=== PATIENT | male | born 1950 | race Caucasian/White ===

== ENCOUNTER → 2016-11-25 | Outpatient (CLI) | payer OTHER ==
[~2016-11-25] MED LIST: AMIO200T4 PO; AMLO-110 PO; ANSHCCR PR; APIX1TAB3 PO; BENZ1CAP90 PO; CLC100 PO; CRD200 PO; DABI150C PO; FEXO1TAB49 PO; IRBE-39 PO; METO25TA3 PO; MONT1TAB3 PO; NSP/500 PO; PRD75 PO; PRLSR20 PO; SPIR25TA PO; TRAM-10 PO; ULT50X PO; UMEC1INH INH; VNTHFA/IN INH
== END | disposition home or self-care (01) ==
LOC: C.LAB1850 10:06
PROVIDERS: ATTEND Family Medicine
DX: R91.8 Other nonspecific abnormal finding of lung field (principal)

== ENCOUNTER → 2016-11-26 | Outpatient (CLI) | payer OTHER | END | disposition home or self-care (01) | LOC: C.LAB 11:46 | PROVIDERS: ATTEND Surgery | DX: C34.90 Malignant neoplasm of unspecified part of unspecified bronchus or lung (principal) ==

== ENCOUNTER → 2016-12-08 | Outpatient (CLI) | payer OTHER ==
--- NOTE | 2016-12-08 12:09 | DIAGNOSTIC IMAGING REPORT ---
PET/CT SKULL-THIGH CLINICAL HISTORY: LUNG MASS COMPARISON STUDY: Outside CT scan dated 11/19/2016 FINDINGS: The patient was injected with 13.6 mCi of F 18 labeled FDG. Within the neck, there is mild asymmetric increased activity within the oropharynx at the base the tongue on the right. This has an SUV maximum 6.0. There is minimal associated soft tissue asymmetry. Direct visualization is recommended in follow-up. Within the chest, there is a left upper lobe pulmonary mass measuring 41 mm in long axis. This is FDG avid with SUV maximum of 9.5. This lesion should be presumed neoplastic unless proven otherwise. There is an FDG avid AP mediastinal lymph node abutting the anterior aspect of the descending thoracic aorta just distal to the arch. This measures 28 mm. This has an SUV maximum of 8.3. There is also an FDG avid AP window lymph node measuring 15 mm. This has an SUV maximum of 5.5. There are FDG avid right axillary lymph nodes measuring up to 11 mm in diameter. These have an SUV maximum of 4.9. Within the abdomen, there are no FDG avid hepatic masses. There are no FDG avid adrenal masses. There is physiologic urinary tract and bowel activity. There are no FDG avid skeletal lesions. IMPRESSION: 1. FDG avid left upper lobe pulmonary mass measuring 41 mm in diameter. This should be presumed neoplastic unless proven otherwise 2. FDG avid mediastinal adenopathy, suspicious for neoplasm 3. FDG avid right axillary lymph nodes 4. Asymmetric FDG activity within the oropharynx at the base the tongue on the right. Direct visualization is recommended in follow-up. Electronically signed by: Juan Arango M.D. 12/08/2016 12:07 PM Dictated Date/Time: 12/08/2016 11:56 AM
== END | disposition home or self-care (01) ==
LOC: C.PET 09:43
PROVIDERS: ATTEND Internal Medicine Pulmonary Disease
DX: R91.1 Solitary pulmonary nodule (principal)

== ENCOUNTER 2016-12-17 10:31 | Inpatient (IN) | payer OTHER ==
[2016-12-08 14:55] VITALS: BMI 31.0
[~2016-12-17] VITALS: Ht 182.9 cm; Wt 104.5 kg
[2016-12-17] VITALS (10 sets, daily range): BP systolic 111–147; BP diastolic 67–96; PULSE 52–88; TEMP 36.5; O2SAT 92–98; Ht 182.9 cm; Wt 104.5 kg
[~2016-12-17 10:31] MED LIST changes: -AMIO200T4 PO; -ANSHCCR PR; -APIX1TAB3 PO; -CLC100 PO; -CRD200 PO; +LACTATED RINGER'S 1000ML 1,000 ML IV SCH; -PRD75 PO; -TRAM-10 PO; -ULT50X PO; -VNTHFA/IN INH
[2016-12-17] MEDS ORDERED: MIDAZOLAM HCL 1 MG/ML 2ML VIAL ONE ×2 (10:49→14:36)
[2016-12-17] MEDS ORDERED: FENTANYL CITRATE INJ 50 MCG/1 ML 2 ML VIAL ONE (10:49)
--- NOTE | 2016-12-17 11:28 | Discharge Instructions ---
Discharge Instructions Visit Reason for Visit: Left Lung Mass Discharge Discharge Diagnosis / Problem: Left Lung Mass Discharge Goals Goal(s): Learn about illness Activity Recommendations Activity Limitations: resume your previous activity (in 24 hours) Anesthesia . Post Anesthesia Instructions: If you have had General Anesthesia or IV Sedation: * Do not drive today. * Resume driving when surgeon permits. * Do not make important decisions or sign legal documents today. * Call surgeon for: 1. Temperature elevations greater than 101 degrees F. 2. Uncontrollable pain. 3. Excessive bleeding. 4. Persistent nausea and vomiting. 5. Medication intolerance (nausea, vomiting or rash). * For nausea and vomiting use only clear liquids such as: tea, soda, bouillon until nausea subsides, then gradually increase diet as tolerated. * If you have any concerns or questions, call your surgeon's office. If physician is unavailable and it is an emergency, call 911 or go to the nearest emergency room. . Instructions / Follow-Up Instructions / Follow-Up 1. You may cough up some blood. Call physician if excessive amount noted. 2. keep your scheduled appointment with Dr. Ayala on December 27 @ 11:45. Diet Recommendations Recommended Home Diet: resume previous diet Pending Studies Studies pending at discharge: no Medical Emergencies . Who to Call and When: Medical Emergencies: If at any time you feel your situation is an emergency, please call 911 immediately. . Non-Emergent Contact . . "Provider Documentation" section prepared by Jesus Mcgill.
--- NOTE | 2016-12-17 11:53 | History & Physical Bridge Note ---
H&P Re-Evaluation Bridge Note: I have examined the patient, reviewed the History & Physical and in the interval since the performance of the History & Physical I have noted the following changes of clinical significance: No changes noted
[2016-12-17] MEDS ORDERED: DEXAMETHASONE SOD INJ 4 MG/ML VIAL ONE (12:36)
[2016-12-17] MEDS ORDERED: LIDOCAINE HCL 2% 2 ML VIAL (20MG/ML) ONE (12:36)
[2016-12-17] MEDS ORDERED: ONDANSETRON INJ 2 MG/ML 2 ML VIAL ONE (12:36)
[2016-12-17] MEDS ORDERED: PROPOFOL IV EMULSION 10 MG/ML 20 ML VIAL IV ONE (12:36)
[2016-12-17] MEDS ORDERED: GLYCOPYRROLATE INJ 0.2 MG/ML VIAL ONE (13:05)
[2016-12-17] MEDS ORDERED: LARYING-O-JET KIT (LTA) EXT ONE ×2 (13:06)
--- NOTE | 2016-12-17 13:59 | DIAGNOSTIC IMAGING REPORT ---
INTRAPROCEDURAL CHEST FILM [FLUOROSCOPIC SPOT IMAGE) CLINICAL HISTORY: Navigational Bronch w/biopsies COMPARISON STUDY: Outside chest x-ray 11/10/2016 FINDINGS: 228 seconds of fluoroscopic time was utilized. A single intraprocedural fluoroscopic spot images provided for interpretation. This demonstrates a bronchoscopic catheter projected over the left apex. IMPRESSION: Intraoperative fluoroscopic spot image of the chest obtained during navigational bronchoscopy Electronically signed by: Juan Arango M.D. 12/17/2016 1:57 PM Dictated Date/Time: 12/17/2016 1:56 PM
[2016-12-17] MEDS ORDERED: PROMETHAZINE HCL INJ 12.5 MG in SODIUM CHLORIDE 0.9% 50ML 50 ML IV PRN (14:00)
[2016-12-17] MEDS ORDERED: ONDANSETRON INJ 2 MG/ML 2 ML VIAL IV PRN ×2 (14:00→14:45)
[2016-12-17] MEDS ORDERED: EpHEDrine SULFATE INJ 50 MG/ML AMP IV PRN (14:00)
[2016-12-17] MEDS ORDERED: LABETALOL HCL IV 5 MG/ML 20ML IV PRN (14:00)
[2016-12-17] MEDS ORDERED: ALBUTEROL 0.083% NEBU SOLN 3 ML VIAL INH PRN (14:00)
[2016-12-17] MEDS ORDERED: ATROPINE SULFATE 0.1 MG/ML 5ML SYR IV PRN (14:00)
[2016-12-17] MEDS ORDERED: NURSING VERBAL MED ORDER ONE ×2 (14:20→14:35)
[2016-12-17] MEDS ORDERED: MoRPHine SULFATE 10 MG/ML CARP/VIAL ONE (14:20)
--- NOTE | 2016-12-17 14:25 | DIAGNOSTIC IMAGING REPORT ---
CHEST ONE VIEW PORTABLE HISTORY: s/p EBUS [place] Bronch COMPARISON: Chest 12/17/2016. FINDINGS: Large left pneumothorax with a maximal basilar pleural gap of 4.4 cm. Hazy appearance to the left lung is likely due to atelectasis. The heart is normal in size. There is question of mild right mediastinal shift. The right lung is clear. Left chest wall and neck base subcutaneous emphysema. IMPRESSION: A large left pneumothorax with questionable mild right mediastinal shift. Therefore, this raises the possibility of a tension pneumothorax. Electronically signed by: Zack Hernandez M.D. 12/17/2016 5:20 PM Dictated Date/Time: 12/17/2016 2:22 PM
[2016-12-17] MEDS ORDERED: D5W AND 1/2NSS 1,000 ML IV SCH (14:36)
[2016-12-17] MEDS ORDERED: MoRPHine SULFATE 2 MG/ML CARP IV PRN (14:45)
[2016-12-17] MEDS ORDERED: HYDROmorphone INJ 1 MG/ML SYR ONE (14:47)
--- NOTE | 2016-12-17 14:55 | DIAGNOSTIC IMAGING REPORT ---
SINGLE VIEW CHEST CLINICAL HISTORY: Chest tube placement. Pneumothorax. FINDINGS: An AP, portable, upright chest radiograph is compared to study performed earlier the same day 12/17/2016. Correlation with PET/CT dated 12/08/2016. The examination is degraded by portable technique, apical lordotic positioning, and patient rotation. The heart is enlarged and there is atherosclerotic calcification of the thoracic aorta. The pulmonary vascular structures noncongested. A chest tube has been placed. The tip terminates at the left apex. The left-sided pneumothorax has decreased in size. Only trace residual pneumothorax is seen at the left apex. Emphysema and chronic interstitial thickening is observed. Left apical density likely corresponds to the mass lesion seen on 12/08/2016. There is no large pleural effusion. The right lung is grossly clear. The skeletal structures are osteopenic. The bony thorax is grossly intact. Subcutaneous emphysema is present along the left chest wall. IMPRESSION: 1. A left-sided chest tube has been placed. There is only trace residual left apical pneumothorax. 2. Cardiomegaly and emphysema. 3. Left apical density likely corresponds to the patient's known left apical mass. Electronically signed by: Armando Soto M.D. 12/17/2016 2:54 PM Dictated Date/Time: 12/17/2016 2:51 PM
[2016-12-17] MEDS ORDERED: HYDROmorphone INJ 2 MG/ML SYR/VIAL IV PRN (15:00)
--- NOTE | 2016-12-17 15:08 | Anesthesiology Progress Note ---
Anesthesia Post Op Note Date & Time Dec 17, 2016 at 15:08 Vital Signs Pain Intensity: 4 Vital Signs Past 12 Hours Date Time Temp Pulse Resp B/P Pulse Ox O2 Delivery O2 Flow Rate FiO2 12/17/16 14:51 70 16 12/17/16 14:51 71 16 94 12/17/16 14:49 141/93 12/17/16 14:48 141/93 12/17/16 14:46 73 18 12/17/16 14:46 72 18 96 12/17/16 14:43 127/93 12/17/16 14:41 73 17 12/17/16 14:41 74 17 98 12/17/16 14:38 152/96 12/17/16 14:36 72 17 144/119 94 12/17/16 14:36 72 17 12/17/16 14:31 79 23 85 12/17/16 14:31 77 23 12/17/16 14:28 145/108 12/17/16 14:26 79 17 85 12/17/16 14:26 74 17 12/17/16 14:23 147/104 12/17/16 14:21 80 22 88 12/17/16 14:21 80 22 12/17/16 14:18 136/90 12/17/16 14:16 75 22 12/17/16 14:16 77 22 90 12/17/16 14:13 115/95 12/17/16 14:11 75 16 90 12/17/16 14:11 71 16 12/17/16 14:08 116/82 12/17/16 14:06 73 17 91 12/17/16 14:06 66 17 12/17/16 14:03 125/91 12/17/16 14:01 69 12/17/16 14:01 69 91 12/17/16 13:58 124/82 12/17/16 13:56 74 19 12/17/16 13:56 74 19 116/87 92 12/17/16 13:53 85/73 12/17/16 13:51 36.3 77 16 104/85 98 Mask 10 12/17/16 13:51 84 21 12/17/16 13:51 84 21 96 12/17/16 11:02 36.5 57 16 137/96 98 Room Air Notes Mental Status: alert / awake / arousable, participated in evaluation Pt Amnestic to Procedure: Yes Nausea / Vomiting: adequately controlled Pain: adequately controlled Airway Patency, RR, SpO2: stable & adequate BP & HR: stable & adequate Hydration State: stable & adequate Anesthetic Complications: no major complications apparent
[2016-12-17] MEDS: KETOROLAC TROMETHAMINE 15 MG/ML VIAL IV. SCH (18:00)
[2016-12-17] MEDS: ACETAMINOPHEN IV 1,000 MG in EMPTY BAG 0 ML IV SCH ×2 (18:24→23:58)
[2016-12-17] MEDS: METOCLOPRAMIDE HCL INJ 5 MG/ML 2 ML VIAL IV. SCH ×2 (18:26→23:58)
[2016-12-17] MEDS: MoRPHine SULFATE 2 MG/ML CARP IV PRN ×2 (19:07→20:42)
[2016-12-17] MEDS: CLINDAMYCIN IV 900 MG in DEXTROSE 5% ADD-VANTAGE 100ML 100 ML IV SCH (19:07)
[2016-12-17] MEDS: DOCUSATE SODIUM 100 MG CAP PO SCH (20:42)
[2016-12-17] MEDS ORDERED: NIASPAN 500 MG TABCR PO SCH (21:00)
[2016-12-17] MEDS ORDERED: METOPROLOL SUCC 50MG EXT REL TAB PO SCH (21:00)
[2016-12-17] MEDS ORDERED: MONTELUKAST SOD 10 MG TAB PO SCH (21:00)
[2016-12-17] MEDS: OXYCODONE/ACETAMINOPHEN 5-325 TAB PO PRN (23:58)
--- NOTE | 2016-12-18 01:58 | OPERATIVE REPORT ---
DATE OF OPERATION: 12/17/2016 PROCEDURE: Insertion of left 24-[place] thoracostomy tube. SURGEON: Dr. Thorne. Field Assembly Supervisor: NICOLE Mcclain. ANESTHESIA: Local. SPECIFICS OF PROCEDURE: The patient underwent an Electromagnetic navigational bronchoscopy with forceps, needle and brushings of a left upper lobe apical mass. We had no bleeding and had no other problem throughout the case, however, a post-procedure chest x-ray showed about at least a 50% pneumothorax and he started to getting some respiratory distress. After discussing thoroughly with the patient's and the patient, appropriate consent was obtained. The patient was given 2 mg of morphine and then I prepped his left anterior chest. At about the sixth interspace, I opened a small incision about 10-15 mm and using a long needle I anesthetized the deeper tissues over the overlying rib and then put the needle and once the needle got in, I got air back. I inserted a soft J-tip guidewire and then removed the needle. A dilator was slid over this and then removed. A 24-[place] chest tube was then slid over the guidewire with an enter obturator which was removed with the guidewire after I inserted this to the apex. It was sutured in place with a heavy silk suture. Small to moderate air leak, but no pneumothorax after the procedure. He tolerated it well. There was no bleeding. I attest to the content of the Intraoperative Record and any orders documented therein. Any exceptio ns are noted below.
[2016-12-18] MEDS: KETOROLAC TROMETHAMINE 15 MG/ML VIAL IV. SCH ×2 (02:00→10:00)
--- NOTE | 2016-12-18 02:17 | OPERATIVE REPORT ---
DATE OF OPERATION: 12/17/2016 PREOPERATIVE DIAGNOSIS: Hypermetabolic left upper lobe mass with mediastinal adenopathy. 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 PROCEDURE: 1. Endobronchial ultrasound with biopsy. 2. Navigational bronchoscopy with biopsies. SURGEON: Dr. Thorne. COMPOSITION SIDING WORKER: Ottoniel Dent, respiratory therapy. ANESTHESIA: General anesthesia with endotracheal intubation. INDICATION FOR PROCEDURE AND FINDINGS: Yoel Martinez is a very nice 66-year-old male who was found to have a left upper lobe mass and was referred for an evaluation. I was concerned about his mediastinal adenopathy, especially in the aortopulmonary window. I ordered a PET scan and set him up for an endobronchial ultrasound and a navigational bronchoscopy so we would make a tissue diagnosis. His mass was not in an area that was good for percutaneous biopsy given its proximity to the subclavian vessels. On 12/17/2016, the patient underwent an uncomplicated endobronchial ultrasound. I could not get to his aortopulmonary window node which was markedly hypermetabolic on the PET scan; however, a level 7 node did have metastatic disease. It was difficult to say what cell type, and given the fact that this was fairly advanced disease, I thought that tissue biopsy with more tissue was important. I discussed this with Dr. Wes Zamudio. The navigational bronchoscopy went well. I felt like I was in it using the radial ultrasound probe and the computer guide; however, while there were some suspicious cells, we did not get a confirmatory diagnosis. He tolerated it well; however, he was seen to have a pneumothorax postoperatively and I did insert a chest tube in the PACU. PROCEDURE IN DETAIL: The patient brought to the operating room and laid in supine position. General anesthesia induced and endotracheal intubation was performed. After appropriate antibiotics and timeout had been called, endobronchial ultrasound probe was placed through the endotracheal tube. Going down, I thoroughly evaluated both the right and left side. There were no endobronchial lesions noted and there was very little in the way of any sputum. He also had very small lymph nodes. I really did not visualize the aortopulmonary window node well, which does not surprise me, it is really not amenable to endobronchial ultrasound. However, he still had some small nodes in the level 7 area. I did biopsy several different lymph node stations but was surprised when Dr. Wes Zamudio called the room and stated that the level 7 nodes had metastatic carcinoma. Unfortunately, it was a small node, he really was unable to make a diagnosis. After discussion, I felt that since his mass in the left upper lobe was rather large, that we would do an electromagnetic navigational bronchoscopy to get more cells for molecular analysis and other studies. The bronchoscopes were switched out and a fiberoptic bronchoscope was placed. We really had no bleeding from the endobronchial ultrasound puncture sites. I then went down into the left upper lobe bronchus, and using the navigational guide after I had registered the airways, I advanced up into the left upper lobe. It was not too hard to identify this mass and I got right out to it and I actually approached it from 2 different areas and did brushings which were suspicious on the rapid onsite evaluation. I also performed several needle biopsies from two directions as well as forceps biopsies with touch preps on both sides, I did do bronchial washings from this area using the navigational probe sheath. Really had no bleeding from any of this. The patient looked good and was extubated in the room. He was transported to the postanesthesia care unit. Unfortunately, his x-ray showed he has fairly sizable pneumothorax and he was getting to some respiratory distress, so I inserted a 24-[place] chest tube to his apex and this improved. I dictated that separately. I attest to the content of the Intraoperative Record and any orders documented therein. Any exceptions are noted below. ROSCOE
[2016-12-18] MEDS: CLINDAMYCIN IV 900 MG in DEXTROSE 5% ADD-VANTAGE 100ML 100 ML IV SCH (02:25)
[2016-12-18 03:45] VITALS: BP 131/79; PULSE 52; TEMP 36.5; O2SAT 90
[2016-12-18] MEDS: MoRPHine SULFATE 2 MG/ML CARP IV PRN (03:48)
[2016-12-18 05:59] LABS: INR 1.1 (0.9-1.1); PROTHROMBIN TIME (PATIENT) 11.9 SECONDS (9.0-12.0)
[2016-12-18] MEDS: OXYCODONE/ACETAMINOPHEN 5-325 TAB PO PRN (07:06)
--- NOTE | 2016-12-18 07:23 | DIAGNOSTIC IMAGING REPORT ---
CHEST ONE VIEW PORTABLE CLINICAL HISTORY: pneumothorax dyspnea COMPARISON STUDY: 12/17/2016 FINDINGS: Left-sided chest tube unchanged in position. Improved aeration left hemithorax. No significant residual pneumothorax. Improved subcutaneous emphysematous change. IMPRESSION: Improved exam. No significant residual pneumothorax. Electronically signed by: Benji Ramirez M.D. 12/18/2016 7:22 AM Dictated Date/Time: 12/18/2016 7:21 AM
[2016-12-18] MEDS: ACETAMINOPHEN IV 1,000 MG in EMPTY BAG 0 ML IV SCH (07:25)
[2016-12-18] MEDS: METOCLOPRAMIDE HCL INJ 5 MG/ML 2 ML VIAL IV. SCH (07:27)
[2016-12-18] MEDS: DOCUSATE SODIUM 100 MG CAP PO SCH (07:28)
[2016-12-18 07:31] VITALS: BP 168/88; PULSE 77; TEMP 36.8; O2SAT 91
[2016-12-18 07:45] VITALS: O2SAT 91
[2016-12-18] MEDS ORDERED: FEXOFENADINE HCL 180 MG TAB PO SCH (09:00)
[2016-12-18] MEDS ORDERED: METOPROLOL SUCC 25MG EXT REL TAB PO SCH (09:00)
[2016-12-18] MEDS ORDERED: ENOXAPARIN 40 MG/0.4 ML SYR SQ SCH ×2 (09:00)
[2016-12-18] MEDS ORDERED: DABIGATRAN ELEXILATE 75 MG CAP PO SCH (09:00)
[2016-12-18] MEDS ORDERED: AMLODIPINE BESYLATE 5 MG TAB PO SCH (09:00)
--- NOTE | 2016-12-18 10:00 | DIAGNOSTIC IMAGING REPORT ---
CHEST ONE VIEW PORTABLE CLINICAL HISTORY: chest tube removal dyspnea COMPARISON STUDY: 12/18/2016 17 a.m. FINDINGS: Interval removal left-sided chest tube. Very small left apical pneumothorax. Pleural separation of 5 mm. Right lung is considered clear. IMPRESSION: Interval removal left chest tube. Minimal residual left apical pneumothorax. Electronically signed by: Benji Ramirez M.D. 12/18/2016 9:58 AM Dictated Date/Time: 12/18/2016 9:57 AM
[2016-12-18] MEDS ORDERED: ULT50X PO (10:12)
[2016-12-18 10:27] VITALS: BP 168/88; PULSE 77; TEMP 36.8; O2SAT 91
--- NOTE | 2016-12-18 11:51 | DISCHARGE SUMMARY ---
DISCHARGE DIAGNOSES: 1. Iatrogenic left pneumothorax following navigational bronchoscopy. 2. Probable metastatic nonsmall cell lung carcinoma. HOSPITAL COURSE: Yoel Martinez is a 66-year-old male who came in with left upper lobe mass with mediastinal adenopathy, particularly in the aortopulmonary window area. I am concerned he may well have metastatic disease. A PET scan was performed after my office evaluation and he had a hypermetabolic area in his pharynx; however, he underwent an endoscopy which showed no evidence of metastatic disease. In addition, he has hypermetabolic nodes which are very small in the right axilla. The AP window node was very large. We did not have a tissue diagnosis. My suspicion for a nonsmall cell lung carcinoma is very high. On 12/17/2016, patient underwent an endobronchial ultrasound and there were suspicious cells in the level 7 area. We will have to wait for the cell block. In addition, I did a navigational bronchoscopy as we really need tissue. I performed multiple biopsies and there are suspicious cells. After the surgery, he was noted to have a large pneumothorax. He was having some respiratory difficulty, so I placed a 24-Hebrew chest tube in the PACU. Pneumothorax resolved. The following morning on 12/18/2016, he no longer had an air leak. I removed the chest tube. His post chest tube removal chest x-ray showed no evident pneumothorax. He actually looked very good. His incision was clean. I gave him discharge instructions for wound care and to remove the dressing in 3 days and shower. I will see him back in the office this week and we will go over the final pathology results. I did give him some tramadol for pain. He looked quite good the morning of discharge.
[2017-02-15] MEDS ORDERED: AMIO200T4 PO (12:04)
[2017-02-15] MEDS ORDERED: VNTHFA/IN INH (12:04)
[2017-02-15] MEDS ORDERED: APIX1TAB3 PO (12:04)
[2017-03-11] MEDS ORDERED: ANSHCCR PR (11:46)
[2017-03-11] MEDS ORDERED: APIX1TAB3 PO (11:46)
== END 2016-12-18 12:00 | disposition home or self-care (01) | DRG 167 ==
LOC: ENRESERVTM → ENRESERVDT → C.ACU 10:31 → C.MSN 10:45
PROVIDERS: ADMIT Surgery; ATTEND Surgery
PROC: 0BB88ZX Excision of Left Upper Lobe Bronchus, Via Natural or Artificial Opening Endoscopic, Diagnostic (ICD-10-PCS; principal; 2016-12-17 11:45)
PROC: 0WHB3YZ Insertion of Other Device into Left Pleural Cavity, Percutaneous Approach (ICD-10-PCS; principal; 2016-12-17 11:45)
PROC: 07B74ZX Excision of Thorax Lymphatic, Percutaneous Endoscopic Approach, Diagnostic (ICD-10-PCS; principal; 2016-12-17 11:45)
DX: C34.12 Malignant neoplasm of upper lobe, left bronchus or lung (principal); J95.811 Postprocedural pneumothorax; C77.1 Secondary and unspecified malignant neoplasm of intrathoracic lymph nodes; I10 Essential (primary) hypertension; J44.9 Chronic obstructive pulmonary disease, unspecified; K21.9 Gastro-esophageal reflux disease without esophagitis; F52.8 Other sexual dysfunction not due to a substance or known physiological condition; E78.00 Pure hypercholesterolemia, unspecified; I48.0 Paroxysmal atrial fibrillation; Z79.82 Long term (current) use of aspirin; Z87.891 Personal history of nicotine dependence

== ENCOUNTER → 2016-12-24 | Outpatient (CLI) | payer OTHER ==
[~2016-12-24] MED LIST changes: +AMIO200T4 PO; +ANSHCCR PR; +APIX1TAB3 PO; +CLC100 PO; +CRD200 PO; -LACTATED RINGER'S 1000ML 1,000 ML IV SCH; +PRD75 PO; +TRAM-10 PO; +ULT50X PO; +VNTHFA/IN INH
--- NOTE | 2016-12-24 10:28 | DIAGNOSTIC IMAGING REPORT ---
TWO VIEW CHEST CLINICAL HISTORY: Pulmonary mass. Pneumothorax. FINDINGS: PA and lateral chest radiographs are compared to study dated 12/18/16 and correlated with chest CT dated 12/19/16. The PA view is degraded by apical lordotic positioning. The heart is mildly enlarged. The pulmonary vasculature is noncongested. Advanced emphysema and chronic interstitial thickening are similar to previous. Left apical density is again seen and likely corresponds to patient's known left apical pulmonary lesion. Pleural fluid is present the left lung base. No airspace consolidation is seen typical for pneumonia. No pneumothorax is identified. The skeletal structures are osteopenic. The bony thorax appears intact. Minimal residual subcutaneous emphysema is noted in the left lower neck. IMPRESSION: 1. No definite residual pneumothorax is seen. 2. Cardiomegaly, advanced emphysema, and a left apical pulmonary lesion are unchanged from previous. 3. There is pleural fluid at the left lung base. Electronically signed by: Armando Soto M.D. 12/24/2016 10:27 AM Dictated Date/Time: 12/24/2016 10:23 AM
== END | disposition home or self-care (01) ==
LOC: C.RAD1850 10:10
PROVIDERS: ATTEND Surgery
DX: R91.1 Solitary pulmonary nodule (principal); R91.8 Other nonspecific abnormal finding of lung field

== ENCOUNTER → 2017-02-22 | Outpatient (CLI) | payer OTHER ==
[~2017-02-22] MED LIST changes: -DABI150C PO; -METO25TA3 PO; -ULT50X PO
[2017-02-22 18:48] LABS: ALKALINE PHOSPHATASE 71 U/L (45-117); ALT/SGPT 27 U/L (12-78); AST/SGOT 20 U/L (15-37)
== END | disposition home or self-care (01) ==
LOC: C.LABMFLN 11:57
PROVIDERS: ATTEND Internal Medicine
DX: I48.0 Paroxysmal atrial fibrillation (principal); Z51.81 Encounter for therapeutic drug level monitoring; Z79.899 Other long term (current) drug therapy

== ENCOUNTER 2017-02-23 05:12 | Day surgery (SDC) | payer OTHER ==
[2017-02-15 12:05] VITALS: BMI 31.0
[~2017-02-23] VITALS: Ht 182.9 cm; Wt 104.5 kg
[~2017-02-23 05:12] MED LIST changes: -ANSHCCR PR; -CLC100 PO; -CRD200 PO; -PRD75 PO; -TRAM-10 PO
[2017-02-23 05:43] VITALS: BP 149/97; PULSE 63; TEMP 36.4; O2SAT 97; Ht 182.9 cm; Wt 104.5 kg
[2017-02-23] MEDS ORDERED: SODIUM CHLORIDE 0.9% 500ML 500 ML IV ONE (06:00)
[2017-02-23] MEDS ORDERED: LACTATED RINGER'S 1000ML 1,000 ML IV SCH (06:00)
[2017-02-23] MEDS ORDERED: PROPOFOL IV EMULSION 10 MG/ML 20 ML VIAL IV ONE (07:01)
[2017-02-23] MEDS ORDERED: LIDOCAINE HCL 2% 2 ML VIAL (20MG/ML) ONE (07:01)
[2017-02-23] MEDS ORDERED: FENTANYL CITRATE INJ 50 MCG/1 ML 2 ML VIAL ONE (07:02)
[2017-02-23] MEDS ORDERED: MIDAZOLAM HCL 1 MG/ML 2ML VIAL ONE (07:02)
--- NOTE | 2017-02-23 07:11 | Endo History and Physical ---
History & Physical Date of Service: Feb 23, 2017. Chief Complaint: Enlarged AP window Lymph Node Referring Physician: History of Present Illness 66 yo with a hypermetabolic left upper lobe lung mass as well as mediastinal lymph node in the 4L position, presenting for evaluation of possible endoscopic ultrasound biopsy of the lymph node for diagnosis. Patient recently dx with afib and recent pulmonary infection. Past Surgical History Hx Cardiac Surgery: Yes (cardiac ablation) Hx Abdominal Surgery: Yes (gallbladder) Hx Post-Op Nausea and Vomiting: No Hx Cancer Surgery: No Hx Thoracic Surgery: No Hx Orthopedic: Yes (repair of torn cartilage in right knee) Hx Urinary Tract Surgery: No Social History Smoking Status: Former Smoker Hx Substance Use: No Hx Alcohol Use: No Allergies Coded Allergies: No Known Allergies (Unverified , 02/23/17) Current Medications Reported Home Medications Medications Dose Route/Sig Max Daily Dose Days Date Category Cordarone (Amiodarone Hcl) 200 Mg Tab 200 Mg PO QAM 02/15/17 Reported Eliquis (Apixaban) 5 Mg Tab 5 Mg PO BID 02/15/17 Reported Ventolin Hfa (Albuterol) 200 Puffs/89056 Mcg Aers 2-4 Puffs INH Q6H PRN 02/15/17 Reported Singulair (Montelukast Sodium) 10 Mg Tab 10 Mg PO HS 12/08/16 Reported Muna Allergy (Fexofenadine Hcl) 180 Mg Tab 1 Tab PO QAM 12/08/16 Reported Niaspan Ext Rel (Niacin) 500 Mg Tabcr 500 Mg PO HS 12/08/16 Reported Norvasc (Amlodipine Besylate) 5 Mg Tab 5 Mg PO QAM 12/08/16 Reported Avapro (Irbesartan) 300 Mg Tab 1 Tab PO QAM 12/08/16 Reported Aldactone (Spironolactone) 25 Mg Tab 25 Mg PO QAM 12/08/16 Reported Prilosec (Omeprazole) 20 Mg Capcr 20 Mg PO QAM 12/08/16 Reported Incruse Ellipta (Umeclidinium [place]) 62.5 Mcg/Inh Inh 1 Puff INH QAM 12/08/16 Reported Tessalon Perles (Benzonatate) 200 Mg Cap 200 Mg PO TID PRN 12/08/16 Reported Vital Signs Weight (Kilograms): 104.55 Height (Feet): 6 Height (Inches): 0 Physical Exam General Appearance: WD/WN Respiratory/Chest: Respiratory effort: no dyspnea Auscultation: breath sounds normal, CTA except as noted Cardiovascular: Apical Impulse: not displaced Heart Auscultation: RRR, normal S1, normal S2 Abdomen: Bowel Sounds: normal Inspection & Palpation: soft, non-distended Assessment and Plan Plan on proceeding with EUS for evaluation of possible FNA -may not be amendable based upon vasculature, but will proceed for evaluation
--- NOTE | 2017-02-23 07:11 | Endo History and Physical ---
History & Physical Date of Service: Feb 23, 2017. Chief Complaint: Referring Physician: History of Present Illness 66 yo with a hypermetabolic left upper lobe lung mass as well as mediastinal lymph node in the 4L position, presenting for evaluation of possible endoscopic ultrasound biopsy of the lymph node for diagnosis. Patient recently dx with afib and recent pulmonary infection. Past Surgical History Hx Cardiac Surgery: Yes (cardiac ablation) Hx Abdominal Surgery: Yes (gallbladder) Hx Post-Op Nausea and Vomiting: No Hx Cancer Surgery: No Hx Thoracic Surgery: No Hx Orthopedic: Yes (repair of torn cartilage in right knee) Hx Urinary Tract Surgery: No Social History Smoking Status: Former Smoker Hx Substance Use: No Hx Alcohol Use: No Allergies Coded Allergies: No Known Allergies (Unverified , 02/23/17) Current Medications Reported Home Medications Medications Dose Route/Sig Max Daily Dose Days Date Category Cordarone (Amiodarone Hcl) 200 Mg Tab 200 Mg PO QAM 02/15/17 Reported Eliquis (Apixaban) 5 Mg Tab 5 Mg PO BID 02/15/17 Reported Ventolin Hfa (Albuterol) 200 Puffs/33926 Mcg Aers 2-4 Puffs INH Q6H PRN 02/15/17 Reported Singulair (Montelukast Sodium) 10 Mg Tab 10 Mg PO HS 12/08/16 Reported Muna Allergy (Fexofenadine Hcl) 180 Mg Tab 1 Tab PO QAM 12/08/16 Reported Niaspan Ext Rel (Niacin) 500 Mg Tabcr 500 Mg PO HS 12/08/16 Reported Norvasc (Amlodipine Besylate) 5 Mg Tab 5 Mg PO QAM 12/08/16 Reported Avapro (Irbesartan) 300 Mg Tab 1 Tab PO QAM 12/08/16 Reported Aldactone (Spironolactone) 25 Mg Tab 25 Mg PO QAM 12/08/16 Reported Prilosec (Omeprazole) 20 Mg Capcr 20 Mg PO QAM 12/08/16 Reported Incruse Ellipta (Umeclidinium [place]) 62.5 Mcg/Inh Inh 1 Puff INH QAM 12/08/16 Reported Tessalon Perles (Benzonatate) 200 Mg Cap 200 Mg PO TID PRN 12/08/16 Reported Vital Signs Weight (Kilograms): 104.55 Height (Feet): 6 Height (Inches): 0 Date Time Temp Pulse Resp B/P Pulse Ox O2 Delivery O2 Flow Rate FiO2 02/23/17 05:43 36.4 63 22 149/97 97 Room Air Physical Exam Respiratory/Chest: Respiratory effort: no dyspnea Auscultation: breath sounds normal, CTA except as noted
[2017-02-23] MEDS ORDERED: DEXAMETHASONE SOD INJ 4 MG/ML VIAL ONE (07:55)
[2017-02-23] MEDS ORDERED: ONDANSETRON INJ 2 MG/ML 2 ML VIAL ONE (07:55)
[2017-02-23] MEDS ORDERED: EpHEDrine SULFATE 50MG/5ML SYR ONE (07:55)
--- NOTE | 2017-02-23 08:32 | Discharge Instructions ---
Endoscopy Patient Instructions Date / Procedure(s) Performed Feb 23, 2017. Allergy Information Coded Allergies: No Known Allergies (Unverified , 02/23/17) Discharge Date / Findings Feb 23, 2017. Enlarged lymph node that was aspirated Medication Instructions Restart Stopped Medication(s): Please restart your eloquis tomorrow Provider Instructions Activity Restrictions - No exercising or heavy lifting for 24 hours. - Do not drink alcohol the day of the procedure. - Do not drive a car or operate machinery until the day after the procedure. - Do not make any important decisions or sign important papers in 24 hours after the procedure. Following Day: - Return to full activity which may include returning to work/school. Diet Start your diet with liquids and light foods (jello, soup, juice, toast). Then eat your usual diet if not nauseated. Treatment For Common After Affects For mild abdominal pain, bloating, or excessive gas: - Rest - Eat lightly - Lie on right side Follow-Up Information Follow-up with as scheduled Anesthesia Information What You Should Know You have had a procedure that required some medicine to reduce anxiety and discomfort. This treatment is called moderate sedation. After receiving the treatment, you may be sleepy, but you will be able to breathe on your own. The effects of the treatment may last for several hours. Follow these instructions along with Activity/Diet recommendations noted above: * Do NOT do anything where dizziness or clumsiness would be dangerous. * Rest quietly at home today, then you can be up and about tomorrow. * Have a responsible person stay with you the rest of today. * You may have had an I.V. today. If so, you may take the dressing off later today. Recommendations Call your doctor if: * Trouble breathing * Continuous vomiting for more than 24 hours * Temperature above 101 degrees * Severe abdominal pain or bloating * Pain not relieved by pain medicine ordered * There is increased drainage or redness from any incision * A large amount of rectal bleeding greater than 2-3 tablespoons. (If you had a polyp/s removed or have hemorrhoids, a small amount of blood - from the rectum is to be expected.) * You have any unanswered questions or concerns. IN THE EVENT OF A SERIOUS EMERGENCY, GO TO THE NEAREST EMERGENCY ROOM Your discharge instructions were prepared by provider Donovan Zepeda. Patient Instructions Signature Page Yoel Martinez Patient (or Guardian) Signature/Date: I have read and understand the instructions given to me by my caregivers. Caregiver/RN/Doctor Signature/Date: The above-named patient and/or guardian has received patient instructions on this date. + Original Patient Signature Page (only) stays with chart. Please make copy for patient.
--- NOTE | 2017-02-23 08:40 | GI REPORT ---
Procedure Date: 02/23/2017 7:29 AM Procedure: Upper EUS Indications: Adenopathy seen on chest CT, Abnormal chest CT with hypermetabolic left upper lung mass Medicines: General Anesthesia Complications: No immediate complications. Estimated blood loss: None. Estimated Blood Loss: Estimated blood loss: none. Procedure: Pre-Anesthesia Assessment: - Pre-Anesthesia Assessment: - Prior to the procedure, a History and Physical was performed, and patient medications, allergies and sensitivities were reviewed. The patient's tolerance of previous anesthesia was reviewed. Please see [facility] for complete details. - The risks and benefits of the procedure and the sedation options and risks were discussed with the patient. All questions were answered and informed consent was obtained. - Patient identification and proposed procedure were verified prior to the procedure by the physician and the nurse. The procedure was verified in the pre-procedure area in the procedure room. After obtaining informed consent, the endoscope was passed carefully and meticuously under direct vision and only advanced when the lumen was clearly identified, C02 insuflation was utilized throughout the entirity of the procedure. Throughout the procedure, the patient's blood pressure, pulse, and oxygen saturations were monitored continuously. After obtaining informed consent, the endoscope was passed under direct vision. Throughout the procedure, the patient's blood pressure, pulse, and oxygen saturations were monitored continuously. The Endosonoscope was introduced through the mouth, and advanced to the second part of duodenum. The upper EUS was accomplished without difficulty. The patient tolerated the procedure well. Findings: Endosonographic Finding : One malignant-appearing lymph node was visualized in the aortopulmonary region (level 5). It measured 8 mm by 6 mm in maximal cross-sectional diameter. The node was round, hypoechoic and had well defined margins. Fine needle aspiration for cytology was performed. Color Doppler imaging was utilized prior to needle puncture to confirm a lack of significant vascular structures within the needle path. Five passes were made with the 22 gauge needle using a transesophageal approach. A stylet was used. A buffing wheel former automatic was present and performed a preliminary cytologic examination. The cellularity of the specimen was adequate. Final cytology results are pending. There was no sign of significant endosonographic abnormality in the left lobe of the liver. There was no sign of significant endosonographic abnormality in the entire examined left adrenal gland. There was no sign of significant endosonographic abnormality in the entire examined left adrenal gland. Impression: - One malignant-appearing lymph node was visualized in the aortopulmonary region (level 5). Fine needle aspiration performed. - There was no evidence of significant pathology in the left lobe of the liver. - Endosonographic images of the left adrenal gland were unremarkable. - Endosonographic images of the left adrenal gland were unremarkable. Recommendation: - Discharge patient to home (with escort). - Await cytology results. - Restart blood thinner tomorrow Donovan Zepeda MD 02/23/2017 8:39:27 AM This report has been signed electronically. Note Initiated On: 02/23/2017 7:29 AM I attest to the content of the Intraoperative Record and orders documented therein, exceptions below
--- NOTE | 2017-02-23 08:55 | Anesthesiology Progress Note ---
Anesthesia Post Op Note Date & Time Feb 23, 2017 at 08:54 Vital Signs Pain Intensity: 0 Vital Signs Past 12 Hours Date Time Temp Pulse Resp B/P Pulse Ox O2 Delivery O2 Flow Rate FiO2 02/23/17 08:45 57 14 135/90 100 Nasal Cannula 3 02/23/17 08:35 58 16 133/82 100 Mask 10 02/23/17 08:28 36.1 62 16 135/86 100 Mask 10 02/23/17 05:43 36.4 63 22 149/97 97 Room Air Notes Mental Status: alert / awake / arousable, participated in evaluation Pt Amnestic to Procedure: Yes Nausea / Vomiting: adequately controlled Pain: adequately controlled Airway Patency, RR, SpO2: stable & adequate BP & HR: stable & adequate Hydration State: stable & adequate Anesthetic Complications: no major complications apparent
[2017-02-23] MEDS ORDERED: EpHEDrine SULFATE INJ 50 MG/ML AMP IV PRN (09:00)
[2017-02-23] MEDS ORDERED: ATROPINE SULFATE 0.1 MG/ML 5ML SYR IV PRN (09:00)
[2017-02-23 09:10] VITALS: BP 131/87; PULSE 65; TEMP 36.5; O2SAT 93
[2017-02-23 09:40] VITALS: BP 149/95; PULSE 60; TEMP 36.5; O2SAT 98
[2017-02-23 10:10] VITALS: BP 152/96; PULSE 83; TEMP 36.4; O2SAT 97
[2017-02-23] MEDS ORDERED: SUCCINYLCHOLINE CHLORIDE 20 MG/ML 10 ML VIAL IV ONE (10:14)
[2017-02-23] MEDS ORDERED: ROCURONIUM BROMIDE 10 MG/ML 5 ML VIAL ONE (10:14)
[2017-03-11] MEDS ORDERED: ANSHCCR PR (11:46)
[2017-03-11] MEDS ORDERED: APIX1TAB3 PO (11:46)
== END 2017-02-23 10:20 | disposition home or self-care (01) ==
LOC: C.ACU 05:12
PROVIDERS: ATTEND Internal Medicine
DX: R59.1 Generalized enlarged lymph nodes (principal); Z79.899 Other long term (current) drug therapy; Z87.891 Personal history of nicotine dependence

== ENCOUNTER 2017-03-17 06:24 | Inpatient (IN) | payer OTHER ==
[2017-03-11 11:46] VITALS: BMI 31.0
--- NOTE | 2017-03-11 12:31 | PAT Medication Instructions ---
Service Date Mar 11, 2017. Current Home Medication List Albuterol Hfa (Ventolin Hfa), 2-4 PUFFS INH Q6H PRN for SOB/Wheezing Amiodarone Hcl (Cordarone), 200 MG PO QAM Amlodipine (Norvasc), 5 MG PO QAM Apixaban (Eliquis), 5 MG PO BID Benzonatate (Tessalon Perles), 200 MG PO TID PRN for Cough Fexofenadine Hcl (Muna Allergy), 1 TAB PO QAM Hydrocortisone (Proctosol Hc), 1 APPLN [place] BID PRN for PRN Irbesartan (Avapro), 1 TAB PO QAM Montelukast Sodium (Singulair), 10 MG PO HS Niacin (Niaspan Ext Rel), 500 MG PO HS Omeprazole (Prilosec), 20 MG PO QAM Spironolactone (Aldactone), 25 MG PO QAM Umeclidinium Edwards (Incruse Ellipta), 1 PUFF INH QAM Medication Instructions For Your Scheduled Surgery - Hold the following medications 5 days prior to surgery per surgeon and prescribing physician's instructions: Apixaban (Eliquis), 5 MG PO BID - Hold the following medications 24 hours prior to surgery: Niacin (Niaspan Ext Rel), 500 MG PO HS - Hold the following medications the morning of surgery: Benzonatate (Tessalon Perles), 200 MG PO TID PRN for Cough Fexofenadine Hcl (Muna Allergy), 1 TAB PO QAM Irbesartan (Avapro), 1 TAB PO QAM Spironolactone (Aldactone), 25 MG PO QAM - Take the following medications the morning of surgery with a sip of water OTHERWISE NOTHING TO EAT OR DRINK AFTER MIDNIGHT: Albuterol Hfa (Ventolin Hfa), 2-4 PUFFS INH Q6H PRN for SOB/Wheezing (use if needed; BRING TO HOSPITAL) Amiodarone Hcl (Cordarone), 200 MG PO QAM Amlodipine (Norvasc), 5 MG PO QAM Omeprazole (Prilosec), 20 MG PO QAM Umeclidinium Edwards (Incruse Ellipta), 1 PUFF INH QAM - Take the following medications as scheduled the night before surgery: Albuterol Hfa (Ventolin Hfa), 2-4 PUFFS INH Q6H PRN for SOB/Wheezing Benzonatate (Tessalon Perles), 200 MG PO TID PRN for Cough (as needed) Hydrocortisone (Proctosol Hc), 1 APPLN [place] BID PRN (as needed) Montelukast Sodium (Singulair), 10 MG PO HS If you have any questions please call us at [phone] or [phone] or [phone]
[2017-03-11 13:15] LABS: BASO % 0.3 %; BASO ABS # 0.02 K/uL (0-0.2); COMPLETE YES; EOS % 3.2 %; IG% 0.3 %; LYMPH % 25.3 %; LYMPH ABS # 1.96 K/uL (1.2-3.4); MEAN CELL VOLUME 87.2 fL (80-100); MEAN CORPUSCULAR HEMOGLOBIN 30.6 pg (25-34); MEAN CORPUSCULAR HGB CONC 35.1 g/dl (32-36); MEAN PLATELET VOLUME 9.1 fL (7.4-10.4); MONO % 14.7 %; NEUT % 56.2 %; PLATELET COUNT 308 K/uL (130-400); RED BLOOD COUNT 5.16 M/uL (4.7-6.1); WHITE BLOOD COUNT 7.74 K/uL (4.8-10.8)
[2017-03-11 13:36] LABS: CALCIUM 9.5 mg/dl (8.5-10.1)
[2017-03-11 13:49] LABS: BUN/CREATININE RATIO 11.8 (10-20); CREATININE 0.99 mg/dl (0.60-1.40); POTASSIUM 4.3 mmol/L (3.5-5.1)
[2017-03-17] VITALS (18 sets, daily range): BP systolic 97–154; BP diastolic 62–107; PULSE 57–89; TEMP 36.4–36.7; O2SAT 92–98; Ht 182.9 cm; Wt 107.3 kg
[~2017-03-17] VITALS: Ht 182.9 cm; Wt 107.3 kg
[~2017-03-17 06:24] MED LIST changes: +ANSHCCR PR; +LACTATED RINGER'S 1000ML 1,000 ML IV SCH
[2017-03-17] MEDS ORDERED: FENTANYL CITRATE INJ 50 MCG/1 ML 2 ML VIAL ONE ×2 (07:45→10:34)
[2017-03-17] MEDS ORDERED: ROCURONIUM BROMIDE 10 MG/ML 5 ML VIAL ONE ×3 (07:45→11:36)
[2017-03-17] MEDS ORDERED: PROPOFOL IV EMULSION 10 MG/ML 20 ML VIAL IV ONE (07:45)
[2017-03-17] MEDS ORDERED: MIDAZOLAM HCL 1 MG/ML 2ML VIAL ONE (07:45)
[2017-03-17] MEDS ORDERED: ONDANSETRON INJ 2 MG/ML 2 ML VIAL ONE ×2 (07:45→12:56)
[2017-03-17] MEDS ORDERED: LIDOCAINE HCL 2% 2 ML VIAL (20MG/ML) ONE (07:45)
[2017-03-17] MEDS ORDERED: SODIUM CHLORIDE 0.9% PF 50 ML VIAL ONE (08:06)
[2017-03-17] MEDS ORDERED: BUPIVACAINE LIPOSOME 1/3% 266 MG/20 ML VIAL INFIL ONE (08:06)
[2017-03-17] MEDS ORDERED: CEFAZOLIN SOD 1 GM VIAL ONE ×3 (08:40→12:45)
[2017-03-17] MEDS ORDERED: FENTANYL CITRATE INJ 50 MCG/1 ML 2 ML VIAL IV PRN (09:00)
[2017-03-17] MEDS ORDERED: EpHEDrine SULFATE INJ 50 MG/ML AMP IV PRN (09:00)
[2017-03-17] MEDS ORDERED: PROMETHAZINE HCL INJ 6.25 MG in SODIUM CHLORIDE 0.9% 50ML 50 ML IV PRN (09:00)
[2017-03-17] MEDS ORDERED: ONDANSETRON INJ 2 MG/ML 2 ML VIAL IV PRN ×2 (09:00→13:15)
[2017-03-17] MEDS ORDERED: HYDROmorphone INJ 1 MG/ML SYR IV PRN (09:00)
[2017-03-17] MEDS ORDERED: ATROPINE SULFATE 0.1 MG/ML 5ML SYR IV PRN (09:00)
[2017-03-17] MEDS ORDERED: DEXAMETHASONE SOD INJ 4 MG/ML VIAL ONE (09:26)
[2017-03-17] MEDS ORDERED: NEOSTIGMINE METHYLSULFATE 5 MG/5 ML SYR ONE (09:26)
[2017-03-17] MEDS ORDERED: GLYCOPYRROLATE INJ 0.2 MG/ML VIAL ONE (09:26)
[2017-03-17] MEDS ORDERED: EpHEDrine SULFATE 50MG/5ML SYR ONE (09:26)
[2017-03-17] MEDS ORDERED: PHENYLEPHRINE 100MCG/ML 5ML SYR ONE (09:26)
[2017-03-17] MEDS ORDERED: PHENYLEPHRINE HCL INJ 10 MG/ML VIAL ONE (11:36)
[2017-03-17] MEDS ORDERED: EpHEDrine SULFATE INJ 50 MG/ML AMP ONE (11:36)
[2017-03-17] MEDS ORDERED: AMIODARONE IV BOLUS / DRIP IV STA (13:09)
[2017-03-17] MEDS ORDERED: ALBUTEROL HFA 8 GM INHALER INH PRN (13:15)
[2017-03-17] MEDS ORDERED: MoRPHine SULFATE 2 MG/ML CARP IV PRN (13:15)
[2017-03-17] MEDS: AMIODARONE / D5W 200 ML IV SCH (13:40)
--- NOTE | 2017-03-17 13:54 | DIAGNOSTIC IMAGING REPORT ---
SINGLE VIEW CHEST CLINICAL HISTORY: Status post left lobe resection. FINDINGS: An AP, portable, upright chest radiograph is compared to study dictated 12/24/16. Correlation is made with PET/CT dated 12/08/2016. The examination is degraded by portable technique, apical lordotic positioning, and patient rotation. The heart is enlarged and there is atherosclerotic calcification of the thoracic aorta. The pulmonary vascular structures noncongested. A chest tube has been placed. The tip terminates at the left apex. No pneumothorax is clearly identified. Emphysema and chronic interstitial thickening is observed. Volume loss in the left lung is likely related to left upper lobe resection. There is no large pleural effusion. The right lung is grossly clear noting dependent atelectasis. The skeletal structures are osteopenic. The bony thorax is grossly intact. IMPRESSION: 1. There are postoperative changes from left-sided pulmonary resection. 2. A left-sided chest tube has been placed. No pneumothorax is identified. 3. Cardiomegaly and emphysema. 4. The right lung appears clear. Electronically signed by: Armando Soto M.D. 03/17/2017 1:52 PM Dictated Date/Time: 03/17/2017 1:50 PM
--- NOTE | 2017-03-17 13:57 | Anesthesiology Progress Note ---
Anesthesia Post Op Note Date & Time March 17, 2017 at 13:55 Vital Signs Pain Intensity: 0 Vital Signs Past 12 Hours Date Time Temp Pulse Resp B/P Pulse Ox O2 Delivery O2 Flow Rate FiO2 03/17/17 13:21 36.0 87 16 129/85 98 Mask 10 03/17/17 06:47 36.4 57 18 154/107 98 Room Air Notes Mental Status: alert / awake / arousable, participated in evaluation Pt Amnestic to Procedure: Yes Nausea / Vomiting: adequately controlled Pain: adequately controlled Airway Patency, RR, SpO2: stable & adequate BP & HR: stable & adequate Hydration State: stable & adequate Anesthetic Complications: no major complications apparent Dr Thorne has requested amiodarone drip for prevention of post op AFib and overnight observation in the ICU. I feel that this level of observation is very reasonable given this patient's comorbidities. I have given a report to the sap portal developer.
[2017-03-17] MEDS: D5W AND 1/2NSS 1,000 ML IV SCH (15:40)
--- NOTE | 2017-03-17 16:17 | OPERATIVE REPORT ---
DATE OF OPERATION: 03/17/2017 PREOPERATIVE DIAGNOSIS: Hypermetabolic mass, left upper lobe. 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 PROCEDURES: 1. Thoracoscopic left upper lobe wedge resection. 2. Thoracoscopic left upper lobectomy. 3. Mediastinal lymph node dissection. SURGEON: Dr. Thorne. CERTIFIED INCOME TAX PREPARER: Jesus Mcgill PA-C. ANESTHESIA: General anesthesia endotracheal intubation. INDICATION FOR PROCEDURE AND FINDINGS: Mr. Martinez is a 66-year-old male I have actually known for about 3 months. I saw him and I was very concerned about the findings on his CT when the PET lit up some mediastinal lymph nodes as well as right axillary node. I presented him at the cancer conference and I sent him to radiology where they could biopsy his right axillary nodes under ultrasound guidance, however the nodes were felt to be too small. He came back to me and I did endobronchial ultrasound with biopsy navigational bronchoscopy and did not get a diagnosis. Level 5 lymph node was positive for carcinoma, but I could not get it with endobronchial ultrasound. I sent him to Donovan Zepeda from gastroenterology who performed an endoscopic ultrasound and likewise he could not access this node. We discussed this in detail and I stated that one option would be a mediastinotomy or left thoracoscopy with a wedge resection. He elected to go with a wedge resection. On 03/17/2017 the patient was brought to the operating room and underwent uncomplicated thoracoscopic wedge resection of left upper lobe mass. It turned out this is an adenocarcinoma. He had a large level 5, small level 6, and a large level 10 lymph nodes. Level 11 and 12 lymph nodes were not impressive. I performed a straightforward thoracoscopic left upper lobectomy and biopsied several lymph node stations. It should be noted that the I did not see any lymph nodes in the 8 or 9 area even after taking down the inferior pulmonary ligament. The patient tolerated it well and had a small air leak and essentially no blood loss. He was extubated and transferred back to the PACU in stable condition. PROCEDURE: The patient was brought to the operating room and laid in supine. General anesthesia was induced and endotracheal intubation was performed. The patient was turned in right lateral decubitus position. Left chest was prepped and draped in usual sterile fashion. I ended up making 4 separate thoracoscopy incisions. I made 1 anterior, 1 posterior as well as 1 in the mid axillary line about the fourth interspace. My initial incision was a bit too far medial even though I was able to get the scope in I went ahead and made another small incision for another port site more medial. This was about the seventh interspace. We had good visualization. I started off with a small Veress needle and then insufflated CO2. I then placed a 5 mm port with a 5 mm scope. I was able to see that there were some adhesions, but we had good isolation. The upper left upper lobe and left lower lobe collapsed nicely. A 10 mm incisions were made at the seventh interspace at about anteriorly. The initial incision was made 1 interspace below the tip of the scapula a little bit medially. About the fourth interspace I made an incision and inserted 10 mm ports. We were then able to take down these adhesions with the Harmonic scalpel without difficulty. I then was able to wedge this mass out. I then spent a great deal of time dissecting out level 5, level 6, level 10 lymph nodes. When the mass came back as showing adenocarcinoma we had a decision to make. As we had already performed a thoracoscopy I felt that proceeding with lobectomy was the best option. I also contemplated just stopping and saying he had IIIA disease however he was tolerating 1 lung ventilation fine and I felt that he would tolerate this well. It is also important to note there was not a consensus in the literature about whether to proceed with definitive chemotherapy and radiation or close and treat with chemotherapy and radiation and then restaged him to see if he is a candidate, or simply proceed with lobectomy. We elected to proceed. While waiting for the frozen section, I completed the posterior fissure as well as the anterior fissure and came upon the vessel and then in the pulmonary artery and in the fissure; however, there were marked adhesions from the lymph nodes. There was a large level 5 node as well as level 10 node. I dissected these out in their entirety as well as level 6 node. I identified the phrenic nerve as well as the recurrent laryngeal and care was taken to avoid injury to them. I did much of this with a cautery and also with the Harmonic scalpel. I dissected out the superior aspect and followed the pulmonary artery down into the fissure. Then starting medially I dissected out the artery until I identify the proximal aspect of several branches. Frozen section came back as adenocarcinoma. We elected to proceed. On the lingular branch was divided with an Endo-LIZET stapler as were 3 other arteries including the apical anterior branch. I then divided the vein with an Endo-LIZET stapler and left us with just the bronchus which I divided without difficulty with an Endo-LIZET stapler. It turned out, there was 1 more artery and I divided it with an Endo-LIZET stapler and then handed the specimen off the field. It should be noted that a generous wedge resection with Endo-LIZET staplers when I first went into the chest and took the adhesions down with the Harmonic scalpel. This mass was handed off in an Endobag. When frozen section came back as adenocarcinoma we then proceeded with the resection. The lung was out, we assess for leak and the bronchus looked quite good. I then dissected out level 10, 11 and 12. I looked for 8 and 9, but they really were not there even after I took down the inferior pulmonary ligament. I did not dissect out the level 7. We biopsied this multiple times with EBUS preoperatively. I then filled the chest with saline and there was one area that was leaking when we reinflated the lung and I put a large clip over this medially. There were some small areas of leaking; however, when placed back on the ventilator we did not see much in the way of a leak. 266 mg of Exparel was mixed with 60 mL total of saline and injected from the 2nd to the 11th rib for intercostal block intrathoracically. A 24-Austrian chest tube was then directed towards the apex when the frozen section and the margin came back negative. This chest tube was held in place with heavy silk suture. The muscle layers and the other 3 ports were closed with 0 Polysorb and 0 Vicryl in a running continuous fashion. He tolerated it very well. I attest to the content of the Intraoperative Record and any orders documented therein. Any exceptio ns are noted below.
[2017-03-17] MEDS: KETOROLAC TROMETHAMINE 15 MG/ML VIAL IV. SCH ×2 (16:55→23:55)
[2017-03-17] MEDS ORDERED: POLYETHYLENE (MIRALAX) 17 GM PACK PO PRN (17:15)
--- NOTE | 2017-03-17 18:04 | CRITICAL CARE CONSULTATION ---
DATE OF CONSULTATION: 03/17/2017 CHIEF COMPLAINT: Left upper lobe mass. HISTORY OF PRESENT ILLNESS: The patient is a 66-year-old gentleman with a history of COPD and atrial fibrillation, status post ablation in 2008. Last fall, he developed a cough and was treated with several courses of antibiotics and steroids; however, the cough continued. A left upper lobe mass may have been identified on chest x-ray and eventually in November of this year, he underwent a PET scan, which revealed FDG avid left upper lobe pulmonary mass, measuring 41 mm as well as mediastinal adenopathy suspicious for neoplasm. There was uptake in the right axillary lymph nodes as well. He was sent to the radiology with an attempt at fine-needle aspirate of the axillary nodes; however, they were deemed too small to biopsy. Dr. Thorne did an endobronchial ultrasound with biopsy and navigational bronchoscopy, but was unable to make a diagnosis. The patient underwent endoscopic ultrasound to try to biopsy a level 5 lymph node, but it was not accessible by that means. He underwent a thoracoscopic left upper lobe wedge resection, left upper lobectomy and mediastinal lymph node dissection today. There were no reported intraoperative complications. He was intubated with a MAC 4 blade and had 1.5 liters of IV fluid, estimated blood loss 75 mL and urine output 900 mL. He was brought to the intensive care unit from the PACU extubated. He has no specific complaints other than some "tightness" in his left axilla and he denies chest pain. He denies shortness of breath, but he is hoarse. He also feels like he has something in his throat to cough up, but is having difficulty doing that. The patient does have a history of atrial fibrillation, status post ablation in 2008. In December of this year, he was placed on amiodarone, which he continues to take. He was also placed on Pradaxa; however, he changed to Eliquis approximately 3 weeks ago after he was given some samples of the medication. He has a 1 week's worth of Eliquis left and a full prescription of Pradaxa at home. He was brought to the intensive care unit due to concerns that he might go into atrial fibrillation and was placed on an amiodarone infusion without a bolus postoperatively. PAST MEDICAL HISTORY: Atrial fibrillation as described above, hypertension, chronic obstructive pulmonary disease, hyperlipidemia, lumbar radiculopathy, and ascending aortic aneurysm 4.0 cm, aortic root 4.5 cm, and abdominal aortic aneurysm 3.1 cm in maximal diameter in January of 2016. Echocardiogram in January of 2016 shows preserved ejection fraction and mildly thickened left ventricle, mild mitral regurgitation and mild tricuspid regurgitation. No pulmonary hypertension. PAST SURGICAL HISTORY: Status post dental extractions, cholecystectomy, tonsillectomy, and knee surgery. ALLERGIES: No known drug allergies. OUTPATIENT MEDICATIONS: Albuterol 2-4 puffs q. 6 hours p.r.n. wheezing, amiodarone 200 mg daily, amlodipine 5 mg daily, Eliquis 5 mg b.i.d., Tessalon Perles 200 mg t.i.d. p.r.n. cough, Muna 180 mg daily, Proctosol-HC 1 application per rectum b.i.d. p.r.n., Avapro 300 mg daily, Singulair 10 mg at bedtime, niacin 500 mg at bedtime, omeprazole 20 mg daily, spironolactone 25 mg daily, and Incruse Ellipta 1 puff every morning. SOCIAL HISTORY: He has a [id number] history of tobacco use and quit in 2008. He does not drink any alcohol. He is retired and worked in [email or web address]. He is and has 1 child. FAMILY HISTORY: Significant for brother with seizures and meningioma, another brother with colon cancer, a sister with breast cancer and a mother with "throat cancer" requiring what sounds like a laryngectomy. REVIEW OF SYSTEMS: He denies headache or visual changes. He notes postoperative hoarseness. He denies sore throat, difficulty swallowing, or shortness of breath. Cough is nonproductive. No hemoptysis. No chest pain. No nausea, vomiting, abdominal pain, diarrhea, fevers, chills, lower extremity swelling, bleeding, or melena. He occasionally gets low back pain. Additional review of systems is negative or noncontributory in a 12-point system. PHYSICAL EXAMINATION: GENERAL: This is a very nice overweight patient, lying in bed in no distress. VITAL SIGNS: Temperature 36.6, heart rate 89, respiratory rate 16, blood pressure 122/78, and oxygen saturation 97% on 4 liters nasal cannula. HEENT: Pupils are equally round and reactive to light. There is no scleral icterus. The oral mucosa is slightly dry. Tongue is slightly dry. NECK: No adenopathy and no bruits. LUNGS: With some rhonchi over the left side. Right has decreased breath sounds in the bases. No wheezes. CHEST: Symmetric expansion. There is an anterolateral chest tube protruding from the left chest, draining a small amount of serosanguineous fluid. No air leak. ABDOMEN: Obese, soft, nondistended, and nontender. Active bowel sounds. EXTREMITIES: Warm. No edema. NEUROLOGIC: Exam is grossly normal. LABORATORY DATA: White blood cell count 7.74, hemoglobin 15.8, hematocrit 45, and platelets 308. Sodium 140, potassium 4.3, chloride 105, CO2 of 28, BUN 12, creatinine 0.99, blood sugar 66, and calcium 9.5. Postop chest x-ray shows no pneumothorax, cardiomegaly and emphysema. Postop changes on the left side and clear right side. Preoperative EKG was reviewed. IMPRESSION: 1. Left upper lobe mass, preliminarily showing adenocarcinoma per op notes final pathology pending. Status post thorascopic left upper lobe wedge resection and left upper lobectomy along with mediastinal lymph node dissection, doing well. 2. History of atrial fibrillation status post ablation in 2008, on amiodarone for the past several months and now on an amiodarone infusion. Presently in normal sinus rhythm. 3. Postoperative hoarseness, which may be secondary vocal cord irritation from the endotracheal tube verses recurrent laryngeal nerve injury. 4. History of chronic obstructive pulmonary disease. 5. History of hypertension. 6. History of ascending aortic aneurysm and abdominal aortic aneurysm. 7. History of tobacco use. PLAN: NEUROLOGIC: He is receiving scheduled acetaminophen and Toradol along with p.r.n. morphine for analgesia. His pain seems well controlled presently. PULMONARY: Continue albuterol q. 6 hours p.r.n. wheezing. Encourage incentive spirometry. Follow up chest x-ray tomorrow morning. Continue Singulair. CARDIOVASCULAR: Continue amiodarone infusion as well as oral amiodarone. Should he go into atrial fibrillation, I suggest an amiodarone bolus and then the use of beta blockers. He has been on beta blockers in the past. RENAL: No acute active issues. He is on IV fluids. GASTROINTESTINAL: Advance diet. He has requested MiraLax rather than Colace and I will order that for him. He is also on Reglan postoperatively. He is on Protonix daily. HEMATOLOGY: Resume anticoagulation when okay with surgery service. I suggest putting him back on Pradaxa as he only has a week of Eliquis left and his insurance does not cover Eliquis. SCDs for DVT prophylaxis. INFECTIOUS DISEASE: He is receiving perioperative cefazolin. MISCELLANEOUS: For now, follow and observe the hoarseness. If it does not improve, then consider ENT evaluation in the future. Thank you for asking me to see this nice gentleman. Please call me with any questions or concerns. ROSCOE
[2017-03-17] MEDS: ACETAMINOPHEN IV 1,000 MG in EMPTY BAG 0 ML IV SCH (19:56)
[2017-03-17] MEDS: DOCUSATE SODIUM 100 MG CAP PO SCH (21:00)
[2017-03-17] MEDS: MONTELUKAST SOD 10 MG TAB PO SCH (21:29)
[2017-03-17] MEDS: METOCLOPRAMIDE HCL INJ 5 MG/ML 2 ML VIAL IV. SCH (21:29)
[2017-03-18] VITALS (11 sets, daily range): BP systolic 82–139; BP diastolic 61–129; PULSE 53–74; TEMP 36.4–37.5; O2SAT 91–97
[2017-03-18] MEDS: AMIODARONE / D5W 200 ML IV SCH (00:13)
[2017-03-18] MEDS: D5W AND 1/2NSS 1,000 ML IV SCH (01:59)
[2017-03-18] MEDS: CEFAZOLIN IV 2,000 MG in DEXTROSE 5% 50ML 50 ML IV SCH ×2 (02:00→10:29)
[2017-03-18] MEDS ORDERED: CEFAZOLIN IV 2,000 MG in DEXTROSE 5% 50ML 100 ML IV SCH (02:00)
[2017-03-18] MEDS: ACETAMINOPHEN IV 1,000 MG in EMPTY BAG 0 ML IV SCH (03:58)
[2017-03-18] MEDS: METOCLOPRAMIDE HCL INJ 5 MG/ML 2 ML VIAL IV. SCH ×2 (05:55→14:20)
[2017-03-18 06:03] LABS: BASO % 0.1 %; BASO ABS # 0.01 K/uL (0-0.2); COMPLETE YES; HEMATOCRIT 40.2 % (42-52); IG% 0.2 %; LYMPH % 6.7 %; MEAN CELL VOLUME 87.4 fL (80-100); MEAN CORPUSCULAR HEMOGLOBIN 29.6 pg (25-34); MEAN CORPUSCULAR HGB CONC 33.8 g/dl (32-36); MONO % 14.6 %; NEUT % 78.4 %; PLATELET COUNT 240 K/uL (130-400); WHITE BLOOD COUNT 13.34 K/uL (4.8-10.8)
[2017-03-18 06:37] LABS: BUN/CREATININE RATIO 13.9 (10-20); CALCIUM 8.4 mg/dl (8.5-10.1); MAGNESIUM 2.1 mg/dl (1.8-2.4); POTASSIUM 4.1 mmol/L (3.5-5.1)
[2017-03-18] MEDS: KETOROLAC TROMETHAMINE 15 MG/ML VIAL IV. SCH ×2 (07:48→17:00)
[2017-03-18] MEDS: PANTOprazole SOD 40 MG TAB PO SCH (07:48)
[2017-03-18] MEDS: AMLODIPINE BESYLATE 5 MG TAB PO SCH (07:49)
[2017-03-18] MEDS: FEXOFENADINE HCL 180 MG TAB PO SCH (07:49)
[2017-03-18] MEDS: IRBESARTAN 150 MG TAB PO SCH (07:50)
--- NOTE | 2017-03-18 07:57 | DIAGNOSTIC IMAGING REPORT ---
CHEST ONE VIEW PORTABLE CLINICAL HISTORY: Status post left upper lobectomy. COMPARISON STUDY: Chest radiograph March 17, 2017. FINDINGS: A left apical chest tube remains in place. No pneumothorax is identified. There is a trace left pleural effusion. Mild cardiomegaly is noted. There is no evidence of pulmonary edema. IMPRESSION: Left chest tube in place. No pneumothorax. Trace left pleural effusion. Electronically signed by: Javi Patrick M.D. 03/18/2017 7:56 AM Dictated Date/Time: 03/18/2017 7:54 AM
--- NOTE | 2017-03-18 08:52 | Anesthesiology Progress Note ---
Anesthesia Post Op Note Date & Time March 18, 2017 at 08:52 Vital Signs Vital Signs Past 12 Hours Date Time Temp Pulse Resp B/P Pulse Ox O2 Delivery O2 Flow Rate FiO2 03/18/17 06:00 53 11 94/77 95 110/70 03/18/17 04:00 36.4 58 16 133/129 94 Nasal Cannula 2.0 123/74 03/18/17 04:00 97 Nasal Cannula 2.0 03/18/17 02:00 56 16 82/61 96 Nasal Cannula 4.0 124/76 03/18/17 00:00 36.7 56 16 98/76 96 Nasal Cannula 4.0 109/69 03/17/17 23:59 96 Nasal Cannula 4.0 03/17/17 22:00 60 18 109/75 94 124/64 03/17/17 21:00 65 12 114/84 97 Notes Mental Status: alert / awake / arousable, participated in evaluation Pt Amnestic to Procedure: Yes Nausea / Vomiting: adequately controlled Pain: adequately controlled Airway Patency, RR, SpO2: stable & adequate BP & HR: stable & adequate Hydration State: stable & adequate Anesthetic Complications: no major complications apparent
[2017-03-18] MEDS ORDERED: AMIODARONE 200 MG TAB PO SCH (09:00)
[2017-03-18] MEDS: DOCUSATE SODIUM 100 MG CAP PO SCH ×2 (09:00→21:00)
[2017-03-18] MEDS: POLYETHYLENE (MIRALAX) 17 GM PACK PO SCH (10:27)
[2017-03-18] MEDS: ACETAMINOPHEN 325 MG TAB PO SCH ×3 (10:29→18:00)
--- NOTE | 2017-03-18 10:30 | SURGERY PROGRESS NOTE ---
DATE: 03/18/2017 HISTORY OF PRESENT ILLNESS: Mr. Martinez was seen today 1 day status post thorascopic left upper lobectomy and mediastinal lymph node dissection. He is sitting up. He has just finished breakfast. He is quite hoarse. He also had some trouble swallowing solid food. He is on room air with excellent vital signs. PHYSICAL EXAMINATION: On exam, his lungs are clear. He is in a sinus rhythm. We had him on an amiodarone drip. He has no air leak in his chest tube with minimal drainage. His sequential compression devices are in place. The patient is neurologically intact except for his hoarseness. IMAGING DATA: Chest x-ray shows full expansion of his lung with no infiltrates, no pneumothorax, and no effusion. Chest tube shows no evidence of air leak and minimal drainage. LABORATORY DATA: His labs all looked quite good. The white count is 13,340 and I am sure this is margination. His hemoglobin is 13.6. His glucoses were elevated at 143, but he did get steroids in the operating room. ASSESSMENT AND PLAN: 1. Postoperative day #1 status post thoracoscopic left upper lobectomy for an adenocarcinoma of the lung with mediastinal lymph node dissection. 2. Hoarseness. The very large level 5 lymph node in the AP window was adherent to the vagus nerve and the recurrent laryngeal and the nerve appeared to be intact; however, he may well have a left vocal cord paralysis. My feeling is that this will probably be short lived; however, he seems to be tolerating it well except for his hoarseness. He is swallowing adequately and has no cough. We are going to transfer him to telemetry and stop the amiodarone drip. If things look good, I may remove his chest tube and let him go home tomorrow. ROSCOE
[2017-03-18] MEDS: OXYCODONE HCL IR 5 MG TAB (IMMEDIATE RELEASE) PO PRN ×2 (14:20→20:55)
[2017-03-18] MEDS: MONTELUKAST SOD 10 MG TAB PO SCH (21:11)
[2017-03-18] MEDS: DABIGATRAN ELEXILATE 75 MG CAP PO SCH (21:13)
[2017-03-19] VITALS (7 sets, daily range): BP systolic 114–140; BP diastolic 76–86; PULSE 64–77; TEMP 36.9–37.5; O2SAT 91–94
[2017-03-19] MEDS: KETOROLAC TROMETHAMINE 15 MG/ML VIAL IV. SCH ×2 (00:29→09:15)
[2017-03-19] MEDS: ACETAMINOPHEN 325 MG TAB PO SCH ×4 (00:30→18:26)
[2017-03-19] MEDS: POLYETHYLENE (MIRALAX) 17 GM PACK PO SCH (06:35)
--- NOTE | 2017-03-19 07:15 | DIAGNOSTIC IMAGING REPORT ---
CHEST ONE VIEW PORTABLE CLINICAL HISTORY: CROW mass COMPARISON STUDY: 03/18/2017 FINDINGS: Left-sided chest tube is unchanged in position. Very small left apical pneumothorax with a maximum pleural separation of 3 mm. Right lung is considered clear. IMPRESSION: Left-sided chest tube unchanged in position. Small left apical pneumothorax with a maximum pleural separation of 3 mm. Electronically signed by: Benji Ramirez M.D. 03/19/2017 7:14 AM Dictated Date/Time: 03/19/2017 7:12 AM
[2017-03-19] MEDS: DOCUSATE SODIUM 100 MG CAP PO SCH ×2 (07:53→20:53)
[2017-03-19] MEDS: DABIGATRAN ELEXILATE 75 MG CAP PO SCH (07:53)
[2017-03-19] MEDS ORDERED: NURSING VERBAL MED ORDER ONE ×2 (08:30→17:15)
[2017-03-19] MEDS ORDERED: AMIODARONE / D5W 100 ML IV SCH (08:45)
[2017-03-19] MEDS ORDERED: AMIODARONE / D5W 200 ML IV SCH ×2 (09:00→15:00)
[2017-03-19] MEDS: PANTOprazole SOD 40 MG TAB PO SCH (09:11)
[2017-03-19] MEDS: SPIRONOLACTONE 25 MG TAB PO SCH (09:11)
[2017-03-19] MEDS: FEXOFENADINE HCL 180 MG TAB PO SCH (09:11)
[2017-03-19] MEDS: AMLODIPINE BESYLATE 5 MG TAB PO SCH (09:11)
[2017-03-19] MEDS: IRBESARTAN 150 MG TAB PO SCH (09:11)
--- NOTE | 2017-03-19 12:12 | SURGERY PROGRESS NOTE ---
DATE: 03/19/2017 DATE: 03/19/2017. Mr. Martinez was seen today on 03/19/2017, 48 hours after a thoracoscopic left upper lobectomy for nonsmall cell lung carcinoma. The patient has a history of atrial fibrillation and is on amiodarone p.o. when he came in. I watched him in the unit overnight on amiodarone drip then moved him to telemetry yesterday. Unfortunately, went to rapid atrial fibrillation today, although converted with a bolus of amiodarone. Otherwise, he looks good. He drained a bit much and I started back his Pradaxa yesterday. I am going to hold his Pradaxa today because he is back in a sinus rhythm and I want to remove his chest tube tomorrow. He drained about 150 mL but it is bloody. I am going to hold that and pull his chest tube out tomorrow. I am going to have [facility] evaluate this patient.
[2017-03-19] MEDS ORDERED: AMIODARONE 200 MG TAB PO ONE (13:30)
--- NOTE | 2017-03-19 14:14 | CARDIOLOGY CONSULTATION ---
DATE OF CONSULTATION: 03/19/2017 DATE OF CONSULTATION: 03/19/2017. REFERRING PHYSICIAN: Dr. Thorne. REASON FOR CONSULTATION: Paroxysmal atrial fibrillation. HISTORY OF PRESENT ILLNESS: Mr. Martinez is a 66-year-old gentleman who was electively admitted on 03/17/2017 for left-sided lung lobectomy and mediastinal lymph node dissection. This was performed due to adenocarcinoma of the left upper lobe. Surgery was uncomplicated and a chest tube was placed. The patient was observed in the ICU postoperatively. Episodes of paroxysmal atrial fibrillation were reported. He was treated with intravenous amiodarone and subsequently transferred to the progressive care unit. Earlier this morning, the patient developed a recurrent episode of paroxysmal atrial fibrillation with rapid ventricular response. He was bolused with IV amiodarone and is currently on an intravenous amiodarone infusion. The patient's symptoms of palpitations and rapid heartbeats reported during atrial fibrillation. No chest pain, lightheadedness, dizziness, syncope or near syncope. He is currently in sinus rhythm and feeling well. Notes some soreness near his chest tube insertion site. Offers no other complaints at this time. REVIEW OF SYSTEMS: The pertinent positive noted above, a comprehensive 10-system review is otherwise negative. PAST MEDICAL HISTORY: 1. Paroxysmal atrial fibrillation status post PVI ablation at [facility] 2008. Pradaxa restarted September 2016 with recurrent atrial fibrillation noted December 2016 and prescribed amiodarone. 2. A 3.1 cm abdominal aortic aneurysm. 3. Mild ascending aortic root aneurysm 4.0 and 4.5 cm respectively. 4. Hypertension. 5. Chronic sinusitis. 6. Chronic hoarseness. 7. Cholecystitis. 8. Dyslipidemia. 9. Tobacco use disorder. PAST SURGICAL HISTORY: 1. PVI ablation in 2008. 2. Coronary angiography. 3. Colonoscopy. 4. Tonsillectomy. 5. Cholecystectomy. 6. Knee surgery. FAMILY HISTORY: Brother of an enlarged heart and blood clot at age 54. SOCIAL HISTORY: Former tobacco abuse, [id number] history, quit in 2008. LABORATORY DATA: White blood cell count 13.34, hemoglobin is 13.6, platelet count 240. Sodium 138, potassium 4.1, chloride is 105, CO2 is 28, BUN is 14, creatinine is 1.00. Magnesium is 2.1. PHYSICAL EXAMINATION: VITAL SIGNS: Temperature is 37 degrees centigrade, pulse 76 beats per minute and regular, respiratory rate is 18 breaths per minute, blood pressure 114/76. SAO2 is 94% on room air. GENERAL: NAD, awake, alert and oriented x3. HEAD, EYES, EARS, NOSE, AND THROAT: Mucous membranes moist. No scleral icterus. Conjunctivae pink. NECK: Supple without JVD or HJR. No carotid bruit. HEART: Regular with normal S1 and S2. No murmur, rub, or gallop. LUNGS: Clear with diminished breath sounds in the left upper lung field. No rhonchi or wheeze. ABDOMEN: Soft, nontender. No rebound or guarding. EXTREMITIES: Warm and dry without clubbing, cyanosis, or edema. NEUROLOGIC EXAMINATION: Demonstrates no focal deficit. FINAL IMPRESSION: 1. Paroxysmal atrial fibrillation with rapid ventricular response secondary to recent left upper lobectomy. 2. Postoperative day 1 status post thorascopic left upper lobectomy for adenocarcinoma and mediastinal lymph node dissection. 3. Hypertension -- controlled. 4. Chronic hoarseness. 5. Proximal ascending aortic and aortic root aneurysm. PLAN AND RECOMMENDATIONS: I will restart oral amiodarone 200 mg twice daily (increased dose) in addition to intravenous amiodarone at this time. If he has no recurrent in atrial fibrillation throughout the afternoon I will likely discontinue his IV amiodarone infusion. Pradaxa will remain on hold with plans for chest tube removal in the a.m. Recommend oral anticoagulation be restarted when bleeding risk is acceptable per the surgical team. Other cardiovascular medications including amlodipine and Avapro will be continued as previously ordered. I will continue to follow during hospitalization. Thank you for allowing me to take part in the care of your patient. ROSCOE
[2017-03-19] MEDS: BISACODYL 10 MG SUPP PR PRN (17:33)
[2017-03-19] MEDS: MONTELUKAST SOD 10 MG TAB PO SCH (20:53)
[2017-03-19] MEDS: AMIODARONE 200 MG TAB PO SCH (20:53)
[2017-03-19] MEDS: OXYCODONE HCL IR 5 MG TAB (IMMEDIATE RELEASE) PO PRN (20:59)
[2017-03-20] MEDS: ACETAMINOPHEN 325 MG TAB PO SCH ×4 (00:12→18:00)
[2017-03-20] MEDS: OXYCODONE HCL IR 5 MG TAB (IMMEDIATE RELEASE) PO PRN ×4 (03:09→22:22)
[2017-03-20 03:24] VITALS: BP 129/83; PULSE 62; TEMP 37; O2SAT 94
[2017-03-20 07:25] VITALS: BP 136/86; PULSE 69; TEMP 36.5; O2SAT 90
--- NOTE | 2017-03-20 07:53 | SURGERY PROGRESS NOTE ---
DATE: 03/20/2017 Mr. Martinez was seen today. Dr. Giron's evaluation and recommendations are greatly appreciated. Increasing the p.o. amiodarone and stopping the drip, I think is appropriate and we will hopefully get him out of the hospital on this regimen without further outbursts of his paroxysmal afib. The patient is ambulating in the mar. He moved his bowels. His saturations are 94% on room air. Unfortunately, he drained a bit too much from his chest tube; it is 300 mL over the last 24 hours. We are going to hold off, until tomorrow; pulling this out. He has only put out 70 mL thus far, but he looks good. He has been in a nice, normal sinus rhythm. I am going to order a portable chest x-ray for the morning. If it looks good, we will pull his chest tube out. GURUD
[2017-03-20] MEDS: DOCUSATE SODIUM 100 MG CAP PO SCH ×2 (07:58→21:00)
[2017-03-20] MEDS: AMLODIPINE BESYLATE 5 MG TAB PO SCH (07:58)
[2017-03-20] MEDS: IRBESARTAN 150 MG TAB PO SCH (07:59)
[2017-03-20] MEDS: AMIODARONE 200 MG TAB PO SCH ×2 (07:59→21:00)
[2017-03-20] MEDS: FEXOFENADINE HCL 180 MG TAB PO SCH (07:59)
[2017-03-20] MEDS: POLYETHYLENE (MIRALAX) 17 GM PACK PO SCH (07:59)
[2017-03-20] MEDS: SPIRONOLACTONE 25 MG TAB PO SCH (07:59)
[2017-03-20] MEDS: PANTOprazole SOD 40 MG TAB PO SCH (07:59)
[2017-03-20] MEDS: BISACODYL 10 MG SUPP PR PRN (08:01)
[2017-03-20] MEDS ORDERED: COUGH DROP (SUGAR FREE) LOZ 24 LOZ/1 BOX ONE (08:09)
[2017-03-20] MEDS ORDERED: COUGH DROP (SUGAR FREE) LOZ 24 LOZ/1 BOX PO PRN (08:45)
[2017-03-20] MEDS ORDERED: NURSING VERBAL MED ORDER ONE (08:45)
--- NOTE | 2017-03-20 10:32 | Cardiology Follow-Up ---
Subjective General Date of Service: March 20, 2017. Pt evaluation today including: conversation w/ patient, physical exam, chart review, lab review, review of studies, review of inpatient medication list History of Present Illness The patient is a 66 year old male seen in follow up. Chest tube remains in place. Mild positional chest discomfort unchanged. No recurrent AF on telemetry. Allergies Coded Allergies: No Known Allergies (Unverified , 03/17/17) Social History Smoking Status: Former Smoker Hx Tobacco Use In Past Year?: No Hx Alcohol Use - Type And Amou: No Hx Substance Use - Type And Am: No Review of Systems Respiratory: + cough, + dyspnea on exertion, No dyspnea at rest, No hemoptysis , No shortness of breath, No sputum, No wheezing Cardiac: + chest pain, No PND, No edema, No orthopnea, No palpitations Physical Exam Vital Signs Last Vital Signs Documentation Date Time Temp Pulse Resp B/P Pulse Ox O2 Delivery O2 Flow Rate FiO2 03/20/17 08:05 Room Air 03/20/17 07:25 36.5 69 19 136/86 90 03/18/17 08:00 2.0 Physical Exam Constitutional: General Apperance: well-nourished Level of Distress: NAD Head: normocephalic ENMT: normal ENT inspection Neck: supple, trachea midline Lungs: Auscultation: no rales/crackles, no rhonchi, expiratory wheezing Cardiovascular: Heart Auscultation: RRR, normal S1, normal S2, no murmurs Peripheral Pulses: Bruits: none appreciated Radial Pulse: normal on the right Abdomen: Bowel Sounds: normal Inspection & Palpation: soft, non-distended, no tenderness, guarding & rebound Extremities: no cyanosis, no edema, no clubbing, no ulcers Neurologic: Gait & Station: pertinent finding (No focal deficit) Cranial Nerves: grossly intact Assessment and Plan Assessment and Plan FINAL IMPRESSION: 1. Paroxysmal atrial fibrillation with rapid ventricular response in setting of recent left upper lobectomy. - no recurrence overnight - IV amiodarone discontinued - Oral amiodarone titrated to 200mg BID 2. Postoperative day 2 status post thorascopic left upper lobectomy for adenocarcinoma and mediastinal lymph node dissection. 3. Hypertension -- controlled. 4. Chronic hoarseness. 5. Proximal ascending aortic and aortic root aneurysm. PLAN AND RECOMMENDATIONS: Continue oral amiodarone 200mg BID for one week then reduce dose to 200mg daily.I will restart oral amiodarone 200 mg twice daily Pradaxa will remain on hold in anticipation of chest tube removal in the a.m. Restart oral anticoagulation when bleeding risk is acceptable per the surgical team. Other cardiovascular medications including amlodipine and Avapro will be continued as previously ordered.
[2017-03-20 11:56] VITALS: BP 127/82; PULSE 59; TEMP 36.8; O2SAT 93
[2017-03-20 15:44] VITALS: BP 136/83; PULSE 66; TEMP 36.6; O2SAT 94
[2017-03-20 20:29] VITALS: BP 119/75; PULSE 58; TEMP 36.6; O2SAT 93
[2017-03-20] MEDS: MONTELUKAST SOD 10 MG TAB PO SCH (21:00)
[2017-03-20 23:12] VITALS: BP 129/88; PULSE 60; TEMP 36.9; O2SAT 91
[2017-03-21] VITALS (10 sets, daily range): BP systolic 114–144; BP diastolic 78–93; PULSE 53–88; TEMP 36.6–36.9; O2SAT 93–95
[2017-03-21] MEDS: ACETAMINOPHEN 325 MG TAB PO SCH ×5 (00:43→23:03)
[2017-03-21] MEDS: OXYCODONE HCL IR 5 MG TAB (IMMEDIATE RELEASE) PO PRN ×4 (04:46→23:03)
--- NOTE | 2017-03-21 08:01 | DIAGNOSTIC IMAGING REPORT ---
CHEST ONE VIEW PORTABLE CLINICAL HISTORY: Lobectomy. COMPARISON STUDY: Chest radiograph March 19, 2017. FINDINGS: A left chest tube remains in place. A small left pneumothorax is unchanged. Gas within the left chest wall has slightly increased. There is no right pneumothorax. Left hemithorax volume loss is noted. There is no evidence of pulmonary edema. IMPRESSION: 1. Left chest tube in place. No significant change in a small left pneumothorax. 2. Increase in left chest wall subcutaneous gas. Electronically signed by: Javi Patrick M.D. 03/21/2017 8:00 AM Dictated Date/Time: 03/21/2017 7:58 AM
[2017-03-21] MEDS ORDERED: NURSING VERBAL MED ORDER ONE (08:30)
[2017-03-21] MEDS ORDERED: AMIODARONE 360MG / 200ML D5W ONE (08:33)
[2017-03-21] MEDS ORDERED: AMIODARONE 150MG / 100ML D5W ONE (08:34)
[2017-03-21] MEDS ORDERED: AMIODARONE / D5W 100 ML IV STA (08:35)
[2017-03-21] MEDS ORDERED: AMIODARONE / D5W 200 ML IV SCH (08:45)
[2017-03-21] MEDS: SPIRONOLACTONE 25 MG TAB PO SCH (08:48)
[2017-03-21] MEDS: AMLODIPINE BESYLATE 5 MG TAB PO SCH (08:48)
[2017-03-21] MEDS: PANTOprazole SOD 40 MG TAB PO SCH (08:48)
[2017-03-21] MEDS: FEXOFENADINE HCL 180 MG TAB PO SCH (08:48)
[2017-03-21] MEDS: IRBESARTAN 150 MG TAB PO SCH (08:49)
[2017-03-21] MEDS: POLYETHYLENE (MIRALAX) 17 GM PACK PO SCH (08:53)
[2017-03-21] MEDS: AMIODARONE 200 MG TAB PO SCH ×3 (09:00→20:08)
[2017-03-21] MEDS: DOCUSATE SODIUM 100 MG CAP PO SCH ×2 (09:00→20:08)
--- NOTE | 2017-03-21 09:24 | DIAGNOSTIC IMAGING REPORT ---
CHEST ONE VIEW PORTABLE CLINICAL HISTORY: chest tube removal COMPARISON STUDY: 03/21/2017 FINDINGS: Postsurgical changes are present on the left. There is left-sided volume loss. The left-sided chest tube has been removed. There is mild left-sided subcutaneous emphysema. There is a trace left-sided pneumothorax. The right lung is clear. There is no failure.[ IMPRESSION: 1. Interval removal of the left-sided chest tube 2. Trace left pneumothorax, unchanged in size. Electronically signed by: Juan Arango M.D. 03/21/2017 9:22 AM Dictated Date/Time: 03/21/2017 9:21 AM
--- NOTE | 2017-03-21 11:45 | Cardiology Follow-Up ---
Subjective General Date of Service: March 21, 2017. Pt evaluation today including: conversation w/ patient, physical exam, chart review, lab review, review of studies, review of inpatient medication list History of Present Illness The patient is a 66 year old male seen in follow-up. Patient reverted to atrial fibrillation with rapid ventricular response this morning. Reports palpitations without chest pain, lightheadedness, or dizziness. IV amiodarone infusion was restarted. Chest tube removed this morning. Patient offers no other complaints at this time. Allergies Coded Allergies: No Known Allergies (Unverified , 03/17/17) Social History Smoking Status: Former Smoker Hx Tobacco Use In Past Year?: No Hx Alcohol Use - Type And Amou: No Hx Substance Use - Type And Am: No Review of Systems Respiratory: No cough, No dyspnea at rest, No hemoptysis, No shortness of breath, No sputum, No wheezing Cardiac: No PND, No chest pain, No edema, No orthopnea, No palpitations Physical Exam Vital Signs Last Vital Signs Documentation Date Time Temp Pulse Resp B/P Pulse Ox O2 Delivery O2 Flow Rate FiO2 03/21/17 11:38 36.6 88 19 114/80 93 Room Air 03/18/17 08:00 2.0 Physical Exam Constitutional: General Apperance: well-nourished Level of Distress: NAD Head: normocephalic ENMT: normal ENT inspection Neck: supple, trachea midline Lungs: Auscultation: no rales/crackles, no rhonchi, expiratory wheezing Cardiovascular: Heart Auscultation: normal S1, normal S2, no murmurs, tachycardia, irregular rate rhythm Peripheral Pulses: Bruits: none appreciated Radial Pulse: normal on the right Abdomen: Bowel Sounds: normal Inspection & Palpation: soft, non-distended, no tenderness, guarding & rebound Extremities: no cyanosis, no edema, no clubbing, no ulcers Neurologic: Gait & Station: pertinent finding (No focal deficit) Cranial Nerves: grossly intact Assessment and Plan Assessment and Plan FINAL IMPRESSION: 1. Paroxysmal atrial fibrillation with rapid ventricular response in setting of recent left upper lobectomy. - IV amiodarone restarted - Oral amiodarone titrated to 200mg BID 2. Postoperative day 3 status post thorascopic left upper lobectomy for adenocarcinoma and mediastinal lymph node dissection. - chest tube removed today 3. Hypertension -- controlled. 4. Chronic hoarseness. 5. Proximal ascending aortic and aortic root aneurysm. PLAN AND RECOMMENDATIONS: Continue oral amiodarone 200mg BID for one week then reduce dose to 200mg daily. Discontinue IV amiodarone when patient converts to sinus rhythm. Repeat BMP and magnesium level. Restart Pradaxa when bleeding risk is acceptable per the surgical team. Other cardiovascular medications including amlodipine and Avapro will be continued as previously ordered. Continue to monitor telemetry.
[2017-03-21 12:45] LABS: BUN/CREATININE RATIO 11.4 (10-20); CALCIUM 9.2 mg/dl (8.5-10.1); CREATININE 0.92 mg/dl (0.60-1.40); MAGNESIUM 2.4 mg/dl (1.8-2.4); POTASSIUM 3.8 mmol/L (3.5-5.1)
[2017-03-21] MEDS: BISACODYL 10 MG SUPP PR PRN (14:54)
--- NOTE | 2017-03-21 16:23 | SURGERY PROGRESS NOTE ---
DATE: 03/21/2017 Mr. Martinez had a very uneventful night until this morning when he developed paroxysmal atrial fibrillation. Heart rate was up to 150, but he really had no symptoms other than the fact he was aware of his palpitations. His chest tube was removed. His Pradaxa has been restarted. Dr. Giron has been kind enough to evaluate him again today. We are going to continue the higher her p.o. dose of the amiodarone and possibly discharge him in the next day or so. The pathology is not back yet. I am going to check labs on him for release also. He has been ambulating in the hallway. He has been moving his bowels. He looks quite good clinically. He is back in sinus rhythm this afternoon.
[2017-03-21] MEDS ORDERED: POTASSIUM CHLORIDE 20 MEQ TABCR PO ONE (16:45)
[2017-03-21] MEDS: DABIGATRAN ELEXILATE 75 MG CAP PO SCH (20:09)
[2017-03-21] MEDS: MONTELUKAST SOD 10 MG TAB PO SCH (20:09)
[2017-03-22] VITALS (7 sets, daily range): BP systolic 123–127; BP diastolic 73–84; PULSE 56–93; TEMP 36.6–36.9; O2SAT 93–95
[2017-03-22] MEDS: OXYCODONE HCL IR 5 MG TAB (IMMEDIATE RELEASE) PO PRN (05:38)
[2017-03-22] MEDS: ACETAMINOPHEN 325 MG TAB PO SCH ×2 (05:38→12:05)
[2017-03-22 07:05] LABS: BASO % 0.1 %; BASO ABS # 0.01 K/uL (0-0.2); COMPLETE YES; EOS % 4.4 %; IG% 0.4 %; LYMPH % 14.1 %; LYMPH ABS # 1.46 K/uL (1.2-3.4); MEAN CELL VOLUME 86.9 fL (80-100); MEAN CORPUSCULAR HGB CONC 33.3 g/dl (32-36); MONO % 17.5 %; NEUT % 63.5 %; PLATELET COUNT 316 K/uL (130-400); RED BLOOD COUNT 4.49 M/uL (4.7-6.1); WHITE BLOOD COUNT 10.33 K/uL (4.8-10.8)
[2017-03-22 07:26] LABS: POTASSIUM 3.6 mmol/L (3.5-5.1)
[2017-03-22] MEDS: POLYETHYLENE (MIRALAX) 17 GM PACK PO SCH (08:47)
[2017-03-22] MEDS: IRBESARTAN 150 MG TAB PO SCH (08:47)
[2017-03-22] MEDS: DABIGATRAN ELEXILATE 75 MG CAP PO SCH (08:47)
[2017-03-22] MEDS: DOCUSATE SODIUM 100 MG CAP PO SCH (08:47)
[2017-03-22] MEDS: AMIODARONE 200 MG TAB PO SCH (08:48)
[2017-03-22] MEDS: SPIRONOLACTONE 25 MG TAB PO SCH (08:48)
[2017-03-22] MEDS: FEXOFENADINE HCL 180 MG TAB PO SCH (08:48)
[2017-03-22] MEDS: AMLODIPINE BESYLATE 5 MG TAB PO SCH (08:48)
[2017-03-22] MEDS: PANTOprazole SOD 40 MG TAB PO SCH (09:00)
--- NOTE | 2017-03-22 10:22 | Cardiology Follow-Up ---
Subjective General Date of Service: March 22, 2017. Pt evaluation today including: conversation w/ patient, physical exam, chart review, lab review, review of studies, conversation w/ internal consultant, review of inpatient medication list History of Present Illness The patient is a 66 year old male seen in follow-up. Brief episode of paroxysmal atrial fibrillation with rapid ventricular response noted in the a.m. Mild palpitations reported. No chest discomfort or lightheadedness. Spontaneously converted to normal sinus rhythm. Offers no other complaints this time. Allergies Coded Allergies: No Known Allergies (Unverified , 03/17/17) Social History Smoking Status: Former Smoker Hx Tobacco Use In Past Year?: No Hx Alcohol Use - Type And Amou: No Hx Substance Use - Type And Am: No Review of Systems Respiratory: + cough, + sputum, No dyspnea at rest, No dyspnea on exertion, No hemoptysis, No shortness of breath, No wheezing Cardiac: No PND, No chest pain, No claudication, No edema, No orthopnea, No palpitations Physical Exam Vital Signs Last Vital Signs Documentation Date Time Temp Pulse Resp B/P Pulse Ox O2 Delivery O2 Flow Rate FiO2 03/22/17 08:00 Room Air 03/22/17 07:31 36.9 57 18 127/81 93 03/18/17 08:00 2.0 Physical Exam Constitutional: General Apperance: well-nourished Level of Distress: NAD Head: normocephalic ENMT: normal ENT inspection Neck: supple, trachea midline Lungs: Auscultation: no wheezing, no rales/crackles, no rhonchi Cardiovascular: Heart Auscultation: normal S1, normal S2, no murmurs, tachycardia, irregular rate rhythm Peripheral Pulses: Bruits: none appreciated Radial Pulse: normal on the right Abdomen: Bowel Sounds: normal Inspection & Palpation: soft, non-distended, no tenderness, guarding & rebound Extremities: no cyanosis, no edema, no clubbing, no ulcers Neurologic: Gait & Station: pertinent finding (No focal deficit) Cranial Nerves: grossly intact Assessment and Plan Assessment and Plan FINAL IMPRESSION: 1. Paroxysmal atrial fibrillation with rapid ventricular response in setting of recent left upper lobectomy. - Brief recurrent antwan this a.m. - Oral amiodarone titrated to 200mg BID 2. Postoperative day 3 status post thorascopic left upper lobectomy for adenocarcinoma and mediastinal lymph node dissection. - chest tube removed today 3. Hypertension -- controlled. 4. Chronic hoarseness. 5. Proximal ascending aortic and aortic root aneurysm. PLAN AND RECOMMENDATIONS: Continue oral amiodarone 200mg BID for one week post discharge then reduce dose to 200mg daily. I suspect patient will have recurrent episodes of paroxysmal atrial fibrillation in the near future as he recovers from his surgery. Instructed to avoid strenuous activity. Pradaxa restarted. Other cardiovascular medications including amlodipine and Avapro will be continued as previously ordered. I will arrange for outpatient cardiology follow-up in [place] in 1-2 weeks. Laboratory Results Last 24 Hours Test 03/21/17 11:15 03/22/17 06:45 Sodium Level 139 mmol/L 140 mmol/L Potassium Level 3.8 mmol/L 3.6 mmol/L Chloride Level 104 mmol/L 103 mmol/L Carbon Dioxide Level 29 mmol/L 30 mmol/L Anion Gap 6.0 mmol/L 7.0 mmol/L Blood Urea Nitrogen 10 mg/dl Creatinine 0.92 mg/dl Est Creatinine Clear Calc Drug Dose 100.0 ml/min Estimated GFR () 100.1 Estimated GFR (Non- 86.4 BUN/Creatinine Ratio 11.4 Random Glucose 117 mg/dl Calcium Level 9.2 mg/dl Magnesium Level 2.4 mg/dl White Blood Count 10.33 K/uL Red Blood Count 4.49 M/uL Hemoglobin 13.0 g/dL Hematocrit 39.0 % Mean Corpuscular Volume 86.9 fL Mean Corpuscular Hemoglobin 29.0 pg Mean Corpuscular Hemoglobin Concent 33.3 g/dl Platelet Count 316 K/uL Mean Platelet Volume 9.0 fL Neutrophils (%) (Auto) 63.5 % Lymphocytes (%) (Auto) 14.1 % Monocytes (%) (Auto) 17.5 % Eosinophils (%) (Auto) 4.4 % Basophils (%) (Auto) 0.1 % Neutrophils # (Auto) 6.56 K/uL Lymphocytes # (Auto) 1.46 K/uL Monocytes # (Auto) 1.81 K/uL Eosinophils # (Auto) 0.45 K/uL Basophils # (Auto) 0.01 K/uL RDW Standard Deviation 43.0 fL RDW Coefficient of Variation 13.5 % Immature Granulocyte % (Auto) 0.4 % Immature Granulocyte # (Auto) 0.04 K/uL
[2017-03-22] MEDS ORDERED: CRD200 PO (12:38)
[2017-03-22] MEDS ORDERED: TRAM-10 PO (12:38)
[2017-03-22] MEDS ORDERED: CLC100 PO (12:38)
[2017-03-22] MEDS ORDERED: PRD75 PO (12:38)
--- NOTE | 2017-03-22 12:40 | Discharge Instructions ---
Discharge Instructions Date of Service March 22, 2017. Admission Reason for Admission: Left Lung Mass Discharge Discharge Diagnosis / Problem: Left Lung Mass Discharge Goals Goal(s): Learn about illness Activity Recommendations Activity Limitations: as noted below Lifting Limitations: none 1. You may remove dressing in 3 days and then shower. No tub baths. 2. Do not fly or SCUBA dive until cleared to do so by Dr. Thorne. . Instructions / Follow-Up Instructions / Follow-Up 1. Appointment with Dr. Thorne in 1-2 weeks. Office will call you with date and time of appointment. You will need a chest x-ray prior to appointment. Current Hospital Diet Patient's current hospital diet: Regular Diet Discharge Diet Recommended Diet: Regular Diet Procedures Procedures Performed: Left Video Assisted Thoracoscopy with Left Upper Lobe Wedge Resection, Left Upper Lobectomy with Mediastinal Lymphadenectomy Pending Studies Studies pending at discharge: no Medical Emergencies . Who to Call and When: Medical Emergencies: If at any time you feel your situation is an emergency, please call 911 immediately. . Non-Emergent Contact Non-Emergency issues call your: Surgeon Call Non-Emergent contact if: you have a fever, your pain is not controlled, your pain is worsening, wound has increased drainage . "Provider Documentation" section prepared by Jesus Mcgill. . VTE Core Measure Inpt VTE Proph given/why not?: Other Anticoagulation
--- NOTE | 2017-03-23 06:24 | DISCHARGE SUMMARY ---
DISCHARGE DIAGNOSES: 1. Adenocarcinoma, left upper lobe (stage IIIA). 2. Paroxysmal atrial fibrillation, poorly controlled. HOSPITAL COURSE: Mr. Martinez is a 66-year-old male who had a mass in his left upper lobe we have been working up; however, he has had multiple issues including pneumonia, the of his brother, as well as the onset atrial fibrillation. He settled down with the use of p.o. amiodarone after he had been loaded and he had done well over the last several weeks. We performed multiple diagnostic procedures, but we were unable to get tissue diagnosis. He was taken to the operating room and on 03/17/2017, I performed a left thoracoscopy with wedge resection what turned out to be an adenocarcinoma. I then proceeded with a left upper lobectomy and did a mediastinal lymph node dissection including removing the level 5 and level 6 node. The patient did well with no air leak, although he drained some as we had placed him back on Pradaxa. I kept on an amiodarone drip in the unit overnight and then moved him up to the telemetry unit. He did well until the end of the second postop day when he went into atrial fibrillation, which responded to a bolus of amiodarone. I removed his chest tube on postop day #4. He improve pain bishop, his x-ray looked good, and he was ambulating in the hallway and moving his bowels. However, his atrial fibrillation continued to crop up. Dr. Giron saw him from [facility] and his amiodarone was doubled from 200 to 400 mg daily. He really tolerated the atrial fibrillation well. His Pradaxa was resumed. He was discharged on postop day #5. His incisions were clean. His lungs are clear. He was moving his bowels. I will see him back in the office in a week with an x-ray and to go over his pathology results. It is important to note that the patient was hoarse after surgery. The level 6 node was very large and in the area of his recurrent laryngeal nerve. His voice sounded stronger to me on the last 2 days prior to discharge and I believe this may improve with time. It did not appear that we cut this nerve. [employer]
== END 2017-03-22 17:06 | disposition home or self-care (01) | DRG 164 ==
LOC: ENRESERVTM → ENRESERVDT → C.ACU 06:24 → C.MSICU 13:16 → C.2T 03-18 09:23
PROVIDERS: ADMIT Surgery; ATTEND Surgery
PROC: 07B74ZX Excision of Thorax Lymphatic, Percutaneous Endoscopic Approach, Diagnostic (ICD-10-PCS; principal; 2017-03-17 08:15)
PROC: 0BTG4ZZ Resection of Left Upper Lung Lobe, Percutaneous Endoscopic Approach (ICD-10-PCS; principal; 2017-03-17 08:15)
PROC: 0BBG8ZX Excision of Left Upper Lung Lobe, Via Natural or Artificial Opening Endoscopic, Diagnostic (ICD-10-PCS; principal; 2017-03-17 08:15)
DX: C34.12 Malignant neoplasm of upper lobe, left bronchus or lung (principal); C77.1 Secondary and unspecified malignant neoplasm of intrathoracic lymph nodes; I71.2 Thoracic aortic aneurysm, without rupture; I48.0 Paroxysmal atrial fibrillation; J44.9 Chronic obstructive pulmonary disease, unspecified; K21.9 Gastro-esophageal reflux disease without esophagitis; Z87.891 Personal history of nicotine dependence; E78.5 Hyperlipidemia, unspecified; I10 Essential (primary) hypertension

== ENCOUNTER → 2017-03-29 | Outpatient (CLI) | payer OTHER ==
[~2017-03-29] MED LIST changes: -AMIO200T4 PO; -APIX1TAB3 PO; +CLC100 PO; +CRD200 PO; -LACTATED RINGER'S 1000ML 1,000 ML IV SCH; +PRD75 PO; +TRAM-10 PO
--- NOTE | 2017-03-29 10:26 | DIAGNOSTIC IMAGING REPORT ---
TWO VIEW CHEST CLINICAL HISTORY: Lung cancer. FINDINGS: PA and lateral chest radiographs are compared to study dated 03/21/2017 and correlated with chest CT dated 12/19/2016. The heart is top normal for projection. The mediastinal contour is within normal limits. Emphysema and chronic interstitial thickening are similar to previous. There are postoperative changes from left upper lobe resection. Pleural fluid is seen at the left lung base. There is no pneumothorax. The skeletal structures are osteopenic. The bony thorax appears intact. IMPRESSION: 1. Emphysema and postoperative change from left-sided pulmonary resection. 2. Pleural fluid is seen at the left lung base, likely on a postoperative basis. 3. The lungs are otherwise clear. Electronically signed by: Armando Soto M.D. 03/29/2017 10:25 AM Dictated Date/Time: 03/29/2017 10:23 AM
== END | disposition home or self-care (01) ==
LOC: C.RAD1850 10:04
PROVIDERS: ATTEND Surgery
DX: C34.92 Malignant neoplasm of unspecified part of left bronchus or lung (principal); J43.9 Emphysema, unspecified

== ENCOUNTER → 2017-05-04 | Outpatient (CLI) | payer OTHER ==
--- NOTE | 2017-05-04 12:49 | DIAGNOSTIC IMAGING REPORT ---
CHEST 2 VIEWS ROUTINE CLINICAL HISTORY: C34.92 Adenocarcinoma of left [id number] COMPARISON STUDY: 03/29/2017 FINDINGS: Chronic pleural reactive change left base. Chronic blunting left lateral calcific angle. Lungs otherwise appear clear. Mild post procedural elevation left hemidiaphragm again on a chronic basis. IMPRESSION: Chronic and postoperative change left base. No acute process. No change from the prior exam. Electronically signed by: Benji Ramirez M.D. 05/04/2017 12:48 PM Dictated Date/Time: 05/04/2017 12:47 PM
== END | disposition home or self-care (01) ==
LOC: C.RAD1850 12:33
PROVIDERS: ATTEND Surgery
DX: C34.92 Malignant neoplasm of unspecified part of left bronchus or lung (principal)

== ENCOUNTER → 2017-08-29 | Outpatient (CLI) | payer OTHER ==
[2017-08-29 18:37] LABS: BASO % 0.5 %; BASO ABS # 0.03 K/uL (0-0.2); COMPLETE YES; EOS % 2.9 %; IG% 0.2 %; LYMPH % 27.6 %; LYMPH ABS # 1.72 K/uL (1.2-3.4); MEAN CELL VOLUME 93.3 fL (80-100); MEAN CORPUSCULAR HEMOGLOBIN 32.4 pg (25-34); MEAN CORPUSCULAR HGB CONC 34.7 g/dl (32-36); MEAN PLATELET VOLUME 9.7 fL (7.4-10.4); MONO % 10.8 %; PLATELET COUNT 240 K/uL (130-400); RED BLOOD COUNT 3.86 M/uL (4.7-6.1); WHITE BLOOD COUNT 6.23 K/uL (4.8-10.8)
[2017-08-29 19:21] LABS: ALT/SGPT 22 U/L (12-78); AST/SGOT 16 U/L (15-37); BLOOD UREA NITROGEN 21 mg/dl (7-18); BUN/CREATININE RATIO 13.4 (10-20); CALCIUM 8.9 mg/dl (8.5-10.1); CARBON DIOXIDE 25 mmol/L (21-32); CHLORIDE 106 mmol/L (98-107); CREATININE 1.53 mg/dl (0.60-1.40); GLUCOSE 104 mg/dl (70-99); SODIUM 139 mmol/L (136-145)
[2017-08-29 19:23] LABS: ALB/GLOB RATIO 1.1 (0.9-2); ALKALINE PHOSPHATASE 68 U/L (45-117)
== END | disposition home or self-care (01) ==
LOC: C.LABMFLN 15:21
PROVIDERS: ATTEND Specialist
DX: J38.01 Paralysis of vocal cords and larynx, unilateral (principal)

== ENCOUNTER → 2018-03-09 | Outpatient (CLI) | payer OTHER ==
[~2018-03-09] MED LIST changes: +NIAC500T83 PO; -NSP/500 PO; -TRAM-10 PO
[2018-03-09 12:59] LABS: BASO % 0.5 %; BASO ABS # 0.03 K/uL (0-0.2); EOS % 4.2 %; EOS ABS # 0.27 K/uL (0-0.5); HEMATOCRIT 38.3 % (42-52); HEMOGLOBIN 13.6 g/dL (14.0-18.0); IG# 0.03 K/uL (0.00-0.02); LYMPH % 17.1 %; LYMPH ABS # 1.09 K/uL (1.2-3.4); MEAN CELL VOLUME 87.2 fL (80-100); MEAN CORPUSCULAR HGB CONC 35.5 g/dl (32-36); MEAN PLATELET VOLUME 9.1 fL (7.4-10.4); MONO % 10.2 %; MONO ABS # 0.65 K/uL (0.11-0.59); NEUT % 67.5 %; NEUT ABS # 4.31 K/uL (1.4-6.5); PLATELET COUNT 274 K/uL (130-400); RED CELL DISTRIBUTION WIDTH CV 13.5 % (11.5-14.5); RED CELL DISTRIBUTION WIDTH SD 43.4 fL (36.4-46.3); WHITE BLOOD COUNT 6.38 K/uL (4.8-10.8)
[2018-03-09 14:09] LABS: ALBUMIN 3.5 gm/dl (3.4-5.0); ALT/SGPT 21 U/L (12-78); AST/SGOT 18 U/L (15-37); BLOOD UREA NITROGEN 15 mg/dl (7-18); CALCIUM 8.7 mg/dl (8.5-10.1); CARBON DIOXIDE 25 mmol/L (21-32); CREATININE 1.32 mg/dl (0.60-1.40); GLUCOSE 81 mg/dl (70-99); POTASSIUM 3.8 mmol/L (3.5-5.1); SODIUM 136 mmol/L (136-145)
[2018-03-09 14:20] LABS: ALKALINE PHOSPHATASE 61 U/L (45-117); CHOLESTEROL 165 mg/dl (0-200); LDL CHOLESTEROL CALCULATED 102 mg/dl; TOTAL PROTEIN 7.5 gm/dl (6.4-8.2)
== END | disposition home or self-care (01) ==
LOC: C.LABMFLN 09:02
PROVIDERS: ATTEND Family Medicine
DX: I10 Essential (primary) hypertension (principal); E78.00 Pure hypercholesterolemia, unspecified; I48.0 Paroxysmal atrial fibrillation; C34.92 Malignant neoplasm of unspecified part of left bronchus or lung

== ENCOUNTER 2019-03-19 20:03 | Inpatient (IN) ==
[2019-03-19] MEDS ORDERED: ALBUT/IPRATROP 3MG/0.5MG NEB 3 ML VIAL NEB STA (21:39)
[2019-03-19 21:43] LABS: Basophils # (auto) 0.03 K/uL (0-0.2); Basophils % (auto) 0.3 %; Hematocrit (blood only) 44.3 % (42-52); Hemoglobin 15.9 g/dL (14.0-18.0); Immature Granulocytes # (auto) 0.09 K/uL (0.00-0.02); Lymphocytes # (auto) 0.86 K/uL (1.2-3.4); Lymphocytes % (auto) 9.8 %; Mean Corpuscular Hgb Conc 35.9 g/dL (32-36); Mean Platelet Volume 9.6 fL (7.4-10.4); Monocytes # (auto) 0.43 K/uL (0.11-0.59); Monocytes % (auto) 4.9 %; Neutrophils # (auto) 7.38 K/uL (1.4-6.5); Platelet Count 147 K/uL (130-400); RDW Coefficient of Variation 18.2 % (11.5-14.5); RDW Standard Deviation 55.8 fL (36.4-46.3); Red Blood Count 5.34 M/uL (4.7-6.1); White Blood Count 8.79 K/uL (4.8-10.8)
[2019-03-19] MEDS ORDERED: SODIUM CHLORIDE 0.9% 1000ML 1,000 ML IV SCH (21:45)
[2019-03-19 21:55] LABS: Alanine Aminotransferase 332 U/L (12-78); Albumin Globulin Ratio 0.9 (0.9-2); Albumin Level 3.1 gm/dl (3.4-5.0); Alkaline Phosphatase 663 U/L (45-117); Aspartate Aminotransferase 135 U/L (15-37); BUN Creatinine Ratio 21.8 (10-20); Bilirubin,Total 0.7 mg/dl (0.2-1); Blood Urea Nitrogen 30 mg/dl (7-18); Calcium 8.8 mg/dl (8.5-10.1); Carbon Dioxide 23 mmol/L (21-32); Chloride 102 mmol/L (98-107); Creatinine Clr Calc Pharmacy 56.2 ml/min; Est GFR (African American) 60.5; Est GFR (Non-African American) 52.2; Globulin 3.4 gm/dl (2.5-4.0); Glucose 111 mg/dl (70-99); Magnesium 2.2 mg/dl (1.8-2.4); Potassium 4.1 mmol/L (3.5-5.1); Sodium 134 mmol/L (136-145); Total Protein 6.5 gm/dl (6.4-8.2)
[2019-03-19 22:04] LABS: INR 1.2 (0.9-1.1); Partial Thromboplastin Ratio 2.1; Prothrombin Time 12.4 Seconds (9.0-12.0)
[2019-03-19 22:07] LABS: Troponin I < 0.015 ng/ml (0-0.045)
--- NOTE | 2019-03-19 22:12 | Emergency Department Note ---
Entered by Etelvina Christopher acting as a scribe for Armando Alvarado MD History of Present Illness General Chief complaint: Abnormal Labs/Diagnostic Testing Stated complaint: ABNORMAL LABS- KIDNEYS, THYROID Time Seen by Provider: 03/19/19 20:59 Source: patient Mode of arrival: ambulatory Limitations: no limitations History of Present Illness Onset (ago): week(s) 1 Radiation: non-radiation Pain Consistency: + constant Associated symptoms: + nausea/vomiting (+nausea, -vomiting) and + other (+diarrhea, +sore throat); no fever/chills and no shortness of breath The patient is a 68 year old male who presents to the ED with complaints of abnormal lab results. He states he has been sick for a week with nausea, dry heaving, sore throat, diarrhea and URI symptoms. He notes the diarrhea has been chronic since undergoing chemotherapy for metastatic lung adenocarcinoma in November 2018. He saw his PCP and was placed on a 5 day Z-Pack. He experienced no relief, so today he went back to his doctors office and had labs drawn which showed elevated LFTs and a Creatinine of 1.61. His doctor told him he would need further testing and to come to the ED. The patient reports he does feel dehydrated. He notes he experienced similar symptoms years ago and was found to have elevated liver enzymes from dehydration. He underwent a big workup for hepatitis at the time but states his testing came back negative. His last c hemotherapy was in November 2018. He has previously undergone a left sided lung resection and has a port in place. He denies any increased shortness of breath. He has been afebrile. Home Medications Home Medications Medication Instructions Recorded Confirmed Type albuterol sulfate [Ventolin HFA] 2 puff INHALATION QID PRN 08/08/18 03/19/19 History hydrocortisone [Proctosol HC] 1 applic AK BID PRN 08/08/18 03/19/19 History montelukast [Singulair] 10 mg PO PM 08/08/18 03/19/19 History cholestyramine (with sugar) 1 - 2 tbsp PO DAILY 03/19/19 03/19/19 History dronabinol 2.5 mg PO DAILY 03/19/19 03/19/19 History ipratropium bromide 2 spray INTRANASAL BID 03/19/19 03/19/19 History irbesartan [Avapro] 150 mg PO DAILY 03/19/19 03/19/19 History loratadine 10 mg PO DAILY PRN 03/19/19 03/19/19 History methimazole 15 mg PO QAM 03/19/19 03/19/19 History metoprolol succinate 100 mg PO DAILY 03/19/19 03/19/19 History mirtazapine 15 mg PO HS 03/19/19 03/19/19 History ondansetron HCl 8 mg PO Q6H PRN 03/19/19 03/19/19 History pantoprazole 40 mg PO DAILY 03/19/19 03/19/19 History zlumujfjq-RM-anrcocnx-guaifen 20 ml PO UD PRN 03/19/19 03/19/19 History [Mucinex Fast-Max Severe Cold] potassium chloride [Klor-Con M10] 20 meq PO AMPM 03/19/19 03/19/19 History prednisone 20 mg PO DAILY 03/19/19 03/19/19 History rivaroxaban [Xarelto] 20 mg PO DAILY 03/19/19 03/19/19 History Allergies Allergy/AdvReac Type Severity Reaction Status Date / Time No Known Allergies Allergy Unverified 03/19/19 23:25 Past Med/Surg History Medical History Abdominal aortic aneurysm (AAA) Obesity Thoracic aortic aneurysm Atrial fibrillation Cancer lung cancer (chemo and radiation) Chronic obstructive pulmonary disease GERD (gastroesophageal reflux disease) Hyperlipidemia Hypertension Increased intraocular pressure in past Surgical History History of bronchoscopy History of cardiac cath History of cardiac radiofrequency ablation 2008 History of cholecystectomy History of colonoscopy History of lobectomy of lung upper left History of tonsillectomy History of tooth extraction Family History Brother Family history of diabetes mellitus Family hx of colon cancer Social History Preferred Language: Uzbek Communication Ability: Effective Chief Minister Required: No Beliefs That Will Affect Care: None Current Living Situation: Spouse Other Information That Helps Us Care for You: No Feels Safe at Home: Yes Safety Concerns: Feels Safe At This Time Smoking Status: Former smoker Cigarettes Per Day: QUIT 10 YEARS AGO Do You Dip or Chew Tobacco: No Second Hand Exposure: No Tobacco Cessation Education Requested by Patient: No Hx Alcohol Use: No Hx Substance Use: Yes substance use type: marijuana Substance Use Type Other:: Prescribed for appetite Last Used Substance: Hours (ago) Review of Systems See HPI for pertinent positives & negatives. and A total of 10 systems reviewed and were otherwise negative Physical Exam Vital Signs Vital Signs - 24 hr 03/19/19 20:26 03/19/19 21:00 03/19/19 22:00 Temperature 36.5 C Temperature Source Oral Sepsis Recent Fever Within 48 Hours No Sepsis New/Unexplained Change in Mental Status No Sepsis Action Taken by Nursing No Action Required Pulse Rate 65 Pulse Rate [Apical] Pulse Rate [Finger] 55 L Pulse Rhythm Regular Pulse Rhythm [Apical] Pulse Strength Normal Pulse Strength [Apical] Respiratory Rate 19 22 Respiratory Effort / Characteristics Non-Labored Spontaneous Respiratory Depth Normal Respiratory Pattern Regular Blood Pressure 119/82 Blood Pressure [Right Arm] 128/90 Blood Pressure Mean 94 Blood Pressure Mean [Right Arm] 102 Blood Pressure Position Sitting Blood Pressure Position [Right Arm] Pulse Oximetry 94 92 93 Pulse Oximetry [Right Hand] Oxygen Delivery Method Room Air Room Air Room Air Oxygen Delivery Method [Right Hand] Oxygen Flow Rate Oxygen Flow Rate [Right Hand] Fraction of Inspired Oxygen SaO2/FiO2 Ratio 03/19/19 22:51 03/20/19 00:04 03/20/19 01:05 Temperature Temperature Source Sepsis Recent Fever Within 48 Hours Sepsis New/Unexplained Change in Mental Status Sepsis Action Taken by Nursing Pulse Rate Pulse Rate [Apical] Pulse Rate [Finger] 62 63 52 L Pulse Rhythm Pulse Rhythm [Apical] Pulse Strength Pulse Strength [Apical] Respiratory Rate 20 22 20 Respiratory Effort / Characteristics Non-Labored Respiratory Depth Normal Respiratory Pattern Blood Pressure Blood Pressure [Right Arm] 127/93 127/91 124/95 Blood Pressure Mean Blood Pressure Mean [Right Arm] 104 103 104 Blood Pressure Position Blood Pressure Position [Right Arm] Pulse Oximetry 98 99 100 Pulse Oximetry [Right Hand] Oxygen Delivery Method Non-rebreather Non-rebreather Non-rebreather Oxygen Delivery Method [Right Hand] Oxygen Flow Rate 15 Oxygen Flow Rate [Right Hand] Fraction of Inspired Oxygen SaO2/FiO2 Ratio 03/20/19 01:30 03/20/19 02:00 03/20/19 02:12 Temperature 36.6 C Temperature Source Oral Sepsis Recent Fever Within 48 Hours Sepsis New/Unexplained Change in Mental Status Sepsis Action Taken by Nursing Pulse Rate Pulse Rate [Apical] 52 L Pulse Rate [Finger] 62 Pulse Rhythm Pulse Rhythm [Apical] Regular Pulse Strength Pulse Strength [Apical] Normal Respiratory Rate 18 16 Respiratory Effort / Characteristics Non-Labored Spontaneous Non-Labored Spontaneous Respiratory Depth Normal Normal Respiratory Pattern Regular Regular Blood Pressure Blood Pressure [Right Arm] 140/96 117/91 Blood Pressure Mean Blood Pressure Mean [Right Arm] 110 99 Blood Pressure Position Blood Pressure Position [Right Arm] Lying Pulse Oximetry 98 100 Pulse Oximetry [Right Hand] 100 Oxygen Delivery Method Non-rebreather Non-rebreather Oxygen Delivery Method [Right Hand] Non-rebreather Oxygen Flow Rate 15 15 Oxygen Flow Rate [Right Hand] 15 Fraction of Inspired Oxygen 100 SaO2/FiO2 Ratio 100 03/20/19 03:00 03/20/19 04:00 03/20/19 06:00 Temperature 36.5 C Temperature Source Oral Sepsis Recent Fever Within 48 Hours Sepsis New/Unexplained Change in Mental Status Sepsis Action Taken by Nursing Pulse Rate Pulse Rate [Apical] 50 L 50 L 52 L Pulse Rate [Finger] Pulse Rhythm Pulse Rhythm [Apical] Regular Regular Regular Pulse Strength Pulse Strength [Apical] Normal Normal Normal Respiratory Rate 18 14 18 Respiratory Effort / Characteristics Non-Labored Spontaneous Non-Labored Spontaneous Non-Labored Spontaneous Respiratory Depth Normal Normal Normal Respiratory Pattern Regular Regular Regular Blood Pressure Blood Pressure [Right Arm] 139/94 147/97 H 128/95 Blood Pressure Mean Blood Pressure Mean [Right Arm] 109 113 106 Blood Pressure Position Blood Pressure Position [Right Arm] Lying Lying Lying Pulse Oximetry 98 100 94 Pulse Oximetry [Right Hand] Oxygen Delivery Method Non-rebreather Non-rebreather Room Air Oxygen Delivery Method [Right Hand] Oxygen Flow Rate 15 15 Oxygen Flow Rate [Right Hand] Fraction of Inspired Oxygen 100 100 SaO2/FiO2 Ratio 98 100 03/20/19 07:00 03/20/19 08:00 03/20/19 09:00 Temperature Temperature Source Sepsis Recent Fever Within 48 Hours Sepsis New/Unexplained Change in Mental Status Sepsis Action Taken by Nursing Pulse Rate 49 L 56 L 52 L Pulse Rate [Apical] Pulse Rate [Finger] Pulse Rhythm Pulse Rhythm [Apical] Pulse Strength Pulse Strength [Apical] Respiratory Rate 14 16 12 Respiratory Effort / Characteristics Non-Labored Spontaneous Respiratory Depth Normal Respiratory Pattern Regular Blood Pressure 128/95 122/89 117/88 Blood Pressure [Right Arm] Blood Pressure Mean 106 100 97 Blood Pressure Mean [Right Arm] Blood Pressure Position Blood Pressure Position [Right Arm] Pulse Oximetry 99 95 96 Pulse Oximetry [Right Hand] Oxygen Delivery Method Room Air Room Air Non-rebreather Nasal Cannula Oxygen Delivery Method [Right Hand] Oxygen Flow Rate 2 Oxygen Flow Rate [Right Hand] Fraction of Inspired Oxygen SaO2/FiO2 Ratio 03/20/19 10:00 03/20/19 11:00 Temperature Temperature Source Sepsis Recent Fever Within 48 Hours Sepsis New/Unexplained Change in Mental Status Sepsis Action Taken by Nursing Pulse Rate 81 80 Pulse Rate [Apical] Pulse Rate [Finger] Pulse Rhythm Pulse Rhythm [Apical] Pulse Strength Pulse Strength [Apical] Respiratory Rate 13 23 Respiratory Effort / Characteristics Respiratory Depth Respiratory Pattern Blood Pressure 135/101 H 117/94 Blood Pressure [Right Arm] Blood Pressure Mean 112 101 Blood Pressure Mean [Right Arm] Blood Pressure Position Blood Pressure Position [Right Arm] Pulse Oximetry 97 94 Pulse Oximetry [Right Hand] Oxygen Delivery Method Nasal Cannula Nasal Cannula Oxygen Delivery Method [Right Hand] Oxygen Flow Rate 2 2 Oxygen Flow Rate [Right Hand] Fraction of Inspired Oxygen SaO2/FiO2 Ratio GENERAL: Patient is in no acute distress. HEENT: No acute trauma, normocephalic atraumatic, no throat erythema, mucous membranes are somewhat dry, no nasal congestion, no scleral icterus. NECK: No stridor, no adenopathy, no meningismus, trachea is midline. LUNGS: No respiratory distress, wheezing with rhonchi bilaterally, breath sounds are fairly equal. HEART: Bradycardic, regular rhythm, no murmurs. ABDOMEN: Soft, nontender, bowel sounds positive, no hernias, no peritonitis. EXTREMITIES: No cyanosis or edema, full range of motion of all the joints without pain or difficulty, no signs for acute trauma. NEUROLOGIC: Oriented x 3, no acute motor or sensory deficits, no focal weakness. SKIN: No rash, no jaundice, no diaphoresis. Course 2134: The patient was evaluated in room C4 and a complete history and physical were performed. 2238: I discussed the patients case with Dr. Mohamud, [facility] Intensive Care. The patient will be further evaluated. 2244: I reevaluated the patient. He is resting comfortably. I discussed my recommendation he remain in the hospital for further evaluation and management and he verbalized complete understanding and agreement. 2249: I discussed the patients case with Dr. Cole, [facility] Hospitalist. The patient will be further evaluated. Consultations Consultation #1: I discussed the patients case with Dr. Mohamud, [facility] Intensive [facility]. The patient will be further evaluated. Time: 22:39 Consultation #2: I discussed the patients case with Dr. Cole, [facility] Hospitalist. The patient will be further evaluated. Time: 22:49 Administered Medications Cholestyramine Resin (Questran) 4 gm PO DAILY@1000 [facility] Stop: 04/19/19 09:59 Last Admin: 03/20/19 10:38 Dose: Not Given Documented by: [id number] Dronabinol (Marinol) 2.5 mg PO DAILY [facility] Stop: 04/19/19 08:59 Last Admin: 03/20/19 10:04 Dose: 2.5 mg Documented by: [id number] Ipratropium Check (Atrovent Nasal [place] 0.06%) 2 sprays JAY BID [facility] Stop: 04/19/19 08:59 Last Admin: 03/20/19 10:04 Dose: 2 sprays Documented by: [id number] Irbesartan (Avapro) 150 mg PO DAILY [facility] Stop: 04/19/19 08:59 Last Admin: 03/20/19 10:05 Dose: 150 mg Documented by: [id number] Methimazole (Tapazole) 15 mg PO QAM [facility] Stop: 04/19/19 08:59 Last Admin: 03/20/19 10:05 Dose: 15 mg Documented by: [id number] Metoprolol Succinate (Toprol Xl) 100 mg PO DAILY [facility] Stop: 04/19/19 08:59 Last Admin: 03/20/19 10:06 Dose: 100 mg Documented by: [id number] Ondansetron HCl (Zofran) 8 mg PO Q6H PRN PRN Reason: Nausea Stop: 04/19/19 02:11 Last Admin: 03/20/19 10:03 Dose: 8 mg Documented by: [id number] Pantoprazole Sodium (Protonix) 40 mg PO DAILY [facility] Stop: 04/19/19 08:59 Last Admin: 03/20/19 10:05 Dose: 40 mg Documented by: [id number] Prednisone (Prednisone) 20 mg PO DAILY [facility] Stop: 04/19/19 08:59 Last Admin: 03/20/19 10:05 Dose: 20 mg Documented by: [id number] Discontinued Medications Albuterol (Duoneb) 3 ml NEB NOW STA Stop: 03/19/19 21:40 Last Admin: 03/19/19 21:51 Dose: 3 ml Documented by: [id number] Sodium Chloride (Nss 1000ml) 1,000 mls @ 999 mls/hr IV .Q1H1M ALLY Stop: 03/19/19 22:45 Last Infusion: 03/19/19 23:07 Dose: 0 mls/hr Documented by: [id number] Admin: 03/19/19 21:54 Dose: 999 mls/hr Documented by: [id number] Medical Decision Making Differential Diagnosis The differential diagnoses considered include: bronchitis, pneumonia, electrolyte imbalance, renal or liver failure, dehydration, cardiac ischemia. Medical Records Attestation: I reviewed the patient's medical records. Home Medications Current Medication List: was personally reviewed by me Laboratory Data Attestation: I reviewed the patient's lab results. Result diagrams: 03/20/19 04:32 03/20/19 04:32 Lab Results 03/19/19 03/19/19 03/19/19 Range/Units 21:01 21:01 21:01 WBC 8.79 (4.8-10.8) K/uL RBC 5.34 (4.7-6.1) M/uL Hgb 15.9 (14.0-18.0) g/dL Hct 44.3 (42-52) % MCV 83.0 (80-100) fL MCH 29.8 (25-34) pg MCHC 35.9 (32-36) g/dL RDW Std Deviation 55.8 H (36.4-46.3) fL RDW Coeff of Adams 18.2 H (11.5-14.5) % Plt Count 147 (130-400) K/uL MPV 9.6 (7.4-10.4) fL Immature Gran % (Auto) 1.0 % Neut % (Auto) 84.0 % Lymph % (Auto) 9.8 % Mcpherson % (Auto) 4.9 % Eos % (Auto) 0.0 % Baso % (Auto) 0.3 % Immature Gran # (Auto) 0.09 H (0.00-0.02) K/uL Neut # (Auto) 7.38 H (1.4-6.5) K/uL Lymph # (Auto) 0.86 L (1.2-3.4) K/uL Mcpherson # (Auto) 0.43 (0.11-0.59) K/uL Eos # (Auto) 0.00 (0-0.5) K/uL Baso # (Auto) 0.03 (0-0.2) K/uL RBC Morphology PT 12.4 H (9.0-12.0) Seconds INR 1.2 H (0.9-1.1) APTT 56.9 H* (21.0-31.0) Seconds PTT Ratio 2.1 Sodium 134 L (136-145) mmol/L Potassium 4.1 (3.5-5.1) mmol/L Chloride 102 (98-107) mmol/L Carbon Dioxide 23 (21-32) mmol/L Anion Gap 9.0 (3-11) BUN 30 H (7-18) mg/dl Creatinine 1.38 (0.6-1.4) mg/dl Est Cr Clr Drug Dosing 56.2 ml/min Est GFR ( Amer) 60.5 Est GFR (Non-Af Amer) 52.2 BUN/Creatinine Ratio 21.8 H (10-20) Glucose 111 H (70-99) mg/dl POC Glucose (70-99) Calcium 8.8 (8.5-10.1) mg/dl Magnesium 2.2 (1.8-2.4) mg/dl Total Bilirubin 0.7 (0.2-1) mg/dl Direct Bilirubin (0-0.2) mg/dl AST 135 H (15-37) U/L ALT 332 H (12-78) U/L Alkaline Phosphatase 663 H (45-117) U/L Troponin I < 0.015 (0-0.045) ng/ml Total Protein 6.5 (6.4-8.2) gm/dl Albumin 3.1 L (3.4-5.0) gm/dl Globulin 3.4 (2.5-4.0) gm/dl Albumin/Globulin Ratio 0.9 (0.9-2) TSH 12.700 H (0.300-4.500) uIu/ml Free T4 (0.8-1.6) ng/dl Free T3 (2.3-4.2) pg/ml Urine Color Urine Appearance (Clear) Urine pH (4.5-7.5) Ur Specific [place] (1.000-1.030) Urine Protein (Negative) Urine Glucose (UA) (Negative) Urine Ketones (Negative) Urine Blood (Negative) Urine Nitrite (Negative) Urine Bilirubin (Negative) Urine Urobilinogen (Negative) Ur Leukocyte Esterase (Negative) Urine WBC (Auto) (0-5) /hpf Urine RBC (Auto) (0-4) /hpf U Hyaline Cast (Auto) (0-5) /lpf U Epithel Cells (Auto) (0-5) /lpf Urine Bacteria (Auto) (Negative) Nasal Screen MRSA (PCR) (Negative) Monoscreen (Negative) 03/19/19 03/20/19 03/20/19 Range/Units 21:01 04:32 04:32 WBC 8.24 (4.8-10.8) K/uL RBC 4.99 (4.7-6.1) M/uL Hgb 14.4 (14.0-18.0) g/dL Hct 41.9 L (42-52) % MCV 84.0 (80-100) fL MCH 28.9 (25-34) pg MCHC 34.4 (32-36) g/dL RDW Std Deviation 56.7 H (36.4-46.3) fL RDW Coeff of Adams 18.5 H (11.5-14.5) % Plt Count 127 L (130-400) K/uL MPV 9.5 (7.4-10.4) fL Immature Gran % (Auto) 1.0 % Neut % (Auto) 75.1 % Lymph % (Auto) 13.5 % Mcpherson % (Auto) 10.2 % Eos % (Auto) 0.2 % Baso % (Auto) 0.0 % Immature Gran # (Auto) 0.08 H (0.00-0.02) K/uL Neut # (Auto) 6.19 (1.4-6.5) K/uL Lymph # (Auto) 1.11 L (1.2-3.4) K/uL Mcpherson # (Auto) 0.84 H (0.11-0.59) K/uL Eos # (Auto) 0.02 (0-0.5) K/uL Baso # (Auto) 0.00 (0-0.2) K/uL RBC Morphology Unremarkable PT 11.6 (9.0-12.0) Seconds INR 1.1 (0.9-1.1) APTT (21.0-31.0) Seconds PTT Ratio Sodium (136-145) mmol/L Potassium (3.5-5.1) mmol/L Chloride (98-107) mmol/L Carbon Dioxide (21-32) mmol/L Anion Gap (3-11) BUN (7-18) mg/dl Creatinine (0.6-1.4) mg/dl Est Cr Clr Drug Dosing ml/min Est GFR ( Amer) Est GFR (Non-Af Amer) BUN/Creatinine Ratio (10-20) Glucose (70-99) mg/dl POC Glucose (70-99) Calcium (8.5-10.1) mg/dl Magnesium (1.8-2.4) mg/dl Total Bilirubin (0.2-1) mg/dl Direct Bilirubin (0-0.2) mg/dl AST (15-37) U/L ALT (12-78) U/L Alkaline Phosphatase (45-117) U/L Troponin I (0-0.045) ng/ml Total Protein (6.4-8.2) gm/dl Albumin (3.4-5.0) gm/dl Globulin (2.5-4.0) gm/dl Albumin/Globulin Ratio (0.9-2) TSH (0.300-4.500) uIu/ml Free T4 (0.8-1.6) ng/dl Free T3 (2.3-4.2) pg/ml Urine Color Urine Appearance (Clear) Urine pH (4.5-7.5) Ur Specific [place] (1.000-1.030) Urine Protein (Negative) Urine Glucose (UA) (Negative) Urine Ketones (Negative) Urine Blood (Negative) Urine Nitrite (Negative) Urine Bilirubin (Negative) Urine Urobilinogen (Negative) Ur Leukocyte Esterase (Negative) Urine WBC (Auto) (0-5) /hpf Urine RBC (Auto) (0-4) /hpf U Hyaline Cast (Auto) (0-5) /lpf U Epithel Cells (Auto) (0-5) /lpf Urine Bacteria (Auto) (Negative) Nasal Screen MRSA (PCR) (Negative) Monoscreen Negative (Negative) 03/20/19 03/20/19 03/20/19 Range/Units 04:32 04:32 04:36 WBC (4.8-10.8) K/uL RBC (4.7-6.1) M/uL Hgb (14.0-18.0) g/dL Hct (42-52) % MCV (80-100) fL MCH (25-34) pg MCHC (32-36) g/dL RDW Std Deviation (36.4-46.3) fL RDW Coeff of Adams (11.5-14.5) % Plt Count (130-400) K/uL MPV (7.4-10.4) fL Immature Gran % (Auto) % Neut % (Auto) % Lymph % (Auto) % Mcpherson % (Auto) % Eos % (Auto) % Baso % (Auto) % Immature Gran # (Auto) (0.00-0.02) K/uL Neut # (Auto) (1.4-6.5) K/uL Lymph # (Auto) (1.2-3.4) K/uL Mcpherson # (Auto) (0.11-0.59) K/uL Eos # (Auto) (0-0.5) K/uL Baso # (Auto) (0-0.2) K/uL RBC Morphology PT (9.0-12.0) Seconds INR (0.9-1.1) APTT (21.0-31.0) Seconds PTT Ratio Sodium 136 (136-145) mmol/L Potassium 4.0 (3.5-5.1) mmol/L Chloride 106 (98-107) mmol/L Carbon Dioxide 25 (21-32) mmol/L Anion Gap 5.0 (3-11) BUN 27 H (7-18) mg/dl Creatinine 1.17 (0.6-1.4) mg/dl Est Cr Clr Drug Dosing 64.6 ml/min Est GFR ( Amer) 73.8 Est GFR (Non-Af Amer) 63.7 BUN/Creatinine Ratio 23.3 H (10-20) Glucose 70 (70-99) mg/dl POC Glucose 69 L* (70-99) Calcium 8.2 L (8.5-10.1) mg/dl Magnesium (1.8-2.4) mg/dl Total Bilirubin 0.8 (0.2-1) mg/dl Direct Bilirubin 0.2 (0-0.2) mg/dl AST 98 H (15-37) U/L ALT 278 H (12-78) U/L Alkaline Phosphatase 564 H (45-117) U/L Troponin I (0-0.045) ng/ml Total Protein 5.8 L (6.4-8.2) gm/dl Albumin 2.8 L (3.4-5.0) gm/dl Globulin (2.5-4.0) gm/dl Albumin/Globulin Ratio (0.9-2) TSH (0.300-4.500) uIu/ml Free T4 0.60 L (0.8-1.6) ng/dl Free T3 1.16 L (2.3-4.2) pg/ml Urine Color Urine Appearance (Clear) Urine pH (4.5-7.5) Ur Specific [place] (1.000-1.030) Urine Protein (Negative) Urine Glucose (UA) (Negative) Urine Ketones (Negative) Urine Blood (Negative) Urine Nitrite (Negative) Urine Bilirubin (Negative) Urine Urobilinogen (Negative) Ur Leukocyte Esterase (Negative) Urine WBC (Auto) (0-5) /hpf Urine RBC (Auto) (0-4) /hpf U Hyaline Cast (Auto) (0-5) /lpf U Epithel Cells (Auto) (0-5) /lpf Urine Bacteria (Auto) (Negative) Nasal Screen MRSA (PCR) (Negative) Monoscreen (Negative) 03/20/19 03/20/19 03/20/19 Range/Units 04:37 08:30 11:40 WBC (4.8-10.8) K/uL RBC (4.7-6.1) M/uL Hgb (14.0-18.0) g/dL Hct (42-52) % MCV (80-100) fL MCH (25-34) pg MCHC (32-36) g/dL RDW Std Deviation (36.4-46.3) fL RDW Coeff of Adams (11.5-14.5) % Plt Count (130-400) K/uL MPV (7.4-10.4) fL Immature Gran % (Auto) % Neut % (Auto) % Lymph % (Auto) % Mcpherson % (Auto) % Eos % (Auto) % Baso % (Auto) % Immature Gran # (Auto) (0.00-0.02) K/uL Neut # (Auto) (1.4-6.5) K/uL Lymph # (Auto) (1.2-3.4) K/uL Mcpherson # (Auto) (0.11-0.59) K/uL Eos # (Auto) (0-0.5) K/uL Baso # (Auto) (0-0.2) K/uL RBC Morphology PT (9.0-12.0) Seconds INR (0.9-1.1) APTT (21.0-31.0) Seconds PTT Ratio Sodium (136-145) mmol/L Potassium (3.5-5.1) mmol/L Chloride (98-107) mmol/L Carbon Dioxide (21-32) mmol/L Anion Gap (3-11) BUN (7-18) mg/dl Creatinine (0.6-1.4) mg/dl Est Cr Clr Drug Dosing ml/min Est GFR ( Amer) Est GFR (Non-Af Amer) BUN/Creatinine Ratio (10-20) Glucose (70-99) mg/dl POC Glucose 72 96 (70-99) Calcium (8.5-10.1) mg/dl Magnesium (1.8-2.4) mg/dl Total Bilirubin (0.2-1) mg/dl Direct Bilirubin (0-0.2) mg/dl AST (15-37) U/L ALT (12-78) U/L Alkaline Phosphatase (45-117) U/L Troponin I (0-0.045) ng/ml Total Protein (6.4-8.2) gm/dl Albumin (3.4-5.0) gm/dl Globulin (2.5-4.0) gm/dl Albumin/Globulin Ratio (0.9-2) TSH (0.300-4.500) uIu/ml Free T4 (0.8-1.6) ng/dl Free T3 (2.3-4.2) pg/ml Urine Color Yellow Urine Appearance Clear (Clear) Urine pH 5.0 (4.5-7.5) Ur Specific [place] 1.025 (1.000-1.030) Urine Protein Trace H (Negative) Urine Glucose (UA) Negative (Negative) Urine Ketones Trace H (Negative) Urine Blood Negative (Negative) Urine Nitrite Negative (Negative) Urine Bilirubin Negative (Negative) Urine Urobilinogen Negative (Negative) Ur Leukocyte Esterase Negative (Negative) Urine WBC (Auto) 1-5 (0-5) /hpf Urine RBC (Auto) 0-4 (0-4) /hpf U Hyaline Cast (Auto) 1-5 (0-5) /lpf U Epithel Cells (Auto) 10-20 H (0-5) /lpf Urine Bacteria (Auto) Negative (Negative) Nasal Screen MRSA (PCR) (Negative) Monoscreen (Negative) 03/20/19 Range/Units Unknown WBC (4.8-10.8) K/uL RBC (4.7-6.1) M/uL Hgb (14.0-18.0) g/dL Hct (42-52) % MCV (80-100) fL MCH (25-34) pg MCHC (32-36) g/dL RDW Std Deviation (36.4-46.3) fL RDW Coeff of Adams (11.5-14.5) % Plt Count (130-400) K/uL MPV (7.4-10.4) fL Immature Gran % (Auto) % Neut % (Auto) % Lymph % (Auto) % Mcpherson % (Auto) % Eos % (Auto) % Baso % (Auto) % Immature Gran # (Auto) (0.00-0.02) K/uL Neut # (Auto) (1.4-6.5) K/uL Lymph # (Auto) (1.2-3.4) K/uL Mcpherson # (Auto) (0.11-0.59) K/uL Eos # (Auto) (0-0.5) K/uL Baso # (Auto) (0-0.2) K/uL RBC Morphology PT (9.0-12.0) Seconds INR (0.9-1.1) APTT (21.0-31.0) Seconds PTT Ratio Sodium (136-145) mmol/L Potassium (3.5-5.1) mmol/L Chloride (98-107) mmol/L Carbon Dioxide (21-32) mmol/L Anion Gap (3-11) BUN (7-18) mg/dl Creatinine (0.6-1.4) mg/dl Est Cr Clr Drug Dosing ml/min Est GFR ( Amer) Est GFR (Non-Af Amer) BUN/Creatinine Ratio (10-20) Glucose (70-99) mg/dl POC Glucose (70-99) Calcium (8.5-10.1) mg/dl Magnesium (1.8-2.4) mg/dl Total Bilirubin (0.2-1) mg/dl Direct Bilirubin (0-0.2) mg/dl AST (15-37) U/L ALT (12-78) U/L Alkaline Phosphatase (45-117) U/L Troponin I (0-0.045) ng/ml Total Protein (6.4-8.2) gm/dl Albumin (3.4-5.0) gm/dl Globulin (2.5-4.0) gm/dl Albumin/Globulin Ratio (0.9-2) TSH (0.300-4.500) uIu/ml Free T4 (0.8-1.6) ng/dl Free T3 (2.3-4.2) pg/ml Urine Color Urine Appearance (Clear) Urine pH (4.5-7.5) Ur Specific [place] (1.000-1.030) Urine Protein (Negative) Urine Glucose (UA) (Negative) Urine Ketones (Negative) Urine Blood (Negative) Urine Nitrite (Negative) Urine Bilirubin (Negative) Urine Urobilinogen (Negative) Ur Leukocyte Esterase (Negative) Urine WBC (Auto) (0-5) /hpf Urine RBC (Auto) (0-4) /hpf U Hyaline Cast (Auto) (0-5) /lpf U Epithel Cells (Auto) (0-5) /lpf Urine Bacteria (Auto) (Negative) Nasal Screen MRSA (PCR) Negative (Negative) Monoscreen (Negative) Imaging Data Radiologist's Impression: Radiology results as stated below per my review and the radiologist's interpretation: XR chest 1V portable HISTORY: 68 years-old Male weakness acute weakness COMPARISON: Chest radiograph 08/09/2018 TECHNIQUE: Portable AP view of the chest FINDINGS: There is a right subclavian Sqokyy-p-Mitk catheter noted, distal tip within the expected location of the inferior SVC. There is a large amount of subcutaneous emphysema about the superior left chest wall, and left supraclavicular distribution and to lesser extent about the base of the neck and right supra clavicular tissues. Postoperative changes of the left lung redemonstrated. Emphysema. Cardiomediastinal and hilar silhouettes are within normal limits. Moderate sized left pneumothorax, pleural separation laterally measuring up to 2.2 cm. Degenerative changes of the shoulders and spine. No acute displaced rib fracture identified. IMPRESSION: 1. Moderate left-sided pneumothorax. 2. Large amount of subcutaneous emphysema about the chest wall and supraclavicular distributions. The above report was generated using voice recognition software. It may contain grammatical, syntax or spelling errors. Electronically signed by: Efren Walker M.D. 03/19/2019 10:27 PM ECG Data Attestation: I personally reviewed and interpreted this ECG as follows: Indication: weakness Rate (beats per minute): 54 Rhythm: sinus bradycardia Findings: + other (Non-specific ST changes); no PVC and no ST elevation Blood Pressure Blood Pressure Findings: Normal blood pressure Blood Pressure Disposition: did not require urgent referral MDM Narrative There is no leukocytosis or concerning anemia. INR was 1.2. PTT was elevated. No significant electrolyte abnormality or kidney failure. LFTs were elevated with the alk phos as high as 663. The bilirubin was not elevated. TSH was elevated at 12.7. EKG showed a sinus rhythm, no acute ischemia. Cardiac enzyme testing x1 is not consistent with acute cardiac injury. Chest film shows what appears to be a loculated left pneumothorax with soft tissue air. This pneumothorax is a new finding compared to a film from just a few days ago. The patient received IV saline for hydration. He was given a DuoNeb. He was eventually placed on 100% facemask oxygen. I discussed the case with the manager trust on-call. Hospitalization here at [facility] was felt appropriate. The patient does not require any emergent cardiothoracic intervention. Despite the pneumothorax, he is quite stable. I spoke to the patient, I talked with case management. The on-call hospitalist was consulted. I do think the patient is somewhat dehydrated, this may explain the liver enzyme elevations. The pneumothorax is a new and somewhat unexpected finding. Patient feels improved since receiving his nebulizer treatment. Impression & Plan Pneumothorax, Dehydration, Elevated liver enzymes Discharge Plan Visit Data *Final* Discharge Date/Time: 03/20/19 01:23 Chief Complaint: Abnormal Labs/Diagnostic Testing Stated Complaint: ABNORMAL LABS- KIDNEYS, THYROID ED Provider: Armando Alvarado Discharge Problem: Pneumothorax, Dehydration, Elevated liver enzymes Patient Disposition: Admitted As Inpatient Discharge Instructions Interventions: ED Discharge Assessment Last Done: 03/20/19 01:23 The scribe's documentation has been prepared under my direction and personally reviewed by me in its entirety. I confirm that the note above accurately reflects all work, treatment, procedures, and medical decision making performed by me.
[2019-03-19 22:14] LABS: Partial Thromboplastin Time 56.9 Seconds (21.0-31.0)
--- NOTE | 2019-03-19 22:28 | XRay Report ---
XR chest 1V portable HISTORY: 68 years-old Male weakness acute weakness COMPARISON: Chest radiograph 08/09/2018 TECHNIQUE: Portable AP view of the chest FINDINGS: There is a right subclavian Wusxgj-i-Pivo catheter noted, distal tip within the expected location of the inferior SVC. There is a large amount of subcutaneous emphysema about the superior left chest wal l, and left supraclavicular distribution and to lesser extent about the base of the neck and right carrasco praclavicular tissues. Postoperative changes of the left lung redemonstrated. Emphysema. Cardiomedias tinal and hilar silhouettes are within normal limits. Moderate sized left pneumothorax, pleural separ ation laterally measuring up to 2.2 cm. Degenerative changes of the shoulders and spine. No acute dis placed rib fracture identified. IMPRESSION: 1. Moderate left-sided pneumothorax. 2. Large amount of subcutaneous emphysema about the chest wall and supraclavicular distributions. The above report was generated using voice recognition software. It may contain grammatical, syntax o r spelling errors. Electronically signed by: Efren Walker M.D. 03/19/2019 10:27 PM
--- NOTE | 2019-03-20 00:46 | History & Physical Report ---
Date of Service March 19, 2019 Assessment & Plan (1) Pneumothorax: Hemodynamically stable, minimal O2 requirement. No evidence of tension physiology at present. -Admit to MICU -Keep NPO -Hold Coumadin for now -Provide 100% supplemental O2 -CXR in AM to assess progress -CC consult - appreciate assistance -Nebs PRN (2) Elevated liver enzymes: -Check RUQUS -Repeat LFTs in AM (3) Hypertension: BP well controlled -Continue Metoprolol, Irbesartan -Continue to monitor (4) GERD (gastroesophageal reflux disease): Chronic -Continue Protonix (5) Hyperthyroidism: Complete TFT workup -Continue Methimazole -Continue Prednisone -Continue Toprol XL History of Present Illness Chief Complaint: Pneumothorax Primary Care Provider: Armando Espana MD 68yo male with multiple medical comorbidities to include AAA/TAA, COPD, HTN, HLP, GERD, AF, Hyperthyroid and Lung CA s/p lobectomy. Patient reports "feeling ill" all week to include nausea and dry heaving. He saw his PCP and had blood work drawn and was told that his renal function and liver were both worse than before. He was told to come to the ER for additional management. Hoarseness x 1 week Poor appetite, food tastes bad, poor PO intake Allergies Allergy/AdvReac Type Severity Reaction Status Date / Time No Known Allergies Allergy Unverified 03/19/19 23:25 Home Medications Home Medications Medication Instructions Recorded Confirmed Type albuterol sulfate [Ventolin HFA] 2 puff INHALATION QID PRN 08/08/18 03/19/19 History hydrocortisone [Proctosol HC] 1 applic MO BID PRN 08/08/18 03/19/19 History montelukast [Singulair] 10 mg PO PM 08/08/18 03/19/19 History cholestyramine (with sugar) 1 - 2 tbsp PO DAILY 03/19/19 03/19/19 History dronabinol 2.5 mg PO DAILY 03/19/19 03/19/19 History ipratropium bromide 2 spray INTRANASAL BID 03/19/19 03/19/19 History irbesartan [Avapro] 150 mg PO DAILY 03/19/19 03/19/19 History loratadine 10 mg PO DAILY PRN 03/19/19 03/19/19 History methimazole 15 mg PO QAM 03/19/19 03/19/19 History metoprolol succinate 100 mg PO DAILY 03/19/19 03/19/19 History mirtazapine 15 mg PO HS 03/19/19 03/19/19 History ondansetron HCl 8 mg PO Q6H PRN 03/19/19 03/19/19 History pantoprazole 40 mg PO DAILY 03/19/19 03/19/19 History fzaymihlv-TL-jvqzfbnn-guaifen 20 ml PO UD PRN 03/19/19 03/19/19 History [Mucinex Fast-Max Severe Cold] potassium chloride [Klor-Con M10] 20 meq PO AMPM 03/19/19 03/19/19 History prednisone 20 mg PO DAILY 03/19/19 03/19/19 History rivaroxaban [Xarelto] 20 mg PO DAILY 03/19/19 03/19/19 History Past Med/Surg History Medical History Abdominal aortic aneurysm (AAA) Obesity Thoracic aortic aneurysm Atrial fibrillation Cancer lung cancer (chemo and radiation) Chronic obstructive pulmonary disease GERD (gastroesophageal reflux disease) Hyperlipidemia Hypertension Increased intraocular pressure in past Surgical History History of bronchoscopy History of cardiac cath History of cardiac radiofrequency ablation 2008 History of cholecystectomy History of colonoscopy History of lobectomy of lung upper left History of tonsillectomy History of tooth extraction Family History Brother Family history of diabetes mellitus Family hx of colon cancer Social History Preferred Language: [place] Communication Ability: Effective Certified Pharmacist Assistant Required: No Beliefs That Will Affect Care: None Current Living Situation: Spouse Other Information That Helps Us Care for You: No Feels Safe at Home: Yes Safety Concerns: Feels Safe At This Time Smoking Status: Former smoker Cigarettes Per Day: QUIT 10 YEARS AGO Do You Dip or Chew Tobacco: No Second Hand Exposure: No Tobacco Cessation Education Requested by Patient: No Hx Alcohol Use: No Hx Substance Use: Yes substance use type: marijuana Substance Use Type Other:: Prescribed for appetite Last Used Substance: Hours (ago) Review of Systems Review of Systems: All systems reviewed & are unremarkable except as noted in HPI & below Physical Exam Physical Exam: General: patient resting comfortably, NAD, non-toxic in appearance, AA&O x 4, +Hoarse voice Skin: warm, dry, intact, no rashes or lesions HEENT: NC/AT, PERRL, EOMI, anicteric sclera, conjunctiva without injection, external ear normal to inspection and nontender, nares patent, moist mucus membranes, dentition intact, no oropharyngeal lesions, neck supple, trachea midline, no LAD, no thyromegaly, no JVD Heart: +S1/S2, regular, no m/r/g Lungs: equal air entry bilaterally, no rales/rhonchi, diffuse wheezing Abd: +BS, soft, NT/ND, no masses/organomegaly/ascites Ext: warm, 2+ pulses in UE/LE bilaterally, no clubbing/cyanosis or edema Neuro: nonfocal, patient AA&O x 4, speech intact, no facial droop, moving all extremities on command with equal strength 5/5 Results & Data Vital Signs (Past 12 Hours) Vital Signs Temp Pulse Pulse Resp BP BP Pulse Ox 03/20/19 00:04 63 22 127/91 99 03/19/19 22:51 62 20 127/93 98 03/19/19 22:00 93 03/19/19 21:00 55 L 22 128/90 92 03/19/19 20:26 36.5 C 65 19 119/82 94 Laboratory Results Lab Results 03/19/19 03/19/19 03/19/19 Range/Units 21:01 21:01 21:01 WBC 8.79 (4.8-10.8) K/uL RBC 5.34 (4.7-6.1) M/uL Hgb 15.9 (14.0-18.0) g/dL Hct 44.3 (42-52) % MCV 83.0 (80-100) fL MCH 29.8 (25-34) pg MCHC 35.9 (32-36) g/dL RDW Std Deviation 55.8 H (36.4-46.3) fL RDW Coeff of Adams 18.2 H (11.5-14.5) % Plt Count 147 (130-400) K/uL MPV 9.6 (7.4-10.4) fL Immature Gran % (Auto) 1.0 % Neut % (Auto) 84.0 % Lymph % (Auto) 9.8 % [place] % (Auto) 4.9 % Eos % (Auto) 0.0 % Baso % (Auto) 0.3 % Immature Gran # (Auto) 0.09 H (0.00-0.02) K/uL Neut # (Auto) 7.38 H (1.4-6.5) K/uL Lymph # (Auto) 0.86 L (1.2-3.4) K/uL [place] # (Auto) 0.43 (0.11-0.59) K/uL Eos # (Auto) 0.00 (0-0.5) K/uL Baso # (Auto) 0.03 (0-0.2) K/uL RBC Morphology PT 12.4 H (9.0-12.0) Seconds INR 1.2 H (0.9-1.1) APTT 56.9 H* (21.0-31.0) Seconds PTT Ratio 2.1 Sodium 134 L (136-145) mmol/L Potassium 4.1 (3.5-5.1) mmol/L Chloride 102 (98-107) mmol/L Carbon Dioxide 23 (21-32) mmol/L Anion Gap 9.0 (3-11) BUN 30 H (7-18) mg/dl Creatinine 1.38 (0.6-1.4) mg/dl Est Cr Clr Drug Dosing 56.2 ml/min Est GFR ( Amer) 60.5 Est GFR (Non-Af Amer) 52.2 BUN/Creatinine Ratio 21.8 H (10-20) Glucose 111 H (70-99) mg/dl POC Glucose (70-99) Calcium 8.8 (8.5-10.1) mg/dl Magnesium 2.2 (1.8-2.4) mg/dl Total Bilirubin 0.7 (0.2-1) mg/dl Direct Bilirubin (0-0.2) mg/dl AST 135 H (15-37) U/L ALT 332 H (12-78) U/L Alkaline Phosphatase 663 H (45-117) U/L Troponin I < 0.015 (0-0.045) ng/ml Total Protein 6.5 (6.4-8.2) gm/dl Albumin 3.1 L (3.4-5.0) gm/dl Globulin 3.4 (2.5-4.0) gm/dl Albumin/Globulin Ratio 0.9 (0.9-2) TSH 12.700 H (0.300-4.500) uIu/ml Free T4 (0.8-1.6) ng/dl Nasal Screen MRSA (PCR) (Negative) Monoscreen (Negative) 03/19/19 03/20/19 03/20/19 Range/Units 21:01 04:32 04:32 WBC 8.24 (4.8-10.8) K/uL RBC 4.99 (4.7-6.1) M/uL Hgb 14.4 (14.0-18.0) g/dL Hct 41.9 L (42-52) % MCV 84.0 (80-100) fL MCH 28.9 (25-34) pg MCHC 34.4 (32-36) g/dL RDW Std Deviation 56.7 H (36.4-46.3) fL RDW Coeff of Adams 18.5 H (11.5-14.5) % Plt Count 127 L (130-400) K/uL MPV 9.5 (7.4-10.4) fL Immature Gran % (Auto) 1.0 % Neut % (Auto) 75.1 % Lymph % (Auto) 13.5 % [place] % (Auto) 10.2 % Eos % (Auto) 0.2 % Baso % (Auto) 0.0 % Immature Gran # (Auto) 0.08 H (0.00-0.02) K/uL Neut # (Auto) 6.19 (1.4-6.5) K/uL Lymph # (Auto) 1.11 L (1.2-3.4) K/uL [place] # (Auto) 0.84 H (0.11-0.59) K/uL Eos # (Auto) 0.02 (0-0.5) K/uL Baso # (Auto) 0.00 (0-0.2) K/uL RBC Morphology Unremarkable PT 11.6 (9.0-12.0) Seconds INR 1.1 (0.9-1.1) APTT (21.0-31.0) Seconds PTT Ratio Sodium (136-145) mmol/L Potassium (3.5-5.1) mmol/L Chloride (98-107) mmol/L Carbon Dioxide (21-32) mmol/L Anion Gap (3-11) BUN (7-18) mg/dl Creatinine (0.6-1.4) mg/dl Est Cr Clr Drug Dosing ml/min Est GFR ( Amer) Est GFR (Non-Af Amer) BUN/Creatinine Ratio (10-20) Glucose (70-99) mg/dl POC Glucose (70-99) Calcium (8.5-10.1) mg/dl Magnesium (1.8-2.4) mg/dl Total Bilirubin (0.2-1) mg/dl Direct Bilirubin (0-0.2) mg/dl AST (15-37) U/L ALT (12-78) U/L Alkaline Phosphatase (45-117) U/L Troponin I (0-0.045) ng/ml Total Protein (6.4-8.2) gm/dl Albumin (3.4-5.0) gm/dl Globulin (2.5-4.0) gm/dl Albumin/Globulin Ratio (0.9-2) TSH (0.300-4.500) uIu/ml Free T4 (0.8-1.6) ng/dl Nasal Screen MRSA (PCR) (Negative) Monoscreen Negative (Negative) 03/20/19 03/20/19 03/20/19 Range/Units 04:32 04:36 04:37 WBC (4.8-10.8) K/uL RBC (4.7-6.1) M/uL Hgb (14.0-18.0) g/dL Hct (42-52) % MCV (80-100) fL MCH (25-34) pg MCHC (32-36) g/dL RDW Std Deviation (36.4-46.3) fL RDW Coeff of Adams (11.5-14.5) % Plt Count (130-400) K/uL MPV (7.4-10.4) fL Immature Gran % (Auto) % Neut % (Auto) % Lymph % (Auto) % [place] % (Auto) % Eos % (Auto) % Baso % (Auto) % Immature Gran # (Auto) (0.00-0.02) K/uL Neut # (Auto) (1.4-6.5) K/uL Lymph # (Auto) (1.2-3.4) K/uL [place] # (Auto) (0.11-0.59) K/uL Eos # (Auto) (0-0.5) K/uL Baso # (Auto) (0-0.2) K/uL RBC Morphology PT (9.0-12.0) Seconds INR (0.9-1.1) APTT (21.0-31.0) Seconds PTT Ratio Sodium 136 (136-145) mmol/L Potassium 4.0 (3.5-5.1) mmol/L Chloride 106 (98-107) mmol/L Carbon Dioxide 25 (21-32) mmol/L Anion Gap 5.0 (3-11) BUN 27 H (7-18) mg/dl Creatinine 1.17 (0.6-1.4) mg/dl Est Cr Clr Drug Dosing 64.6 ml/min Est GFR ( Amer) 73.8 Est GFR (Non-Af Amer) 63.7 BUN/Creatinine Ratio 23.3 H (10-20) Glucose 70 (70-99) mg/dl POC Glucose 69 L* 72 (70-99) Calcium 8.2 L (8.5-10.1) mg/dl Magnesium (1.8-2.4) mg/dl Total Bilirubin 0.8 (0.2-1) mg/dl Direct Bilirubin 0.2 (0-0.2) mg/dl AST 98 H (15-37) U/L ALT 278 H (12-78) U/L Alkaline Phosphatase 564 H (45-117) U/L Troponin I (0-0.045) ng/ml Total Protein 5.8 L (6.4-8.2) gm/dl Albumin 2.8 L (3.4-5.0) gm/dl Globulin (2.5-4.0) gm/dl Albumin/Globulin Ratio (0.9-2) TSH (0.300-4.500) uIu/ml Free T4 0.60 L (0.8-1.6) ng/dl Nasal Screen MRSA (PCR) (Negative) Monoscreen (Negative) 03/20/19 Range/Units Unknown WBC (4.8-10.8) K/uL RBC (4.7-6.1) M/uL Hgb (14.0-18.0) g/dL Hct (42-52) % MCV (80-100) fL MCH (25-34) pg MCHC (32-36) g/dL RDW Std Deviation (36.4-46.3) fL RDW Coeff of Adams (11.5-14.5) % Plt Count (130-400) K/uL MPV (7.4-10.4) fL Immature Gran % (Auto) % Neut % (Auto) % Lymph % (Auto) % [place] % (Auto) % Eos % (Auto) % Baso % (Auto) % Immature Gran # (Auto) (0.00-0.02) K/uL Neut # (Auto) (1.4-6.5) K/uL Lymph # (Auto) (1.2-3.4) K/uL [place] # (Auto) (0.11-0.59) K/uL Eos # (Auto) (0-0.5) K/uL Baso # (Auto) (0-0.2) K/uL RBC Morphology PT (9.0-12.0) Seconds INR (0.9-1.1) APTT (21.0-31.0) Seconds PTT Ratio Sodium (136-145) mmol/L Potassium (3.5-5.1) mmol/L Chloride (98-107) mmol/L Carbon Dioxide (21-32) mmol/L Anion Gap (3-11) BUN (7-18) mg/dl Creatinine (0.6-1.4) mg/dl Est Cr Clr Drug Dosing ml/min Est GFR ( Amer) Est GFR (Non-Af Amer) BUN/Creatinine Ratio (10-20) Glucose (70-99) mg/dl POC Glucose (70-99) Calcium (8.5-10.1) mg/dl Magnesium (1.8-2.4) mg/dl Total Bilirubin (0.2-1) mg/dl Direct Bilirubin (0-0.2) mg/dl AST (15-37) U/L ALT (12-78) U/L Alkaline Phosphatase (45-117) U/L Troponin I (0-0.045) ng/ml Total Protein (6.4-8.2) gm/dl Albumin (3.4-5.0) gm/dl Globulin (2.5-4.0) gm/dl Albumin/Globulin Ratio (0.9-2) TSH (0.300-4.500) uIu/ml Free T4 (0.8-1.6) ng/dl Nasal Screen MRSA (PCR) Negative (Negative) Monoscreen (Negative) Diagnostic Findings US liver CLINICAL HISTORY: abnormal LFTs pain COMPARISON STUDY: No previous studies for comparison. FINDINGS: Potential early hepatic cirrhosis. Normal caliber bile ducts. Prior cholecystectomy. Common bile duct 4.5 mm. Pancreas poorly seen Bowel content. Right kidney measures 9.3 cm no evidence for hydronephrosis IMPRESSION: 1. Early hepatic cirrhosis. 2. Prior cholecystectomy. 3. Normal bile ducts. The above report was generated using voice recognition software. It may contain grammatical, syntax or spelling errors. Electronically signed by: Benji Ramirez M.D. 03/20/2019 6:09 AM _ XR chest 1V portable HISTORY: 68 years-old Male weakness acute weakness COMPARISON: Chest radiograph 08/09/2018 TECHNIQUE: Portable AP view of the chest FINDINGS: There is a right subclavian Ojeeqn-b-Mcgr catheter noted, distal tip within the expected location of the inferior SVC. There is a large amount of subcutaneous emphysema about the superior left chest wall, and left supraclavicular distribution and to lesser extent about the base of the neck and right supraclavicular tissues. Postoperative changes of the left lung redemonstrated. Emphysema. Cardiomediastinal and hilar silhouettes are within normal limits. Moderate sized left pneumothorax, pleural separation laterally measuring up to 2.2 cm. Degenerative changes of the shoulders and spine. No acute displaced rib fracture identified. IMPRESSION: 1. Moderate left-sided pneumothorax. 2. Large amount of subcutaneous emphysema about the chest wall and supraclavicular distributions. The above report was generated using voice recognition software. It may contain grammatical, syntax or spelling errors. Electronically signed by: Efren Walker M.D. 03/19/2019 10:27 PM Dictated: 03/19/192223 Transcribed: 03/19/192223 ECG Additional Comments: SB at 54, no acute ischemic changes Code Status & VTE Plan Code Status FULL Critical Care Time Total Critical Care Time: 30
[2019-03-20] MEDS ORDERED: LORATADINE 10 MG TAB PO PRN (02:12)
[2019-03-20] MEDS ORDERED: ICU PROTOCOL FOR HYPERGLYCEMIA PRN (02:12)
[2019-03-20] MEDS ORDERED: ALBUTEROL 0.5% NEB SOLN 2.5 MG/0.5 ML VIAL NEB PRN (02:12)
[2019-03-20] MEDS ORDERED: ALBUT/IPRATROP 3MG/0.5MG NEB 3 ML VIAL INH PRN (02:12)
[2019-03-20 04:56] LABS: Hematocrit (blood only) 41.9 % (42-52); Hemoglobin 14.4 g/dL (14.0-18.0); Mean Corpuscular Hgb Conc 34.4 g/dL (32-36); Mean Platelet Volume 9.5 fL (7.4-10.4); Platelet Count 127 K/uL (130-400); RDW Coefficient of Variation 18.5 % (11.5-14.5); RDW Standard Deviation 56.7 fL (36.4-46.3); Red Blood Count 4.99 M/uL (4.7-6.1); White Blood Count 8.24 K/uL (4.8-10.8)
[2019-03-20 05:05] LABS: INR 1.1 (0.9-1.1); Prothrombin Time 11.6 Seconds (9.0-12.0)
[2019-03-20 05:14] LABS: Albumin Level 2.8 gm/dl (3.4-5.0); BUN Creatinine Ratio 23.3 (10-20); Bilirubin Direct 0.2 mg/dl (0-0.2); Calcium 8.2 mg/dl (8.5-10.1); Creatinine Clr Calc Pharmacy 64.6 ml/min; Est GFR (African American) 73.8; Est GFR (Non-African American) 63.7
[2019-03-20 05:17] LABS: Bilirubin,Total 0.8 mg/dl (0.2-1); T4 Free Thyroxine 0.6 ng/dl (0.8-1.6); Total Protein 5.8 gm/dl (6.4-8.2)
[2019-03-20 05:20] LABS: Eosinophils # (auto) 0.02 K/uL (0-0.5); Eosinophils % (auto) 0.2 %; Immature Granulocytes # (auto) 0.08 K/uL (0.00-0.02); Lymphocytes # (auto) 1.11 K/uL (1.2-3.4); Lymphocytes % (auto) 13.5 %; Monocytes # (auto) 0.84 K/uL (0.11-0.59); Monocytes % (auto) 10.2 %; Neutrophils # (auto) 6.19 K/uL (1.4-6.5); Neutrophils % (auto) 75.1 %; RBC Morphology Unremarkable
--- NOTE | 2019-03-20 06:10 | Ultrasound Report ---
US liver CLINICAL HISTORY: abnormal LFTs pain COMPARISON STUDY: No previous studies for comparison. FINDINGS: Potential early hepatic cirrhosis. Normal caliber bile ducts. Prior cholecystectomy. Common bile duct 4.5 mm. Pancreas poorly seen Bowel content. Right kidney measures 9.3 cm no evidence for hydronephrosis IMPRESSION: 1. Early hepatic cirrhosis. 2. Prior cholecystectomy. 3. Normal bile ducts. The above report was generated using voice recognition software. It may contain grammatical, syntax or spelling errors. Electronically signed by: Benji Ramirez M.D. 03/20/2019 6:09 AM
--- NOTE | 2019-03-20 07:33 | Critical Care Consultation ---
Date of Consultation March 20, 2019 Assessment & Plan (1) Admitted to intensive care unit: Reason Critically Ill: 68-year-old male with acute LEFT-sided pneumothorax. NEURO - CAM ICU: NEGATIVE Pain medications as needed. CARDIAC/VASCULAR - History of hypertension and thoracic aortic aneurysm. Monitor blood pressures closely. Monitor on telemetry. RESPIRATORY - Acute LEFT-sided pneumothorax. Per discussion with attending, will provide 100% oxygen through nonrebreather 4 hours on, 4 hours off throughout the night. Monitor closely for decompensation and need for decompression/chest tube placement. To be seen by cardiothoracic surgery in the morning. GI/NUTRITION - Elevated LFTs. Question significance at this point. RENAL/LYTES - No significant electrolyte derangements.: - No concerns at this time. ENDO - No past medical history of thyroid disease or diabetes. BSGs per unit protocol. ISS --> gtt per unit policy. HEME - Stable H&H. ID - No concerns for infectious contribution at this time. LINES/IV ACCESS - PIVs x2 DVT PROPHYLAXIS - We will hold pending evaluation by thoracic surgery with possible need for chest tube. SCDs I have personally spent 35 minutes of critical care time in the direct management of this patient. This is a life/limb threatening event. This includes time spent evaluating patient, direct bedside care, chart review, placing orders, interpretation of diagnostic studies, discussion with consultants, patient, and family members, as well as other required patient management activities. This time is exclusive of all separately billable procedures, and teaching time and separate from and in addition to any other critical care service time. Thank you for allowing us to participate in the care of this patient. Please refer to my attending physician's documentation for any further recommendations. (2) Pneumothorax: (3) Hyperthyroidism: (4) Elevated liver enzymes: (5) Dehydration: (6) Abdominal aortic aneurysm (AAA): (7) Lung cancer: Supervising Physician Co-Signing Physician Notes I have personally evaluated and examined this patient. I agree with assessment and plan of Marely Em PA-C. I discussed the case with Dr. Thorne. Jose for downgrade out of ICU. History of Present Illness Attending Physician: Elyssa Cole DO Patient is a 68-year-old male with a recent history of lung CA status post LEFT upper lobe lobectomy who was recently undergoing chemotherapy, however this was discontinued with multiple complications including issues with thyroid as well as persistent diarrhea. He reports that he has had a cough over the last few days and noticed when he coughed he was having increasing pain to the LEFT-sided chest and up into his neck. He was seen in the outpatient setting with concerns for LAKSHMI. On arrival in the emergency department, chest x-ray demonstrates new LEFT pneumothorax. On arrival in the ICU, the patient is awake, alert, and oriented. He reports some tightness in his chest and pleuritic pain, but otherwise reports feeling better with the oxygen in place. He denies any headaches, dizziness, lightheadedness, fevers, chills, nausea, vomiting, abdominal pain. Allergies Allergy/AdvReac Type Severity Reaction Status Date / Time No Known Allergies Allergy Unverified 03/19/19 23:25 Home Medications Home Medications Medication Instructions Recorded Confirmed Type albuterol sulfate [Ventolin HFA] 2 puff INHALATION QID PRN 08/08/18 03/19/19 History hydrocortisone [Proctosol HC] 1 applic [place] BID PRN 08/08/18 03/19/19 History montelukast [Singulair] 10 mg PO PM 08/08/18 03/19/19 History cholestyramine (with sugar) 1 - 2 tbsp PO DAILY 03/19/19 03/19/19 History dronabinol 2.5 mg PO DAILY 03/19/19 03/19/19 History ipratropium bromide 2 spray INTRANASAL BID 03/19/19 03/19/19 History irbesartan [Avapro] 150 mg PO DAILY 03/19/19 03/19/19 History loratadine 10 mg PO DAILY PRN 03/19/19 03/19/19 History methimazole 15 mg PO QAM 03/19/19 03/19/19 History metoprolol succinate 100 mg PO DAILY 03/19/19 03/19/19 History mirtazapine 15 mg PO HS 03/19/19 03/19/19 History ondansetron HCl 8 mg PO Q6H PRN 03/19/19 03/19/19 History pantoprazole 40 mg PO DAILY 03/19/19 03/19/19 History pvhvvyqkh-RH-crxjdjdd-guaifen 20 ml PO UD PRN 03/19/19 03/19/19 History [Mucinex Fast-Max Severe Cold] potassium chloride [Klor-Con M10] 20 meq PO AMPM 03/19/19 03/19/19 History prednisone 20 mg PO DAILY 03/19/19 03/19/19 History rivaroxaban [Xarelto] 20 mg PO DAILY 03/19/19 03/19/19 History Patient History Medical History Abdominal aortic aneurysm (AAA) Obesity Thoracic aortic aneurysm Atrial fibrillation Cancer lung cancer (chemo and radiation) Chronic obstructive pulmonary disease GERD (gastroesophageal reflux disease) Hyperlipidemia Hypertension Increased intraocular pressure in past Surgical History History of bronchoscopy History of cardiac cath History of cardiac radiofrequency ablation 2008 History of cholecystectomy History of colonoscopy History of lobectomy of lung upper left History of tonsillectomy History of tooth extraction Family History Brother Family history of diabetes mellitus Family hx of colon cancer Social History Preferred Language: Yakut Communication Ability: Effective Fuller Brush Man Required: No Beliefs That Will Affect Care: None Current Living Situation: Spouse Other Information That Helps Us Care for You: No Feels Safe at Home: Yes Safety Concerns: Feels Safe At This Time Smoking Status: Former smoker Cigarettes Per Day: QUIT 10 YEARS AGO Do You Dip or Chew Tobacco: No Second Hand Exposure: No Tobacco Cessation Education Requested by Patient: No Hx Alcohol Use: No Hx Substance Use: Yes substance use type: marijuana Substance Use Type Other:: Prescribed for appetite Last Used Substance: Hours (ago) Review of Systems Review of Systems: A complete 10 point review of systems was reviewed with the patient with pertinent positives and negatives as per history of present illness. All else were negative. Physical Exam Physical Exam: VITAL SIGNS - Vital signs and nursing notes were reviewed. GENERAL - 68-year-old male appearing his stated age who is in no acute distress. Communicates well with provider and answers questions appropriately. HEAD - NC/AT. EYES - PERRL with EOMI bilaterally. EARS - No deformities of external structures noted on gross examination bilaterally. NOSE - Midline and without cyanosis. MOUTH/OROPHARYNX - Without perioral cyanosis. NECK - Neck with FROM. Supple to palpation. LUNGS - Chest wall symmetric without accessory muscle use, intercostals retractions, or central cyanosis. Distant breath sounds LEFT versus right. No wheezes, rales, or rhonchi appreciated. CARDIAC - RRR with S1/S2. No murmur, rubs, or gallops appreciated. No reproducible tenderness to palpation appreciated over the anterior chest wall. ABDOMEN - Abdominal contour flat without pulsations or visible masses. BS normoactive all four quadrants. No tenderness, palpable masses, hepatosplenomegaly, or ascites noted. EXTREMITIES - No clubbing or peripheral cyanosis. No pretibial edema present. +3/5 radial and dorsalis pedis pulses palpated throughout. +5/5 strength noted in UE/LE bilaterally. NEUROLOGIC - Cranial nerves II through XII grossly intact. Sensory intact to light touch throughout. PSYCH - A&Ox3 and cooperates fully with examiner. Pt is very pleasant and interacts well with examiner. Results & Data Vital Signs (Past 12 Hours) Vital Signs Temp Pulse Pulse Pulse Resp BP BP 03/20/19 04:00 36.5 C 50 L 14 147/97 H 03/20/19 03:00 50 L 18 139/94 03/20/19 02:12 03/20/19 02:00 52 L 16 117/91 03/20/19 01:30 36.6 C 62 18 140/96 03/20/19 01:05 52 L 20 124/95 03/20/19 00:04 63 22 127/91 03/19/19 22:51 62 20 127/93 03/19/19 22:00 03/19/19 21:00 55 L 22 128/90 03/19/19 20:26 36.5 C 65 19 119/82 Pulse Ox Pulse Ox 03/20/19 04:00 100 03/20/19 03:00 98 03/20/19 02:12 100 03/20/19 02:00 100 03/20/19 01:30 98 03/20/19 01:05 100 03/20/19 00:04 99 03/19/19 22:51 98 03/19/19 22:00 93 03/19/19 21:00 92 03/19/19 20:26 94
--- NOTE | 2019-03-20 07:39 | XRay Report ---
SINGLE VIEW CHEST CLINICAL HISTORY: Pneumothorax. FINDINGS: An AP, portable, upright chest radiograph is compared to study dated 03/19/2019. Correlation is made with chest CT dated 07/31/2018. The examination is degraded by portable technique and apical l ordotic positioning. A right subclavian central venous infusion port is unchanged in position. The h eart is top normal for projection. Advanced emphysema and chronic interstitial thickening are similar to previous. The paravertebral nodule in the right upper lobe seen by CT is not visualized on x-ray. There is a large left pneumothorax with atelectasis of the left lung. This is unchanged to slightly increased in size from yesterday. The trachea is midline. No right sided pneumothorax is seen. The sk eletal structures are osteopenic. The bony thorax is grossly intact. Simultaneous emphysema is seen a long the left chest wall and in the lower neck. IMPRESSION: 1. A large left pneumothorax is unchanged to slightly increased in size from yesterday. 2. Advanced emphysema. 3. The right paravertebral nodule seen by CT is not apparent by x-ray. Electronically signed by: Armando Soto M.D. 03/20/2019 7:38 AM
--- NOTE | 2019-03-20 08:36 | Surgery Progress Note ---
Date of Service March 20, 2019 Assessment & Plan (1) Pneumothorax: Mr Juan is well known to me. He is currently very stable with a saturation of 92% on room air. I will insert a chest tube later today. He has a few issues with his Gi system, etc. I will speak to Dr Ortiz / Julito and insert a chest tube later today. May be moved to 3rd floor[address] DR Thorne Present on Admission?: Yes Results & Data Vital Signs (Past 12 Hours) Vital Signs Temp Pulse Pulse Resp BP Pulse Ox Pulse Ox 03/20/19 06:00 52 L 18 128/95 94 03/20/19 04:00 36.5 C 50 L 14 147/97 H 100 03/20/19 03:00 50 L 18 139/94 98 03/20/19 02:12 100 03/20/19 02:00 52 L 16 117/91 100 03/20/19 01:30 36.6 C 62 18 140/96 98 03/20/19 01:05 52 L 20 124/95 100 03/20/19 00:04 63 22 127/91 99 03/19/19 22:51 62 20 127/93 98 03/19/19 22:00 93 03/19/19 21:00 55 L 22 128/90 92
[2019-03-20 09:06] LABS: Appearance Urine Clear (Clear); Bacteria Urine Automated Negative (Negative); Bilirubin Urine Negative (Negative); Blood Urine Negative (Negative); Color Urine Yellow; Glucose Urine UA Negative (Negative); Ketones Urine Trace (Negative); Leukocyte Esterase Urine Negative (Negative); Nitrite Urine Negative (Negative); Protein Urine Trace (Negative); RBC Urine Automated 0-4 /hpf (0-4); Specific Gravity Urine 1.025 (1.000-1.030); Urobilinogen Urine Negative (Negative)
[2019-03-20] MEDS: ONDANSETRON 8 MG TABLET PO PRN ×2 (10:03→18:55)
[2019-03-20] MEDS: DRONABINOL 2.5 MG CAP PO SCH (10:04)
[2019-03-20] MEDS: IPRATROPIUM BROMIDE NASAL SPRAY 0.06% 15ML NAE SCH ×2 (10:04→21:57)
[2019-03-20] MEDS: PANTOprazole 40 MG TAB PO SCH (10:05)
[2019-03-20] MEDS: CHOLESTYRAMINE LIGHT 4 GM PKT PO SCH ×2 (10:05→10:38)
[2019-03-20] MEDS: methIMAzole 5 MG TABLET PO SCH (10:05)
[2019-03-20] MEDS: IRBESARTAN 150 MG TAB PO SCH (10:05)
[2019-03-20] MEDS: predniSONE 20 MG TAB PO SCH (10:05)
[2019-03-20] MEDS: METOPROLOL SUCC 50MG EXT REL TAB PO SCH (10:06)
[2019-03-20] MEDS ORDERED: LIDOCAINE HCL 1% 20 ML VIAL ONE (13:31)
--- NOTE | 2019-03-20 14:15 | XRay Report ---
XR chest 1V portable HISTORY: 68 years-old Male s/p chest tube status post placement of a left-sided chest tube COMPARISON: Chest radiograph 03/20/2019 TECHNIQUE: Portable AP view of the chest FINDINGS: Left-sided chest tube is noted with distal tip terminating adjacent to the left lung apex. Decreased size of the left pneumothorax with only a few millimeters of pleural separation noted at the level of the left lung base. Persistent subcutaneous emphysema about the left chest and left supraclavicular distribution. Cardiac mediastinal and hilar silhouettes are unchanged. Severe emphysema with chronic interstitial coarsening. Moderate left hemidiaphragmatic elevation has progressed from comparison. St able positioning of the right subclavian Yrgsbt-u-Xfwl catheter. Degenerative changes of the shoulder s and spine. IMPRESSION: 1. Left-sided chest tube distal tip terminates adjacent to the left lung apex. 2. Small left-sided pneumothorax has decreased in size from comparison. 3. Advanced emphysema. The above report was generated using voice recognition software. It may contain grammatical, syntax o r spelling errors. Electronically signed by: Efren Walker M.D. 03/20/2019 2:13 PM
--- NOTE | 2019-03-20 15:04 | Consultation Report ---
DATE OF CONSULTATION: 03/20/2019 REASON FOR CONSULTATION: Left pneumothorax. HISTORY OF PRESENT ILLNESS: This is a 68-year-old male who is well known to me. I met this patient more than 2 years ago where he was found to have mediastinal adenopathy and a left upper lobe mass. I finally took him to the operating room and performed a thoracoscopic left upper lobectomy with mediastinal lymphadenectomy and he had a level 5 (N2) node positive, is undergoing treatment by Dr. Huber Ortiz. He has actually done well from this and he has been on immune therapy; however, a few months ago, he started developing diarrhea and cough and has not done as well as had not been treated for a couple of months. The patient has not felt well with increasing diarrhea, went to see his primary care physician and was directed to the ER. An x-ray showed that he had a spontaneous left pneumothorax. He denied trauma. He had no instrumentation. He had been retching quite a bit. He is remarkably stable with this. I was asked to see him to evaluate this pneumothorax. PAST MEDICAL HISTORY: 1. Nonsmall cell lung carcinoma, left upper lobe. 2. Status post lobectomy. 3. Status post immunotherapy. 4. Hypertension. 5. Mild dilatation of his thoracic aorta. 6. Anxiety. 7. Hypothyroidism. 8. 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 9. Atrial fibrillation. PAST SURGICAL HISTORY: 1. Status post left upper lobectomy. 2. Mediastinoscopy. 3. Navigational bronchoscopy. 4. Left chest tube for iatrogenic pneumothorax. 5. Endobronchial ultrasound with biopsy. SOCIAL HISTORY: The patient lives with his at home. He is no longer working. He has a remote history of cigarette smoking. FAMILY MEDICAL HISTORY: History of colon cancer and diabetes. REVIEW OF SYSTEMS: Please see the history. MEDICATIONS: 1. Inhalers. 2. Proctosol. 3. Cholestyramine. 4. Avapro. 5. Loratadine. 6. Methimazole. 7. Metoprolol. 8. Mirtazapine. 9. Pantoprazole. 10. Prednisone. 11. Xarelto. 12. Potassium. ALLERGIES: No known drug allergies. REVIEW OF SYSTEMS: The patient states that he has had diarrhea on and off for a long period of time. He feels very "washed out" by this. He is also complaining of a cough in the past few days, but really it has been associated with some left-sided chest pain. He has had problems with his kidneys. He has had no wound breakdown. He denies any visual or auditory symptoms. He denies palpitations. He has had no neurologic symptoms. PHYSICAL EXAMINATION: GENERAL: This is a 6 feet, 167-pound male who is awake, alert and oriented. He is on room air with 94% saturations. HEENT: His extraocular movements are intact. Pupils are equal, round and reactive. Sclerae are anicteric. His oral mucosa is a bit dry, but he has no oral mucosal lesions. NECK: Supple. He has no neck vein distention, tracheal deviation or lymphadenopathy. LUNGS: He has decreased breath sounds on the left. He has no wheezing or rales. HEART: He has regular rate and rhythm of his heart. ABDOMEN: Obese, but soft, nontender and I do not detect hepatosplenomegaly or fluid. Upon evaluation of the lower extremities, he has had no peripheral edema. He has no joint effusion. He has palpable pedal pulses. NEUROLOGICAL: He is completely intact. ASSESSMENT AND PLAN: Iatrogenic spontaneous left pneumothorax in a patient with a history of left lung cancer with recurrence. We are going to insert a chest tube later today.
--- NOTE | 2019-03-20 15:50 | Operative Report ---
DATE OF OPERATION: 03/20/2019 PREOPERATIVE DIAGNOSIS: Spontaneous left pneumothorax. POSTOPERATIVE DIAGNOSIS: Spontaneous left pneumothorax. PROCEDURE: Insertion of 24-Tajik chest tube. SURGEON: Antonino Thorne MD. SKIP TENDER: None. ANESTHESIA: Local. SPECIFICS OF PROCEDURE: The patient in a supine position with his left arm raised above his head. His anterior lateral left chest about the fourth interspace was evaluated. He was prepped and draped in usual sterile fashion. A 25-gauge needle with 1% Xylocaine was used to anesthetize the skin and subcutaneous tissues, and a large bore needle was used to anesthetize the intercostal muscles and the pleura. We got air flowing back and I inserted a needle through the chest tube. I enlarged this insertion tract just big enough for the 24-Tajik chest tube. We dilated this up with a dilator and then removed it. I then slid a chest tube with an inner cannula in over the guidewire and then removed the inner cannula and inserted at about 20 cm. We did get an initial portillo of air; however, he does have a small persistent air leak. He tolerated this quite well. We essentially had no blood loss and it should be noted the patient did take his Xarelto yesterday. We attached this to water seal on the chest tube. He looks quite good. We will check a chest x-ray at this point. I attest to the content of the Intraoperative Record and any orders documented therein. Any exceptions are noted below. ROSCOE
--- NOTE | 2019-03-20 21:07 | Hospitalist Progress Note ---
Date of Service March 20, 2019 Assessment & Plan (1) Pneumothorax: Hemodynamically stable, minimal O2 requirement. No evidence of tension physiology at present. -Hold Coumadin for now -Provide 100% supplemental O2 Dr. Thorne placed CT on 03/20--pt feels improved Uncertain etiology (2) Elevated liver enzymes: RUQ noted for early cirrhosis ?? etiology Denies hx of current or past heavy alcohol use, states a glass of wine here and there Possibly related to chemo vs PHIPPS?? LFTs improved (3) Hypertension: BP well controlled -Continue Metoprolol, Irbesartan -Continue to monitor (4) GERD (gastroesophageal reflux disease): Chronic -Continue Protonix (5) Hyperthyroidism: Complete TFT workup -Continue Methimazole -Continue Prednisone -Continue Toprol XL Subjective Pt is feeling much improved s/p CT placement. No longer SOB. Some pain related to the CT site, but manageable. Has had ongoing work-up with PCP and OSH regarding elevated LFTs and cr. Uncertain etiology. Pt denies fever, abd pain, n/v/c/d, LE pain or swelling. Review of Systems Review of Systems: Pertinent positives and negatives reviewed in HPI--all others negative Physical Exam Constitutional: WD/WN, vitals as above Eyes: normal visual jefferson by confrontation and + anicteric sclerae Neck: normal visual inspection and trachea midline Respiratory: normal respiratory effort Decreased breath sounds-L sided, no wheezing, crackles noted Cardiovascular: Rate/Rhythm: regular rate and regular rhythm Gastrointestinal (Abdomen): Inspection/Auscultation: abdomen not distended Percussion/Palpation: abdomen soft; abdomen nontender Musculoskeletal: Head/Neck/Chest: normocephalic and head atraumatic negative for edema, peripheral pulses intact Skin: no rashes, warm and dry Neurologic: awake; not confused Speech / Cognition: normal speech Psychiatric: A+Ox3, euthymic affect Results & Data Vital Signs (Past 12 Hours) Vital Signs Temp Pulse Pulse Pulse Resp BP BP 03/20/19 20:09 36.6 C 51 L 18 120/86 03/20/19 15:59 36.5 C 49 L 18 119/80 03/20/19 14:15 36.7 C 55 L 16 126/87 03/20/19 14:10 60 16 124/79 03/20/19 14:00 56 L 16 107/77 03/20/19 12:00 36.7 C 62 16 112/81 03/20/19 11:00 80 23 117/94 03/20/19 10:00 81 13 135/101 H Pulse Ox Pulse Ox 03/20/19 20:09 98 03/20/19 15:59 98 03/20/19 14:15 96 96 03/20/19 14:10 96 03/20/19 14:00 96 03/20/19 12:00 95 03/20/19 11:00 94 03/20/19 10:00 97
[2019-03-20] MEDS: MIRTAZAPINE TAB 15 MG TAB PO SCH (21:56)
[2019-03-20] MEDS: MONTELUKAST SODIUM 10 MG TABLET PO SCH (21:57)
[2019-03-21] MEDS ORDERED: MoRPHine SULFATE 2 MG/ML CARP IV PRN (04:44)
[2019-03-21] MEDS: HEPARIN 100 UNIT/ML 5ML FLUSH FLUSH PRN (05:52)
[2019-03-21 06:16] LABS: Eosinophils # (auto) 0.04 K/uL (0-0.5); Eosinophils % (auto) 0.5 %; Hematocrit (blood only) 42.1 % (42-52); Hemoglobin 14.6 g/dL (14.0-18.0); Immature Granulocytes # (auto) 0.06 K/uL (0.00-0.02); Immature Granulocytes % (auto) 0.8 %; Lymphocytes # (auto) 0.97 K/uL (1.2-3.4); Lymphocytes % (auto) 13.1 %; Mean Corpuscular Hgb Conc 34.7 g/dL (32-36); Mean Corpuscular Volume 83.4 fL (80-100); Mean Platelet Volume 9.3 fL (7.4-10.4); Monocytes # (auto) 0.86 K/uL (0.11-0.59); Monocytes % (auto) 11.6 %; Neutrophils # (auto) 5.49 K/uL (1.4-6.5); Platelet Count 135 K/uL (130-400); RDW Coefficient of Variation 18.5 % (11.5-14.5); RDW Standard Deviation 56.1 fL (36.4-46.3); Red Blood Count 5.05 M/uL (4.7-6.1); White Blood Count 7.42 K/uL (4.8-10.8)
[2019-03-21 06:40] LABS: Prothrombin Time 10.6 Seconds (9.0-12.0)
[2019-03-21 07:02] LABS: Albumin Level 2.8 gm/dl (3.4-5.0); BUN Creatinine Ratio 21.3 (10-20); Bilirubin Direct 0.3 mg/dl (0-0.2); Calcium 8.4 mg/dl (8.5-10.1); Creatinine Clr Calc Pharmacy 66.3 ml/min; Est GFR (African American) 76.2; Est GFR (Non-African American) 65.7; Potassium 3.2 mmol/L (3.5-5.1); Total Protein 5.9 gm/dl (6.4-8.2)
--- NOTE | 2019-03-21 07:15 | XRay Report ---
XR chest 1V portable CLINICAL HISTORY: Pneumothorax tube position COMPARISON STUDY: 03/20/2019 FINDINGS: Unchanged position of the left-sided chest tube. Unchanged left hemithoracic subcutaneous e mphysema. Trace amount of lower cervical subcutaneous emphysema bilaterally. Minimal residual left ap ical pneumothorax with a maximum pleural separation of 3 mm. Central catheter remains in the superior vena cava. IMPRESSION: Minimal left apical pneumothorax with a maximum pleural separation at 3 mm. Study is oth erwise unchanged. The above report was generated using voice recognition software. It may contain grammatical, syntax or spelling errors. Electronically signed by: Benji Ramirez M.D. 03/21/2019 7:14 AM
[2019-03-21] MEDS: IRBESARTAN 150 MG TAB PO SCH (08:34)
[2019-03-21] MEDS: methIMAzole 5 MG TABLET PO SCH (08:34)
[2019-03-21] MEDS: predniSONE 20 MG TAB PO SCH (08:34)
[2019-03-21] MEDS: PANTOprazole 40 MG TAB PO SCH (08:34)
[2019-03-21] MEDS: METOPROLOL SUCC 50MG EXT REL TAB PO SCH (08:34)
[2019-03-21] MEDS: IPRATROPIUM BROMIDE NASAL SPRAY 0.06% 15ML NAE SCH ×2 (08:34→22:26)
[2019-03-21] MEDS: DRONABINOL 2.5 MG CAP PO SCH ×2 (08:36→08:51)
[2019-03-21] MEDS: ONDANSETRON 8 MG TABLET PO PRN ×2 (08:37→17:21)
[2019-03-21] MEDS: CHOLESTYRAMINE LIGHT 4 GM PKT PO SCH (08:37)
[2019-03-21] MEDS ORDERED: POTASSIUM CHLORIDE 10 MEQ TABCR PO STA (10:30)
--- NOTE | 2019-03-21 14:22 | XRay Report ---
XR abdomen min 2V CLINICAL HISTORY: abd distension, ileus? Pain COMPARISON STUDY: None: FINDINGS: Generalized moderate colonic distention. Possibly of a distal colonic obstruction possibly at the level of the distal descending colon is not excluded. Minimal nondistended reactive ileus. No secondary evidence for free air. No evidence for pneumatosis IMPRESSION: 1. General colonic distention. 2. Diagnostic considerations include a generalized colonic ileus versus potential obstructive change distal descending colon versus proximal sigmoid. The above report was generated using voice recognition software. It may contain grammatical, syntax or spelling errors. Electronically signed by: Benji Ramirez M.D. 03/21/2019 2:20 PM
--- NOTE | 2019-03-21 19:23 | Progress Note ---
DATE: 03/21/2019 Mr. Martinez was seen today on 03/21/2019. His was present. He does not appear to have an air leak today. He tolerated the chest tube quite nicely, but he has marked gaseous distention of his colon. I do not really see a pneumothorax. He does not have an air leak. More than likely we will get his chest tube out tomorrow. Interestingly enough he is eating well. I am watching him eat a house diet tonight and he has no difficulty with it. He does have some tympany in his abdomen, but has good bowel sounds. We will probably pull his chest tube out tomorrow.
--- NOTE | 2019-03-21 21:42 | Hospitalist Progress Note ---
Date of Service March 21, 2019 Assessment & Plan (1) Pneumothorax: spontaneous. s/p left sided chest tube placement by Dr. Thorne. defer management to him. (2) Colon distention: he apparently has had diarrhea since 11/2018 in the setting of chemotherapy for his cancer. he typically has 4+ liquid BMs/day. he reports abdominal bloating today and he is quite distended on exam. C diff noted to be negative just a few days ago. abd x-rays with colonic ileus but radiology cannot rule out obstructive process. doubt latter, but to be on safe side will obtain CT abd/pelvis tonight with IV/PO contrast. (3) Hyperthyroidism: Dx 01/2019. Placed on methimazole TID at that time. TSH normalized in February. Now TSH is high. Spoke with Dr. Garner - plan: * Check free T4 am * HOLD methimazole This may have been thyroiditis starting earlier this spring as his antimicrosomal ab was positive then. (4) Elevated liver enzymes: etiology uncertain. [facility] consult requested. HepA,B,C all negative. Not on statin. No tylenol or etoh usage. appears acute. repeat LFTs in am. consider checking EBV, CMV titers. RUQ u/s with possible early cirrhosis changes but even if cirrhosis is present doubt it is the cause of the acute liver injury panel. (5) Lung cancer: NSCLC - CROW - s/p lobectomy by Dr Thorne - 2016. Followed by Dr Huber Ortiz - [facility]. (6) Diarrhea: see discussion above in colon distension. c diff testing and stool cx recently negative. hold bile acid sequestrant in light of ileus. (7) Hypertension: continue home meds (8) PAF (paroxysmal atrial fibrillation): remains in NSR. xarelto on hold due to recent placement of chest tube, etc Subjective patient c/o persistent diarrhea starting sometime in November 2018. it was previously thought 2nd to prior chemotherapy for his cancer. he has taken cholestyramine powder and it does help. he feels bloated today. denies any use of tylenol or alcohol at home. denies RUQ pain. main complaint is that of left-sided chest tube pain. we also discussed his thyroid condition. dx w/ hyperthyroidism earlier this year. initially took methimazole 15mg TID. was backed down to qdaily dosing recently. prednisone is not for thyroid but for appetite stimulation - prescribed by his oncologist. Review of Systems Constitutional: no fever Respiratory: + cough and + dyspnea Cardiovascular: as per Subjective / HPI and + chest pain Gastrointestinal: + bloating and + diarrhea/loose stools; no blood in stools Physical Exam Constitutional: no acute distress and not ill appearing ENMT: external ear and nose normal, oropharynx normal Respiratory: Auscultation: + diminished lung sounds (left base) and + wheezes; no crackles and no rhonchi Cardiovascular: Rate/Rhythm: regular rate and regular rhythm Heart Sounds: normal S1 and normal S2; no murmur Vessels: posterior tibial pulses present and dorsalis pedis pulses present Gastrointestinal (Abdomen): Inspection/Auscultation: + abdomen distended; + abnormal bowel sounds (decreased ) Percussion/Palpation: abdomen nontender, no guarding and no hepatosplenomegaly Psychiatric: A+Ox3, euthymic affect Results & Data Vital Signs (Past 12 Hours) Vital Signs Temp Pulse Resp BP Pulse Ox 03/21/19 20:03 94 03/21/19 15:17 37.0 C 59 L 18 116/79 92 Laboratory Results Laboratory Results - last 24 hr 03/21/19 03/21/19 03/21/19 05:51 05:51 05:51 WBC 7.42 RBC 5.05 Hgb 14.6 Hct 42.1 MCV 83.4 MCH 28.9 MCHC 34.7 RDW Std Deviation 56.1 H RDW Coeff of Adams 18.5 H Plt Count 135 MPV 9.3 Immature Gran % (Auto) 0.8 Neut % (Auto) 74.0 Lymph % (Auto) 13.1 [place] % (Auto) 11.6 Eos % (Auto) 0.5 Baso % (Auto) 0.0 Immature Gran # (Auto) 0.06 H Neut # (Auto) 5.49 Lymph # (Auto) 0.97 L [place] # (Auto) 0.86 H Eos # (Auto) 0.04 Baso # (Auto) 0.00 PT 10.6 INR 1.0 Sodium 138 Potassium 3.2 L D Chloride 107 Carbon Dioxide 24 Anion Gap 7.0 BUN 24 H Creatinine 1.14 Est Cr Clr Drug Dosing 66.3 Est GFR ( Amer) 76.2 Est GFR (Non-Af Amer) 65.7 BUN/Creatinine Ratio 21.3 H Glucose 67 L POC Glucose Calcium 8.4 L Total Bilirubin 1.0 Direct Bilirubin 0.3 H AST 83 H ALT 258 H Alkaline Phosphatase 624 H Total Protein 5.9 L Albumin 2.8 L 03/21/19 03/21/19 03/21/19 08:04 08:28 12:21 WBC RBC Hgb Hct MCV MCH MCHC RDW Std Deviation RDW Coeff of [place] Plt Count MPV Immature Gran % (Auto) Neut % (Auto) Lymph % (Auto) [place] % (Auto) Eos % (Auto) Baso % (Auto) Immature Gran # (Auto) Neut # (Auto) Lymph # (Auto) [place] # (Auto) Eos # (Auto) Baso # (Auto) PT INR Sodium Potassium Chloride Carbon Dioxide Anion Gap BUN Creatinine Est Cr Clr Drug Dosing Est GFR ( Amer) Est GFR (Non-Af Amer) BUN/Creatinine Ratio Glucose POC Glucose 66 L* 89 93 Calcium Total Bilirubin Direct Bilirubin AST ALT Alkaline Phosphatase Total Protein Albumin (1) Pneumothorax Pneumothorax type: spontaneous, primary Qualified Code(s): J93.11 - Primary spontaneous pneumothorax (2) Lung cancer Laterality: left Lung location: upper lobe of lung Qualified Code(s): C34.12 - Malignant neoplasm of upper lobe, left bronchus or lung (3) Diarrhea Diarrhea type: unspecified type Qualified Code(s): R19.7 - Diarrhea, unspecified (4) Hypertension Hypertension type: essential hypertension Qualified Code(s): I10 - Essential (primary) hypertension
[2019-03-21] MEDS ORDERED: IOVERSOL 100ml IV PRN (22:08)
[2019-03-21] MEDS: MONTELUKAST SODIUM 10 MG TABLET PO SCH (22:25)
[2019-03-21] MEDS: MIRTAZAPINE TAB 15 MG TAB PO SCH (22:25)
--- NOTE | 2019-03-21 23:50 | CT Scan Report ---
CT SCAN OF THE ABDOMEN AND PELVIS WITH IV CONTRAST CLINICAL HISTORY: Generalized abdominal pain. Colonic distention. COMPARISON STUDY: PET/CT dated 12/08/2016. Abdominal radiographs dated 03/21/2019. TECHNIQUE: Following the IV administration of 95 cc of Optiray 320, CT scan of the abdomen and pelvi s is performed from the lung bases to the proximal femora. Images are reviewed in the axial, sagittal , and coronal planes. IV contrast was administered without complication. Oral contrast was utilized. A dose lowering technique was utilized adhering to the principles of ALARA. CT DOSE: 375.86 mGy.cm FINDINGS: Lung bases: The heart is normal in size and without pericardial effusion. There is a trace left pleur al effusion. Bibasilar consolidation is identified. A left-sided chest tube is partially imaged. Ther e is trace basilar pneumothorax. Liver: The contrast-enhanced liver is normal in size, contour, and attenuation. There is mild central intrahepatic biliary ductal dilatation. The hepatic veins and portal veins are patent. Scattered hep atic cysts measure up to 1.3 cm. Additional subcentimeter hepatic hypodensities also likely represent cysts but are too small for definitive characterization. Gallbladder: Surgically absent noting clips in the gallbladder fossa. Spleen: Normal in size and attenuation. Pancreas: Moderately atrophic and grossly unremarkable. Adrenal glands: Unremarkable. Kidneys: The contrast enhanced kidneys demonstrate cortical atrophy and are without hydronephrosis. T he kidneys enhance symmetrically. Abdominal vasculature: There is moderate atherosclerotic calcification and mild ectasia of the abdomi nal aorta. Bowel: The sigmoid colon is lungs and tortuous. There is apparent focal twisting of the sigmoid colon as seen on image #301. The upstream colon is markedly distended and filled with gas. The cecum measu res up to 11 cm. The appearance is concerning for sigmoid volvulus. The small bowel loops are normal in caliber. There is no pneumatosis intestinalis or portal venous gas. No focally thick walled bowel loops are identified. The appendix is well-visualized and normal. Peritoneum: Tiny foci of intraperitoneal free air are seen below the left hemidiaphragm. No abdominal ascites is identified. Lymphadenopathy: None. Pelvic viscera: The prostate gland is enlarged and heterogeneous, measuring 5.7 cm transverse diamete r. There is median lobe hypertrophy. The bladder and seminal vesicles are normal as visualized Skeletal structures: The skeletal structures are osteopenic. There is [id number] lumbosacral sp ondylosis. No lytic or blastic lesions are seen. IMPRESSION: 1. The colon is markedly distended and gas-filled, with the cecum measuring up to 11 cm. There is a f ocal transition point identified in the sigmoid region which appears to twist upon itself. The appear ance is concerning for obstruction at the level of the sigmoid colon, possibly representing sigmoid v olvulus. There is no evidence of mass lesion by CT. Surgical assessment is advised. 2. No focally thick walled bowel loops are identified. There is no pneumatosis intestinalis or portal venous gas. 3. Tiny foci of intraperitoneal free air are seen below the left hemidiaphragm. These are nonspecific and may be related to chest tube/pneumothorax. Clinical correlation will be required. 4. There is patchy airspace consolidation present at both lung bases and a trace left pleural effusio n. The appearance is typical for pneumonia/aspiration pneumonitis. 5. A chest tube is present on the left there is trace left basilar pneumothorax. 6. Additional findings as above. Findings were communicated to the patient's nurse Germaine Gavin on 03/21/2019 at 23:46. Electronically signed by: Armando Soto M.D. 03/21/2019 11:48 PM
--- NOTE | 2019-03-22 00:04 | Progress Note ---
Date of Service March 22, 2019 Received a page from the bedside nurse around 1145 this evening. She states that the patient underwent a CT scan of the abdomen and pelvis this evening and that the results just came back concerning for volvulus. She reports the patient had some current mild abdominal discomfort without other acute complaints. I spoke with Dr. Soto, radiologist, on the phone. He states there is an 11 cm colonic distention with a focal transition point in the sigmoid colon. No evidence of mass. Plan: - General surgery, Dr. Larsen, was acutely consulted. I spoke with him on the phone and he will go see the patient. Efren Grossman, PGY2 Overnight call Results & Data Vital Signs (Past 12 Hours) Vital Signs Temp Pulse Pulse Resp BP Pulse Ox 03/21/19 23:07 36.5 C 46 L 16 142/92 H 98 03/21/19 20:03 94 03/21/19 15:17 37.0 C 59 L 18 116/79 92
--- NOTE | 2019-03-22 00:52 | Surgery Consultation ---
Date of Consultation March 22, 2019 Assessment & Plan (1) Colon distention: pt is a 68 year-old male who has abdominal distend, but pt has no abdominal pain, no nausea, no vomiting, CT scan dx sigmoid volvulus, IMP: sigmoid volvulus Plan, recommend consult GI doctor for endoscopy to correct volvulus, I talked to Dr. Grossman about the recommendation. will F/U History of Present Illness Attending Physician: Woody Pascal I got a call for consult sigmoid volvulus. I saw pt at bedside and reviewed pt's H/P, labs and CT scan with pt, pt said he has chronic abdomen distend for last 2 months, pt had some nausea and vomiting 2 weeks ago, pt has no abdominal pain, no nausea, no vomiting for last 2 weeks, pt passed gas, some diarrhea, pt denies fever, no abdominal pain, pt had CT scan dx sigmoid colon volvulus, pt had chest tube insertion yesterday for Spontaneous left pneumothorax.pt denies chest pain, no SOB. Allergies Allergy/AdvReac Type Severity Reaction Status Date / Time No Known Allergies Allergy Unverified 03/19/19 23:25 Home Medications Home Medications Medication Instructions Recorded Confirmed Type albuterol sulfate [Ventolin HFA] 2 puff INHALATION QID PRN 08/08/18 03/19/19 History hydrocortisone [Proctosol HC] 1 applic SC BID PRN 08/08/18 03/19/19 History montelukast [Singulair] 10 mg PO PM 08/08/18 03/19/19 History cholestyramine (with sugar) 1 - 2 tbsp PO DAILY 03/19/19 03/19/19 History dronabinol 2.5 mg PO DAILY 03/19/19 03/19/19 History ipratropium bromide 2 spray INTRANASAL BID 03/19/19 03/19/19 History irbesartan [Avapro] 150 mg PO DAILY 03/19/19 03/19/19 History loratadine 10 mg PO DAILY PRN 03/19/19 03/19/19 History methimazole 15 mg PO QAM 03/19/19 03/19/19 History metoprolol succinate 100 mg PO DAILY 03/19/19 03/19/19 History mirtazapine 15 mg PO HS 03/19/19 03/19/19 History ondansetron HCl 8 mg PO Q6H PRN 03/19/19 03/19/19 History pantoprazole 40 mg PO DAILY 03/19/19 03/19/19 History caqocqzsh-CE-cgvfzkak-guaifen 20 ml PO UD PRN 03/19/19 03/19/19 History [Mucinex Fast-Max Severe Cold] potassium chloride [Klor-Con M10] 20 meq PO AMPM 03/19/19 03/19/19 History prednisone 20 mg PO DAILY 03/19/19 03/19/19 History rivaroxaban [Xarelto] 20 mg PO DAILY 03/19/19 03/19/19 History Patient History Medical History Abdominal aortic aneurysm (AAA) Obesity Thoracic aortic aneurysm Atrial fibrillation Cancer lung cancer (chemo and radiation) Chronic obstructive pulmonary disease GERD (gastroesophageal reflux disease) Hyperlipidemia Hypertension Increased intraocular pressure in past Surgical History History of bronchoscopy History of cardiac cath History of cardiac radiofrequency ablation 2008 History of cholecystectomy History of colonoscopy History of lobectomy of lung upper left History of tonsillectomy History of tooth extraction Family History Brother Family history of diabetes mellitus Family hx of colon cancer Social History Preferred Language: Croatian Communication Ability: Effective Mink Rancher Required: No Beliefs That Will Affect Care: None Current Living Situation: Spouse Other Information That Helps Us Care for You: No Feels Safe at Home: Yes Safety Concerns: Feels Safe At This Time Smoking Status: Former smoker Cigarettes Per Day: QUIT 10 YEARS AGO Do You Dip or Chew Tobacco: No Second Hand Exposure: No Tobacco Cessation Education Requested by Patient: No Hx Alcohol Use: No Hx Substance Use: Yes substance use type: marijuana Substance Use Type Other:: Prescribed for appetite Last Used Substance: Hours (ago) Review of Systems Review of Systems: All systems reviewed & are unremarkable except as noted in HPI & below Constitutional: as per Subjective / HPI Ear, Nose, Mouth, Throat: as per Subjective / HPI Respiratory: as per Subjective / HPI left lung cancer surgery, pneumothorax Cardiovascular: as per Subjective / HPI Additional Comments: thoracic aneurysm, AAA Gastrointestinal: as per Subjective / HPI, + nausea and + vomiting Musculoskeletal: as per Subjective / HPI Neurologic: as per Subjective / HPI Psychiatric: as per Subjective / HPI Endocrine: as per Subjective / HPI Hematologic / Lymphatic: as per Subjective / HPI Physical Exam Constitutional: WD/WN, vitals as above well developed and + cachectic Neck: trachea midline, no thyromegaly Respiratory: normal respiratory effort, lungs clear to auscultation normal respiratory effort chest tube at left chest , no airleak Cardiovascular: RRR, no murmur, no edema Rate/Rhythm: regular rate, regular rhythm and + bradycardic Heart Sounds: normal S1 and normal S2 Gastrointestinal (Abdomen): Percussion/Palpation: abdomen soft some distend, no tenderness, no rebound painBS + Neurologic: patellar DTR's 2+ bilat, sensation intact Psychiatric: Orientation: alert and oriented x 3 Lymphatic: no cervical or axillary lymphadenopathy Results & Data Vital Signs (Past 12 Hours) Vital Signs Temp Pulse Pulse Resp BP Pulse Ox 03/22/19 00:02 54 L 03/21/19 23:07 36.5 C 46 L 16 142/92 H 98 03/21/19 20:03 94 03/21/19 15:17 37.0 C 59 L 18 116/79 92 Laboratory Results Abnormal lab results 03/21/19 03/21/19 03/21/19 Range/Units 05:51 05:51 08:04 RDW Std Deviation 56.1 H (36.4-46.3) fL RDW Coeff of Adams 18.5 H (11.5-14.5) % Immature Gran # (Auto) 0.06 H (0.00-0.02) K/uL Lymph # (Auto) 0.97 L (1.2-3.4) K/uL [place] # (Auto) 0.86 H (0.11-0.59) K/uL Potassium 3.2 L D (3.5-5.1) mmol/L BUN 24 H (7-18) mg/dl BUN/Creatinine Ratio 21.3 H (10-20) Glucose 67 L (70-99) mg/dl POC Glucose 66 L* (70-99) Calcium 8.4 L (8.5-10.1) mg/dl Direct Bilirubin 0.3 H (0-0.2) mg/dl AST 83 H (15-37) U/L ALT 258 H (12-78) U/L Alkaline Phosphatase 624 H (45-117) U/L Total Protein 5.9 L (6.4-8.2) gm/dl Albumin 2.8 L (3.4-5.0) gm/dl Diagnostic Findings CT SCAN OF THE ABDOMEN AND PELVIS WITH IV CONTRAST CLINICAL HISTORY: Generalized abdominal pain. Colonic distention. COMPARISON STUDY: PET/CT dated 12/08/2016. Abdominal radiographs dated 03/21/2019. TECHNIQUE: Following the IV administration of 95 cc of Optiray 320, CT scan of the abdomen and pelvis is performed from the lung bases to the proximal femora. Images are reviewed in the axial, sagittal, and coronal planes. IV contrast was administered without complication. Oral contrast was utilized. A dose lowering technique was utilized adhering to the principles of ALARA. CT DOSE: 375.86 mGy.cm FINDINGS: Lung bases: The heart is normal in size and without pericardial effusion. There is a trace left pleural effusion. Bibasilar consolidation is identified. A left- sided chest tube is partially imaged. There is trace basilar pneumothorax. Liver: The contrast-enhanced liver is normal in size, contour, and attenuation. There is mild central intrahepatic biliary ductal dilatation. The hepatic veins and portal veins are patent. Scattered hepatic cysts measure up to 1.3 cm. Additional subcentimeter hepatic hypodensities also likely represent cysts but are too small for definitive characterization. Gallbladder: Surgically absent noting clips in the gallbladder fossa. Spleen: Normal in size and attenuation. Pancreas: Moderately atrophic and grossly unremarkable. Adrenal glands: Unremarkable. Kidneys: The contrast enhanced kidneys demonstrate cortical atrophy and are without hydronephrosis. The kidneys enhance symmetrically. Abdominal vasculature: There is moderate atherosclerotic calcification and mild ectasia of the abdominal aorta. Bowel: The sigmoid colon is lungs and tortuous. There is apparent focal twisting of the sigmoid colon as seen on image #301. The upstream colon is markedly distended and filled with gas. The cecum measures up to 11 cm. The appearance is concerning for sigmoid volvulus. The small bowel loops are normal in caliber. There is no pneumatosis intestinalis or portal venous gas. No focally thick walled bowel loops are identified. The appendix is well-visualized and normal. Peritoneum: Tiny foci of intraperitoneal free air are seen below the left hemidiaphragm. No abdominal ascites is identified. Lymphadenopathy: None. Pelvic viscera: The prostate gland is enlarged and heterogeneous, measuring 5.7 cm transverse diameter. There is median lobe hypertrophy. The bladder and seminal vesicles are normal as visualized Skeletal structures: The skeletal structures are osteopenic. There is [id number] lumbosacral spondylosis. No lytic or blastic lesions are seen. IMPRESSION: 1. The colon is markedly distended and gas-filled, with the cecum measuring up to 11 cm. There is a focal transition point identified in the sigmoid region which appears to twist upon itself. The appearance is concerning for obstruction at the level of the sigmoid colon, possibly representing sigmoid volvulus. There is no evidence of mass lesion by CT. Surgical assessment is advised. 2. No focally thick walled bowel loops are identified. There is no pneumatosis intestinalis or portal venous gas. 3. Tiny foci of intraperitoneal free air are seen below the left hemidiaphragm. These are nonspecific and may be related to chest tube/pneumothorax. Clinical correlation will be required. 4. There is patchy airspace consolidation present at both lung bases and a trace left pleural effusion. The appearance is typical for pneumonia/aspiration pneumonitis. 5. A chest tube is present on the left there is trace left basilar pneumothorax. 6. Additional findings as above. XR abdomen min 2V CLINICAL HISTORY: abd distension, ileus? Pain COMPARISON STUDY: None: FINDINGS: Generalized moderate colonic distention. Possibly of a distal colonic obstruction possibly at the level of the distal descending colon is not excluded. Minimal nondistended reactive ileus. No secondary evidence for free air. No evidence for pneumatosis IMPRESSION: 1. General colonic distention. 2. Diagnostic considerations include a generalized colonic ileus versus potential obstructive change distal descending colon versus proximal sigmoid.
[2019-03-22 01:26] LABS: Eosinophils # (auto) 0.01 K/uL (0-0.5); Eosinophils % (auto) 0.1 %; Hematocrit (blood only) 42.2 % (42-52); Hemoglobin 14.8 g/dL (14.0-18.0); Immature Granulocytes # (auto) 0.09 K/uL (0.00-0.02); Immature Granulocytes % (auto) 0.9 %; Lymphocytes # (auto) 1.36 K/uL (1.2-3.4); Lymphocytes % (auto) 13.7 %; Mean Corpuscular Volume 82.7 fL (80-100); Mean Platelet Volume 9.2 fL (7.4-10.4); Monocytes # (auto) 0.83 K/uL (0.11-0.59); Monocytes % (auto) 8.4 %; Neutrophils # (auto) 7.65 K/uL (1.4-6.5); Neutrophils % (auto) 76.9 %; Platelet Count 144 K/uL (130-400); RDW Coefficient of Variation 18.4 % (11.5-14.5); RDW Standard Deviation 55.5 fL (36.4-46.3); White Blood Count 9.94 K/uL (4.8-10.8)
[2019-03-22 01:44] LABS: Albumin Level 2.9 gm/dl (3.4-5.0); BUN Creatinine Ratio 16.3 (10-20); Calcium 8.8 mg/dl (8.5-10.1); Creatinine Clr Calc Pharmacy 63.5 ml/min; Est GFR (African American) 72.3; Est GFR (Non-African American) 62.4; Potassium 3.4 mmol/L (3.5-5.1)
[2019-03-22 01:46] LABS: Albumin Globulin Ratio 0.9 (0.9-2); Bilirubin,Total 1.1 mg/dl (0.2-1); Globulin 3.4 gm/dl (2.5-4.0); Total Protein 6.3 gm/dl (6.4-8.2)
[2019-03-22 01:52] LABS: Mean Corpuscular Hgb Conc 35.1 g/dL (32-36)
--- NOTE | 2019-03-22 05:27 | Gastrointestinal Consultation ---
Date of Consultation March 22, 2019 Assessment & Plan (1) Colon distention: Patient with colonic distension and cecum is [address] scan, ? Sigmoid volvulus, clinically he is moving bowel with diarrhea, no abdominal pain or signs of toxicity. This seems to be Pseudo colonic obstruction related to his current illness and hypokalemia. He may have an element of sigmoid volvulus related to redundent sigmoid. He refused urgent colonic decompression despite I spent long time explaining risk, benefit and alternatives and risk of perforation and ischemia if not done on time. Other DDx is paraneoplastic syndrome related colonic dysmotility. Please recall GI if patient agrees for decompression, meanwhile please monitor closely. (2) Diarrhea: Multifactorial, can be related to chemotherapy and prior hyperthyroidism state, current meds including Methimazole and Prednisone, at risk of colitis and CMV colitis, or can be overflow from colonic dysmotility. Also can be due to paraneoplastic syndrome. His C.diff is negative. Last colonoscopy was normal in 2012. This needs further work up by colonoscopy and Bx and adjustment of his meds. (3) Elevated liver enzymes: Last normal LFTs in 01/2019. He has mixed hepatocellular and cholestatic pattern, he is s/p cholecystectomy in the past. Current CT scan showed mild intrahepatic biliary dilation. Likely multifactorial and related to Chemotherapy and Methimazole, Thyroid function related, need to evaluate other viral infections due to chronic steroids use, r/o autoimmune and metabolic related to Paraneoplastic syndrome. Obtain labs for abn LFTs and MRCP. (4) Sigmoid volvulus: History of Present Illness Reason for Consultation: Sigmoid volvulus Attending Physician: Woody Pascal 68 male patient with stage 4 Lung cancer, s/p lobectomy and chemotherapy, admitted with pneumothorax s/p chest tube placement. He was noted to have abdominal distention yesterday and KUB showed colonic distention hence a CT scan was obtained and showed markedly distended colon with gas, cecum measuring up to 11 cm. There is a focal transition point identified in the sigmoid region which appears to twist upon itself. The appearance is concerning for obstruction at the level of the sigmoid colon, possibly representing sigmoid volvulus. Surgery consulted and recommended GI evaluation for decompression. Patient denies any abdominal pain, nausea or vomiting, moving bowel with diarrhea for the last 3 months. Last bowel movement was few hrs ago. No rectal bleeding or fever. His abdomen is not changed to him and thinks it's not as distended. He refused to come down for colonic decompression at this time. He was started on repeat chemotherapy regimen in 11/2018 including Avastin and Atezolizumab. Also noted with hyperthyroidism afterwards causing AFIB hence was started on Prednisone, Methimazole and Amiodarone with Xarelto. Later Amiodarone was held in 01/2019. His diarrhea started around that time and he seems to have persistent hypokalemia. Allergies Allergy/AdvReac Type Severity Reaction Status Date / Time No Known Allergies Allergy Unverified 03/19/19 23:25 Home Medications Home Medications Medication Instructions Recorded Confirmed Type albuterol sulfate [Ventolin HFA] 2 puff INHALATION QID PRN 08/08/18 03/19/19 History hydrocortisone [Proctosol HC] 1 applic KS BID PRN 08/08/18 03/19/19 History montelukast [Singulair] 10 mg PO PM 08/08/18 03/19/19 History cholestyramine (with sugar) 1 - 2 tbsp PO DAILY 03/19/19 03/19/19 History dronabinol 2.5 mg PO DAILY 03/19/19 03/19/19 History ipratropium bromide 2 spray INTRANASAL BID 03/19/19 03/19/19 History irbesartan [Avapro] 150 mg PO DAILY 03/19/19 03/19/19 History loratadine 10 mg PO DAILY PRN 03/19/19 03/19/19 History methimazole 15 mg PO QAM 03/19/19 03/19/19 History metoprolol succinate 100 mg PO DAILY 03/19/19 03/19/19 History mirtazapine 15 mg PO HS 03/19/19 03/19/19 History ondansetron HCl 8 mg PO Q6H PRN 03/19/19 03/19/19 History pantoprazole 40 mg PO DAILY 03/19/19 03/19/19 History mbficudxb-KL-vmohbhrq-guaifen 20 ml PO UD PRN 03/19/19 03/19/19 History [Mucinex Fast-Max Severe Cold] potassium chloride [Klor-Con M10] 20 meq PO AMPM 03/19/19 03/19/19 History prednisone 20 mg PO DAILY 03/19/19 03/19/19 History rivaroxaban [Xarelto] 20 mg PO DAILY 03/19/19 03/19/19 History Patient History Medical History Abdominal aortic aneurysm (AAA) Obesity Thoracic aortic aneurysm Atrial fibrillation Cancer lung cancer (chemo and radiation) Chronic obstructive pulmonary disease GERD (gastroesophageal reflux disease) Hyperlipidemia Hypertension Increased intraocular pressure in past Surgical History History of bronchoscopy History of cardiac cath History of cardiac radiofrequency ablation 2009 History of cholecystectomy History of colonoscopy History of lobectomy of lung upper left History of tonsillectomy History of tooth extraction Family History Brother Family history of diabetes mellitus Family hx of colon cancer Social History Preferred Language: Polish Communication Ability: Effective Orthopedic Nurse Practitioner Required: No Beliefs That Will Affect Care: None Current Living Situation: Spouse Other Information That Helps Us Care for You: No Feels Safe at Home: Yes Safety Concerns: Feels Safe At This Time Smoking Status: Former smoker Cigarettes Per Day: QUIT 10 YEARS AGO Do You Dip or Chew Tobacco: No Second Hand Exposure: No Tobacco Cessation Education Requested by Patient: No Hx Alcohol Use: No Hx Substance Use: Yes substance use type: marijuana Substance Use Type Other:: Prescribed for appetite Last Used Substance: Hours (ago) Review of Systems Constitutional: no fever, no chills, no fatigue and no weight loss Eyes: no eye pain and no worsening vision Ear, Nose, Mouth, Throat: no tinnitus, no dizziness, no nasal discharge and no epistaxis Respiratory: no cough, no dyspnea, no dyspnea on exertion and no wheezing Cardiovascular: no chest pain, no orthopnea, no palpitations and no edema Gastrointestinal: as per Subjective / HPI Musculoskeletal: no stiffness and no myalgia Neurologic: no localized weakness, no paralysis, no tremor(s) and no headache(s) Endocrine: no polydipsia and no polyuria Hematologic / Lymphatic: no easy bleeding and no night sweats Physical Exam Constitutional: + well hydrated, cooperative and comfortable Eyes: PERRL, conjunctivae normal, anicteric sclerae ENMT: external ear and nose normal, oropharynx normal Neck: normal visual inspection and trachea midline Respiratory: normal respiratory effort, lungs clear to auscultation Auscultation: no wheezes Cardiovascular: RRR, no murmur, no edema Gastrointestinal (Abdomen): normal bowel sounds, soft, nontender, no hepatosplenomegaly slightly distended Musculoskeletal: no cyanosis or clubbing, extremities motor strength 5/5 Skin: no rashes, warm and dry Neurologic: awake; no focal motor deficits Motor/Sensory: no tremor Results & Data Vital Signs (Past 12 Hours) Vital Signs Temp Pulse Pulse Resp BP Pulse Ox 03/22/19 00:02 54 L 03/21/19 23:07 36.5 C 46 L 16 142/92 H 98 03/21/19 20:03 94 Laboratory Results Laboratory Results - last 24 hr 03/21/19 03/21/19 03/21/19 05:51 05:51 05:51 WBC 7.42 RBC 5.05 Hgb 14.6 Hct 42.1 MCV 83.4 MCH 28.9 MCHC 34.7 RDW Std Deviation 56.1 H RDW Coeff of Adams 18.5 H Plt Count 135 MPV 9.3 Immature Gran % (Auto) 0.8 Neut % (Auto) 74.0 Lymph % (Auto) 13.1 [place] % (Auto) 11.6 Eos % (Auto) 0.5 Baso % (Auto) 0.0 Immature Gran # (Auto) 0.06 H Neut # (Auto) 5.49 Lymph # (Auto) 0.97 L [place] # (Auto) 0.86 H Eos # (Auto) 0.04 Baso # (Auto) 0.00 PT 10.6 INR 1.0 Sodium 138 Potassium 3.2 L D Chloride 107 Carbon Dioxide 24 Anion Gap 7.0 BUN 24 H Creatinine 1.14 Est Cr Clr Drug Dosing 66.3 Est GFR ( Amer) 76.2 Est GFR (Non-Af Amer) 65.7 BUN/Creatinine Ratio 21.3 H Glucose 67 L POC Glucose Lactate Calcium 8.4 L Total Bilirubin 1.0 Direct Bilirubin 0.3 H AST 83 H ALT 258 H Alkaline Phosphatase 624 H Total Protein 5.9 L Albumin 2.8 L Globulin Albumin/Globulin Ratio Free T4 03/21/19 03/21/19 03/21/19 08:04 08:28 12:21 WBC RBC Hgb Hct MCV MCH MCHC RDW Std Deviation RDW Coeff of [place] Plt Count MPV Immature Gran % (Auto) Neut % (Auto) Lymph % (Auto) [place] % (Auto) Eos % (Auto) Baso % (Auto) Immature Gran # (Auto) Neut # (Auto) Lymph # (Auto) [place] # (Auto) Eos # (Auto) Baso # (Auto) PT INR Sodium Potassium Chloride Carbon Dioxide Anion Gap BUN Creatinine Est Cr Clr Drug Dosing Est GFR ( Amer) Est GFR (Non-Af Amer) BUN/Creatinine Ratio Glucose POC Glucose 66 L* 89 93 Lactate Calcium Total Bilirubin Direct Bilirubin AST ALT Alkaline Phosphatase Total Protein Albumin Globulin Albumin/Globulin Ratio Free T4 03/22/19 03/22/19 03/22/19 01:18 01:18 01:18 WBC 9.94 RBC 5.10 Hgb 14.8 Hct 42.2 MCV 82.7 MCH 29.0 MCHC 35.1 RDW Std Deviation 55.5 H RDW Coeff of Adams 18.4 H Plt Count 144 MPV 9.2 Immature Gran % (Auto) 0.9 Neut % (Auto) 76.9 Lymph % (Auto) 13.7 [place] % (Auto) 8.4 Eos % (Auto) 0.1 Baso % (Auto) 0.0 Immature Gran # (Auto) 0.09 H Neut # (Auto) 7.65 H Lymph # (Auto) 1.36 [place] # (Auto) 0.83 H Eos # (Auto) 0.01 Baso # (Auto) 0.00 PT INR Sodium 135 L Potassium 3.4 L Chloride 104 Carbon Dioxide 24 Anion Gap 7.0 BUN 19 H Creatinine 1.19 Est Cr Clr Drug Dosing 63.5 Est GFR ( Amer) 72.3 Est GFR (Non-Af Amer) 62.4 BUN/Creatinine Ratio 16.3 Glucose 80 POC Glucose Lactate Calcium 8.8 Total Bilirubin 1.1 H Direct Bilirubin AST 89 H ALT 267 H Alkaline Phosphatase 659 H Total Protein 6.3 L Albumin 2.9 L Globulin 3.4 Albumin/Globulin Ratio 0.9 Free T4 0.66 L 03/22/19 01:18 WBC RBC Hgb Hct MCV MCH MCHC RDW Std Deviation RDW Coeff of [place] Plt Count MPV Immature Gran % (Auto) Neut % (Auto) Lymph % (Auto) [place] % (Auto) Eos % (Auto) Baso % (Auto) Immature Gran # (Auto) Neut # (Auto) Lymph # (Auto) [place] # (Auto) Eos # (Auto) Baso # (Auto) PT INR Sodium Potassium Chloride Carbon Dioxide Anion Gap BUN Creatinine Est Cr Clr Drug Dosing Est GFR ( Amer) Est GFR (Non-Af Amer) BUN/Creatinine Ratio Glucose POC Glucose Lactate 1.1 Calcium Total Bilirubin Direct Bilirubin AST ALT Alkaline Phosphatase Total Protein Albumin Globulin Albumin/Globulin Ratio Free T4 (1) Diarrhea Diarrhea type: unspecified type Qualified Code(s): R19.7 - Diarrhea, unspecified
--- NOTE | 2019-03-22 07:33 | XRay Report ---
XR chest 1V portable CLINICAL HISTORY: Pneumothorax. COMPARISON STUDY: Chest radiograph March 21, 2019. FINDINGS: Left lateral chest tube is in place. No left pneumothorax is identified. As before, there i s soft tissue gas within the left neck and chest wall. Marked gaseous distention of visualized portio ns of the colon is again noted. IMPRESSION: 1. Left chest tube in place. No left pneumothorax. 2. Redemonstration of marked gaseous distention of visualized portions of the colon. Electronically signed by: Javi Patrick M.D. 03/22/2019 7:32 AM
--- NOTE | 2019-03-22 08:04 | XRay Report ---
XR chest 1V portable CLINICAL HISTORY: tube removal COMPARISON STUDY: Chest radiograph March 22, 2019 at 7:12 AM. FINDINGS: A trace left pneumothorax is noted. Left chest tube has been removed. Subcutaneous gas with in left chest wall and neck is noted. Gaseous distention of visualized portions of the colon is again noted. IMPRESSION: Left chest tube removal. Trace left pneumothorax. Electronically signed by: Javi Patrick M.D. 03/22/2019 8:02 AM
[2019-03-22] MEDS: D5NSS + 20MEQ KCL 20 MEQ/1,000 ML BAG IV SCH ×2 (09:16→20:43)
[2019-03-22] MEDS: HYDROCORTISONE SOD 25 MG in SYRINGE 0 ML IV SCH ×2 (09:16→20:43)
[2019-03-22] MEDS: METOPROLOL SUCC 50MG EXT REL TAB PO SCH (09:23)
[2019-03-22] MEDS: IPRATROPIUM BROMIDE NASAL SPRAY 0.06% 15ML NAE SCH ×2 (09:23→20:22)
[2019-03-22] MEDS: predniSONE 20 MG TAB PO SCH (09:23)
[2019-03-22] MEDS: PANTOprazole 40 MG TAB PO SCH (09:23)
[2019-03-22] MEDS: DRONABINOL 2.5 MG CAP PO SCH (09:23)
[2019-03-22] MEDS: IRBESARTAN 150 MG TAB PO SCH (09:23)
--- NOTE | 2019-03-22 10:07 | Surgery Progress Note ---
Date of Service March 22, 2019 Assessment & Plan (1) Pneumothorax: -pt. is s/p chest tube insertion on 03/20/19 -no air leak noted on chest tube today and no pneumothorax noted on CXR today so will remove chest tube -post-pull CXR showed only a small residual pneumothorax -will follow with serial exams and CXR Subjective pt. notes his breathing is not labored. he notes only minor discomfort from chest tube. Physical Exam Constitutional: no acute distress Respiratory: only slight decrease of BS noted on left side Results & Data Vital Signs (Past 12 Hours) Vital Signs Temp Pulse Pulse Resp BP Pulse Ox 03/22/19 07:00 36.4 C L 65 18 129/95 93 03/22/19 00:02 54 L 03/21/19 23:07 36.5 C 46 L 16 142/92 H 98 (1) Pneumothorax Pneumothorax type: spontaneous, primary Qualified Code(s): J93.11 - Primary spontaneous pneumothorax
--- NOTE | 2019-03-22 12:17 | Gastroenterology Progress Note ---
Date of Service March 22, 2019 Assessment & Plan (1) Sigmoid volvulus: (2) Colon distention: (3) Diarrhea: Pt is a 68 y/o male w lung ca on s/p lobectomy, on chemo, currently having L pneumothorax s/p L chest tube removal this AM. He's seen for diarrhea symptoms. Last night abd imaging via CT scan concerning for colonic dilation w possible sigmoid volvulus. He's been having diarrhea and passing flatus w BMs. He noted abd distension and diarrhea symptoms havent' changed much since October. Stools studies negative for infections. 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 Not entirely sure if he truly has volvulus or not. Pt had declined colonic decompression yesterday via colonoscopy. Last colonoscopy was normal in 2012. - Keep NPO - If having n/v, place NGT for decompression - Pt passing stools and flatus, though abd distended no signs of pain, guarding and he felt distension had been same since October. Pt seen evaluated together with Dr. Benavidez. Recommend for narcotics & Remeron to be held, correct K to >4, increase pt's ambulation and repeat KUB tomorrow AM. If colonic distension increased or pt having n/v, abd pain, will re-eval for possible colonic decompression. (4) Elevated liver enzymes: CT abd/pelvis showed scattered hepatic cysts measuring up to 1.3cm. There is mild central intrahepatic biliary ductal dilatation. Pt is s/p cholecystectomy. The hepatic veins and portal veins are patent. Suspect LFT elevation likely related to meds (chemo, Methimazole) but will r/o biliary obstruction, autoimmune hepatitis, opportunistic viral infections. Acute hepatitis panel negative. - Trend LFTs - Obtain MRCP - Avoid hepatotoxic meds - Will check JUAN, AMA, ASMA, SPEP, Ceruloplasmin, alpha 1 antitrypsin, ferritin & transferrin sat, celiac panel, EBV, CMV, Parvo, HSV serologies. Supervising Physician Co-Signing Physician Notes I have personally seen and examined the patient with JAKE Garcia on 03/22/2019. Her note reflects my exam and findings. I agree with her impression and plan. Patient is passing stool and flatus without any abdominal pain. Follow clinically and note above recs. Gutierrez Benavidez M.D. Subjective Pt found to have sigmoid volvulus and colonic distension last night via CT. No pneumotosis intestinalis. He had refused colonic decompression last night. His L chest tube is removed today, f/u w trace L pneumothorax. He is having persistent abd distension and diarrhea since October. Denies abd pain. Nausea but no vomiting. He is passing flatus only when having BMs. Review of Systems Review of Systems: All systems reviewed & are unremarkable except as noted in HPI & below Physical Exam Constitutional: WD/WN, vitals as above well groomed, cooperative and comfortable Eyes: PERRL, conjunctivae normal, anicteric sclerae ENMT: external ear and nose normal, oropharynx normal Respiratory: no respiratory distress and does not use accessory muscles Auscultation: + diminished lung sounds Cardiovascular: RRR, no murmur, no edema Gastrointestinal (Abdomen): Inspection/Auscultation: + abdomen distended and + high-pitched sounds Percussion/Palpation: abdomen nontender and no guarding Skin: no rashes, warm and dry no jaundice Neurologic: Motor/Sensory: no asterixis Psychiatric: A+Ox3, euthymic affect Lymphatic: no lymphedema Results & Data Vital Signs (Past 12 Hours) Vital Signs Temp Pulse Resp BP Pulse Ox 03/22/19 07:00 36.4 C L 65 18 129/95 93 (1) Diarrhea Diarrhea type: unspecified type Qualified Code(s): R19.7 - Diarrhea, unspecified
[2019-03-22 13:30] LABS: Ferritin 792.1 ng/ml (8-388)
--- NOTE | 2019-03-22 13:52 | Surgery Progress Note ---
Date of Service March 22, 2019 Assessment & Plan (1) Colon distention: 68-year-old male with a history of lung cancer status post LEFT upper lobe lobectomy who was recently undergoing chemotherapy, however this was discontinued due to persistent diarrhea and thyroid issues. Presented to the e mergency department due to persistent cough with left sided chest pain. chest xray showed left pneumothorax. Chest tube was placed and now removed. On further evaluation, patient had a CT scan of abdomen and pelvis which showed colonic distention up to 11 cm in diameter and possible sigmoid volvulus. Patient refused colonoscopic decompression last night No leukocytosis, lactic acid 1.1, no abdominal pain. Chronic diarrhea for past few months and distention. ?? colonic pseudo-obstruction vs possible sigmoid volvulus. Plan: No acute surgical indication required at this time however discussed with patient that if he were to have a volvulus there is risk of ischemic colitis and perforation which would become surgical emergency. Patient understands this risk. GI planning to hold off on decompression today (per patient) and repeat xray tomorrow morning. If patient develops abdominal pain, increasing distention would highly recommend colonoscopic decompression. Recommend ambulation and oob to chair Continue current medical management follow labs Dr. Larsen has seen and examined patient, agrees with above. Subjective no abdominal pain still with abdominal bloating passed some gas and diarrhea States GI saw him and are holding off on colonoscopic decompression, want to repeat xray tomorrow morning. Physical Exam Constitutional: WD/WN, vitals as above no acute distress and not ill appearing Respiratory: normal respiratory effort; no respiratory distress and no labored breathing Gastrointestinal (Abdomen): Inspection/Auscultation: + abdomen distended Percussion/Palpation: abdomen soft; abdomen nontender, no guarding and abdomen not rigid Skin: no rashes, warm and dry Psychiatric: A+Ox3, euthymic affect Results & Data Vital Signs (Past 12 Hours) Vital Signs Temp Pulse Resp BP Pulse Ox 03/22/19 07:00 36.4 C L 65 18 129/95 93 Laboratory Results 03/22/19 03/22/19 03/22/19 Range/Units 12:53 12:53 01:18 WBC (4.8-10.8) K/uL RBC (4.7-6.1) M/uL Hgb (14.0-18.0) g/dL Hct (42-52) % MCV (80-100) fL MCH (25-34) pg MCHC (32-36) g/dL RDW Std Deviation (36.4-46.3) fL RDW Coeff of Adams (11.5-14.5) % Plt Count (130-400) K/uL MPV (7.4-10.4) fL Immature Gran % (Auto) % Neut % (Auto) % Lymph % (Auto) % [place] % (Auto) % Eos % (Auto) % Baso % (Auto) % Immature Gran # (Auto) (0.00-0.02) K/uL Neut # (Auto) (1.4-6.5) K/uL Lymph # (Auto) (1.2-3.4) K/uL [place] # (Auto) (0.11-0.59) K/uL Eos # (Auto) (0-0.5) K/uL Baso # (Auto) (0-0.2) K/uL Sodium (136-145) mmol/L Potassium (3.5-5.1) mmol/L Chloride (98-107) mmol/L Carbon Dioxide (21-32) mmol/L Anion Gap (3-11) BUN (7-18) mg/dl Creatinine (0.6-1.4) mg/dl Est Cr Clr Drug Dosing ml/min Est GFR ( Amer) Est GFR (Non-Af Amer) BUN/Creatinine Ratio (10-20) Glucose (70-99) mg/dl POC Glucose (70-99) Lactate 1.1 (0.4-2.0) mmol/L Calcium (8.5-10.1) mg/dl Iron 40 (35-175) mcg/dl Transferrin 159 L (200-360) mg/dl Transferrin % Sat 18 L (20-50) % Ferritin 792.1 H (8-388) ng/ml Total Bilirubin (0.2-1) mg/dl AST (15-37) U/L ALT (12-78) U/L Alkaline Phosphatase (45-117) U/L Total Protein (6.4-8.2) gm/dl Total Protein (PEP) Pending Albumin (3.4-5.0) gm/dl Albumin (PEP) Pending Globulin (2.5-4.0) gm/dl Albumin/Globulin Ratio (0.9-2) Wyspg-3-Jqrqjmifk Pending Ledhk-6-Vxqjqnbwj Pending Qprs-0-Wepowvzy Pending Klvz-0-Txbkwacj Pending Gamma Globulins Pending Monoclonal Peak 3 Pending Ser Monoclonl Protein Pending Ser Monoclonal Prot 2 Pending PEP Interpretation Pending Mdtwe-2-Gxhhqfzkeli Pending Ceruloplasmin Pending Free T4 (0.8-1.6) ng/dl IgA Pending JUAN Screen Pending Anti-Mitochondrial Ab Pending Anti-Smooth Muscle Ab Pending Tiss Transglutamin IgA Pending Celiac Disease Interp Pending 03/22/19 03/22/19 03/22/19 Range/Units 01:18 01:18 01:18 WBC 9.94 (4.8-10.8) K/uL RBC 5.10 (4.7-6.1) M/uL Hgb 14.8 (14.0-18.0) g/dL Hct 42.2 (42-52) % MCV 82.7 (80-100) fL MCH 29.0 (25-34) pg MCHC 35.1 (32-36) g/dL RDW Std Deviation 55.5 H (36.4-46.3) fL RDW Coeff of Adams 18.4 H (11.5-14.5) % Plt Count 144 (130-400) K/uL MPV 9.2 (7.4-10.4) fL Immature Gran % (Auto) 0.9 % Neut % (Auto) 76.9 % Lymph % (Auto) 13.7 % [place] % (Auto) 8.4 % Eos % (Auto) 0.1 % Baso % (Auto) 0.0 % Immature Gran # (Auto) 0.09 H (0.00-0.02) K/uL Neut # (Auto) 7.65 H (1.4-6.5) K/uL Lymph # (Auto) 1.36 (1.2-3.4) K/uL [place] # (Auto) 0.83 H (0.11-0.59) K/uL Eos # (Auto) 0.01 (0-0.5) K/uL Baso # (Auto) 0.00 (0-0.2) K/uL Sodium 135 L (136-145) mmol/L Potassium 3.4 L (3.5-5.1) mmol/L Chloride 104 (98-107) mmol/L Carbon Dioxide 24 (21-32) mmol/L Anion Gap 7.0 (3-11) BUN 19 H (7-18) mg/dl Creatinine 1.19 (0.6-1.4) mg/dl Est Cr Clr Drug Dosing 63.5 ml/min Est GFR ( Amer) 72.3 Est GFR (Non-Af Amer) 62.4 BUN/Creatinine Ratio 16.3 (10-20) Glucose 80 (70-99) mg/dl POC Glucose (70-99) Lactate (0.4-2.0) mmol/L Calcium 8.8 (8.5-10.1) mg/dl Iron (35-175) mcg/dl Transferrin (200-360) mg/dl Transferrin % Sat (20-50) % Ferritin (8-388) ng/ml Total Bilirubin 1.1 H (0.2-1) mg/dl AST 89 H (15-37) U/L ALT 267 H (12-78) U/L Alkaline Phosphatase 659 H (45-117) U/L Total Protein 6.3 L (6.4-8.2) gm/dl Total Protein (PEP) Albumin 2.9 L (3.4-5.0) gm/dl Albumin (PEP) Globulin 3.4 (2.5-4.0) gm/dl Albumin/Globulin Ratio 0.9 (0.9-2) Bazxm-4-Ugnopvbzk Wfzop-0-Epqfpbhug Qvog-4-Ezzygvcg Wneg-6-Ompgmcwc Gamma Globulins Monoclonal Peak 3 Ser Monoclonl Protein Ser Monoclonal Prot 2 PEP Interpretation Xmado-7-Yktcrauwqti Ceruloplasmin Free T4 0.66 L (0.8-1.6) ng/dl IgA JUAN Screen Anti-Mitochondrial Ab Anti-Smooth Muscle Ab Tiss Transglutamin IgA Celiac Disease Interp 03/21/19 Range/Units 12:21 WBC (4.8-10.8) K/uL RBC (4.7-6.1) M/uL Hgb (14.0-18.0) g/dL Hct (42-52) % MCV (80-100) fL MCH (25-34) pg MCHC (32-36) g/dL RDW Std Deviation (36.4-46.3) fL RDW Coeff of Adams (11.5-14.5) % Plt Count (130-400) K/uL MPV (7.4-10.4) fL Immature Gran % (Auto) % Neut % (Auto) % Lymph % (Auto) % [place] % (Auto) % Eos % (Auto) % Baso % (Auto) % Immature Gran # (Auto) (0.00-0.02) K/uL Neut # (Auto) (1.4-6.5) K/uL Lymph # (Auto) (1.2-3.4) K/uL [place] # (Auto) (0.11-0.59) K/uL Eos # (Auto) (0-0.5) K/uL Baso # (Auto) (0-0.2) K/uL Sodium (136-145) mmol/L Potassium (3.5-5.1) mmol/L Chloride (98-107) mmol/L Carbon Dioxide (21-32) mmol/L Anion Gap (3-11) BUN (7-18) mg/dl Creatinine (0.6-1.4) mg/dl Est Cr Clr Drug Dosing ml/min Est GFR ( Amer) Est GFR (Non-Af Amer) BUN/Creatinine Ratio (10-20) Glucose (70-99) mg/dl POC Glucose 93 (70-99) Lactate (0.4-2.0) mmol/L Calcium (8.5-10.1) mg/dl Iron (35-175) mcg/dl Transferrin (200-360) mg/dl Transferrin % Sat (20-50) % Ferritin (8-388) ng/ml Total Bilirubin (0.2-1) mg/dl AST (15-37) U/L ALT (12-78) U/L Alkaline Phosphatase (45-117) U/L Total Protein (6.4-8.2) gm/dl Total Protein (PEP) Albumin (3.4-5.0) gm/dl Albumin (PEP) Globulin (2.5-4.0) gm/dl Albumin/Globulin Ratio (0.9-2) Kcars-0-Ftwvhpbcx Dgxpu-4-Ephbcxhtu Neuw-4-Wqnbpnpg Duqx-9-Xflykcds Gamma Globulins Monoclonal Peak 3 Ser Monoclonl Protein Ser Monoclonal Prot 2 PEP Interpretation Pvkay-3-Fltlbjquvmf Ceruloplasmin Free T4 (0.8-1.6) ng/dl IgA JUAN Screen Anti-Mitochondrial Ab Anti-Smooth Muscle Ab Tiss Transglutamin IgA Celiac Disease Interp Diagnostic Findings XR chest 1V portable CLINICAL HISTORY: tube removal COMPARISON STUDY: Chest radiograph March 22, 2019 at 7:12 AM. FINDINGS: A trace left pneumothorax is noted. Left chest tube has been removed. Subcutaneous gas within left chest wall and neck is noted. Gaseous distention of visualized portions of the colon is again noted. IMPRESSION: Left chest tube removal. Trace left pneumothorax.
--- NOTE | 2019-03-22 14:56 | Magnetic Resonance Report ---
MR MRCP CLINICAL HISTORY: Elevated liver function tests. Biliary ductal dilatation. History of lung carcinoma . COMPARISON STUDY: CT scan dated 03/21/2019 FINDINGS: Breath-hold imaging was performed in the axial and coronal planes. MIP imaging was acquired There is pronounced colonic distention. The cecum measures 12 cm. There is mild left-sided perinephric fluid/edema. The common bile duct is of normal caliber measuring 5 mm. No ductal filling defects are visualized. The gallbladder surgically absent. There are several T2 bright hepatic lesions likely representing cysts. No pancreatic abnormalities are visualized. There is no pancreatic ductal dilatation. IMPRESSION: 1. Surgically absent gallbladder. 2. No evidence of biliary or pancreatic ductal dilatation. 3. No ductal filling defects to indicate calculi. 4. Colonic distention. The cecum measures 12 cm. Electronically signed by: Juan Arango M.D. 03/22/2019 2:54 PM
[2019-03-22] MEDS: MONTELUKAST SODIUM 10 MG TABLET PO SCH (20:44)
--- NOTE | 2019-03-22 22:11 | Hospitalist Progress Note ---
Date of Service March 22, 2019 Assessment & Plan (1) Pneumothorax: spontaneous. s/p left sided chest tube placement by Dr. Thorne earlier this stay. Pneumothorax improved; chest tube has been removed today. Appreciate Dr Thorne's assistance. (2) Sigmoid volvulus: CT of abd/pelvis last pm highly concerning for volvulus. He remains markedly distended on exam. He initially refused rectal tube decompression last evening. seen by gen surgery and GI today. plan - NPO IVF observation today repeat KUB in am if KUB is worse in am then GI to place rectal tube patient is aware of risk of watching a potential volvulus including the risk of developing ischemia Present on Admission?: No (3) Colon distention: see above in "sigmoid volvulus" (4) Hyperthyroidism: Dx 01/2019. Placed on methimazole TID at that time. TSH normalized in February. Now TSH is high. Spoke with Dr. Garner yesterday He feels that this may have been thyroiditis positive antimicrosomal ab c/w such free T4 quite low today STOP methimazole repeat TFTs 1-2 weeks if still hypothyroid then start synthroid (5) Elevated liver enzymes: etiology uncertain. [facility] Gi consult appreicated. HepA,B,C all negative. Not on statin. No tylenol or etoh usage. appears acute. repeat LFTs in am. work-up ordered by them including additional labs and MRCP. RUQ u/s with possible early cirrhosis changes but even if cirrhosis is present doubt it is the cause of the acute liver injury. (6) Lung cancer: NSCLC - CROW - s/p lobectomy by Dr Thorne - 2016. Followed by Dr Huber Ortiz - [facility]. Prednisone on hold - takes chronically for appetite. On IV hydrocortisone for stress dose purposes. (7) Diarrhea: c diff testing and stool cx recently negative. hold bile acid sequestrant in light of colonic issues. (8) Hypertension: continue home meds (9) PAF (paroxysmal atrial fibrillation): remains in NSR. xarelto on hold due to potential need for colonoscopy/rectal tube and other procedures. (10) Hypokalemia: replace, repeat level AM updated at bedside Subjective patient was reluctant to undergo rectal tube decompression overnight for the suspected sigmoid volvulus because he was overwhelmed. he stated he "felt blindsided" by the events of last evening - gen surg coming late, GI coming middle of night and requestint to place rectal tube, etc. he stated he "wanted to get his 's opinion" before doing anything. he did have abdominal pain last evening prior to the CAT scan. he remains bloated in the abdomen today. no stool no vomiting chest tube was removed by Dr Thorne he wants to keep watching his HR and thus he is on continuous pulse ox at his request Review of Systems Constitutional: no fever Respiratory: no dyspnea Cardiovascular: no chest pain Gastrointestinal: + bloating; no vomiting Physical Exam Constitutional: no acute distress and not ill appearing sitting in chair comfortably ENMT: external ear and nose normal, oropharynx normal Respiratory: Auscultation: + wheezes; no crackles (left base) and no rhonchi Cardiovascular: Rate/Rhythm: regular rate and regular rhythm Heart Sounds: normal S1 and normal S2; no murmur Vessels: posterior tibial pulses present and dorsalis pedis pulses present Gastrointestinal (Abdomen): Inspection/Auscultation: + abdomen distended (mod- severe -- no change from yesterday's exam) and normal bowel sounds (high pitched today) Percussion/Palpation: abdomen nontender, no guarding and no hepatosplenomegaly Psychiatric: A+Ox3, euthymic affect Results & Data Vital Signs (Past 12 Hours) Vital Signs Temp Pulse Resp BP Pulse Ox 03/22/19 15:09 36.9 C 104 H 20 110/81 97 Laboratory Results Laboratory Results - last 24 hr 03/22/19 03/22/19 03/22/19 01:18 01:18 01:18 WBC 9.94 RBC 5.10 Hgb 14.8 Hct 42.2 MCV 82.7 MCH 29.0 MCHC 35.1 RDW Std Deviation 55.5 H RDW Coeff of Adams 18.4 H Plt Count 144 MPV 9.2 Immature Gran % (Auto) 0.9 Neut % (Auto) 76.9 Lymph % (Auto) 13.7 Laporte % (Auto) 8.4 Eos % (Auto) 0.1 Baso % (Auto) 0.0 Immature Gran # (Auto) 0.09 H Neut # (Auto) 7.65 H Lymph # (Auto) 1.36 Laporte # (Auto) 0.83 H Eos # (Auto) 0.01 Baso # (Auto) 0.00 Sodium 135 L Potassium 3.4 L Chloride 104 Carbon Dioxide 24 Anion Gap 7.0 BUN 19 H Creatinine 1.19 Est Cr Clr Drug Dosing 63.5 Est GFR ( Amer) 72.3 Est GFR (Non-Af Amer) 62.4 BUN/Creatinine Ratio 16.3 Glucose 80 Lactate Calcium 8.8 Iron Transferrin Transferrin % Sat Ferritin Total Bilirubin 1.1 H AST 89 H ALT 267 H Alkaline Phosphatase 659 H Total Protein 6.3 L Albumin 2.9 L Globulin 3.4 Albumin/Globulin Ratio 0.9 Free T4 0.66 L 03/22/19 03/22/19 01:18 12:53 WBC RBC Hgb Hct MCV MCH MCHC RDW Std Deviation RDW Coeff of Adams Plt Count MPV Immature Gran % (Auto) Neut % (Auto) Lymph % (Auto) Laporte % (Auto) Eos % (Auto) Baso % (Auto) Immature Gran # (Auto) Neut # (Auto) Lymph # (Auto) Laporte # (Auto) Eos # (Auto) Baso # (Auto) Sodium Potassium Chloride Carbon Dioxide Anion Gap BUN Creatinine Est Cr Clr Drug Dosing Est GFR ( Amer) Est GFR (Non-Af Amer) BUN/Creatinine Ratio Glucose Lactate 1.1 Calcium Iron 40 Transferrin 159 L Transferrin % Sat 18 L Ferritin 792.1 H Total Bilirubin AST ALT Alkaline Phosphatase Total Protein Albumin Globulin Albumin/Globulin Ratio Free T4 (1) Pneumothorax Pneumothorax type: spontaneous, primary Qualified Code(s): J93.11 - Primary spontaneous pneumothorax (2) Diarrhea Diarrhea type: unspecified type Qualified Code(s): R19.7 - Diarrhea, unspecified (3) Lung cancer Laterality: left Lung location: upper lobe of lung Qualified Code(s): C34.12 - Malignant neoplasm of upper lobe, left bronchus or lung (4) Hypertension Hypertension type: essential hypertension Qualified Code(s): I10 - Essential (primary) hypertension
[2019-03-23] MEDS: D5NSS + 20MEQ KCL 20 MEQ/1,000 ML BAG IV SCH ×2 (06:31→15:12)
--- NOTE | 2019-03-23 06:44 | Surgery Progress Note ---
Date of Service DR. Larsen, pt is still pass gas some diarrhea, pt denies abdominal pain, no nausea, no vomiting, March 23, 2019 Assessment & Plan (1) Colon distention: 68-year-old male with a history of lung cancer status post LEFT upper lobe lobectomy who was recently undergoing chemotherapy, however this was discontinued due to persistent diarrhea and thyroid issues. Presented to the emergency department due to persistent cough with left sided chest pain. chest xray showed left pneumothorax. Chest tube was placed and now removed. On further evaluation, patient had a CT scan of abdomen and pelvis which showed colonic distention up to 11 cm in diameter and possible sigmoid volvulus. Patient refused colonoscopic decompression last night No leukocytosis, lactic acid 1.1, no abdominal pain. Chronic diarrhea for past few months and distention. ?? colonic pseudo-obstruction vs possible sigmoid volvulus. Plan: No acute surgical indication required at this time however discussed with patient that if he were to have a volvulus there is risk of ischemic colitis and perforation which would become surgical emergency. Patient understands this risk. GI planning to hold off on decompression today (per patient) and repeat xray tomorrow morning. If patient develops abdominal pain, increasing distention would highly recommend colonoscopic decompression. Recommend ambulation and oob to chair Continue current medical management follow labs Dr. Larsen has seen and examined patient, agrees with above. 03/23/2019 6:45am Dr. Larsen pt is stable, will repeat KUB today, GI will decide to do colonoscopy or not, manager web application surgeon will cover this weekend Subjective patient was reluctant to undergo rectal tube decompression overnight for the suspected sigmoid volvulus because he was overwhelmed. he stated he "felt blindsided" by the events of last evening - gen surg coming late, GI coming middle of night and requestint to place rectal tube, etc. he stated he "wanted to get his 's opinion" before doing anything. he did have abdominal pain last evening prior to the CAT scan. he remains bloated in the abdomen today. no stool no vomiting chest tube was removed by Dr Thorne he wants to keep watching his HR and thus he is on continuous pulse ox at his request Physical Exam Constitutional: WD/WN, vitals as above well developed and well nourished Neck: trachea midline, no thyromegaly Respiratory: normal respiratory effort, lungs clear to auscultation Cardiovascular: RRR, no murmur, no edema Gastrointestinal (Abdomen): normal bowel sounds, soft, nontender, no hepatosplenomegaly Percussion/Palpation: abdomen soft some distend, softer compare yesterday, BS + Neurologic: patellar DTR's 2+ bilat, sensation intact Psychiatric: Orientation: alert and oriented x 3 Results & Data Vital Signs (Past 12 Hours) Vital Signs Temp Pulse Resp BP Pulse Ox 03/22/19 22:57 36.5 C 71 18 121/84 97 Diagnostic Findings [place], [place] [phone] Magnetic Resonance Report Patient: IAN SMITH AAdmit Date: 03/20/19 MR#: [id number]: [address] Acct ID:[id number]: Date: 1950[place]: [id number] Age: 68Location: 3N Sex: M Room/Bed: [facility] Att Phy: Woody Pascal MDDiagnosis: PNEUMOTHORAX Jacqui Phy: Armando Espana MDService Date: 03/22/19 Fam Phy: Huber Ortiz MDInterpreting Phy: Juan Arango MD Admit Phy: Elyssa Cole, D.O. Ordering Phy: Manju Clark CRNP cc: ~ MR MRCP CLINICAL HISTORY: Elevated liver function tests. Biliary ductal dilatation. History of lung carcinoma. COMPARISON STUDY: CT scan dated 03/21/2019 FINDINGS: Breath-hold imaging was performed in the axial and coronal planes. MIP imaging was acquired There is pronounced colonic distention. The cecum measures 12 cm. There is mild left-sided perinephric fluid/edema. The common bile duct is of normal caliber measuring 5 mm. No ductal filling defects are visualized. The gallbladder surgically absent. There are several T2 bright hepatic lesions likely representing cysts. No pancreatic abnormalities are visualized. There is no pancreatic ductal dilatation. IMPRESSION: 1. Surgically absent gallbladder. 2. No evidence of biliary or pancreatic ductal dilatation. 3. No ductal filling defects to indicate calculi. 4. Colonic distention. The cecum measures 12 cm.
[2019-03-23 06:57] LABS: Albumin Level 2.2 gm/dl (3.4-5.0); BUN Creatinine Ratio 15.1 (10-20); Calcium 7.6 mg/dl (8.5-10.1); Creatinine Clr Calc Pharmacy 74.1 ml/min; Est GFR (African American) 87.1; Est GFR (Non-African American) 75.2; Magnesium 1.9 mg/dl (1.8-2.4); Potassium 3.3 mmol/L (3.5-5.1)
[2019-03-23 07:04] LABS: Albumin Globulin Ratio 0.8 (0.9-2); Bilirubin,Total 0.9 mg/dl (0.2-1); Globulin 2.9 gm/dl (2.5-4.0); Total Protein 5.1 gm/dl (6.4-8.2)
--- NOTE | 2019-03-23 07:25 | XRay Report ---
KUB HISTORY: Follow-up study in a patient with colonic distention re-eval colonic distension COMPARISON: MRCP 03/22/2019, KUB and CT studies 03/21/2019 FINDINGS: Persistent colonic distention, cecum measuring approximately 11 cm, unchanged. No pneumatos is or pneumoperitoneum identified. Cholecystectomy. No definite urolith. Degenerative changes of the spine, pelvis and hips. IMPRESSION: Unchanged appearance of colonic distention. No pneumatosis or pneumoperitoneum identified. Electronically signed by: Efren Walker M.D. 03/23/2019 7:24 AM
[2019-03-23] MEDS: IRBESARTAN 150 MG TAB PO SCH (07:38)
[2019-03-23] MEDS: METOPROLOL SUCC 50MG EXT REL TAB PO SCH (07:39)
[2019-03-23] MEDS: PANTOprazole 40 MG TAB PO SCH (07:39)
[2019-03-23] MEDS: IPRATROPIUM BROMIDE NASAL SPRAY 0.06% 15ML NAE SCH ×2 (07:40→20:26)
[2019-03-23] MEDS: DRONABINOL 2.5 MG CAP PO SCH (07:41)
[2019-03-23] MEDS: HYDROCORTISONE SOD 25 MG in SYRINGE 0 ML IV SCH ×2 (07:45→20:27)
--- NOTE | 2019-03-23 08:49 | Surgery Progress Note ---
Date of Service March 23, 2019 Assessment & Plan (1) Pneumothorax: -pt. is s/p chest tube insertion on 03/20/19 -chest tube removed on 03/22/19 with post-pull CXR showed only a small residual pneumothorax -GI to consider c-scope decompression as colon is noted to be distended on abdominal imaging today Subjective Pt. notes breathing feels better since chest tube removed. Physical Exam Respiratory: normal respiratory effort; no labored breathing Results & Data Vital Signs (Past 12 Hours) Vital Signs Temp Pulse Pulse Resp BP Pulse Ox 03/23/19 08:10 36.7 C 87 18 127/86 90 03/22/19 22:57 36.5 C 71 18 121/84 97 (1) Pneumothorax Pneumothorax type: spontaneous, primary Qualified Code(s): J93.11 - Primary spontaneous pneumothorax
[2019-03-23] MEDS: POTASSIUM CHLORIDE / WTR 10 MEQ/100 ML PLCT IV SCH ×2 (09:17→10:24)
--- NOTE | 2019-03-23 11:39 | Gastroenterology Progress Note ---
Date of Service March 23, 2019 Assessment & Plan (1) Sigmoid volvulus: (2) Colon distention: (3) Diarrhea: Pt is a 68 y/o male w lung ca on s/p lobectomy, on chemo, currently having L pneumothorax s/p L chest tube removal this AM. He's seen for diarrhea symptoms. Last night abd imaging via CT scan concerning for colonic dilation w possible sigmoid volvulus. He's been having diarrhea and passing flatus w BMs. He noted abd distension and diarrhea symptoms havent' changed much since Decembe r. Stools studies negative for infections. 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 Not entirely sure if he truly has volvulus or not. Pt had declined colonic decompression yesterday via colonoscopy. Last colonoscopy was normal in 2012. Abd much softer today w some bowel sounds. Non tender. Pt w/o n/v. He feels hungry. Passing stools and flatus. KUB showed persistent cecal distension 11cm. - Will start CL diet. If having n/v, abd pain will keep NPO again and eval for placement of NGT for decompression - Recommend correction of K >4 - Continue to hold Remeron, narcotics - Continue to defer colonoscopic decompression at this time - KUB again tomorrow AM - Encouraged ambulation. (4) Elevated liver enzymes: CT abd/pelvis showed scattered hepatic cysts measuring up to 1.3cm. There is mild central intrahepatic biliary ductal dilatation. Pt is s/p cholecystectomy. The hepatic veins and portal veins are patent. Suspect LFT elevation likely related to meds (chemo, Methimazole) but will r/o biliary obstruction, autoimmune hepatitis, opportunistic viral infections. Acute hepatitis panel negative. LFTs coming down. MRCP w/o signs of obstruction. - Avoid hepatotoxic meds - F/U JUAN, AMA, ASMA, SPEP, Ceruloplasmin, alpha 1 antitrypsin, ferritin & transferrin sat, celiac panel, EBV, CMV, Parvo, HSV serologies. Supervising Physician Co-Signing Physician Notes I have personally seen and examined the patient with JAKE Garcia. Her note reflects my exam and findings. I agree with her impression and plan. Patient is doing well. Tolerating PO with no abdominal pain and continuing to have regular BMs and passing flatus. Advance diet but keep on low residue. Gutierrez Benavidez M.D. Subjective MRCP done - noted no signs of pancreatic or biliary duct dilation, or biliary obstruction. LFTs trending down KUB this AM - persistent cecal dilation 11cm but no pneumatosis or pneumoperitoneum. He reports feeling hungry. No nausea/vomiting. Continues to pass stools and flatus. Having flatus now also at rest. He's trying to ambulate more. Denies abd pain. Review of Systems Review of Systems: All systems reviewed & are unremarkable except as noted in HPI & below Physical Exam Constitutional: WD/WN, vitals as above well groomed, cooperative and comfortable Eyes: PERRL, conjunctivae normal, anicteric sclerae ENMT: external ear and nose normal, oropharynx normal Respiratory: normal respiratory effort; no respiratory distress and does not use accessory muscles Auscultation: + rhonchi Cardiovascular: RRR, no murmur, no edema Gastrointestinal (Abdomen): Inspection/Auscultation: + high-pitched sounds (less high pitched sounds and having some bowel sounds compared to yesterday) Percussion/Palpation: abdomen soft (much reduced distension compared to yesterday. ); abdomen nontender Skin: no rashes, warm and dry no jaundice Neurologic: Motor/Sensory: no asterixis Psychiatric: A+Ox3, euthymic affect Lymphatic: no lymphedema Results & Data Vital Signs (Past 12 Hours) Vital Signs Temp Pulse Resp BP Pulse Ox 03/23/19 11:21 36.4 C L 60 18 138/88 97 03/23/19 08:10 36.7 C 87 18 127/86 90 (1) Diarrhea Diarrhea type: unspecified type Qualified Code(s): R19.7 - Diarrhea, unsp ecified
--- NOTE | 2019-03-23 19:06 | Hospitalist Progress Note ---
Date of Service March 23, 2019 Assessment & Plan (1) Pneumothorax: spontaneous. s/p left sided chest tube placement by Dr. Thorne earlier this stay with subsequent removal of tube following resolution of pneumothorax. Appreciate Dr Thorne's assistance. (2) Sigmoid volvulus: Despite x-ray showing ongoing colonic distension he is passing flatus and stool. Clear liquid diet resumed by gen surg/GI. Kenji's syndrome (pseudo-obstruction)? Passage of stool/gas makes sigmoid volvulus less likely. He states consistently he has had abd distension since November 2018?? Appreciate GI/gen surg assistance Keep K normal. IVF. Serial exams. (3) Colon distention: see above in "sigmoid volvulus" (4) Hyperthyroidism: Dx 01/2019. Placed on methimazole TID at that time. TSH normalized in February. Now TSH is high. Spoke with Dr. Garner 2 days ago. He feels that this may have been thyroiditis positive antimicrosomal ab c/w such free T4 quite low STOPPED methimazole repeat TFTs 1-2 weeks if still hypothyroid then start synthroid (5) Elevated liver enzymes: etiology uncertain. [facility] Gi consult appreicated. HepA,B,C all negative. Not on statin. No tylenol or etoh usage. appears acute. repeat LFTs improving. MRCP negative. additional labs pending. RUQ u/s with possible early cirrhosis changes but even if cirrhosis is present doubt it is the cause of the acute liver injury. (6) Lung cancer: NSCLC - CROW - s/p lobectomy by Dr Thorne - 2016. Followed by Dr Huber Ortiz - [facility]. Prednisone on hold - takes chronically for appetite. On IV hydrocortisone for stress dose purposes. (7) Diarrhea: c diff testing and stool cx recently negative. hold bile acid sequestrant in light of colonic issues. consider repeat c. diff testing. (8) Hypertension: continue home meds (9) PAF (paroxysmal atrial fibrillation): remains in NSR clinically. xarelto on hold due to potential need for colonoscopy/rectal tube and other p rocedures. if doing well tomorrow consider resuming (10) Hypokalemia: replace, repeat level AM (11) DVT prophylaxis: resume xarelto when able updated seems better today Subjective patient passing flatus and has had 3 stools -- all loose. abd distension is improved today. no nausea or emesis. started back on clears by surgery - tolerating this. no dyspnea or pleuritic pain. denies abdominal pain. Review of Systems Constitutional: no fever and no chills Respiratory: no cough and no dyspnea Cardiovascular: no chest pain, no orthopnea, no paroxysmal nocturnal dyspnea and no edema Gastrointestinal: + bloating and + diarrhea/loose stools; no abdominal pain and no blood in stools Physical Exam Constitutional: no acute distress and not ill appearing ENMT: external ear and nose normal, oropharynx normal Respiratory: Auscultation: no crackles, no rhonchi and no wheezes Cardiovascular: Rate/Rhythm: regular rate and regular rhythm Heart Sounds: normal S1 and normal S2; no murmur Vessels: posterior tibial pulses present and dorsalis pedis pulses present Gastrointestinal (Abdomen): Inspection/Auscultation: + abdomen distended (mildly improved today) and normal bowel sounds (not as high pitched today) Percussion/Palpation: abdomen nontender, no guarding and no hepatosplenomegaly Psychiatric: A+Ox3, euthymic affect Results & Data Vital Signs (Past 12 Hours) Vital Signs Temp Pulse Pulse Resp BP Pulse Ox 03/23/19 15:07 36.7 C 57 L 17 133/91 95 03/23/19 11:21 36.4 C L 60 18 138/88 97 03/23/19 08:10 36.7 C 87 18 127/86 90 Laboratory Results KUB x-ray still w/ significant colonic distension (1) Pneumothorax Pneumothorax type: spontaneous, primary Qualified Code(s): J93.11 - Primary spontaneous pneumothorax (2) Diarrhea Diarrhea type: unspecified type Qualified Code(s): R19.7 - Diarrhea, unspecified (3) Lung cancer Laterality: left Lung location: upper lobe of lung Qualified Code(s): C34.12 - Malignant neoplasm of upper lobe, left bronchus or lung (4) Hypertension Hypertension type: essential hypertension Qualified Code(s): I10 - Essential (primary) hypertension
[2019-03-23] MEDS: MONTELUKAST SODIUM 10 MG TABLET PO SCH (20:27)
[2019-03-24] MEDS: D5NSS + 20MEQ KCL 20 MEQ/1,000 ML BAG IV SCH ×3 (00:21→20:01)
--- NOTE | 2019-03-24 06:48 | Progress Note ---
Date of Service March 24, 2019 Assessment & Plan (1) Colon distention: resolving ileus suspected- ? pseudoobstruction check cdiff, does not require acute surgical intervention- cannot go home yet encouraged walking Subjective having loose bm and flatus vitals stable, min to no pain on clears Physical Exam Physical Exam: distended but much less per pt, not firm some bowel sounds- no tenderness Results & Data Vital Signs (Past 12 Hours) Vital Signs Temp Pulse Resp BP Pulse Ox 03/23/19 23:36 36.7 C 57 L 16 127/77 95
[2019-03-24] MEDS: IPRATROPIUM BROMIDE NASAL SPRAY 0.06% 15ML NAE SCH ×2 (08:32→20:15)
[2019-03-24] MEDS: IRBESARTAN 150 MG TAB PO SCH (08:33)
[2019-03-24] MEDS: HYDROCORTISONE SOD 25 MG in SYRINGE 0 ML IV SCH ×2 (08:33→20:20)
[2019-03-24] MEDS: PANTOprazole 40 MG TAB PO SCH (08:33)
[2019-03-24] MEDS: METOPROLOL SUCC 50MG EXT REL TAB PO SCH (08:33)
[2019-03-24] MEDS: DRONABINOL 2.5 MG CAP PO SCH (09:05)
[2019-03-24 11:10] LABS: Hematocrit (blood only) 36.4 % (42-52); Hemoglobin 12.4 g/dL (14.0-18.0); Mean Corpuscular Hgb Conc 34.1 g/dL (32-36); Mean Corpuscular Volume 83.7 fL (80-100); Mean Platelet Volume 9.5 fL (7.4-10.4); Platelet Count 154 K/uL (130-400); RDW Coefficient of Variation 18.5 % (11.5-14.5); RDW Standard Deviation 57.1 fL (36.4-46.3); Red Blood Count 4.35 M/uL (4.7-6.1); White Blood Count 8.24 K/uL (4.8-10.8)
[2019-03-24 11:43] LABS: Albumin Globulin Ratio 0.8 (0.9-2); Albumin Level 2.4 gm/dl (3.4-5.0); BUN Creatinine Ratio 7.5 (10-20); Bilirubin,Total 0.7 mg/dl (0.2-1); Calcium 8.1 mg/dl (8.5-10.1); Creatinine Clr Calc Pharmacy 71.3 ml/min; Est GFR (African American) 83.2; Est GFR (Non-African American) 71.8; Globulin 3.1 gm/dl (2.5-4.0); Potassium 2.5 mmol/L (3.5-5.1); Total Protein 5.5 gm/dl (6.4-8.2)
[2019-03-24] MEDS ORDERED: POTASSIUM CHLORIDE 10 MEQ TABCR PO ONE (12:15)
[2019-03-24] MEDS: POTASSIUM CHLORIDE / WTR 10 MEQ/100 ML PLCT IV SCH ×3 (12:38→23:27)
[2019-03-24] MEDS ORDERED: POTASSIUM CHLORIDE 10 MEQ TABCR PO STA (17:57)
[2019-03-24] MEDS: RIVAROXABAN 20 MG TAB PO SCH (20:12)
[2019-03-24] MEDS: MONTELUKAST SODIUM 10 MG TABLET PO SCH (20:13)
[2019-03-24] MEDS: MAGNESIUM SULFATE / D5W 1 GM/100 ML BAG IV SCH ×2 (20:19→21:44)
[2019-03-24] MEDS ORDERED: NURSING DECISION MEDICATION ONE (20:33)
[2019-03-24] MEDS ORDERED: COUGH DROP (SUGAR FREE) LOZ 24 LOZ/1 BOX BUCCAL PRN (20:46)
--- NOTE | 2019-03-24 21:43 | Hospitalist Progress Note ---
Date of Service March 24, 2019 Assessment & Plan (1) Pneumothorax: spontaneous. s/p left sided chest tube placement by Dr. Thorne earlier this stay with subsequent removal of tube following resolution of pneumothorax. Appreciate Dr Thorne's assistance. No issues since d/c of chest tube. (2) Sigmoid volvulus: Despite x-ray showing ongoing colonic distension he is passing copious flatus and stool. This argues against a sigmoid volvulus. Clear liquid diet resumed by gen surg/GI. Tolerating this. 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 Appreciate GI/gen surg assistance Keep K normal. IVF. Serial exams. Recheck c diff gene (3) Colon distention: see above in "sigmoid volvulus" (4) Hyperthyroidism: Dx 01/2019. Placed on methimazole TID at that time. TSH normalized in February. Now TSH is high. Spoke with Dr. Garner 2 days ago. He feels that this may have been thyroiditis positive antimicrosomal ab c/w such free T4 quite low STOPPED methimazole repeat TFTs 1-2 weeks if still hypothyroid then start synthroid (5) Elevated liver enzymes: etiology uncertain. [facility] consult appreicated. HepA,B,C all negative. Not on statin. No tylenol or etoh usage. appears acute. repeat LFTs again improved. MRCP negative. additional labs pending. RUQ u/s with possible early cirrhosis changes but even if cirrhosis is present doubt it is the cause of the acute liver injury. (6) Lung cancer: NSCLC - CROW - s/p lobectomy by Dr Thorne - 2016. Followed by Dr Huber Ortiz - [facility]. Prednisone on hold - takes chronically for appetite. On IV hydrocortisone for stress dose purposes. can likely wean this tomorrow (7) Diarrhea: c diff testing and stool cx recently negative. hold bile acid sequestrant in light of colonic issues. repeat c. diff today to be complete. (8) Hypertension: continue home meds (9) PAF (paroxysmal atrial fibrillation): remains in NSR clinically. resume xarelto today. (10) Hypokalemia: replace IV and PO repeat level tonight and in am (11) DVT prophylaxis: resume xarelto today updated Subjective having numerous loose stools much like he has had over the previous 3-4 months. no blood. abd distension modestly improved. tolerating clears. no pulmonary symptoms today. ambulating fine. Review of Systems Constitutional: no fever Respiratory: no cough and no dyspnea Cardiovascular: no chest pain Gastrointestinal: + bloating; no abdominal pain, no nausea and no vomiting Physical Exam Constitutional: no acute distress and not ill appearing ENMT: external ear and nose normal, oropharynx normal Respiratory: Auscultation: no crackles, no rhonchi and no wheezes Cardiovascular: Rate/Rhythm: regular rate and regular rhythm Heart Sounds: normal S1 and normal S2; no murmur Vessels: posterior tibial pulses present and dorsalis pedis pulses present Gastrointestinal (Abdomen): Inspection/Auscultation: + abdomen distended (improved once again today) and normal bowel sounds (not as high pitched today) Percussion/Palpation: abdomen nontender, no guarding and no hepatosplenomegaly Psychiatric: A+Ox3, euthymic affect Results & Data Vital Signs (Past 12 Hours) Vital Signs Temp Pulse Resp BP Pulse Ox 03/24/19 14:54 36.5 C 58 L 16 142/78 H 96 Laboratory Results Laboratory Results - last 24 hr 03/24/19 03/24/19 03/24/19 10:38 10:38 10:38 WBC 8.24 RBC 4.35 L Hgb 12.4 L Hct 36.4 L MCV 83.7 MCH 28.5 MCHC 34.1 RDW Std Deviation 57.1 H RDW Coeff of Adams 18.5 H Plt Count 154 MPV 9.5 Sodium 144 Potassium 2.5 L* D Chloride 114 H Carbon Dioxide 24 Anion Gap 6.0 BUN 8 D Creatinine 1.06 Est Cr Clr Drug Dosing 71.3 Est GFR ( Amer) 83.2 Est GFR (Non-Af Amer) 71.8 BUN/Creatinine Ratio 7.5 L Glucose 83 Calcium 8.1 L Magnesium 1.7 L Total Bilirubin 0.7 AST 34 ALT 128 H Alkaline Phosphatase 416 H Total Protein 5.5 L Albumin 2.4 L Globulin 3.1 Albumin/Globulin Ratio 0.8 L Stl C. diff Tox B Gene 03/24/19 03/24/19 20:00 20:26 WBC RBC Hgb Hct MCV MCH MCHC RDW Std Deviation RDW Coeff of Adams Plt Count MPV Sodium Potassium 2.7 L Chloride Carbon Dioxide Anion Gap BUN Creatinine Est Cr Clr Drug Dosing Est GFR ( Amer) Est GFR (Non-Af Amer) BUN/Creatinine Ratio Glucose Calcium Magnesium Total Bilirubin AST ALT Alkaline Phosphatase Total Protein Albumin Globulin Albumin/Globulin Ratio Stl C. diff Tox B Gene Negative Cdiff Gene (1) Pneumothorax Pneumothorax type: spontaneous, primary Qualified Code(s): J93.11 - Primary spontaneous pneumothorax (2) Diarrhea Diarrhea type: unspecified type Qualified Code(s): R19.7 - Diarrhea, unspecified (3) Lung cancer Laterality: left Lung location: upper lobe of lung Qualified Code(s): C34.12 - Malignant neoplasm of upper lobe, left bronchus or lung (4) Hypertension Hypertension type: essential hypertension Qualified Code(s): I10 - Essential (primary) hypertension
[2019-03-25] MEDS: POTASSIUM CHLORIDE / WTR 10 MEQ/100 ML PLCT IV SCH ×4 (00:29→11:43)
[2019-03-25] MEDS: ONDANSETRON 8 MG TABLET PO PRN (06:14)
--- NOTE | 2019-03-25 07:04 | Progress Note ---
Date of Service March 25, 2019 Assessment & Plan (1) Colon distention: does not require urgent surgical intervention- having loose stool and low potassium- will ask for GI to reevaluate- cont to follow- Dr Larsen back tomorrow Subjective loose bms and some flatus- diarrhea problem prior to adm low K= no pain or tenderness Physical Exam Physical Exam: awake , alert, abd distended- has bowel sounds nontender abd Results & Data Vital Signs (Past 12 Hours) Vital Signs Temp Pulse Resp BP Pulse Ox 03/24/19 22:46 36.9 C 88 16 158/88 H 96
[2019-03-25] MEDS: METOPROLOL SUCC 50MG EXT REL TAB PO SCH (08:42)
[2019-03-25] MEDS: DRONABINOL 2.5 MG CAP PO SCH (08:42)
[2019-03-25] MEDS: HYDROCORTISONE SOD 25 MG in SYRINGE 0 ML IV SCH (08:42)
[2019-03-25] MEDS: IRBESARTAN 150 MG TAB PO SCH (08:42)
[2019-03-25] MEDS: PANTOprazole 40 MG TAB PO SCH (08:42)
[2019-03-25] MEDS: IPRATROPIUM BROMIDE NASAL SPRAY 0.06% 15ML NAE SCH ×2 (08:43→20:50)
[2019-03-25 09:11] LABS: BUN Creatinine Ratio 4.7 (10-20); Calcium 8.5 mg/dl (8.5-10.1); Creatinine Clr Calc Pharmacy 78.8 ml/min; Est GFR (African American) 93.8; Est GFR (Non-African American) 80.9; Potassium 2.6 mmol/L (3.5-5.1)
[2019-03-25] MEDS: POTASSIUM CHLORIDE 20 MEQ TABCR PO SCH ×3 (11:43→20:50)
[2019-03-25] MEDS: D5NSS + 20MEQ KCL 20 MEQ/1,000 ML BAG IV SCH (14:18)
[2019-03-25] MEDS: RIVAROXABAN 20 MG TAB PO SCH (18:05)
--- NOTE | 2019-03-25 19:28 | Hospitalist Progress Note ---
Date of Service March 25, 2019 Assessment & Plan (1) Pneumothorax: POA. spontaneous. s/p left sided chest tube placement by Dr. Thorne earlier this stay with subsequent removal of tube following resolution of pneumothorax. Appreciate Dr Thorne's assistance. No issues since d/c of chest tube. Present on Admission?: Yes (2) Sigmoid volvulus: Appears ruled out. Despite x-ray showing ongoing colonic distension he is passing copious flatus and stool - in fact josé miguel diarrhea. This argues against a sigmoid volvulus. Clear liquid diet resumed and this has been tolerated. Advance to full liquids today and cut fluid rate to 50cc/hr. 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 He states consistently he has had abdominal distension and diarrhea since September or October 2018. Multiple c. diff tests and stool cultures have been negative. The patient had received several cycles of carboplatin, paclitaxel, avastin, and atezolizumab in 2018 for his lung ca. Pharmacy here states that 20% of people who take atezolizumab get colitis/diarrhea at an average time of 3.5 months following the first dose. Thus, it is possible his ongoing GI issues are due to such. Would need to d/w GI. (3) Colon distention: see above in "sigmoid volvulus" chronic, dating back 5-6 months (4) Hyperthyroidism: Dx 01/2019. Placed on methimazole TID at that time. TSH normalized in February. Now TSH is high (near 20). Spoke with Dr. Garner. He feels that this may have been thyroiditis. positive antimicrosomal ab is consistent with that diagnosis. free T4 quite low this admission. STOPPED methimazole. repeat TFTs 1-2 weeks if still hypothyroid then start synthroid will need endo f/u after discharge (5) Elevated liver enzymes: etiology uncertain. [facility] consult appreciated. HepA,B,C all negative. Not on statin. No tylenol or etoh usage. appears acute. MRCP negative. additional labs pending (EBV, etc). RUQ u/s with possible early cirrhosis changes but even if cirrhosis is present doubt it is the cause of the acute liver injury. serial LFTs continue to improve monitor (6) Lung cancer: NSCLC - CROW - s/p lobectomy by Dr Thorne - 2017. Followed by Dr Huber Ortiz - [facility]. s/p multiple cycles of carboplatin, paclitaxel, avastin, and atezolizumab in 2018. On chronic prednisone for appetite - was on 20mg/day pre-admission. Received IV steroids this admission for stress dose purposes. Stop IV hydrocortisone today. Resume prednisone 20mg/day starting tomorrow. (7) Diarrhea: c diff testing and stool cx's negative. 2nd to atezolizumab? see discussion above in "sigmoid volvulus". restart colestipol 1gm daily. (8) Hypertension: continue home meds (9) PAF (paroxysmal atrial fibrillation): remains in NSR clinically. xarelto for anticoagulation. (10) Hypokalemia: refractory s/p copious IV and PO replacement. 2nd to GI losses. repeat K tonight was 3.2. continue KCL in fluids. continue K-dur 40meq TID. BMP in am. mag noted to be normal today. (11) DVT prophylaxis: xarelto PT,OT progressing albeit slowly Subjective patient having liquid stools - multiple overnight, but improved today. bloating persists but no worse than previous. no nausea/emesis. asking for diet advancement. ambulating. Review of Systems Constitutional: no fever and no chills Respiratory: no dyspnea and no dyspnea on exertion Cardiovascular: no chest pain, no orthopnea and no paroxysmal nocturnal dyspne a Gastrointestinal: + bloating and + diarrhea/loose stools; no abdominal pain, no nausea, no vomiting and no blood in stools Physical Exam Constitutional: no acute distress and not ill appearing ENMT: external ear and nose normal, oropharynx normal Respiratory: Auscultation: + diminished lung sounds (left base) and + wheezes (occasional); no crackles and no rhonchi Cardiovascular: Rate/Rhythm: regular rate and regular rhythm Heart Sounds: normal S1 and normal S2; no murmur Vessels: posterior tibial pulses present and dorsalis pedis pulses present Gastrointestinal (Abdomen): Inspection/Auscultation: + abdomen distended (no change from prior exam); + abnormal bowel sounds (high pitched today) Percussion/Palpation: abdomen nontender, no guarding and no hepatosplenomegaly Skin: port- chest - clean; deeply tanned skin Psychiatric: A+Ox3, euthymic affect Results & Data Vital Signs (Past 12 Hours) Vital Signs Temp Pulse Resp BP Pulse Ox 03/25/19 15:47 36.7 C 65 18 155/94 H 96 Laboratory Results Laboratory Results - last 24 hr 03/25/19 03/25/19 07:57 15:29 Sodium 141 Potassium 2.6 L 3.2 L D Chloride 110 H Carbon Dioxide 24 Anion Gap 7.0 BUN 5 L Creatinine 0.96 Est Cr Clr Drug Dosing 78.8 Est GFR ( Amer) 93.8 Est GFR (Non-Af Amer) 80.9 BUN/Creatinine Ratio 4.7 L Glucose 81 Calcium 8.5 Magnesium 2.0 (1) Pneumothorax Pneumothorax type: spontaneous, primary Qualified Code(s): J93.11 - Primary spontaneous pneumothorax (2) Diarrhea Diarrhea type: unspecified type Qualified Code(s): R19.7 - Diarrhea, unspecified (3) Lung cancer Laterality: left Lung location: upper lobe of lung Qualified Code(s): C34.12 - Malignant neoplasm of upper lobe, left bronchus or lung (4) Hypertension Hypertension type: essential hypertension Qualified Code(s): I10 - Essential (primary) hypertension
[2019-03-25] MEDS: MONTELUKAST SODIUM 10 MG TABLET PO SCH (20:50)
[2019-03-25] MEDS: COLESTIPOL HCL 1 GM TAB PO SCH (22:02)
[2019-03-26] MEDS: D5NSS + 20MEQ KCL 20 MEQ/1,000 ML BAG IV SCH ×2 (05:51→23:40)
[2019-03-26 06:38] LABS: Hematocrit (blood only) 35.8 % (42-52); Hemoglobin 12.6 g/dL (14.0-18.0); Mean Corpuscular Hgb Conc 35.2 g/dL (32-36); Mean Corpuscular Volume 82.1 fL (80-100); Mean Platelet Volume 9.1 fL (7.4-10.4); Platelet Count 166 K/uL (130-400); RDW Coefficient of Variation 18.8 % (11.5-14.5); RDW Standard Deviation 56.4 fL (36.4-46.3); Red Blood Count 4.36 M/uL (4.7-6.1); White Blood Count 7.72 K/uL (4.8-10.8)
[2019-03-26 07:21] LABS: BUN Creatinine Ratio 3.6 (10-20); Calcium 8.4 mg/dl (8.5-10.1); Creatinine Clr Calc Pharmacy 77.1 ml/min; Est GFR (African American) 91.4; Est GFR (Non-African American) 78.9; Potassium 2.6 mmol/L (3.5-5.1)
[2019-03-26] MEDS: IPRATROPIUM BROMIDE NASAL SPRAY 0.06% 15ML NAE SCH ×2 (07:39→21:36)
[2019-03-26] MEDS: PANTOprazole 40 MG TAB PO SCH (07:40)
[2019-03-26] MEDS: POTASSIUM CHLORIDE 20 MEQ TABCR PO SCH ×3 (07:40→21:36)
[2019-03-26] MEDS: IRBESARTAN 150 MG TAB PO SCH (07:40)
[2019-03-26] MEDS: METOPROLOL SUCC 50MG EXT REL TAB PO SCH (07:41)
[2019-03-26] MEDS: predniSONE 20 MG TAB PO SCH (08:28)
[2019-03-26] MEDS: DRONABINOL 2.5 MG CAP PO SCH (08:28)
--- NOTE | 2019-03-26 08:36 | XRay Report ---
XR chest 1V portable CLINICAL HISTORY: left pneumothorax COMPARISON STUDY: 03/22/2019 FINDINGS: The bones soft tissues and hemidiaphragms are normal. The cardiomediastinal silhouette is n ormal. The lungs are clear. The pulmonary vasculature is normal. IMPRESSION: No evidence for pneumothorax. Lungs are considered clear. The above report was generated using voice recognition software. It may contain grammatical, syntax or spelling errors. Electronically signed by: Benji Ramirez M.D. 03/26/2019 8:35 AM
--- NOTE | 2019-03-26 08:52 | Progress Note ---
DATE: 03/26/2019 Mr. Martinez was seen today. His abdomen is still a bit distended, but he states he feels "pretty good." His chest tube site is clean, I removed the dressing. We are going to check an x-ray today. From our standpoint, however, he looks quite good. We will follow along periodically.
[2019-03-26] MEDS ORDERED: POTASSIUM CHLORIDE 10 MEQ / 100ML WTR IV STA (09:09)
[2019-03-26] MEDS ORDERED: MAGNESIUM SULFATE / D5W 1 GM/100 ML BAG IV ONE (09:09)
--- NOTE | 2019-03-26 09:09 | Hospitalist Progress Note ---
Date of Service March 26, 2019 Assessment & Plan (1) Pneumothorax: POA. spontaneous. s/p left sided chest tube placement by Dr. Thorne earlier this stay with subsequent removal of tube following resolution of pneumothorax. Appreciate Dr Thorne's assistance. No issues since d/c of chest tube. (2) Sigmoid volvulus: Appears ruled out. Despite x-ray showing ongoing colonic distension he is passing copious flatus and stool - in fact josé miguel diarrhea. This argues against a sigmoid volvulus. Surgery does not feel surgical intervention is required and GI is in watchful waiting mode. Clear liquid diet resumed and this has been tolerated advance to full liquids with tolerance will advance to low residual. Advance to full liquids today and cut fluid rate to 50cc/hr. 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 He states consistently he has had abdominal distension and diarrhea since September or October 2018. Multiple c. diff tests and stool cultures have been negative. The patient had received several cycles of carboplatin, paclitaxel, avastin, and atezolizumab in 2018 for his lung ca. Pharmacy here states that 20% of people who take atezolizumab get colitis/diarrhea at an average time of 3.5 months following the first dose. Patient is intolerant of a more robust diet perhaps colonoscopy may be warranted (3) Colon distention: see above in "sigmoid volvulus" chronic, dating back 5-6 months (4) Hyperthyroidism: Dx 01/2019. Placed on methimazole TID at that time. TSH normalized in February. Now TSH is high (near 20). Dr. Bundy spoke with Dr. Garner. He feels that this may have been thyroiditis. positive antimicrosomal ab is consistent with that diagnosis. free T4 quite low this admission. STOPPED methimazole. repeat TFTs 1-2 weeks if still hypothyroid then start synthroid will need endo f/u after discharge (5) Elevated liver enzymes: etiology uncertain. [facility] consult appreciated. HepA,B,C all negative. Not on statin. No tylenol or etoh usage. appears acute. MRCP negative. additional labs pending (EBV, etc). RUQ u/s with possible early cirrhosis changes but even if cirrhosis is present doubt it is the cause of the acute liver injury. serial LFTs continue to improve monitor (6) Lung cancer: NSCLC - CROW - s/p lobectomy by Dr Thorne - 2017. Followed by Dr Huber Ortiz - [facility]. s/p multiple cycles of carboplatin, paclitaxel, avastin, and atezolizumab in 2018. On chronic prednisone for appetite - was on 20mg/day pre-admission. Received IV steroids this admission for stress dose purposes. Stop IV hydrocortisone today. Resume prednisone 20mg/day starting tomorrow. (7) Diarrhea: c diff testing and stool cx's negative. 2nd to atezolizumab? see discussion above in "sigmoid volvulus". restart colestipol 1gm daily. (8) Hypertension: continue home meds (9) PAF (paroxysmal atrial fibrillation): remains in NSR clinically. xarelto for anticoagulation. (10) Hypokalemia: refractory s/p copious IV and PO replacement. 2nd to GI losses. continue KCL in fluids. continue K-dur 40meq TID. given additional Kcl and magnesium 03/26 (11) DVT prophylaxis: xarelto PT,OT progressing albeit slowly Subjective Patient feels somewhat improved today's continue with significant diarrhea his potassium is still very low. He is tolerating his liquid diet to attempting to improve to low residual diet. However if he is not successful he may still need to have reevaluation by gastroenterology and he does not feel his abdomen is more distended he has not been nauseous or vomiting Review of Systems Review of Systems: ROS: well nourished well developed. No double vision blurry vision No problems with speech or swallowing No palpitations, chest pain or pressure No Wheezing or breathing issues No abdominal pain nausea vomiting distended and with significant diarrhea No burning urine urine frequency or changes in color No focal joint pain or muscle pain No skin rashes or oral lesions No unusual bruising or bleeding No focused back pain or numbness or loss of strength No changes in memory or confusion Physical Exam Physical Exam: The patient appeared well nourished and normally developed. Vital signs as documented. Head exam is unremarkable. normocephalic, atraumatic Neck is without jugular venous distension, thyromegaly, or lymphademopathy Lungs are clear to auscultation and percussion. Decreased breath sounds at the bases Cardiac exam reveals Rhythm is regular. First and second heart sounds normal. Abdominal exam reveals hypoactive bowel sounds tympanitic distended guarding Extremities are nonedematous and both pedal pulses are present Neurologic exam is A&Ox3, no focal deficits, strength is equal bilateral Psychologically seems neither anxious or depressed Skin is warm Dry without bruises or lesions Results & Data Vital Signs (Past 12 Hours) Vital Signs Temp Pulse Resp BP Pulse Ox 03/25/19 22:44 36.5 C 51 L 16 133/86 96 (1) Pneumothorax Pneumothorax type: spontaneous, primary Qualified Code(s): J93.11 - Primary spontaneous pneumothorax (2) Diarrhea Diarrhea type: unspecified type Qualified Code(s): R19.7 - Diarrhea, unspecified (3) Lung cancer Laterality: left Lung location: upper lobe of lung Qualified Code(s): C34.12 - Malignant neoplasm of upper lobe, left bronchus or lung (4) Hypertension Hypertension type: essential hypertension Qualified Code(s): I10 - Essential (primary) hypertension
[2019-03-26] MEDS: COLESTIPOL HCL 1 GM TAB PO SCH ×3 (09:50→22:33)
[2019-03-26] MEDS: POTASSIUM CHLORIDE / WTR 10 MEQ/100 ML PLCT IV SCH ×6 (10:13→15:29)
[2019-03-26] MEDS: LOPERAMIDE HCL 2 MG CAP PO PRN ×2 (13:32→21:36)
[2019-03-26] MEDS: RIVAROXABAN 20 MG TAB PO SCH (18:00)
[2019-03-26] MEDS: MONTELUKAST SODIUM 10 MG TABLET PO SCH (21:36)
[2019-03-27] MEDS ORDERED: Nursing to Pharmacy Communication ONE (02:22)
[2019-03-27] MEDS: ONDANSETRON 8 MG TABLET PO PRN (06:16)
[2019-03-27] MEDS: LOPERAMIDE HCL 2 MG CAP PO PRN ×2 (09:27→20:50)
[2019-03-27] MEDS: DRONABINOL 2.5 MG CAP PO SCH (09:28)
[2019-03-27] MEDS: IRBESARTAN 150 MG TAB PO SCH (09:28)
[2019-03-27] MEDS: METOPROLOL SUCC 50MG EXT REL TAB PO SCH (09:28)
[2019-03-27] MEDS: predniSONE 20 MG TAB PO SCH (09:29)
[2019-03-27] MEDS: PANTOprazole 40 MG TAB PO SCH (09:29)
[2019-03-27] MEDS: IPRATROPIUM BROMIDE NASAL SPRAY 0.06% 15ML NAE SCH ×2 (09:30→20:43)
[2019-03-27] MEDS: POTASSIUM CHLORIDE 20 MEQ TABCR PO SCH ×3 (09:30→20:43)
[2019-03-27 10:09] LABS: BUN Creatinine Ratio 3.2 (10-20); Calcium 8.4 mg/dl (8.5-10.1); Creatinine Clr Calc Pharmacy 77.1 ml/min; Est GFR (African American) 91.4; Est GFR (Non-African American) 78.9; Magnesium 1.6 mg/dl (1.8-2.4); Potassium 2.8 mmol/L (3.5-5.1)
[2019-03-27] MEDS: COLESTIPOL HCL 1 GM TAB PO SCH (10:42)
[2019-03-27] MEDS ORDERED: POTASSIUM CHLORIDE 10 MEQ / 100ML WTR IV STA (14:48)
--- NOTE | 2019-03-27 15:38 | Gastroenterology Progress Note ---
Date of Service March 27, 2019 Assessment & Plan (1) Sigmoid volvulus: (2) Colon distention: (3) Diarrhea: Pt is a 68 y/o male w lung ca on s/p lobectomy, admitted for L pneumothorax (resolved), re evaluated for continued diarrhea, abd distension, hypokalemia. Recall pt seen last week for abdominal distension, diarrhea, imaging study concerning for sigmoid volvulus but pt had refused colonic decompression when offered. He was passing flatus, loose stools and tolerating food well w/o n/v, increased abd pain. He felt his abd distension hasn't changed since October. 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 He mentioned stools are forming up to pudding like today, BM only 3x today vs 7x yesterday. Continues to tolerate diet well, minimal abd pain and abd appears softer than last week though still having high pitched sounds. - Continue to replete K per primary team - Repeat KUB today - Consider repeating stool cx and Cdiff (2 negatives on Cdiff and stool cx each) - Discussed w pt and about possible flex sigmoidscopy tomorrow by Dr. Zepeda to r/o mass, microscopic colitis. Pt reluctant however agreeable to be made NPO after midnight and re-evalution tomorrow. Supervising Physician Co-Signing Physician Notes Attending attestation I have seen, examined this patient, and agree with the findings and above by our mid-level provider JAKE Noble. -Patient with a chronically distended colon even by x-ray from the [employer] system prior to admission approximately 2 weeks ago. Patient is asymptomatic right now without pain nausea vomiting and actually says that his distention is dramatically improved. He is having less diarrhea today and is without complaints. He is eating a regular diet. -Discussed with patient for decompression endoscopic evaluation at the minimum to eliminate or exclude possibility of endoscopic colitis and/or mechanical issue that is causing overflow diarrhea. Patient at this time as previously last week has refused endoscopic intervention at this time. He states that he will discuss that with me and readdress tomorrow morning. -We will asked to be made n.p.o. after midnight we will discuss flex sig release in the morning, which I think would add a lot of utility to his clinical picture. I am concerned that he could be intermittently volvulized causing overflow fortunately right now his lactates previously on upon admission were normal and he is very comfortable sitting in bed without complaint today right now. Subjective Recall pt seen last week for abdominal distension, diarrhea, imaging study concerning for sigmoid volvulus but pt had refused colonic decompression when offered. He was passing flatus, stools and tolerating food well w/o n/v, increased abd pain. He felt his abd distension hasn't changed since October. We're asked by primary team to re-eval pt as he's continued to have diarrhea and abdominal distension. Also he's been having w continued hypokalemia. Stool cx x2 negative. Cdiff negative x 2. Pt reports today 3BMs, stools pudding like, no rectal bleeding. Denies n/v, + mild abd discomfort that felt like "gas pocket" in LUQ area. Abd does get distended after eating but then softer after he passed flatus. Review of Systems Review of Systems: All systems reviewed & are unremarkable except as noted in HPI & below Physical Exam Constitutional: WD/WN, vitals as above well groomed, cooperative and comfortable Eyes: PERRL, conjunctivae normal, anicteric sclerae ENMT: external ear and nose normal, oropharynx normal Respiratory: normal respiratory effort; no respiratory distress and does not use accessory muscles Auscultation: + diminished lung sounds and + rhonchi Cardiovascular: RRR, no murmur, no edema Gastrointestinal (Abdomen): Inspection/Auscultation: + abdomen distended (noted less distended compared to last week ) and + high-pitched sounds (less high pitched sounds and having some bowel sounds compared to yesterday) Per cussion/Palpation: abdomen soft (much reduced distension compared to yesterday. ); abdomen nontender and no guarding Skin: no rashes, warm and dry no jaundice Neurologic: Motor/Sensory: no asterixis Psychiatric: A+Ox3, euthymic affect Lymphatic: no lymphedema Results & Data Vital Signs (Past 12 Hours) Vital Signs Temp Pulse Pulse Resp BP Pulse Ox 03/27/19 11:23 91 H 18 155/112 H 96 03/27/19 07:00 36.7 C 59 L 18 150/95 H 94 03/27/19 06:56 36.5 C 71 18 155/97 H 97 (1) Diarrhea Diarrhea type: unspecified type Qualified Code(s): R19.7 - Diarrhea, unspecified
--- NOTE | 2019-03-27 16:13 | XRay Report ---
XR abdomen min 2V CLINICAL HISTORY: 68 years-old Male presenting with eval colonic distension. TECHNIQUE: Single supine view of the abdomen was obtained. COMPARISON: 03/23/2019. FINDINGS: Cholecystectomy clips noted. Markedly distended colon as on prior exam. The sigmoid colon appears dil ated to the greatest degree with an apparent diameter of over 11 cm though this may be affected by ma gnification. No gross pneumoperitoneum. Allowing for bowel gas and stool, no calcifications to suggest nephrolithiasis. Degenerative changes of the spine. Lung bases clear. IMPRESSION: 1. Marked colonic distention to the level of the sigmoid colon. Persistent sigmoid volvulus would be the primary concern. Electronically signed by: Wes Tolbert M.D. 03/27/2019 4:12 PM
[2019-03-27] MEDS: POTASSIUM CHLORIDE / WTR 10 MEQ/100 ML PLCT IV SCH ×4 (16:38→19:38)
--- NOTE | 2019-03-27 18:31 | Hospitalist Progress Note ---
Date of Service March 27, 2019 Assessment & Plan (1) Pneumothorax: POA. spontaneous. Treated and resolved s/p left sided chest tube placement by Dr. Thorne earlier this stay with subsequent removal of tube following resolution of pneumothorax. Appreciate Dr Thorne's assistance. No issues since d/c of chest tube. (2) Sigmoid volvulus: Patient with persistent distention of his bowel gastroenterology is following considering flex sig Despite x-ray showing ongoing colonic distension he is passing copious flatus and stool - in fact josé miguel diarrhea. Surgery does not feel surgical intervention is required and GI is in watchful waiting mode. Patient has tolerated advance to low residual. 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 He states consistently he has had abdominal distension and diarrhea since Sep or October 2018. Multiple c. diff tests and stool cultures have been negative. The patient had received several cycles of carboplatin, paclitaxel, avastin, and atezolizumab in 2018 for his lung ca. Pharmacy here states that 20% of people who take atezolizumab get colitis/diarrhea at an average time of 3.5 months following the first dose. (3) Colon distention: see above in "sigmoid volvulus" Unclear exact etiology decompression may be warranted gastroenterology is following. (4) Hyperthyroidism: Dx 01/2019. Placed on methimazole TID at that time. TSH normalized in February. Now TSH is high (near 20). Dr. Bundy spoke with Dr. Garner. He feels that this may have been thyroiditis. positive antimicrosomal ab is consistent with that diagnosis. free T4 quite low this admission. STOPPED methimazole. repeat TFTs 1-2 weeks if still hypothyroid then start synthroid will need endo f/u after discharge (5) Elevated liver enzymes: etiology uncertain. HepA,B,C all negative. Not on statin. No tylenol or etoh usage. MRCP negative. additional labs pending (EBV, etc). RUQ u/s with possible early cirrhosis changes but even if cirrhosis is present doubt it is the cause of the acute liver injury. Labs are improving (6) Lung cancer: NSCLC - CROW - s/p lobectomy by Dr Thorne - 2016. Followed by Dr Huber Ortiz - [facility]. s/p multiple cycles of carboplatin, paclitaxel, avastin, and atezolizumab in 2018. On chronic prednisone for appetite - was on 20mg/day pre-admission. Received IV steroids this admission for stress dose purposes. prednisone 20mg/day with taper as able (7) Diarrhea: c diff testing and stool cx's negative. 2nd to atezolizumab? see discussion above in "sigmoid volvulus". restart colestipol 1gm daily. (8) Hypertension: continue home meds (9) PAF (paroxysmal atrial fibrillation): remains in NSR clinically. xarelto for anticoagulation. (10) Hypokalemia: refractory s/p copious IV and PO replacement. Place magnesium 03/27 2nd to GI losses. continue KCL in fluids. continue K-dur 40meq TID. given additional Kcl and magnesium 03/27 (11) DVT prophylaxis: xarelto PT,OT progressing albeit slowly Subjective pt is having less diarrhea still with increased bowel movements but overall less throughout the day. He still is abdominal distention without significant discomfort he has no focal discomfort for in his abdomen at all. He has had discussion with gastroenterology about a flex sig for decompression given the marked distention of his abdomen Review of Systems Review of Systems: ROS: well nourished well developed. No double vision blurry vision No problems with speech or swallowing No palpitations, chest pain or pressure No Wheezing or breathing issues No abdominal pain nausea vomiting distention and diarrhea No burning urine urine frequency or changes in color No focal joint pain or muscle pain No skin rashes or oral lesions No unusual bruising or bleeding No focused back pain or numbness or loss of strength No changes in memory or confusion Physical Exam Physical Exam: The patient appeared well nourished and normally developed. Vital signs as documented. Head exam is unremarkable. normocephalic, atraumatic Neck is without jugular venous distension, thyromegaly, or lymphademopathy Lungs are decreased at both bases no focal air loss Cardiac exam reveals Rhythm is regular. First and second heart sounds normal. Abdominal exam reveals hypoactive bowel sounds, distended but soft tympanitic Extremities are nonedematous and both pedal pulses are present Neurologic exam is A&Ox3, no focal deficits, strength is equal bilateral Psychologically seems neither anxious or depressed Skin is warm Dry without bruises or lesions Results & Data Vital Signs (Past 12 Hours) Vital Signs Temp Pulse Pulse Resp BP Pulse Ox 03/27/19 15:15 36.4 C L 69 16 168/103 H 98 03/27/19 11:23 91 H 18 155/112 H 96 03/27/19 07:00 36.7 C 59 L 18 150/95 H 94 03/27/19 06:56 36.5 C 71 18 155/97 H 97 (1) Pneumothorax Pneumothorax type: spontaneous, primary Qualified Code(s): J93.11 - Primary spontaneous pneumothorax (2) Diarrhea Diarrhea type: unspecified type Qualified Code(s): R19.7 - Diarrhea, unspecified (3) Lung cancer Laterality: left Lung location: upper lobe of lung Qualified Code(s): C34.12 - Malignant neoplasm of upper lobe, left bronchus or lung (4) Hypertension Hypertension type: essential hypertension Qualified Code(s): I10 - Essential (primary) hypertension
[2019-03-27] MEDS: D5NSS + 20MEQ KCL 20 MEQ/1,000 ML BAG IV SCH (18:45)
[2019-03-27] MEDS: MAGNESIUM SULFATE / D5W 1 GM/100 ML BAG IV SCH ×2 (19:37→20:41)
[2019-03-27] MEDS: MONTELUKAST SODIUM 10 MG TABLET PO SCH (20:43)
[2019-03-28 06:30] LABS: Calcium 8.5 mg/dl (8.5-10.1); Creatinine Clr Calc Pharmacy 81.3 ml/min; Est GFR (African American) 97.4; Est GFR (Non-African American) 84.1
[2019-03-28] MEDS ORDERED: cloNIDine HCl 0.1 MG TAB PO PRN (07:38)
[2019-03-28] MEDS ORDERED: LORazepam 0.25 MG/0.5 ML VIAL IV STA (08:07)
--- NOTE | 2019-03-28 08:35 | Gastroenterology Progress Note ---
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 K 4.0 today - He is agreeable to undergo colonoscopy w colonic decompression w rectal tube placement. Pls keep NPO. Continue to hold Xarelto - GI will give further recs after colonoscopy is completed. Supervising Physician Co-Signing Physician Notes Attending attestation I have seen, examined this patient, and agree with the findings and above by our mid-level provider JAKE Noble. -Patient with an unusual presentation of colonic distention with imaging that could suggest sigmoid volvulus, this is been chronic in nature for at least 1 week and possibly 2 weeks based upon an outside x-ray prior to presentation. Is having diarrhea his stool has formed up a little bit, has had more normalization of his potassium. I offered and encouraged decompression yesterday upon her first visit with me, however he refused, he actually looks a bit better today with more normal bowel sounds and less distention. We will pursue with flex sig/colonoscopy to ensure that there is no mucosal-based lesion potentially with placement of a decompression tube, patient is agreed. Further recommendations to follow. Subjective Pt reports lots of loose stools yesterday after Colestipol held. No n/v, some abd discomfort. KUB yesterday reviewed - persistent colonic distension at level of sigmoid colon, concerning for volvulus He is currently NPO Review of Systems Review of Systems: All systems reviewed & are unremarkable except as noted in HPI & below Physical Exam Constitutional: WD/WN, vitals as above well groomed, cooperative and comfortable Eyes: PERRL, conjunctivae normal, anicteric sclerae ENMT: external ear and nose normal, oropharynx normal Respiratory: no respiratory distress and does not use accessory muscles Gastrointestinal (Abdomen): Inspection/Auscultation: + high-pitched sounds Percussion/Palpation: abdomen soft; abdomen nontender Skin: no rashes, warm and dry no jaundice Neurologic: Motor/Sensory: no asterixis Psychiatric: A+Ox3, euthymic affect Lymphatic: no lymphedema Results & Data Vital Signs (Past 12 Hours) Vital Signs Temp Pulse Pulse Pulse Resp BP Pulse Ox 03/28/19 08:19 36.9 C 62 18 166/110 H 96 03/28/19 07:02 36.5 C 62 20 166/101 H 94 03/27/19 23:34 36.4 C L 57 L 16 142/93 H 96 03/27/19 22:10 69 166/99 H (1) Diarrhea Diarrhea type: unspecified type Qualified Code(s): R19.7 - Diarrhea, unspecified
[2019-03-28] MEDS: IPRATROPIUM BROMIDE NASAL SPRAY 0.06% 15ML NAE SCH ×2 (08:45→21:42)
[2019-03-28] MEDS: IRBESARTAN 150 MG TAB PO SCH (08:46)
[2019-03-28] MEDS: predniSONE 10 MG TABLET PO SCH (08:46)
[2019-03-28] MEDS: METOPROLOL SUCC 50MG EXT REL TAB PO SCH (08:47)
[2019-03-28] MEDS: PANTOprazole 40 MG TAB PO SCH (08:47)
[2019-03-28] MEDS: DRONABINOL 2.5 MG CAP PO SCH (08:51)
[2019-03-28] MEDS ORDERED: METOPROLOL SUCC 50MG EXT REL TAB PO SCH (09:00)
--- NOTE | 2019-03-28 11:31 | Anesthesiology Consultation ---
Date of Service March 28, 2019 Assessment & Plan (1) Encounter for pre-operative examination: Chart Review Chart Review: Acceptable Risk for Surgery and Patient NOT seen in Pre Admission Testing Consults Requested none ASA ASA4 Proposed Anesthesia Anesthesia Type: MAC Risk / Benefits Reviewed With: PT / POA / Parent / Guardian, Accepts Plan and Informed Consent Obtained History Surgery Operation Date: 03/28/19 08:30 Proposed Procedures p Colonoscopy with Decompression Dr Duane Zepeda Height/Weight Height: 6 ft Weight: 75.6 kg Allergies Allergy/AdvReac Type Severity Reaction Status Date / Time No Known Allergies Allergy Unverified 03/19/19 23:25 Medications Home Medications Medication Instructions Recorded Confirmed Last Taken albuterol sulfate [Ventolin HFA] 2 puff INHALATION QID PRN 08/08/18 03/19/19 Unknown hydrocortisone [Proctosol HC] 1 applic DE BID PRN 08/08/18 03/19/19 Unknown montelukast [Singulair] 10 mg PO PM 08/08/18 03/19/19 08/08/18 20:00 cholestyramine (with sugar) 1 - 2 tbsp PO DAILY 03/19/19 03/19/19 Unknown dronabinol 2.5 mg PO DAILY 03/19/19 03/19/19 Unknown ipratropium bromide 2 spray INTRANASAL BID 03/19/19 03/19/19 Unknown irbesartan [Avapro] 150 mg PO DAILY 03/19/19 03/19/19 Unknown loratadine 10 mg PO DAILY PRN 03/19/19 03/19/19 Unknown methimazole 15 mg PO QAM 03/19/19 03/19/19 Unknown metoprolol succinate 100 mg PO DAILY 03/19/19 03/19/19 Unknown mirtazapine 15 mg PO HS 03/19/19 03/19/19 Unknown ondansetron HCl 8 mg PO Q6H PRN 03/19/19 03/19/19 Unknown pantoprazole 40 mg PO DAILY 03/19/19 03/19/19 Unknown ajrvenuvq-WC-usdjhrik-guaifen 20 ml PO UD PRN 03/19/19 03/19/19 Unknown [Mucinex Fast-Max Severe Cold] potassium chloride [Klor-Con M10] 20 meq PO AMPM 03/19/19 03/19/19 Unknown prednisone 20 mg PO DAILY 03/19/19 03/19/19 Unknown rivaroxaban [Xarelto] 20 mg PO DAILY 03/19/19 03/19/19 Unknown Active Medications Generic Name Dose Route Start Last Admin Trade Name Freq PRN Reason Stop Dose Admin Dronabinol 2.5 mg 03/20/19 09:00 03/28/19 08:51 Marinol PO 04/19/19 08:59 2.5 mg DAILY ALLY Administration Heparin Sodium (Porcine) 5 ml 03/20/19 06:53 03/21/19 05:52 Heparin Sod 100 Unit/Ml Flush FLUSH 04/19/19 06:59 5 ml PRN PRN Administration Flush Potassium Chloride/Dextrose/Sod Cl 20 meq in 1,000 mls @ 50 mls/hr 03/22/19 08:30 03/27/19 18:45 D5nss + 20meq Kcl IV 04/21/19 08:29 50 mls/hr .Q20H ALLY Administration Ipratropium [place] 2 sprays 03/20/19 09:00 03/28/19 08:45 Atrovent Nasal [place] 0.06% JAY 04/19/19 08:59 Not Given BID ALLY Irbesartan 150 mg 03/20/19 09:00 03/28/19 08:46 Avapro PO 04/19/19 08:59 150 mg DAILY ALLY Administration Loperamide HCl 2 mg 03/26/19 09:10 03/27/19 20:50 Imodium PO 04/25/19 09:09 2 mg Q8 PRN Administration Diarrhea Menthol 1 silverio 03/24/19 20:46 03/24/19 21:01 Nice BUCCAL 04/23/19 20:45 1 silverio Q1H PRN Administration Cough Metoprolol Succinate 100 mg 03/28/19 09:00 03/28/19 08:47 Toprol Xl PO 04/27/19 08:59 100 mg DAILY ALLY Administration Mirtazapine 15 mg 03/20/19 21:00 03/21/19 22:25 Remeron PO 04/19/19 20:59 15 mg HS ALLY Administration Montelukast Sodium 10 mg 03/20/19 21:00 03/27/19 20:43 Singulair PO 04/19/19 20:59 10 mg PM ALLY Administration Morphine Sulfate 2 mg 03/21/19 04:44 03/21/19 06:43 Morphine Sulfate IV 04/04/19 04:43 2 mg Q2H PRN Administration Pain Ondansetron HCl 8 mg 03/20/19 02:12 03/27/19 06:16 Zofran PO 04/19/19 02:11 8 mg Q6H PRN Administration Nausea Pantoprazole Sodium 40 mg 03/20/19 09:00 03/28/19 08:47 Protonix PO 04/19/19 08:59 40 mg DAILY ALLY Administration Potassium Chloride 40 meq 03/25/19 10:00 03/27/19 20:43 Klor-Con M20 PO 04/24/19 09:59 40 meq TID ALLY Administration Prednisone 10 mg 03/28/19 09:00 03/28/19 08:46 Prednisone PO 04/27/19 08:59 10 mg DAILY ALLY Administration Rivaroxaban 20 mg 03/24/19 19:15 03/26/19 18:00 Xarelto PO 04/23/19 19:14 20 mg QDD ALLY Administration NPO Date Last Intake of Fluids: 03/28/19 Time Last Intake of Fluids: 09:00 Date Last Intake of Solids: 03/27/19 Time Last Intake of Solids: 22:30 Past Medical History Medical History Colon distention Abdominal aortic aneurysm (AAA) Obesity Thoracic aortic aneurysm Atrial fibrillation Cancer lung cancer (chemo and radiation) Chronic obstructive pulmonary disease GERD (gastroesophageal reflux disease) Hyperlipidemia Hypertension Increased intraocular pressure in past Exercise / Class Metabolic Activity II 4-5 Yardwork/Stairs/Walk up hill Past Family History Family History Brother Family history of diabetes mellitus Family hx of colon cancer Past Surgical History Surgical History History of bronchoscopy History of cardiac cath History of cardiac radiofrequency ablation 2008 History of cholecystectomy History of colonoscopy History of lobectomy of lung upper left History of tonsillectomy History of tooth extraction Past Anesthesia History No Hx of Anesthesia Complications and No Family Hx of Anesthesia Complications History of PONV No Hx of PONV and No Hx of Motion Sickness Social History Smoking Status: Former smoker Smoking cigarettes per day: QUIT 10 YEARS AGO Do You Dip or Chew Tobacco: No Hx Alcohol Use: No Hx Substance Use: Yes substance use type: marijuana Substance Use Type Other:: Prescribed for appetite Last Used Substance: Hours (ago) Physical Exam Vital Signs Last Vital Signs Temp 36.6 C 03/28/19 11:10 Pulse 63 03/28/19 11:10 Resp 22 03/28/19 11:10 BP 123/89 03/28/19 11:10 Pulse Ox 96 03/28/19 11:10 ENMT Mouth: no dentition abnormality Thyromental Distance: > or= 3.5 Finger Breadths Mallampati Class: II Neck normal visual inspection Respiratory normal respiratory effort and + cough Auscultation: + lungs not clear to auscultation (coarse breath sounds bilaterally) Cardiovascular Rate/Rhythm: regular rate and regular rhythm Psychiatric Orientation: alert Testing Laboratory Results 03/26/19 06:11 03/28/19 05:28 PT 10.6 Seconds (9.0-12.0) 03/21/19 05:51 INR 1.0 (0.9-1.1) 03/21/19 05:51 APTT 56.9 Seconds (21.0-31.0) H* 03/19/19 21:01 Yellow 03/20/19 08:30 Clear (Clear) 03/20/19 08:30 5.0 (4.5-7.5) 03/20/19 08:30 Ur Specific [place] 1.025 (1.000-1.030) 03/20/19 08:30 Trace (Negative) H 03/20/19 08:30 Negative (Negative) 03/20/19 08:30 Trace (Negative) H 03/20/19 08:30 Negative (Negative) 03/20/19 08:30 Ur Leukocyte Esterase Negative (Negative) 03/20/19 08:30 1-5 /hpf (0-5) 03/20/19 08:30 0-4 /hpf (0-4) 03/20/19 08:30 U Hyaline Cast (Auto) 1-5 /lpf (0-5) 03/20/19 08:30 U Epithel Cells (Auto) 10-20 /lpf (0-5) H 03/20/19 08:30 Negative (Negative) 03/20/19 08:30 03/19/19 22:15 Blood Culture - Final Blood No growth 03/19/19 21:01 Blood Culture - Final Blood No growth
[2019-03-28] MEDS ORDERED: MINERAL OIL 30 ML UDC ONE (11:41)
[2019-03-28 12:07] LABS: Albumin 3.1 G/DL (3.8-4.8); Alpha 1 Antitrypsin 174 MG/DL (83-199); Alpha 1 Globulin 0.3 G/DL (0.2-0.3); Alpha 2 Globulin 0.8 G/DL (0.5-0.9); Anti Nuclear Antibody Screen NEGATIVE (NEGATIVE); Beta-1-Globulin 0.3 G/DL (0.4-0.6); Beta-2-Globulin 0.3 G/DL (0.2-0.5); Ceruloplasmin 33 MG/DL (18-36); Gamma Globulin 0.8 G/DL (0.8-1.7); IgA Serum 172 mg/dL (81-463); Monoclonal Protein Band 1 DNR G/DL (NOT DETECTED); Monoclonal Protein Band 2 DNR G/DL (NOT DETECTED); Monoclonal Protein Band 3 DNR G/DL (NOT DETECTED); Tis Trans IgA 1 U/mL (<4); Total Protein 5.7 G/DL (6.2-8.3)
[2019-03-28] MEDS ORDERED: PROPOFOL IV EMULSION 10 MG/ML 20 ML VIAL IV ONE (12:14)
[2019-03-28] MEDS ORDERED: ePHEDrine sulfate 50 MG/ML SYR ONE (12:15)
--- NOTE | 2019-03-28 12:19 | GI REPORT ---
Patient Name: Yoel Martinez Procedure Date: 03/28/2019 11:40 AM Date of : 1950 Admit Type: Inpatient Age: 68 Gender: Male Attending MD: Donovan Zepeda MD Procedure: Colonoscopy Providers: Donovan Zepeda MD Referring MD: Huber Rush Indications: Suspected volvulus, Exclusion of volvulus Medicines: Monitored Anesthesia Care Complications: No immediate complications. Estimated blood loss: None. Estimated Blood Loss: Estimated blood loss: none. Procedure: Pre-Anesthesia Assessment: - Pre-Anesthesia Assessment: - Prior to the procedure, a History and Physical was performed, and patient medications, allergies and sensitivities were reviewed. The patient's tolerance of previous anesthesia was reviewed. Please see [employer] for complete details. - The risks and benefits of the procedure and the sedation options and risks were discussed with the patient. All questions were answered and informed consent was obtained. - Patient identification and proposed procedure were verified prior to the procedure by the physician and the nurse. The procedure was verified in the pre-procedure area in the procedure room. After obtaining informed consent, the endoscope was passed carefully and meticuously under direct vision and only advanced when the lumen was clearly identified, C02 insuflation was utilized throughout the entirity of the procedure. Throughout the procedure, the patient's blood pressure, pulse, and oxygen saturations were monitored continuously. After I obtained informed consent, the scope was passed under direct vision. Throughout the procedure, the patient's blood pressure, pulse, and oxygen saturations were monitored continuously.The colonoscopy was performed without difficulty. The patient tolerated the procedure well. The quality of the bowel preparation was poor. The scope was introduced through the anus and advanced to the transverse colon. Findings: A probable volvulus with viable appearing mucosa was found in the sigmoid colon. Decompression of the volvulus was attempted and was successful, with complete decompression achieved. Following the maneuver, a tube was placed to maintain the decompression. Biopsies for histology were taken with a cold forceps from the left colon for evaluation of microscopic colitis. Impression: - Preparation of the colon was poor. - Probable volvulus. Successful complete decompression achieved. - Biopsies were taken with a cold forceps from the left colon for evaluation of microscopic colitis. Recommendation: - Return patient to hospital [facility] for ongoing care. - Recall Surgery for discussion of partial colectomy. - Continue to hold blood thinners while discussing treatment options - KUB today and daily - Liquid diet today and advance as tolerated and per Surgery Donovan Zepeda MD 03/28/2019 12:19:09 PM This report has been signed electronically. Note Initiated On: 03/28/2019 11:40 AM Number of Addenda: 0 I attest to the content of the Intraoperative Record and orders documented therein, exceptions below {[id number]}
[2019-03-28] MEDS: POTASSIUM CHLORIDE 20 MEQ TABCR PO SCH ×3 (13:07→21:43)
[2019-03-28] MEDS: HEPARIN 100 UNIT/ML 5ML FLUSH FLUSH PRN (13:12)
[2019-03-28 13:19] LABS: CMV IgM Antibody <30.00 Au/mL; EBV Nuclear Ag Antibody >600.00 U/ML; Herpes Simplex Ab IgG-2 < 0.90 INDEX (< 0.90)
--- NOTE | 2019-03-28 13:21 | Anesthesiology Progress Note ---
Date of Service March 28, 2019 Anesthesia Post Procedure Vital Signs Vital Signs: Temp Pulse Pulse Pulse Resp BP BP 03/28/19 13:00 52 L 20 130/84 03/28/19 12:35 61 20 123/80 03/28/19 12:20 36.6 C 66 20 122/73 03/28/19 11:10 36.6 C 63 22 123/89 03/28/19 08:00 36.9 C 62 18 166/110 H 03/28/19 07:02 36.5 C 62 20 166/101 H 03/27/19 23:34 36.4 C L 57 L 16 142/93 H 03/27/19 22:10 69 166/99 H 03/27/19 15:15 36.4 C L 69 16 168/103 H Pulse Ox 03/28/19 13:00 96 03/28/19 12:35 100 03/28/19 12:20 97 03/28/19 11:10 96 03/28/19 08:00 96 03/28/19 07:02 94 03/27/19 23:34 96 03/27/19 22:10 03/27/19 15:15 98 Pain Intensity Chest: Pain Intensity: 0 Transfer of Care Handoff Completed per policy Notes Mental Status: alert / awake / arousable Patient Amnestic to Procedure: Yes Nausea / Vomiting: adequately controlled Pain: adequately controlled Airway Patency, RR, SpO2: stable & adequate BP & HR: stable & adequate Hydration State: stable & adequate Anesthetic Complications: no major complications apparent
--- NOTE | 2019-03-28 13:52 | XRay Report ---
XR KUB/Abdomen 1 view CLINICAL HISTORY: s/p decompressive colonoscopy placement of tube COMPARISON STUDY: 03/27/2019 FINDINGS: Interval placement of a decompression rectal tube. Tube extends to the splenic flexure. Col on has been decompressed. Mild reactive small bowel ileus. IMPRESSION: Good tube position with interval decompression of the colonic distention. The above report was generated using voice recognition software. It may contain grammatical, syntax or spelling errors. Electronically signed by: Benji Ramirez M.D. 03/28/2019 1:51 PM
[2019-03-28] MEDS: LAVAGE SOLUTION 4000ML PR SCH ×3 (14:23→21:44)
[2019-03-28] MEDS: D5NSS + 20MEQ KCL 20 MEQ/1,000 ML BAG IV SCH (14:40)
--- NOTE | 2019-03-28 16:16 | Surgery Progress Note ---
Date of Service pt had colonoscopy decompress sigmoid colon, left rectal tube in, pt feels better, less abdominal distend, pt denies abdominal pain, no nausea, no vomiting, March 28, 2019 Assessment & Plan (1) Colon distention: 68-year-old male with a history of lung cancer status post LEFT upper lobe lobectomy who was recently undergoing chemotherapy, however this was discontinued due to persistent diarrhea and thyroid issues. Presented to the emergency department due to persistent cough with left sided chest pain. chest xray showed left pneumothorax. Chest tube was placed and now removed. On further evaluation, patient had a CT scan of abdomen and pelvis which showed colonic distention up to 11 cm in diameter and possible sigmoid volvulus. Patient refused colonoscopic decompression last night No leukocytosis, lactic acid 1.1, no abdominal pain. Chronic diarrhea for past few months and distention. ?? colonic pseudo-obstruction vs possible sigmoid volvulus. Plan: No acute surgical indication required at this time however discussed with patient that if he were to have a volvulus there is risk of ischemic colitis and perforation which would become surgical emergency. Patient understands this risk. GI planning to hold off on decompression today (per patient) and repeat xray tomorrow morning. If patient develops abdominal pain, increasing distention would highly recommend colonoscopic decompression. Recommend ambulation and oob to chair Continue current medical management follow labs Dr. Larsen has seen and examined patient, agrees with above. 03/23/2019 6:45am Dr. Larsen pt is stable, will repeat KUB today, GI will decide to do colonoscopy or not, customer resolution specialist surgeon will cover this weekend 03/28/2019 4:10pm Dr. Larsen, S/P colonoscopy decompress sigmoid colon, pt is doing better, I recommend to do sigmoid colon resection, but pt wants colorectal surgeon to do his surgery, pt wants to transfer to higher level care for colorectal surgeon, [facility] or [facility], D/W benefits, risks and alternatives of transfer, pt understood, I called Dr. Dillard ( hospitalist) will contact those 2 hospitals, Subjective Pt reports lots of loose stools yesterday after Colestipol held. No n/v, some abd discomfort. KUB yesterday reviewed - persistent colonic distension at level of sigmoid colon, concerning for volvulus He is currently NPO Physical Exam Constitutional: WD/WN, vitals as above well developed and well nourished Neck: trachea midline, no thyromegaly Respiratory: normal respiratory effort, lungs clear to auscultation normal respiratory effort Cardiovascular: RRR, no murmur, no edema Rate/Rhythm: regular rate and regular rhythm Gastrointestinal (Abdomen): Percussion/Palpation: abdomen soft no distend, BS + Neurologic: patellar DTR's 2+ bilat, sensation intact Psychiatric: Orientation: alert and oriented x 3 Results & Data Vital Signs (Past 12 Hours) Vital Signs Temp Pulse Pulse Pulse Resp BP BP 03/28/19 15:08 36.5 C 51 L 17 148/92 H 03/28/19 13:20 36.2 C L 52 L 16 157/90 H 03/28/19 13:00 52 L 20 130/84 03/28/19 12:35 61 20 123/80 03/28/19 12:20 36.6 C 66 20 122/73 03/28/19 11:10 36.6 C 63 22 123/89 03/28/19 08:00 36.9 C 62 18 166/110 H 03/28/19 07:02 36.5 C 62 20 166/101 H Pulse Ox 03/28/19 15:08 96 03/28/19 13:20 96 03/28/19 13:00 96 03/28/19 12:35 100 03/28/19 12:20 97 03/28/19 11:10 96 03/28/19 08:00 96 03/28/19 07:02 94 Laboratory Results Abnormal lab results 03/22/19 03/22/19 03/28/19 Range/Units 12:53 15:03 05:28 Chloride 112 H (98-107) mmol/L BUN/Creatinine Ratio 7.0 L (10-20) Total Protein (PEP) 5.7 L (6.2-8.3) G/DL Albumin (PEP) 3.1 L (3.8-4.8) G/DL [id number] 0.3 L (0.4-0.6) G/DL EBV Capsid Ag IgG Ab 292.00 H U/ML EBV Capsid Ag IgM Ab 80.50 H U/ML EBV Nuclear Antigen Ab >600.00 H U/ML HSV I IgG Ab 40.80 H (< 0.90) INDEX Parvovirus IgG Ab Index 2.9 H (<0.9)
--- NOTE | 2019-03-28 17:15 | Hospitalist Progress Note ---
Date of Service March 28, 2019 Assessment & Plan (1) Pneumothorax: POA. spontaneous. Treated and resolved s/p left sided chest tube placement by Dr. Thorne earlier this stay with subsequent removal of tube following resolution of pneumothorax. Appreciate Dr Thorne's assistance. No issues since d/c of chest tube. (2) Sigmoid volvulus: Patient with persistent distention of his bowel gastroenterology has scoped and placed decompression tube, discussions for colonic resection Patient has tolerated advance to low residual. this maybe intermittent relapsing remitting volvulus Multiple c. diff tests and stool cultures have been negative. The patient had received several cycles of carboplatin, paclitaxel, avastin, and atezolizumab in 2018 for his lung ca. Pharmacy here states that 20% of people who take atezolizumab get colitis/diarrhea at an average time of 3.5 months following the first dose. (3) Colon distention: see above in "sigmoid volvulus" decompression and rectal tube in place (4) Hyperthyroidism: Dx 01/2019. Placed on methimazole TID at that time. TSH normalized in February. Now TSH is high (near 20). Dr. Bundy spoke with Dr. Garner. He feels that this may have been thyroiditis. positive antimicrosomal ab is consistent with that diagnosis. free T4 quite low this admission. STOPPED methimazole. repeat TFTs 1-2 weeks if still hypothyroid then start synthroid will need endo f/u after discharge (5) Elevated liver enzymes: etiology uncertain. maybe chemical hepatitis also from chemo HepA,B,C all negative. Not on statin. No tylenol or etoh usage. MRCP negative. additional labs pending (EBV, etc). RUQ u/s with possible early cirrhosis changes but even if cirrhosis is present doubt it is the cause of the acute liver injury. Labs are improving (6) Lung cancer: NSCLC - CROW - s/p lobectomy by Dr Thorne - 2016. Followed by Dr Huber Ortiz - [facility]. s/p multiple cycles of carboplatin, paclitaxel, avastin, and atezolizumab in 2018. On chronic prednisone for appetite - was on 20mg/day pre-admission. Received IV steroids this admission for stress dose purposes. prednisone taper to 10 (7) Diarrhea: c diff testing and stool cx's negative. 2nd to atezolizumab? see discussion above in "sigmoid volvulus". restart colestipol 1gm daily. (8) Hypertension: continue home meds (9) PAF (paroxysmal atrial fibrillation): remains in NSR clinically. xarelto for anticoagulation. (10) Hypokalemia: refractory s/p copious IV and PO replacement. Place magnesium 03/27 to GI losses. continue KCL in fluids. continue K-dur 40meq TID. given additional Kcl and magnesium 03/27 (11) DVT prophylaxis: xarelto PT,OT progressing albeit slowly Review of Systems Review of Systems: ROS: well nourished well developed. No double vision blurry vision No problems with speech or swallowing No palpitations, chest pain or pressure No Wheezing or breathing issues minor pain and distension, no nausea vomiting diarrhea changes in appetite or weight No burning urine urine frequency or changes in color No focal joint pain or muscle pain No skin rashes or oral lesions No unusual bruising or bleeding No focused back pain or numbness or loss of strength No changes in memory or confusion Physical Exam Physical Exam: The patient appeared well nourished and normally developed. Vital signs as documented. Head exam is unremarkable. normocephalic, atraumatic Neck is without jugular venous distension, thyromegaly, or lymphademopathy Lungs are clear to auscultation but decreased breath sounds on the right Cardiac exam reveals Rhythm is regular. First and second heart sounds normal. Abdominal exam hypoactive may be few tinkling bowel sounds, tympanitic and distended no masses, no organomegaly Extremities are nonedematous and both pedal pulses are present Neurologic exam is A&Ox3, no focal deficits, strength is equal bilateral Psychologically seems neither anxious or depressed Skin is warm Dry without bruises or lesions Results & Data Vital Signs (Past 12 Hours) Vital Signs Temp Pulse Pulse Pulse Resp BP BP 03/28/19 15:08 36.5 C 51 L 17 148/92 H 03/28/19 13:20 36.2 C L 52 L 16 157/90 H 03/28/19 13:00 52 L 20 130/84 03/28/19 12:35 61 20 123/80 03/28/19 12:20 36.6 C 66 20 122/73 03/28/19 11:10 36.6 C 63 22 123/89 03/28/19 08:00 36.9 C 62 18 166/110 H 03/28/19 07:02 36.5 C 62 20 166/101 H Pulse Ox 03/28/19 15:08 96 03/28/19 13:20 96 03/28/19 13:00 96 03/28/19 12:35 100 03/28/19 12:20 97 03/28/19 11:10 96 03/28/19 08:00 96 03/28/19 07:02 94 (1) Pneumothorax Pneumothorax type: spontaneous, primary Qualified Code(s): J93.11 - Primary spontaneous pneumothorax (2) Diarrhea Diarrhea type: unspecified type Qualified Code(s): R19.7 - Diarrhea, unspecified (3) Lung cancer Laterality: left Lung location: upper lobe of lung Qualified Code(s): C34.12 - Malignant neoplasm of upper lobe, left bronchus or lung (4) Hypertension Hypertension type: essential hypertension Qualified Code(s): I10 - Essential (primary) hypertension
[2019-03-28] MEDS: MONTELUKAST SODIUM 10 MG TABLET PO SCH (21:41)
[2019-03-29] MEDS: LAVAGE SOLUTION 4000ML PR SCH ×6 (03:17→21:47)
[2019-03-29 06:20] LABS: BUN Creatinine Ratio 7.9 (10-20); Calcium 8.4 mg/dl (8.5-10.1); Creatinine Clr Calc Pharmacy 91.1 ml/min; Est GFR (African American) 104.8; Est GFR (Non-African American) 90.4; Magnesium 1.7 mg/dl (1.8-2.4); Potassium 3.6 mmol/L (3.5-5.1)
[2019-03-29] MEDS ORDERED: MAGNESIUM SULFATE / D5W 1 GM/100 ML BAG IV ONE (08:30)
[2019-03-29] MEDS: predniSONE 10 MG TABLET PO SCH (08:55)
[2019-03-29] MEDS: IRBESARTAN 150 MG TAB PO SCH (08:55)
[2019-03-29] MEDS: METOPROLOL SUCC 50MG EXT REL TAB PO SCH (08:55)
[2019-03-29] MEDS: IPRATROPIUM BROMIDE NASAL SPRAY 0.06% 15ML NAE SCH ×2 (08:56→20:11)
[2019-03-29] MEDS: PANTOprazole 40 MG TAB PO SCH (08:56)
--- NOTE | 2019-03-29 09:36 | XRay Report ---
XR KUB/Abdomen 1 view CLINICAL HISTORY: 68 years-old Male presenting with re-eval colonic distension. TECHNIQUE: Single supine view of the abdomen was obtained. COMPARISON: 03/28/2019. FINDINGS: A rectal tube remains in place terminating in the mid transverse colon, which represents a slightly m ore proximal position than on prior exam. The colon remains decompressed from the level of the transv erse colon through the rectum. Decreased gaseous distention of small bowel. The right colon remains m ildly distended measuring 8.7 cm and apparent diameter. Cholecystectomy clips noted. No gross pneumoperitoneum. No pneumatosis. Allowing for bowel gas and stool, no calcifications to suggest nephrolithiasis. Degenerative changes of the spine. Lung bases clear. IMPRESSION: 1. Stable decompression of transverse colon through the rectum. Mild gaseous distention of the right colon unchanged. Electronically signed by: Wes Tolbert M.D. 03/29/2019 9:35 AM
[2019-03-29] MEDS: POTASSIUM CHLORIDE 20 MEQ TABCR PO SCH ×3 (09:53→20:10)
[2019-03-29] MEDS: DRONABINOL 2.5 MG CAP PO SCH (09:53)
[2019-03-29] MEDS: D5NSS + 20MEQ KCL 20 MEQ/1,000 ML BAG IV SCH (10:23)
--- NOTE | 2019-03-29 11:37 | Gastroenterology Progress Note ---
Date of Service March 29, 2019 Assessment & Plan (1) Diarrhea: (2) Colon distention: (3) Sigmoid volvulus: Pt is a 68 y/o male w lung ca on s/p lobectomy, admitted for L pneumothorax (resolved), followed for persistent colonic distension, diarrhea, concerning for chronic pseudoobstruction vs intermittent sigmoid volvulus. He underwent colonic decompression w rectal tube placement on 03/28/19. Did well overnight, abd soft, non tender, BS present on exam today. Rectal tube still in place and draining appropriately. Dr. Larsen (Surgery) re-evaluated pt yesterday, recommended sigmoid resection, pt would like discussion w a Colorectal Surgeon. - KUB today - Will discuss w Dr. Zepeda on when can DC rectal tube - May advance to low fiber/residue diet as tolerated - Advised pt to consider sigmoid resection as he's at risk for volvulus recurrence and the colonic decompression was a temporary fix. He prefers to f/u w Surgery in outpt setting to rediscuss his options. Supervising Physician Co-Signing Physician Notes Attending attestation I have seen, examined this patient, and agree with the findings and above by our mid-level provider JAKE Noble. - Doing great since decompression, less to little diarrhea. K is improved. - Would leave tube in place until surgery decision has been made. - Also, given tremendous improvement, it appears more clear that he has had volvulus as culprit and would not be in support of d/c and following up as outpatient. Subjective Pt s/p colonic decompression w rectal tube placement on 03/28. Feels well, on a cute issues overnight. Rectal tube draining liquid brown stools. He denies any fever, chills, CP, SOB, abd pain, n/v. Tolerating diet well. Review of Systems Gastrointestinal: as per Subjective / HPI Physical Exam Constitutional: WD/WN, vitals as above well groomed, cooperative and comfortable Eyes: PERRL, conjunctivae normal, anicteric sclerae ENMT: external ear and nose normal, oropharynx normal Respiratory: normal respiratory effort, lungs clear to auscultation Cardiovascular: RRR, no murmur, no edema Gastrointestinal (Abdomen): Inspection/Auscultation: normal bowel sounds Percussion/Palpation: abdomen soft; abdomen nontender Rectal tube draining liquid brown stools Skin: no rashes, warm and dry no jaundice Neurologic: Motor/Sensory: no asterixis Psychiatric: A+Ox3, euthymic affect Lymphatic: no lymphedema Results & Data Vital Signs (Past 12 Hours) Vital Signs Temp Pulse Pulse Resp BP Pulse Ox 03/29/19 08:58 75 144/93 H 03/29/19 06:56 36.9 C 53 L 18 144/90 H 93 03/29/19 03:17 36.8 C 48 L 16 143/87 H 96 (1) Diarrhea Diarrhea type: unspecified type Qualified Code(s): R19.7 - Diarrhea, unspecified
--- NOTE | 2019-03-29 11:50 | Surgery Progress Note ---
Date of Service pt is doing better, no abdominal pain, no nausea, no vomiting, rectal tube output 450ml. March 29, 2019 Assessment & Plan (1) Colon distention: 68-year-old male with a history of lung cancer status post LEFT upper lobe lobectomy who was recently undergoing chemotherapy, however this was discontinued due to persistent diarrhea and thyroid issues. Presented to the emergency department due to persistent cough with left sided chest pain. chest xray showed left pneumothorax. Chest tube was placed and now removed. On further evaluation, patient had a CT scan of abdomen and pelvis which showed colonic distention up to 11 cm in diameter and possible sigmoid volvulus. Patient refused colonoscopic decompression last night No leukocytosis, lactic acid 1.1, no abdominal pain. Chronic diarrhea for past few months and distention. ?? colonic pseudo-obstruction vs possible sigmoid volvulus. Plan: No acute surgical indication required at this time however discussed with patient that if he were to have a volvulus there is risk of ischemic colitis and perforation which would become surgical emergency. Patient understands this risk. GI planning to hold off on decompression today (per patient) and repeat xray tomorrow morning. If patient develops abdominal pain, increasing distention would highly recommend colonoscopic decompression. Recommend ambulation and oob to chair Continue current medical management follow labs Dr. Larsen has seen and examined patient, agrees with above. 03/23/2019 6:45am Dr. Larsen pt is stable, will repeat KUB today, GI will decide to do colonoscopy or not, electronic news gathering camera person surgeon will cover this weekend 03/28/2019 4:10pm Dr. Larsen, S/P colonoscopy decompress sigmoid colon, pt is doing better, I recommend to do sigmoid colon resection, but pt wants colorectal surgeon to do his surgery, pt wants to transfer to higher level care for colorectal surgeon, [facility] or [facility], D/W benefits, risks and alternatives of transfer, pt understood, I called Dr. Dillard ( hospitalist) will contact those 2 hospitals, 03/29/2018 11: 53AM, DR. Larsen, pt is still wants colorectal surgeon to do his surgery, D/W Dr. Dillard. sign off today, please call with any questions, both pt and Dr. Dillard agree with me to sign off. Subjective Pt s/p colonic decompression w rectal tube placement on 03/28. Feels well, on acute issues overnight. Rectal tube draining liquid brown stools. He denies any fever, chills, CP, SOB, abd pain, n/v. Tolerating diet well. Physical Exam Constitutional: WD/WN, vitals as above Neck: trachea midline, no thyromegaly Respiratory: normal respiratory effort, lungs clear to auscultation Cardiovascular: RRR, no murmur, no edema Rate/Rhythm: regular rate and regular rhythm Gastrointestinal (Abdomen): Percussion/Palpation: abdomen soft no distend, no tenderness, BS + Neurologic: patellar DTR's 2+ bilat, sensation intact Psychiatric: A+Ox3, euthymic affect Orientation: alert and oriented x 3 Results & Data Vital Signs (Past 12 Hours) Vital Signs Temp Pulse Pulse Resp BP Pulse Ox 03/29/19 08:58 75 144/93 H 03/29/19 06:56 36.9 C 53 L 18 144/90 H 93 03/29/19 03:17 36.8 C 48 L 16 143/87 H 96 Diagnostic Findings [facility] [place] [phone] XRay Report Patient: IAN SMITH AAdmit Date: 03/20/19 MR#: [id number]: [address] Acct ID:[id number]: Date: 1950City Zip: [place] [address] Age: 68Location: 3N Sex: M Room/Bed: [facility] Att Phy: Dennis Dillard, MDDiagnosis: PNEUMOTHORAX Jacqui Phy: Armando Espana MDService Date: 03/29/19 Fam Phy: Huber Ortiz MDInterpreting Phy: Wes Tolbert MD Admit Phy: Elyssa Cole, D.O. Ordering Phy: Manju Clark CRNP cc: ~ XR KUB/Abdomen 1 view CLINICAL HISTORY: 68 years-old Male presenting with re-eval colonic distension. TECHNIQUE: Single supine view of the abdomen was obtained. COMPARISON: 03/28/2019. FINDINGS: A rectal tube remains in place terminating in the mid transverse colon, which represents a slightly more proximal position than on prior exam. The colon remains decompressed from the level of the transverse colon through the rectum. Decreased gaseous distention of small bowel. The right colon remains mildly distended measuring 8.7 cm and apparent diameter. Cholecystectomy clips noted. No gross pneumoperitoneum. No pneumatosis. Allowing for bowel gas and stool, no calcifications to suggest nephrolithiasis. Degenerative changes of the spine. Lung bases clear. IMPRESSION: 1. Stable decompression of transverse colon through the rectum. Mild gaseous distention of the right colon unchanged.
--- NOTE | 2019-03-29 15:17 | Surgery Consultation ---
Date of Consultation March 29, 2019 Assessment & Plan (1) Sigmoid volvulus: clinically doing well now. many comorbidities. on xarelto for afib. copd. lung ca etc... likelyhood of recurrence of volvulous very high but no emergent need for surgery now. pt prefers to stay here if possible for surgery rec waiting a couple weeks before ventilation s/p recent pneumothorax. will d/w Dr. Thorne will also need bowel prep rec advancing diet. keep rectal tube one more day. if does well would remove tube and see how he does can follow up with me in the office. can arrange elective lap/possible open sigmoid colectomy in a couple of weeks after lung healed. pt agreeable with plan. will follow along. History of Present Illness Attending Physician: Dennis Dillard MD History of Present Illness pt with history of lung cancer/resection. presented from PCP with cough and abnormal labs. diagnosed with a pneumothorax requiring a chest tube which has now been removed. pt was also having abdominal distension and diarrhea. imaging revealed sigmoid distension/likely volvulous. GI was able to decompress and place a rectal tube. feeling well now. no pain/no distension. imaging much improved. jared diet today Allergies Allergy/AdvReac Type Severity Reaction Status Date / Time No Known Allergies Allergy Unverified 03/19/19 23:25 Home Medications Home Medications Medication Instructions Recorded Confirmed Type albuterol sulfate [Ventolin HFA] 2 puff INHALATION QID PRN 08/08/18 03/19/19 History hydrocortisone [Proctosol HC] 1 applic MI BID PRN 08/08/18 03/19/19 History montelukast [Singulair] 10 mg PO PM 08/08/18 03/19/19 History cholestyramine (with sugar) 1 - 2 tbsp PO DAILY 03/19/19 03/19/19 History dronabinol 2.5 mg PO DAILY 03/19/19 03/19/19 History ipratropium bromide 2 spray INTRANASAL BID 03/19/19 03/19/19 History irbesartan [Avapro] 150 mg PO DAILY 03/19/19 03/19/19 History loratadine 10 mg PO DAILY PRN 03/19/19 03/19/19 History methimazole 15 mg PO QAM 03/19/19 03/19/19 History metoprolol succinate 100 mg PO DAILY 03/19/19 03/19/19 History mirtazapine 15 mg PO HS 03/19/19 03/19/19 History ondansetron HCl 8 mg PO Q6H PRN 03/19/19 03/19/19 History pantoprazole 40 mg PO DAILY 03/19/19 03/19/19 History jmlrbubif-GQ-bjuedsfy-guaifen 20 ml PO UD PRN 03/19/19 03/19/19 History [Mucinex Fast-Max Severe Cold] potassium chloride [Klor-Con M10] 20 meq PO AMPM 03/19/19 03/19/19 History prednisone 20 mg PO DAILY 03/19/19 03/19/19 History rivaroxaban [Xarelto] 20 mg PO DAILY 03/19/19 03/19/19 History Patient History Medical History Colon distention Abdominal aortic aneurysm (AAA) Obesity Thoracic aortic aneurysm Atrial fibrillation Cancer lung cancer (chemo and radiation) Chronic obstructive pulmonary disease GERD (gastroesophageal reflux disease) Hyperlipidemia Hypertension Increased intraocular pressure in past Surgical History History of bronchoscopy History of cardiac cath History of cardiac radiofrequency ablation 2008 History of cholecystectomy History of colonoscopy History of lobectomy of lung upper left History of tonsillectomy History of tooth extraction Family History Brother Family history of diabetes mellitus Family hx of colon cancer Social History Preferred Language: Syriac Communication Ability: Effective 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 Required: No Beliefs That Will Affect Care: None Current Living Situation: Spouse Other Information That Helps Us Care for You: No Feels Safe at Home: Yes Safety Concerns: Feels Safe At This Time Smoking Status: Former smoker Cigarettes Per Day: QUIT 10 YEARS AGO Do You Dip or Chew Tobacco: No Second Hand Exposure: No Tobacco Cessation Education Requested by Patient: No Hx Alcohol Use: No Hx Substance Use: Yes substance use type: marijuana Substance Use Type Other:: Prescribed for appetite Last Used Substance: Hours (ago) Review of Systems Review of Systems: All systems reviewed & are unremarkable except as noted in HPI & below Physical Exam Physical Exam: alert/oriented. nad Heent: PEARLA. EOMI. Heart: Irreg/Irreg Lungs: decrease bs's in bases. abd: soft. nt/nd. no palpable abnormalities ext: no c/c/e Results & Data Vital Signs (Past 12 Hours) Vital Signs Temp Pulse Pulse Resp BP Pulse Ox 03/29/19 08:58 75 144/93 H 03/29/19 06:56 36.9 C 53 L 18 144/90 H 93 03/29/19 03:17 36.8 C 48 L 16 143/87 H 96
--- NOTE | 2019-03-29 17:15 | Hospitalist Progress Note ---
Date of Service March 29, 2019 Assessment & Plan (1) Pneumothorax: POA. spontaneous. Treated and resolved s/p left sided chest tube placement by Dr. Thorne earlier this stay with subsequent removal of tube following resolution of pneumothorax. Appreciate Dr Thorne's assistance. No issues since d/c of chest tube. (2) Sigmoid volvulus: Patient with persistent distention of his bowel, gastroenterology has scoped and placed decompression tube, discussions for colonic resection for intermittent volvulus once again we will escalate diet Multiple c. diff tests and stool cultures have been negative. The patient had received several cycles of carboplatin, paclitaxel, avastin, and atezolizumab in 2018 for his lung ca. Pharmacy here states that 20% of people who take atezolizumab get colitis/diarrhea at an average time of 3.5 months following the first dose. (3) Colon distention: see above in "sigmoid volvulus" decompression and rectal tube remains in place (4) Hyperthyroidism: Dx 01/2019. Placed on methimazole TID at that time. TSH normalized in February. Now TSH is high (near 20). Dr. Bundy spoke with Dr. Garner. He feels that this may have been thyroiditis. positive antimicrosomal ab is consistent with that diagnosis. free T4 quite low this admission. STOPPED methimazole. repeat TFTs 1-2 weeks if still hypothyroid then start synthroid will need endo f/u after discharge (5) Elevated liver enzymes: etiology uncertain. maybe chemical hepatitis also from chemo this has improved HepA,B,C all negative. Not on statin. No tylenol or etoh usage. MRCP negative. additional labs pending (EBV, etc). RUQ u/s with possible early cirrhosis changes but even if cirrhosis is present doubt it is the cause of the acute liver injury. Labs are improving (6) Lung cancer: NSCLC - CROW - s/p lobectomy by Dr Thorne - 2016. Followed by Dr Huber Ortiz - [facility]. s/p multiple cycles of carboplatin, paclitaxel, avastin, and atezolizumab in 2018. On chronic prednisone for appetite - was on 20mg/day pre-admission. Received IV steroids this admission for stress dose purposes. prednisone taper to 10 milligrams daily (7) Diarrhea: c diff testing and stool cx's negative. 2nd to atezolizumab? see discussion above in "sigmoid volvulus". This may have been overflow diarrhea and since the 5 visits resolved her diarrhea has lessened dramatically (8) Hypertension: continue home meds (9) PAF (paroxysmal atrial fibrillation): remains in NSR clinically. xarelto for anticoagulation. Resume with surgery time and is determined (10) Hypokalemia: refractory s/p copious IV and PO replacement. Place magnesium 03/27 to GI losses. continue KCL in fluids. continue K-dur 40meq TID. given additional Kcl and magnesium 03/27, 03/28, on 03/29 potassium is normalized magnesium is replete (11) DVT prophylaxis: xarelto will be restarted when appropriate PT,OT Subjective Patient feels much improved after colonic decompression of his intermittent volvulus. He did have a consultation with general surgery and is unsure whether he wishes to move forward with this. This would be for a surgical correction of his volvulus. Patient does request a second opinion I personally spoke to at [facility] who will evaluate the patient and determine whether it is appropriate to proceed with colonic resection for permanent remedy of his volvulus Review of Systems Review of Systems: ROS: well nourished well developed. No double vision blurry vision No problems with speech or swallowing No palpitations, chest pain or pressure No Wheezing or breathing issues No abdominal pain is much less. He has no nausea vomiting has lessened diarrhea rectal tube remains in place No burning urine urine frequency or changes in color No focal joint pain or muscle pain No skin rashes or oral lesions No unusual bruising or bleeding No focused back pain or numbness or loss of strength No changes in memory or confusion Physical Exam Physical Exam: The patient appeared well nourished and normally developed. Vital signs as documented. Head exam is unremarkable. normocephalic, atraumatic Neck is without jugular venous distension, thyromegaly, or lymphademopathy Lungs are clear to auscultation and percussion. He has decreased breath sounds in the right base Cardiac exam reveals Rhythm is regular. First and second heart sounds normal. Abdominal exam reveals normal bowel sounds, much less distended more soft Extremities are nonedematous and both pedal pulses are present Neurologic exam is A&Ox3, no focal deficits, strength is equal bilateral Psychologically seems somewhat anxious regarding the potential procedure Skin is warm Dry without bruises or lesions Results & Data Vital Signs (Past 12 Hours) Vital Signs Temp Pulse Pulse Resp BP Pulse Ox 03/29/19 15:13 36.9 C 61 16 123/78 96 03/29/19 08:58 75 144/93 H 03/29/19 06:56 36.9 C 53 L 18 144/90 H 93 (1) Pneumothorax Pneumothorax type: spontaneous, primary Qualified Code(s): J93.11 - Primary spontaneous pneumothorax (2) Lung cancer Laterality: left Lung location: upper lobe of lung Qualified Code(s): C34.12 - Malignant neoplasm of upper lobe, left bronchus or lung (3) Diarrhea Diarrhea type: unspecified type Qualified Code(s): R19.7 - Diarrhea, unspecified (4) Hypertension Hypertension type: essential hypertension Qualified Code(s): I10 - Essential (primary) hypertension
[2019-03-29] MEDS: MONTELUKAST SODIUM 10 MG TABLET PO SCH (20:10)
[2019-03-30] MEDS: LAVAGE SOLUTION 4000ML PR SCH ×3 (02:15→09:00)
[2019-03-30] MEDS: D5NSS + 20MEQ KCL 20 MEQ/1,000 ML BAG IV SCH (05:30)
[2019-03-30 06:20] LABS: BUN Creatinine Ratio 7.2 (10-20); Calcium 8.4 mg/dl (8.5-10.1); Creatinine Clr Calc Pharmacy 76.4 ml/min; Est GFR (African American) 90.3; Est GFR (Non-African American) 77.9; Magnesium 1.6 mg/dl (1.8-2.4); Potassium 3.8 mmol/L (3.5-5.1)
[2019-03-30] MEDS: IRBESARTAN 150 MG TAB PO SCH (08:58)
[2019-03-30] MEDS: METOPROLOL SUCC 50MG EXT REL TAB PO SCH (08:58)
[2019-03-30] MEDS: predniSONE 10 MG TABLET PO SCH (08:58)
[2019-03-30] MEDS: PANTOprazole 40 MG TAB PO SCH (08:59)
[2019-03-30] MEDS: IPRATROPIUM BROMIDE NASAL SPRAY 0.06% 15ML NAE SCH ×2 (08:59→20:45)
[2019-03-30] MEDS: POTASSIUM CHLORIDE 20 MEQ TABCR PO SCH ×3 (08:59→20:43)
[2019-03-30] MEDS: DRONABINOL 2.5 MG CAP PO SCH (09:26)
--- NOTE | 2019-03-30 09:49 | Surgery Progress Note ---
Date of Service March 30, 2019 Assessment & Plan (1) Sigmoid volvulus: Resolved volvulous will removed rectal tube. keep on regular diet. if no issues overnight could discharge home from my standpoint we discussed options going forward. he will f/u with me in the next week or two and will likely schedule elective colectomy. no special diet at d/c other than increase water ( no need for low residue) would not take immodium at home but would continue questran. Subjective pt seen. feeling well. no pain. jared diet. abdominal distenstion resolved. Physical Exam Physical Exam: alert. nad abd: soft. non-distended. non-tender. Results & Data Vital Signs (Past 12 Hours) Vital Signs Temp Pulse Pulse Resp BP Pulse Ox 03/30/19 08:05 36.8 C 67 12 159/103 H 97 03/29/19 23:59 36.5 C 50 L 16 141/90 H 97
[2019-03-30 10:05] LABS: Albumin Level 2.5 gm/dl (3.4-5.0); Bilirubin Direct 0.1 mg/dl (0-0.2); Bilirubin,Total 0.5 mg/dl (0.2-1); Total Protein 5.7 gm/dl (6.4-8.2)
--- NOTE | 2019-03-30 10:22 | Gastroenterology Progress Note ---
Date of Service March 30, 2019 Assessment & Plan (1) Sigmoid volvulus: Pt is a 68 y/o male w lung ca on s/p lobectomy, admitted for L pneumothorax (resolved), followed for persistent colonic distension, diarrhea, concerning for chronic pseudoobstruction vs intermittent sigmoid volvulus. He underwent colonic decompression w rectal tube placement on 03/28/19 and has been clinically doing well. There is ongoing discussion w/ general surgery regarding a surgical plan moving forward. - Low fiber diet as tolerated - Will discuss rectal tube w/ attending - Definitive management per general surgery GI will sign off. Thank you for allowing us to participate in the care of this patient. Please call with any acute changes, questions or concerns. Please see addendum below with additional recommendation from my supervising physician. Supervising Physician Co-Signing Physician Notes Attending attestation I have seen, examined this patient, and agree with the findings and above by our mid-level provider JAKE Fierro. -doing great -Following up with General Surgery Subjective Late entry. Pt was seen and evaluated at 0800, chart reviewed. Feeling well. Tolerating diet. No nausea, vomiting. Rectal tube in place. No abd pain. Passing stool/gas. He notes a surgical plan is in discussion. Review of Systems Constitutional: no fever, no chills, no anorexia and no weight loss Respiratory: no cough, no dyspnea, no snoring and no wheezing Cardiovascular: no chest pain, no radiating jaw, neck or arm pain and no dyspnea on exertion Gastrointestinal: no abdominal pain, no early satiety, no nausea and no vomiting Physical Exam Constitutional: WD/WN, vitals as above Neck: normal visual inspection and trachea midline Respiratory: normal respiratory effort, lungs clear to auscultation Cardiovascular: RRR, no murmur, no edema Gastrointestinal (Abdomen): Inspection/Auscultation: normal bowel sounds Percussion/Palpation: abdomen soft; abdomen nontender, no guarding and abdomen not rigid Skin: no rashes, warm and dry Results & Data Vital Signs (Past 12 Hours) Vital Signs Temp Pulse Pulse Resp BP Pulse Ox 03/30/19 08:05 36.8 C 67 12 159/103 H 97 03/29/19 23:59 36.5 C 50 L 16 141/90 H 97
[2019-03-30] MEDS: RIVAROXABAN 20 MG TAB PO SCH (17:53)
--- NOTE | 2019-03-30 18:14 | Hospitalist Progress Note ---
Date of Service March 30, 2019 Assessment & Plan (1) Pneumothorax: POA. spontaneous. Treated and resolved s/p left sided chest tube placement by Dr. Thorne earlier this stay with subsequent removal of tube following resolution of pneumothorax. Appreciate Dr Thorne's assistance. No issues since d/c of chest tube. (2) Sigmoid volvulus: Patient presented with persistent distention of his bowel, gastroenterology has scoped and decompression discussions for colonic resection for intermittent volvulus will be done as an outpt with Dr Hughes tolerated advanced diet, may be on questran at home Multiple c. diff tests and stool cultures have been negative. The patient had received several cycles of carboplatin, paclitaxel, avastin, and atezolizumab in 2018 for his lung ca. Pharmacy here states that 20% of people who take atezolizumab get colitis/diarrhea at an average time of 3.5 months following the first dose. (3) Colon distention: see above in "sigmoid volvulus" decompression and rectal tube remains in place (4) Hyperthyroidism: Dx 01/2019. Placed on methimazole TID at that time. TSH normalized in February. Now TSH is high (near 20). Dr. Bundy spoke with Dr. Garner. He feels that this may have been thyroiditis. positive antimicrosomal ab is consistent with that diagnosis. free T4 quite low this admission. STOPPED methimazole. repeat TFTs 1-2 weeks if still hypothyroid then start synthroid will need endo f/u after discharge (5) Elevated liver enzymes: etiology uncertain. maybe chemical hepatitis also from chemo this has improved, bili was not elevated HepA,B,C all negative. Not on statin. No tylenol or etoh usage. MRCP negative. additional labs pending (EBV, etc). RUQ u/s with possible early cirrhosis changes but even if cirrhosis is present doubt it is the cause of the acute liver injury. Labs all improving (6) Lung cancer: NSCLC - CROW - s/p lobectomy by Dr Thorne - 2016. Followed by Dr Huber Ortiz - [facility]. s/p multiple cycles of carboplatin, paclitaxel, avastin, and atezolizumab in 2018. On chronic prednisone for appetite - was on 20mg/day pre-admission. Received IV steroids this admission for stress dose purposes. prednisone taper to 10 milligrams daily (7) Diarrhea: c diff testing and stool cx's negative. 2nd to atezolizumab? see discussion above in "sigmoid volvulus". This may have been overflow diarrhea and since the 5 visits resolved her diarrhea has lessened dramatically (8) Hypertension: continue home meds (9) PAF (paroxysmal atrial fibrillation): remains in NSR clinically. xarelto for anticoagulation. Resume with surgery time and is determined (10) Hypokalemia: refractory s/p copious IV and PO replacement. Place magnesium 03/27 to GI losses. continue KCL in fluids. continue K-dur 40meq TID. given additional Kcl and magnesium 03/27, 03/28, on 03/29 potassium is normalized magnesium is replete (11) DVT prophylaxis: xarelto will be restarted when appropriate Subjective Patient is much improved he is able to walk around the hallways his rectal tube is been removed he still having some looser bowel movements but much less frequent his abdominal distention is less and He is not having any shortness of breath Review of Systems Review of Systems: ROS: well nourished well developed. No double vision blurry vision No problems with speech or swallowing No palpitations, chest pain or pressure No Wheezing or breathing issues No abdominal pain nausea vomiting still some loose bowel movements No burning urine urine frequency or changes in color No focal joint pain or muscle pain No skin rashes or oral lesions No unusual bruising or bleeding No focused back pain or numbness or loss of strength No changes in memory or confusion Physical Exam Physical Exam: The patient appeared well nourished and normally developed. Vital signs as documented. Head exam is unremarkable. normocephalic, atraumatic Neck is without jugular venous distension, thyromegaly, or lymphademopathy Lungs are clear to auscultation and percussion. Still degrees at the right base Cardiac exam reveals Rhythm is regular. First and second heart sounds normal. Abdominal exam reveals less distention still mildly tympanitic more soft, normal bowel sounds, no masses, no organomegaly Extremities are nonedematous and both pedal pulses are present Neurologic exam is A&Ox3, no focal deficits, strength is equal bilateral Psychologically seems neither anxious or depressed Skin is warm Dry without bruises or lesions Results & Data Vital Signs (Past 12 Hours) Vital Signs Temp Pulse Pulse Resp BP Pulse Ox 03/30/19 16:26 36.8 C 51 L 17 144/90 H 97 03/30/19 08:05 36.8 C 67 12 159/103 H 97 (1) Pneumothorax Pneumothorax type: spontaneous, primary Qualified Code(s): J93.11 - Primary spontaneous pneumothorax (2) Lung cancer Laterality: left Lung location: upper lobe of lung Qualified Code(s): C34.12 - Malignant neoplasm of upper lobe, left bronchus or lung (3) Diarrhea Diarrhea type: unspecified type Qualified Code(s): R19.7 - Diarrhea, unspecified (4) Hypertension Hypertension type: essential hypertension Qualified Code(s): I10 - Essential (primary) hypertension
[2019-03-30] MEDS: MAGNESIUM SULFATE / D5W 1 GM/100 ML BAG IV SCH ×2 (18:41→19:46)
[2019-03-30] MEDS: MONTELUKAST SODIUM 10 MG TABLET PO SCH (20:43)
[2019-03-30] MEDS: HEPARIN 100 UNIT/ML 5ML FLUSH FLUSH PRN (20:45)
[2019-03-31] MEDS: HEPARIN 100 UNIT/ML 5ML FLUSH FLUSH PRN ×2 (05:53→13:41)
[2019-03-31 07:26] LABS: BUN Creatinine Ratio 9.9 (10-20); Calcium 8.6 mg/dl (8.5-10.1); Creatinine Clr Calc Pharmacy 78.8 ml/min; Est GFR (African American) 93.8; Est GFR (Non-African American) 80.9; Potassium 3.9 mmol/L (3.5-5.1)
[2019-03-31] MEDS: POTASSIUM CHLORIDE 20 MEQ TABCR PO SCH (08:06)
[2019-03-31] MEDS: predniSONE 10 MG TABLET PO SCH (08:06)
[2019-03-31] MEDS: IRBESARTAN 150 MG TAB PO SCH (08:07)
[2019-03-31] MEDS: METOPROLOL SUCC 50MG EXT REL TAB PO SCH (08:07)
[2019-03-31] MEDS: PANTOprazole 40 MG TAB PO SCH (08:07)
[2019-03-31] MEDS: IPRATROPIUM BROMIDE NASAL SPRAY 0.06% 15ML NAE SCH (08:11)
[2019-03-31] MEDS: DRONABINOL 2.5 MG CAP PO SCH (08:14)
--- NOTE | 2019-03-31 15:13 | Discharge Summary ---
Date of Service March 31, 2019 Admission HPI Per Admitting Provider 68yo male with multiple medical comorbidities to include AAA/TAA, COPD, HTN, HLP, GERD, AF, Hyperthyroid and Lung CA s/p lobectomy. Patient reports "feeling ill" all week to include nausea and dry heaving. He saw his PCP and had blood work drawn and was told that his renal function and liver were both worse than before. He was told to come to the ER for additional management. Hoarseness x 1 week Poor appetite, food tastes bad, poor PO intake Principal Diagnosis pneumothorax, spontaneous, treated intermittent volvulus, s/p colonoscopic decompression profound hypokalemia and hypomagnesemia Discharge Exam Constitutional well developed and average body habitus Eyes no conjunctival abnormality and no scleral abnormality Neck normal visual inspection and trachea midline Respiratory normal respiratory effort; no respiratory distress Auscultation: lungs clear to auscultation bilaterally Cardiovascular RRR, no murmur, no edema Gastrointestinal (Abdomen) normal bowel sounds, soft, nontender, no hepatosplenomegaly Discharge Data Allergies Allergy/AdvReac Type Severity Reaction Status Date / Time No Known Allergies Allergy Unverified 03/19/19 23:25 Consultations 03/19/19 22:48 ED Decision to Admit Stat 03/20/19 02:12 Consult Case Management - Discharge Planning Routine Consult Pain Management Physician Routine 03/20/19 07:27 Consult Thoracic Surgery Routine 03/21/19 13:31 Consult Gastroenterology Routine 03/21/19 23:55 Consult General Surgery Stat 03/22/19 00:51 Consult Gastroenterology Stat 03/29/19 13:12 Consult General Surgery Routine Procedures Performed Operation Date: 03/28/19 08:30 Actual Procedures p Colonoscopy with Decompression Tube Patria - Donovan Zepeda Ordered Studies 03/20/19 02:12 US liver Routine 03/21/19 18:34 CT abd pelvis oral and IV con Routine 03/22/19 11:45 MR MRCP Routine Hospital Course (1) Pneumothorax: POA. spontaneous. Treated and resolved s/p left sided chest tube placement by Dr. Thorne earlier this stay with subsequent removal of tube following resolution of pneumothorax. Appreciate Dr Thorne's assistance. No issues since d/c of chest tube. (2) Sigmoid volvulus: Patient presented with persistent distention of his bowel, gastroenterology has scoped and decompression discussions for colonic resection for intermittent volvulus will be done as an outpt with Dr Hughes tolerated advanced diet, may be on questran at home Multiple c. diff tests and stool cultures have been negative. The patient had received several cycles of carboplatin, paclitaxel, avastin, and atezolizumab in 2018 for his lung ca. Pharmacy here states that 20% of people who take atezolizumab get colitis/diarrhea at an average time of 3.5 months following the first dose. (3) Colon distention: see above in "sigmoid volvulus" decompression and rectal tube removed without immediate recurrence, pt educated by myself on what to look for and what to do if recurrs (4) Hyperthyroidism: Dx 01/2019. Placed on methimazole TID at that time. TSH normalized in February. Now TSH is high (near 20). Dr. Bundy spoke with Dr. Garner. He feels that this may have been thyroiditis. positive antimicrosomal ab is consistent with that diagnosis. free T4 quite low this admission. STOPPED methimazole. repeat TFTs 1-2 weeks with pcp will need f/u after discharge (5) Elevated liver enzymes: etiology uncertain. maybe chemical hepatitis also from chemo this has improved, bili was not elevated HepA,B,C all negative. Not on statin. No tylenol or etoh usage. MRCP negative. additional labs pending (EBV, etc). RUQ u/s with possible early cirrhosis changes but even if cirrhosis is present doubt it is the cause of the acute liver injury. Labs all improving (6) Lung cancer: NSCLC - CROW - s/p lobectomy by Dr Thorne - 2016. Followed by Dr Huber Ortiz - [facility]. s/p multiple cycles of carboplatin, paclitaxel, avastin, and atezolizumab in 2018. On chronic prednisone for appetite - was on 20mg/day pre-admission. Received IV steroids this admission for stress dose purposes. prednisone taper to 10 milligrams daily (7) Diarrhea: c diff testing and stool cx's negative. 2nd to atezolizumab? see discussion above in "sigmoid volvulus". This may have been overflow diarrhea and since the 5 visits resolved her diarrhea has lessened dramatically (8) Hypertension: continue home meds (9) PAF (paroxysmal atrial fibrillation): remains in NSR clinically. xarelto for anticoagulation. Resume with surgery time and is determined (10) Hypokalemia: refractory s/p copious IV and PO replacement. Place magnesium 03/27 2nd to GI losses. continue KCL in fluids. continue K-dur 40meq TID. given additional Kcl and magnesium 03/27, 03/28, on 03/29 potassium is normalized magnesium is replete (11) DVT prophylaxis: xarelto will be restarted Total Time Total Time Spent Total Time Spent (In Minutes): greater than 30 minutes were required to prepare discharge Discharge Plan Discharge Items Patient Disposition: Home - Self-Care Reason For Visit: PNEUMOTHORAX Discharge Diagnosis: pneumothorax( air leak from lung) sigmoid volvululs( twisting of bowel with partial obstruction) Discharge Goals: Decrease discomfort and Diagnostic testing Activity: Resume your previous activity Non-emergency contact: Primary Care Provider and Surgeon Call non-emergency contact if: you have any medication questions Follow-up/Referrals: Armando Espana MD [Primary Care Provider] - Mateo Hughes DO [Surgeon] - Diet: Regular Addtl Provider Instructions: Please contact health care provider or ER if you have increased abdominal distension and/or pain Please follow up with Dr Hughes Prescriptions: Continued ondansetron HCl 8 mg tablet 8 mg PO Q6H PRN (Reason: Nausea) RF: 0 mirtazapine 15 mg tablet 15 mg PO HS RF: 0 pantoprazole 40 mg tablet,delayed release (DR/EC) 40 mg PO DAILY RF: 0 Xarelto 20 mg tablet 20 mg PO DAILY RF: 0 cholestyramine (with sugar) 4 gram powder 1 - 2 tbsp PO DAILY RF: 0 dronabinol 2.5 mg capsule 2.5 mg PO DAILY RF: 0 metoprolol succinate 50 mg tablet extended release 24 hr 100 mg PO DAILY RF: 0 ipratropium bromide 42 mcg (0.06 %) spray,non-aerosol 2 spray intranasal BID RF: 0 irbesartan [Avapro] 150 mg Tablet 150 mg PO DAILY RF: 0 loratadine 10 mg Tablet 10 mg PO DAILY PRN (Reason: Congestion) RF: 0 hydrocortisone [Proctosol HC] 2.5 % Cream With Perineal Applicator 1 applic [place] BID PRN (Reason: irritation) RF: 0 montelukast [Singulair] 10 mg Tablet 10 mg PO PM RF: 0 albuterol sulfate [Ventolin HFA] 90 mcg/actuation Hfa Aerosol Inhaler 2 puff INHALATION QID PRN (Reason: Shortness Of Breath) RF: 0 Changed prednisone 20 mg tablet 10 mg PO DAILY Qty: 0 RF: 0 potassium chloride [Klor-Con M10] 10 mEq tablet,ER particles/crystals 20 meq PO TID Qty: 90 RF: 6 Discontinued methimazole 10 mg tablet 15 mg PO QAM RF: 0 Mucinex Fast-Max Severe Cold 10-20-650 mg/20 mL Liquid 20 ml PO UD PRN (Reason: Congestion) RF: 0 Stand-Alone Forms: [facility] Discharge Orders: Discharge Order (Routine); Ordered 03/31/19 Ordered By: Dennis Dillard Admission Data Admit Date/Time: 03/20/19 00:46 Attending Provider: Dennis Dillard Admit Provider: Elyssa Cole Primary Care Provider: Armando Espana Other Providers: Elyssa Cole ; Gabo Mohamud ; Antonino Thorne ; Manju Clark ; Raudel Larsen ; Sheri Nobles ; Woody Pascal ; Mateo Hughes Service: Medical Other Interventions: Discharge Summary Assessment (RN) Last Done: 03/31/19 12:03 DC Date/Time DO NOT enter until pt leaves facility: 03/31/19 13:50
== END 2019-03-31 13:50 | disposition home or self-care (01) | DRG 981 ==
LOC: ED 20:03 → 1E 03-20 00:46 → SUATTDRO 03-20 00:46 → 1E 03-20 01:23 → 3N 03-20 14:22

== ENCOUNTER 2019-05-03 07:18 | Inpatient (IN) ==
--- NOTE | 2019-04-25 11:28 | Anesthesiology Consultation ---
Date of Service April 25, 2019 Assessment & Plan (1) Encounter for pre-operative examination: Chart Review Chart Review: Patient NOT seen in Pre Admission Testing Additional Notes Per Dr. Hughes's note, the patient is scheduled for lap elective sigmoid colectomy, but he is high risk for requiring conversion to an open repair. Per cardiology note from Arcenio Gerardo PA-C at [facility], "patient has a history of paroxysmal AF s/p ablation 2008. Recurrent PAF several years ago on amiodarone, but stopped this several months ago because of hyperthyroidism. Known mild enlargement of ascending aorta (aortic root 3.2 per echo 10/2018), HTN and Non-small cell lung CA. Mr. Martinez is cleared for his upcoming surgery on 05/03/2019. He is stable and doing well from a cardiac perspective. He was hospitalized in 10/2018 for PAF with RVR. Echo then showed mildly depressed EF of 48% presumably from AF with RVR. Will order repeat echo to be done soon before surgery to re-evaluate EF. Clinically he has no CHF symptoms. No prior hx of obstructive CAD. No change in medications today. He can hold Xarelto as directed by surgery service." Chart currently awaiting echo results. In addition, need followup report from PCP to ensure TFTs have normalized. History Surgery Operation Date: 05/03/19 07:00 Proposed Procedures p Laparoscopic Sigmoidectomy, Possible Open - Mateo Hughes, DO Height/Weight Height: 6 ft Weight: 77.111 kg Allergies Allergy/AdvReac Type Severity Reaction Status Date / Time No Known Allergies Allergy Unverified 04/16/19 13:47 Medications Home Medications Medication Instructions Recorded Confirmed Last Taken albuterol sulfate [Ventolin HFA] 2 puff INHALATION QID PRN 08/08/18 04/16/19 Unknown hydrocortisone [Proctosol HC] 1 applic [place] BID PRN 08/08/18 04/16/19 Unknown montelukast [Singulair] 10 mg PO PM 08/08/18 04/16/19 04/15/19 Xarelto 20 mg PO QDD 03/19/19 04/16/19 04/15/19 cholestyramine (with sugar) 1 - 2 tbsp PO DAILY 03/19/19 04/16/19 04/15/19 dronabinol 2.5 mg PO QAM 03/19/19 04/16/19 04/16/19 ipratropium bromide 2 spray INTRANASAL UD PRN 03/19/19 04/16/19 Unknown loratadine 10 mg PO DAILY PRN 03/19/19 04/16/19 Unknown mirtazapine 15 mg PO HS 03/19/19 04/16/19 Unknown ondansetron HCl 8 mg PO Q6H PRN 03/19/19 04/16/19 Unknown pantoprazole 40 mg PO QAM 03/19/19 04/16/19 04/16/19 dicyclomine 20 mg PO UD PRN 04/16/19 04/16/19 Unknown prednisone 10 mg PO QAM 04/16/19 04/16/19 04/16/19 irbesartan 150 mg tablet 150 mg PO QAM #90 tab 04/23/19 Unknown metoprolol succinate ER 100 mg 100 mg PO DAILY #90 ea 04/23/19 Unknown capsule sprinkle, ext. release 24 hr potassium chloride ER 20 mEq 20 meq PO TID #270 tab 04/23/19 Unknown tablet,extended release(part/cryst) Past Medical History Medical History Abdominal aortic aneurysm (AAA) LAST CHECK 1 YR AGO, MONITORS YEARLY Atrial fibrillation DX 2007 / NO CARDIOVERSION Cancer current lung cancer, hx chemo and radiation -tx stopped at present time Chronic obstructive pulmonary disease Colon distention Elevated LFTs GERD (gastroesophageal reflux disease) History of dehydration 2 WEEKS AGO IN PT FOR ([facility]) History of pneumothorax Hyperlipidemia Hypertension Increased intraocular pressure in past/R EYE (no current problem with) Thoracic aortic aneurysm Thyroiditis Dx with hyperthyroidism 01/2019 and palced on methimazole. TSH normal in February. TSH was high in March. Methimazole was stopped. Exercise / Class Metabolic Activity II 4-5 Yardwork/Stairs/Walk up hill Past Family History Family History Brother Family history of diabetes mellitus Family hx of colon cancer Past Surgical History Surgical History History of bronchoscopy History of cardiac cath for ablation History of cardiac radiofrequency ablation 2008 History of cholecystectomy History of colonoscopy History of colonoscopy "PARTIAL" History of lobectomy of lung upper left 2017 History of tonsillectomy History of tooth extraction Past Anesthesia History No Hx of Anesthesia Complications and No Family Hx of Anesthesia Complications History of PONV No Hx of PONV and No Hx of Motion Sickness Social History Smoking Status: Former smoker tobacco type: cigarettes Smoking cigarettes per day: QUIT 10 YEARS AGO Do You Dip or Chew Tobacco: No Smoking End Date: quit 10 yrs ago Hx Alcohol Use: No Hx Substance Use: No substance use type: does not use Substance Use Type Other:: Prescribed for appetite Testing Laboratory Results 03/26/19 WBC: 7.72 H/H: 12.6/35.8 PLATELETS: 166 SODIUM: 138 POTASSIUM: 3.9 CHLORIDE: 106 CO2: 28 BUN: 9 CREATININE: 0.96 GLUCOSE: 69 PT: 10.6 PTT: 56.9 INR: 1 TSH: 12.7 Free T4: 0.66 Electrocardiogram Date: 04/11/19 Findings: + NSR @ (60) Nonspecific ST and T wave abnormalities, when compared with EKG 01/15/19, ventricular rate has decreased by 45 bpm and T wav amplitude has decreased in lateral leads. Chest X-Ray Date: 03/26/19 IMPRESSION: No evidence for pneumothorax. Lungs are considered clear.
[~2019-05-03 07:18] MED LIST changes: +ACETAMINOPHEN 1000 MG/100 ML IV IV ONE; -AMLO-110 PO; -ANSHCCR PR; -BENZ1CAP90 PO; +CEFAZOLIN 2000MG 2,000 MG/15 ML SYR IV SCH; -CLC100 PO; -CRD200 PO; -FEXO1TAB49 PO; -IRBE-39 PO; +LR 15ML/HR IV SCH; -MONT1TAB3 PO; -NIAC500T83 PO; -PRD75 PO; -PRLSR20 PO; -SPIR25TA PO; -UMEC1INH INH; -VNTHFA/IN INH
[2019-05-03] MEDS ORDERED: fentaNYL citrate 100 MCG/2 ML VIAL ONE ×2 (08:14→10:55)
[2019-05-03] MEDS ORDERED: DEXAMETHASONE SOD INJ 4 MG/ML VIAL ONE (08:14)
[2019-05-03] MEDS ORDERED: PROPOFOL IV EMULSION 10 MG/ML 20 ML VIAL IV ONE (08:14)
[2019-05-03] MEDS ORDERED: LIDOCAINE HCL 2% 2 ML VIAL/AMP(20MG/ML) INFIL ONE (08:14)
[2019-05-03] MEDS ORDERED: ONDANSETRON INJ 2 MG/ML 2 ML VIAL ONE (08:14)
[2019-05-03] MEDS ORDERED: MIDAZOLAM HCL 1 MG/ML 2ML VIAL ONE (08:14)
--- NOTE | 2019-05-03 08:46 | History & Physical Report ---
Date of Service May 03, 2019 Assessment & Plan (1) Sigmoid volvulus: His history this is obviously a very complex case and we have had many conversations we discussed more conservative treatment versus elective sigmoid colectomy. We discussed that we could attempt this laparoscopically but would have a high risk of needing to convert to an open procedure the visualization is suboptimal. We discussed the risks which would include bleeding, infection, DVT, PE, GA, CVA, anastomotic leak, anastomotic stricture, injury to another organ such as bowel bladder etc., respiratory failure etc. Following our discussions I answered all their questions. They would like to proceed with a sigmoid colectomy to prevent recurrence of his volvulus. History of Present Illness Primary Care Provider: Armando Espana MD 69-year-old gentleman who was recently hospitalized for acute sigmoid volvulus. GI was able to decompress the volvulus via colonoscope and place a rectal tube. Clinically he improved and we were able to give him a diet and discharge him. He also had a pneumothorax after coughing with a history of left-sided pneumonectomy. He has been having GI issues with abdominal bloating and diarrhea ever since November of this year. The pneumothorax is now resolved and we are here for elective sigmoid colectomy for recurrent volvulus. Allergies Allergy/AdvReac Type Severity Reaction Status Date / Time No Known Allergies Allergy Unverified 05/03/19 07:48 Home Medications Home Medications Medication Instructions Recorded Confirmed Type albuterol sulfate [Ventolin HFA] 2 puff INHALATION QID PRN 08/08/18 05/03/19 History hydrocortisone [Proctosol HC] 1 applic AR BID PRN 08/08/18 05/03/19 History montelukast [Singulair] 10 mg PO PM 08/08/18 04/16/19 History Xarelto 20 mg PO QDD 03/19/19 04/16/19 History cholestyramine (with sugar) 1 - 2 tbsp PO DAILY 03/19/19 05/03/19 History dronabinol 2.5 mg PO QAM 03/19/19 05/03/19 History ipratropium bromide 2 spray INTRANASAL UD PRN 03/19/19 04/16/19 History loratadine 10 mg PO DAILY PRN 03/19/19 04/16/19 History mirtazapine 15 mg PO HS 03/19/19 05/03/19 History ondansetron HCl 8 mg PO Q6H PRN 03/19/19 05/03/19 History pantoprazole 40 mg PO QAM 03/19/19 04/16/19 History dicyclomine 20 mg PO UD PRN 04/16/19 05/03/19 History prednisone 10 mg PO QAM 04/16/19 04/16/19 History irbesartan 150 mg tablet 150 mg PO QAM #90 tab 04/23/19 Rx potassium chloride ER 20 mEq 20 meq PO TID #270 tab 04/23/19 Rx tablet,extended release(part/cryst) metoprolol succinate ER 100 mg 100 mg PO DAILY #90 tab 04/26/19 Rx tablet,extended release 24 hr Past Med/Surg History Family History Brother Family history of diabetes mellitus Family hx of colon cancer Social History Preferred Language: [place] Citizen Communication Ability: Effective Assigner Required: No Beliefs That Will Affect Care: None Current Living Situation: Spouse Other Information That Helps Us Care for You: No Feels Safe at Home: Yes Smoking Status: Former smoker Tobacco Type: cigarettes Cigarettes Per Day: QUIT 10 YEARS AGO Do You Dip or Chew Tobacco: No Smoking End Date: quit 10 yrs ago Second Hand Exposure: No Hx Alcohol Use: No Hx Substance Use: No Physical Exam Physical Exam: alert/oriented. nad Heent: Pearla. eomi Heart: irreg irreg Lungs: minimal bs on left. normal bs on right abd: soft. mild distension. nt. ext: no c/c/e Results & Data Vital Signs (Past 12 Hours) Vital Signs Temp Pulse Resp BP Pulse Ox 05/03/19 07:55 36.6 C 51 L 16 133/90 99
[2019-05-03] MEDS ORDERED: BUPIVACAINE/EPINEPHRINE 0.5% MPF 1:200,000 30 ML VIAL ONE (08:51)
[2019-05-03] MEDS ORDERED: KETAMINE HCL INJ 50 MG/ML 10 ML VIAL ONE (09:49)
[2019-05-03] MEDS ORDERED: NEOSTIGMINE METHYLSULFATE 5 MG/5 ML SYR ONE (11:30)
[2019-05-03] MEDS ORDERED: GLYCOPYRROLATE 0.2 MG/ML VIAL ONE (11:30)
--- NOTE | 2019-05-03 11:47 | Operative Report ---
Post Operative Report Pre & Post Diagnosis Operation Date: 05/03/19 09:35 Pre-Op Diagnosis: Sigmoid Volvulus Post-Op Diagnosis: Sigmoid Volvulus;adhesions Procedure Operation Date: 05/03/19 09:35 Actual Procedures p Laparoscopic Sigmoidcolectomy, Enterolysis - Mateo Hughes DO Surgeon Mateo Hughes DO Change Advisor arnaldo Turner Estimated Blood Loss 15 Findings Consistent with Post-Op Diagnosis Specimens sigmoid colon Description of Procedure After informed consent was obtained the patient was taken to the operating room and placed in a supine position. After successful intubation a Cortez catheter was placed and the patient was placed in the low lithotomy position. The abdomen was shaved and sterilely prepped and draped in usual fashion. I began with a supraumbilical incision with a 11 blade scalpel and carried this down through the soft tissue using cautery. The anterior rectus fascia was opened using electrocautery and two #0 Vicryl stay sutures were placed. Peritoneum was entered using blunt finger penetration and a finger sweep was performed to take down any underlying adhesions. A 12 mm Curiel trocar was placed and the abdomen was insufflated to 20 mmHg. Laparoscope was inserted and the abdomen was examined in 360 degrees. I placed a right lower quadrant 12 mm trocar and a right mid abdominal 5 mm trocar and eventually a left lower quadrant 5 mm trocar. There was a very redundant floppy sigmoid colon although it was not massively dilated. There was dilation of the proximal transverse and right colon. I actually scrubbed out of the case and discussed the CT scan with radiology once again. They did in fact confirm that it was a sigmoid volvulus previously with a transition point in the mid sigmoid colon likely causing intermittent colonic obstruction and proximal dilation. Once we confirmed this we then began by mobilizing the colon along the white line of Toldt laterally. We continued this proximally up to the splenic flexure and distally down to the peritoneal reflection. The sigmoid colon was quite redundant. Part of the colon was adhesed to the anterior abdominal wall. I began by taking these adhesions down using the harmonic scalpel. After we fully mobilized the left and sigmoid colon I then made a small window in the distal sigmoid mesentery using a harmonic scalpel. At about the sacral promontory I transected the sigmoid colon using a LIZET purple cartridge 60 mm stapler. We then used a marking stitch to jason an area of the sigmoid colon proximal to the redundant area but long enough that we could make an tension-free anastomosis. Next I took down the mesentery of the left and sigmoid colon using the harmonic scalpel. We then delivered the colon by extending the left lower quadrant port site incision using a scalpel for the skin and cautery for the muscle. We toweled off the area and delivered the colon. Bowel clamps were placed and the colon was divided and sent to pathology. It was a very large diameter lumen. We used 2-0 silk to create a pursestring stitch and then placed the anvil of a 31 mm circular stapler into the lumen and secured it using the pursestring stitch. We then placed this back into the abdominal cavity and changed our gloves. I then closed the fascia using 0 PDS in running fashion. Next we reinsufflated the abdomen. We dilated the rectum using sizers and then advanced the handle of the circular stapler into the rectal stump. We deployed the spike anterior to the staple line. We then connected the anvil to the handle and secured them together and fired it creating a circular end to end anastomosis. It was not twisted and did not appear to be under tension. There appeared to be good blood supply with no evidence of ischemia. Both donut rings were intact. We then insufflated the anastomosis under water and it was in fact airtight with no evidence of an anastomotic leak. We thoroughly irrigated the pelvis and mid abdomen. There was adequate hemostasis at the end of the procedure. We placed a 10 flat Smith-Esteves drain in the pelvis and brought out through 1 of the port sites and secured it using 2-0 nylon. The trochars were all removed and the abdomen desufflated. The fascia of the camera port was closed using 0 Vicryl in a [id number] fashion. The larger incision was closed using 3-0 Vicryl for deep layers and 4-0 Monocryl for skin. The remainder of the incisions were closed with 4-0 Monocryl. All the wounds had been irrigated prior to closure. We used Dermabond glue for dressing. The patient was awakened extubated and transferred to recovery in stable condition. My physician commercial real estate assistant was present for the entire case. He will prep the patient. Help with retraction as well as running the camera throughout the dissection. Assisted with the anastomosis as well as wound closure. I attest to the content of the Intraoperative Record and any orders documented therein. Any exceptions are noted below.
[2019-05-03] MEDS ORDERED: HYDROmorphone INJ 1 MG/ML SYRINGE ONE (12:07)
[2019-05-03] MEDS ORDERED: ONDANSETRON INJ 2 MG/ML 2 ML VIAL IV PRN (12:19)
[2019-05-03] MEDS ORDERED: KETOROLAC 30 MG/ML VIAL IV PRN (12:19)
[2019-05-03] MEDS ORDERED: HYDROmorphone INJ 0.5 MG/0.5 ML SYR IV PRN (12:19)
[2019-05-03] MEDS ORDERED: ATROPINE SULFATE 0.1 MG/ML 10ML SYR IV PRN (12:19)
[2019-05-03] MEDS ORDERED: ePHEDrine sulfate 50 MG/ML AMP IV PRN (12:19)
--- NOTE | 2019-05-03 12:48 | Anesthesiology Progress Note ---
Date of Service May 03, 2019 Anesthesia Post Procedure Vital Signs Vital Signs: Temp Pulse Pulse Pulse Resp BP BP 05/03/19 12:41 36.0 C L 05/03/19 12:36 48 L 16 121/78 05/03/19 12:35 49 L 18 05/03/19 12:31 51 L 12 117/90 05/03/19 12:30 49 L 15 05/03/19 12:26 49 L 14 120/86 05/03/19 12:25 49 L 18 05/03/19 12:21 49 L 18 133/87 05/03/19 12:20 50 L 14 05/03/19 12:16 51 L 14 135/88 05/03/19 12:15 51 L 14 05/03/19 12:11 52 L 15 136/87 05/03/19 12:10 52 L 14 05/03/19 12:06 51 L 14 141/86 H 05/03/19 12:05 52 L 15 05/03/19 12:01 53 L 13 137/85 05/03/19 12:00 52 L 15 05/03/19 11:56 53 L 16 140/86 05/03/19 11:55 53 L 14 05/03/19 11:51 53 L 14 137/88 05/03/19 11:50 52 L 15 05/03/19 11:47 36.2 C L 52 L 51 L 17 141/82 H 141/82 H 05/03/19 07:55 36.6 C 51 L 16 133/90 Pulse Ox 05/03/19 12:41 96 05/03/19 12:36 98 05/03/19 12:35 98 05/03/19 12:31 94 05/03/19 12:30 95 05/03/19 12:26 97 05/03/19 12:25 99 05/03/19 12:21 100 05/03/19 12:20 100 05/03/19 12:16 100 05/03/19 12:15 99 05/03/19 12:11 97 05/03/19 12:10 99 05/03/19 12:06 100 05/03/19 12:05 100 05/03/19 12:01 100 05/03/19 12:00 99 05/03/19 11:56 99 05/03/19 11:55 100 05/03/19 11:51 100 05/03/19 11:50 100 05/03/19 11:47 100 05/03/19 07:55 99 Pain Intensity Abdomen: Pain Intensity: 4 Transfer of Care Handoff Completed per policy Notes Mental Status: alert / awake / arousable Patient Amnestic to Procedure: Yes Nausea / Vomiting: adequately controlled Pain: adequately controlled Airway Patency, RR, SpO2: stable & adequate BP & HR: stable & adequate Hydration State: stable & adequate Anesthetic Complications: no major complications apparent
[2019-05-03] MEDS ORDERED: HYDROmorphone INJ 1 MG/ML SYRINGE IV PRN (13:13)
[2019-05-03] MEDS ORDERED: ALBUTEROL HFA 8 GM INHALER INH PRN (13:13)
[2019-05-03] MEDS: LACTATED RINGER'S 1,000 ML IV SCH ×3 (13:25→23:55)
--- NOTE | 2019-05-03 14:44 | Hospitalist Consultation ---
Date of Consultation May 03, 2019 Assessment & Plan (1) Sigmoid volvulus: - S/p sigmoid resection today; primary care per surgery. - Pain control per primary team. - DVT ppx with Lovenox 40 mg subQ q24hr. - NPO except meds; continue LR at 125 cc/hr. - PCU to telemetry; complications as noted below. (2) Hypothermia: - Hypothermic following procedure -- now improved with sandrine hugger. - Baseline temp is low per records from previous admission. - Will continue to monitor with temporal thermometer -- anesthesia is aware of hypothermia. (3) Bradycardia: - HR has been low on monitor -- 40-50's. Baseline HR around 60-70's. - Will decrease home Metoprolol to 50 mg daily starting on 05/04/19. (4) PAF (paroxysmal atrial fibrillation): - Decrease home Metoprolol to 50 mg daily. - Holding home Xarelto; Lovenox subQ daily for DVT ppx. (5) Hyperthyroidism: - Diagnosed in January 2019. - TSH was elevated in March 2019 -- d/c'ed Methimazole TID. - Discussed case with transformation architect during last admission. - Most recent TSH was improving on 04/25/19. (6) Pneumothorax: - Spontaneous, required left sided chest tube during previous admission. - Will monitor. (7) Elevated liver enzymes: - Noted during last admission; Hepatitis panel were all negative. - RUQ US was concerning for early cirrhosis. - LFTs are pending during this admission. (8) Lung cancer: - NSCLC of CROW s/p lobectomy in 2017. - S/p multiple cycles of Carboplatin/Paclitaxel/Avastin/Atezeolizumab in 2018. - Not currently receiving chemotherapy; follows with Dr. Huber Ortiz. - Continue Prednisone 10 mg daily; consider stress dose steroids. - Holding home Marinol. (9) Hypertension: - Continue home beta skylar at lower dose. - Holding home ARB (non-formulary) (10) COPD (chronic obstructive pulmonary disease): - Continue Albuterol inhaler prn. - No evidence of acute exacerbation. (11) GERD (gastroesophageal reflux disease): - PPI daily. (12) Depression: - Continue Remeron as prescribed. (13) DVT prophylaxis: - SCDs; Lovenox q24hr. Dispo: Will continue to follow, please call with any questions. Supervising Physician Co-Signing Physician Notes Attending Attestation and consult note- Pt seen/examined, chart reviewed, care plan d/w NICOLE Zamora. I agree w/ the amos components of her consult documentation. 69yo male - well known to me from his prior hospital stay in which he had a left-sided pneumothorax requiring chest tube placement along with sigmoid volvulus s/p rectal tube - presented today for elective sigmoid resection by Dr Hughes. Immediate post-op course complicated by hypothermia s/p bear hugger w/ resolution of hypothermia. I saw him on the telemetry unit and by the time of my visit he was resting very comfortably. Only complaint was that of mild abdominal discomfort. Denied dyspnea, chest pain, nausea. Exam - gen - NAD skin - tanned complexion mouth - MMM heart - low, s1, s2, no murmur lungs - CTA b/l abd - minimal distension, BS+, minimal tenderness, dressing intact to lower abdominal wall ext - no edema; pulses 2+b/l A/P: 1. recent h/o sigmoid volvulus - now s/p elective sigmoid resection. 2. hypothermia - resolved. 3. lung cancer. 4. COPD. 5. h/o PAF. if any further bradycardia, hypothermia, hypoglycemia, low BPs - check cortisol to r/o adrenal insufficiency. #1 -- defer care to Dr Hughes medical team will cont to follow Woody Pascal MD History of Present Illness Reason for Consultation: Medical Management Attending Physician: Mateo Hughes, History of Present Illness Mr. De La Garza is a 69 year old male with past medical history of AAA, A. fib, Lung cancer, COPD, GERD, HLD, HTN, Thyroiditis who presented for a planned sigmoid resection due to recent sigmoid volvulus. Pt. was admitted 03/20-04/01 for sigmoid volvulus; he also had a pneumothorax requiring chest tube placement during this admission. He developed hypothermia post op this afternoon -- sandrine hugger was applied. Temporal temp is 36.6; cannot register accurate oral temp. He complained of abd pain following procedure; received Dilaudid IV with improvement. Has nausea and dizziness following Dilaudid IV dose, will monitor. HR is low on monitor, 40-50's. Pt. has been bradycardic in the past during last admission. Allergies Allergy/AdvReac Type Severity Reaction Status Date / Time No Known Allergies Allergy Unverified 05/03/19 07:48 Home Medications Home Medications Medication Instructions Recorded Confirmed Type albuterol sulfate [Ventolin HFA] 2 puff INHALATION QID PRN 08/08/18 05/03/19 History hydrocortisone [Proctosol HC] 1 applic PA BID PRN 08/08/18 05/03/19 History montelukast [Singulair] 10 mg PO PM 08/08/18 04/16/19 History Xarelto 20 mg PO QDD 03/19/19 04/16/19 History cholestyramine (with sugar) 1 - 2 tbsp PO DAILY 03/19/19 05/03/19 History ipratropium bromide 2 spray INTRANASAL UD PRN 03/19/19 04/16/19 History loratadine 10 mg PO DAILY PRN 03/19/19 04/16/19 History ondansetron HCl 8 mg PO Q6H PRN 03/19/19 05/03/19 History pantoprazole 40 mg PO QAM 03/19/19 04/16/19 History irbesartan 150 mg tablet 150 mg PO QAM #90 tab 04/23/19 Rx potassium chloride ER 20 mEq 20 meq PO TID #270 tab 04/23/19 Rx tablet,extended release(part/cryst) metoprolol succinate ER 100 mg 100 mg PO DAILY #90 tab 04/26/19 Rx tablet,extended release 24 hr albuterol sulfate HFA 90 2 puffs INHALATION Q4H PRN #1 gm 05/05/19 05/05/19 History mcg/actuation aerosol inhaler dicyclomine 20 mg tablet 20 mg PO .COMPLEX tab 05/05/19 05/05/19 History dronabinol 2.5 mg capsule 2.5 mg PO BID cap 05/05/19 05/05/19 History mirtazapine 15 mg tablet 15 mg PO HS PRN 05/05/19 05/05/19 History prednisone 10 mg tablet 10 mg PO DAILY 05/05/19 05/05/19 History tadalafil 5 mg tablet 5 mg PO .COMPLEX tab 05/05/19 05/05/19 History umeclidinium 62.5 mcg/actuation 1 puffs INH DAILY 05/05/19 05/05/19 History blister powder for inhalation Patient History Medical History History of dehydration 2 WEEKS AGO IN PT FOR ([facility]) History of pneumothorax Abdominal aortic aneurysm (AAA) LAST CHECK 1 YR AGO, MONITORS YEARLY Atrial fibrillation DX 2007 / NO CARDIOVERSION Cancer current lung cancer, hx chemo and radiation -tx stopped at present time Chronic obstructive pulmonary disease Colon distention Elevated LFTs GERD (gastroesophageal reflux disease) Hyperlipidemia Hypertension Increased intraocular pressure in past/R EYE (no current problem with) Thoracic aortic aneurysm Thyroiditis Dx with hyperthyroidism 01/2019 and palced on methimazole. TSH normal in February. TSH was high in March. Methimazole was stopped. Surgical History History of colonoscopy "PARTIAL" History of bronchoscopy History of cardiac cath for ablation History of cardiac radiofrequency ablation 2008 History of cholecystectomy History of colonoscopy History of lobectomy of lung upper left 2017 History of tonsillectomy History of tooth extraction Family History Brother Family history of diabetes mellitus Family hx of colon cancer Social History Preferred Language: Thai Communication Ability: Effective Event Lighting Specialist Required: No Beliefs That Will Affect Care: None marital status: Current Living Situation: Spouse Other Information That Helps Us Care for You: No Feels Safe at Home: Yes Smoking Status: Former smoker Tobacco Type: cigarettes Cigarettes Per Day: QUIT 10 YEARS AGO Do You Dip or Chew Tobacco: No Smoking End Date: quit 10 yrs ago Second Hand Exposure: No Hx Alcohol Use: No Hx Substance Use: No Review of Systems Review of Systems: All systems reviewed & are unremarkable except as noted in HPI & below Constitutional: + fatigue and + weakness; no fever, no chills and no anorexia Respiratory: no cough, no dyspnea and no dyspnea on exertion Cardiovascular: no chest pain, no palpitations and no edema Gastrointestinal: + abdominal pain and + nausea; no vomiting, no constipation and no diarrhea/loose stools Genitourinary: no difficulty urinating Musculoskeletal: no back pain and no joint pain Integumentary: no non-healing lesions Allergy / Immunological: no rash Physical Exam Physical Exam: General: Resting comfortably in no apparent distress HEENT: NC/AT; PERRLA with EOMI; Sedan conjunctiva, MMM. Neck: Supple and nontender Cardiac: Bradycardia, irregular. Lungs: on 2L via NC; CTA bilaterally; No rhonchi, wheezing, or rales Abdomen: Bowel normoactive X 4; Nontender to palpation Extremities: Warm. No edema present Neuro: No focal weakness Skin: No rash Results & Data Vital Signs (Past 12 Hours) Vital Signs Temp Pulse Pulse Pulse Resp BP BP 05/03/19 13:31 34.7 C L 45 L 18 131/85 05/03/19 13:13 35 C L 49 L 16 113/81 05/03/19 12:41 36.0 C L 05/03/19 12:36 48 L 16 121/78 05/03/19 12:35 49 L 18 05/03/19 12:31 51 L 12 117/90 05/03/19 12:30 49 L 15 05/03/19 12:26 49 L 14 120/86 05/03/19 12:25 49 L 18 05/03/19 12:21 49 L 18 133/87 05/03/19 12:20 50 L 14 05/03/19 12:16 51 L 14 135/88 05/03/19 12:15 51 L 14 05/03/19 12:11 52 L 15 136/87 05/03/19 12:10 52 L 14 05/03/19 12:06 51 L 14 141/86 H 05/03/19 12:05 52 L 15 05/03/19 12:01 53 L 13 137/85 05/03/19 12:00 52 L 15 05/03/19 11:56 53 L 16 140/86 05/03/19 11:55 53 L 14 05/03/19 11:51 53 L 14 137/88 05/03/19 11:50 52 L 15 05/03/19 11:47 36.2 C L 52 L 51 L 17 141/82 H 141/82 H 05/03/19 07:55 36.6 C 51 L 16 133/90 Pulse Ox 05/03/19 13:31 98 05/03/19 13:13 98 05/03/19 12:41 96 05/03/19 12:36 98 05/03/19 12:35 98 05/03/19 12:31 94 05/03/19 12:30 95 05/03/19 12:26 97 05/03/19 12:25 99 05/03/19 12:21 100 05/03/19 12:20 100 05/03/19 12:16 100 05/03/19 12:15 99 05/03/19 12:11 97 05/03/19 12:10 99 05/03/19 12:06 100 05/03/19 12:05 100 05/03/19 12:01 100 05/03/19 12:00 99 05/03/19 11:56 99 05/03/19 11:55 100 05/03/19 11:51 100 05/03/19 11:50 100 05/03/19 11:47 100 05/03/19 07:55 99 PG Care Time/CCT Total # of Minutes Spent Total Time Spent with Patient: Total time spent is greater than 50% in coordination of care (as documented) at patient's floor/unit and/or counseling patient: (1) Pneumothorax Pneumothorax type: spontaneous, primary Qualified Code(s): J93.11 - Primary spontaneous pneumothorax (2) Lung cancer Laterality: left Lung location: upper lobe of lung Qualified Code(s): C34.12 - Malignant neoplasm of upper lobe, left bronchus or lung (3) Hypertension Hypertension type: essential hypertension Qualified Code(s): I10 - Essential (primary) hypertension
[2019-05-03] MEDS ORDERED: HEPARIN 100 UNIT/ML 5ML FLUSH ONE (15:44)
[2019-05-03 16:31] LABS: Hemoglobin 12.3 g/dL (14.0-18.0); Mean Corpuscular Hgb Conc 34.2 g/dL (32-36); Mean Platelet Volume 8.9 fL (7.4-10.4); Platelet Count 159 K/uL (130-400); White Blood Count 14.27 K/uL (4.8-10.8)
[2019-05-03 16:47] LABS: Calcium 9.1 mg/dl (8.5-10.1); Est GFR (African American) 85.5; Est GFR (Non-African American) 73.8; Magnesium 1.6 mg/dl (1.8-2.4); Potassium 3.9 mmol/L (3.5-5.1)
[2019-05-03 16:50] LABS: Bilirubin,Total 0.5 mg/dl (0.2-1); Globulin 3.1 gm/dl (2.5-4.0); Total Protein 6.1 gm/dl (6.4-8.2)
[2019-05-03] MEDS: CEFAZOLIN 2000MG 2,000 MG/15 ML SYR IV SCH ×2 (17:14→23:55)
[2019-05-03] MEDS: MAGNESIUM SULFATE / D5W 1 GM/100 ML BAG IV SCH ×2 (19:51→20:47)
[2019-05-03] MEDS: MONTELUKAST SODIUM 10 MG TABLET PO SCH (19:53)
[2019-05-03] MEDS: MIRTAZAPINE TAB 15 MG TAB PO SCH (19:53)
[2019-05-04] MEDS: ACETAMINOPHEN 1,000 MG/100 ML VIAL IV PRN (00:58)
[2019-05-04] MEDS: HYDROmorphone INJ 0.5 MG/0.5 ML SYR IV PRN ×4 (03:22→19:32)
[2019-05-04 05:43] LABS: Hematocrit (blood only) 34.1 % (42-52); Hemoglobin 11.4 g/dL (14.0-18.0); Mean Corpuscular Hgb Conc 33.4 g/dL (32-36); Platelet Count 146 K/uL (130-400); RDW Coefficient of Variation 18.9 % (11.5-14.5); RDW Standard Deviation 62.3 fL (36.4-46.3); Red Blood Count 3.79 M/uL (4.7-6.1); White Blood Count 13.99 K/uL (4.8-10.8)
[2019-05-04 05:50] LABS: Prothrombin Time 10.7 Seconds (9.0-12.0)
[2019-05-04 06:11] LABS: BUN Creatinine Ratio 13.7 (10-20); Calcium 8.7 mg/dl (8.5-10.1); Creatinine Clr Calc Pharmacy 75.8 ml/min; Est GFR (African American) 87.6; Est GFR (Non-African American) 75.5; Potassium 4.1 mmol/L (3.5-5.1)
[2019-05-04] MEDS: LACTATED RINGER'S 1,000 ML IV SCH ×2 (07:27→16:45)
[2019-05-04] MEDS: CEFAZOLIN 2000MG 2,000 MG/15 ML SYR IV SCH (07:29)
--- NOTE | 2019-05-04 08:04 | Surgery Progress Note ---
Date of Service May 04, 2019 Assessment & Plan (1) Sigmoid volvulus: POD 1 lap sigmoid colectomy can have clears d/c karen ambulate Lovenox to start this morning as above. doing well increase activity. d/c karen has been on steroids for awhile, will continue low dose prednisone. continue to hold xarelto for now Subjective didn't sleep, no nausea, pain managed Physical Exam Gastrointestinal (Abdomen): Inspection/Auscultation: + abdominal surgical incision (dry) and + abdominal surgical drain present (20 cc, serosang); abdomen not distended Percussion/Palpation: abdomen soft Results & Data Vital Signs (Past 12 Hours) Vital Signs Temp Pulse Pulse Pulse Resp BP Pulse Ox 05/04/19 07:10 36.8 C 53 L 18 139/85 99 05/04/19 03:08 36.7 C 53 L 15 139/80 99 05/04/19 00:28 55 L 05/03/19 23:00 36.8 C 53 L 18 125/78 99
[2019-05-04] MEDS: PANTOprazole 40 MG TAB PO SCH (08:47)
[2019-05-04] MEDS: predniSONE 10 MG TABLET PO SCH (08:47)
[2019-05-04] MEDS: ENOXAPARIN INJ 40 MG/0.4 ML SYR SQ SCH (08:48)
[2019-05-04] MEDS ORDERED: METOPROLOL SUCC 50MG EXT REL TAB PO SCH ×2 (09:00)
[2019-05-04] MEDS ORDERED: predniSONE 5 MG TAB PO SCH (09:00)
--- NOTE | 2019-05-04 10:38 | Anesthesiology Progress Note ---
Date of Service May 04, 2019 Anesthesia Post Procedure Vital Signs Vital Signs: Temp Pulse Pulse Pulse Resp BP BP 05/04/19 08:00 49 L 05/04/19 07:10 36.8 C 53 L 18 05/04/19 03:08 36.7 C 53 L 15 05/04/19 00:28 55 L 05/03/19 23:00 36.8 C 53 L 18 05/03/19 19:27 36.6 C 60 20 110/72 05/03/19 16:00 36.7 C 59 L 17 108/70 05/03/19 15:43 36.6 C 74 17 117/75 05/03/19 15:00 46 L 05/03/19 14:30 36.6 C 49 L 16 122/80 05/03/19 14:00 46 L 16 133/85 05/03/19 13:31 34.7 C L 45 L 18 131/85 05/03/19 13:13 35 C L 49 L 16 113/81 05/03/19 12:41 36.0 C L 05/03/19 12:36 48 L 16 121/78 05/03/19 12:35 49 L 18 05/03/19 12:31 51 L 12 117/90 05/03/19 12:30 49 L 15 05/03/19 12:26 49 L 14 120/86 05/03/19 12:25 49 L 18 05/03/19 12:21 49 L 18 133/87 05/03/19 12:20 50 L 14 05/03/19 12:16 51 L 14 135/88 05/03/19 12:15 51 L 14 05/03/19 12:11 52 L 15 136/87 05/03/19 12:10 52 L 14 05/03/19 12:06 51 L 14 141/86 H 05/03/19 12:05 52 L 15 05/03/19 12:01 53 L 13 137/85 05/03/19 12:00 52 L 15 05/03/19 11:56 53 L 16 140/86 05/03/19 11:55 53 L 14 05/03/19 11:51 53 L 14 137/88 05/03/19 11:50 52 L 15 05/03/19 11:47 36.2 C L 52 L 51 L 17 141/82 H 141/82 H BP Pulse Ox 05/04/19 08:00 05/04/19 07:10 139/85 99 05/04/19 03:08 139/80 99 05/04/19 00:28 05/03/19 23:00 125/78 99 05/03/19 19:27 97 05/03/19 16:00 98 05/03/19 15:43 98 05/03/19 15:00 05/03/19 14:30 99 05/03/19 14:00 100 05/03/19 13:31 98 05/03/19 13:13 98 05/03/19 12:41 96 05/03/19 12:36 98 05/03/19 12:35 98 05/03/19 12:31 94 05/03/19 12:30 95 05/03/19 12:26 97 05/03/19 12:25 99 05/03/19 12:21 100 05/03/19 12:20 100 05/03/19 12:16 100 05/03/19 12:15 99 05/03/19 12:11 97 05/03/19 12:10 99 05/03/19 12:06 100 05/03/19 12:05 100 05/03/19 12:01 100 05/03/19 12:00 99 05/03/19 11:56 99 05/03/19 11:55 100 05/03/19 11:51 100 05/03/19 11:50 100 05/03/19 11:47 100 Pain Intensity Abdomen: Pain Intensity: 1 Notes Mental Status: alert / awake / arousable and participated in evaluation Patient Amnestic to Procedure: Yes Nausea / Vomiting: adequately controlled Pain: adequately controlled Airway Patency, RR, SpO2: stable & adequate BP & HR: stable & adequate Hydration State: stable & adequate Anesthetic Complications: no major complications apparent
--- NOTE | 2019-05-04 10:58 | Hospitalist Progress Note ---
Date of Service May 04, 2019 Assessment & Plan (1) Sigmoid volvulus: - S/p sigmoid resection on 05/03, POD#1. - Pain control per primary team. - DVT ppx: Lovenox 40 mg subQ q24hr. - CLD as tolerated; LR at 100 cc/hr. (2) Hypothermia: - Hypothermic following procedure, resolved with sandrine hugger. - Baseline temp is low per records from previous admission. (3) Bradycardia: - HR has been low, 40-50's. Baseline HR around 60-70's. - Decreased home Metoprolol to 50 mg daily, continue to monitor. (4) PAF (paroxysmal atrial fibrillation): - Decreased home Metoprolol to 50 mg daily. - Holding home Xarelto, can restart per surgery; Lovenox subQ daily for DVT ppx. (5) Hyperthyroidism: - Diagnosed in January 2019. - TSH was elevated in March 2019 -- d/c'ed Methimazole TID. - Discussed case with audit partner during last admission. - Most recent TSH was improving, repeat level in 3-4 weeks. (6) Pneumothorax: - Spontaneous, required left sided chest tube during previous admission. (7) Elevated liver enzymes: - Noted during last admission; Hepatitis panel were all negative. - RUQ US was concerning for early cirrhosis. - LFTs are WNL during this admission. (8) Lung cancer: - NSCLC of CROW s/p lobectomy in 2017. - S/p multiple cycles of Carboplatin/Paclitaxel/Avastin/Atezeolizumab in 2018. - Not currently receiving chemotherapy; follows with Dr. Huber Ortiz. - Continue Prednisone 10 mg daily; no indication for stress dose steroids. - Holding home Marinol. (9) Hypertension: - Continue home beta skylar at lower dose. - Holding home ARB (non-formulary) - BP has been well controlled. (10) COPD (chronic obstructive pulmonary disease): - Continue Albuterol inhaler prn. - No evidence of acute exacerbation. (11) GERD (gastroesophageal reflux disease): - PPI daily. (12) Depression: - Continue Remeron as prescribed. (13) DVT prophylaxis: - SCDs; Lovenox q24hr. Dispo: Will continue to follow, please call with any questions. Supervising Physician Co-Signing Physician Notes Attending Attestation and consult note- Chart reviewed, care plan d/w NICOLE Zamora. I agree w/ the amos components of her documentation. POD #1 s/p sigmoid resection. No further episodes of hypothermia. Agree w/ lowering the dose of beta skylar in light of HRs. Patient DID receive IV decadron perioperatively yesterday and remains on chronic prednisone dose of 10mg/day. Low threshold for stress dose steroids if any clinical decompensation, hypothermia, low BP, etc. Defer management of sigmoid resection to Dr Hughes. Labs remain acceptable today. Woody Pascal MD Subjective Pt. is doing well overall. Does have abd pain -- received Dilaudid IV. He develops dizziness/mild nausea after receiving pain medication. Hypothermia now resolved. HR remains bradycardic on monitor. Review of Systems Review of Systems: All systems reviewed & are unremarkable except as noted in HPI & below Constitutional: no fever, no chills, no fatigue, no weakness and no anorexia Respiratory: no cough, no dyspnea, no dyspnea on exertion and no wheezing Cardiovascular: + lightheadedness; no chest pain, no palpitations and no edema Gastrointestinal: + nausea; no abdominal pain, no vomiting, no constipation and no diarrhea/loose stools Genitourinary: no difficulty urinating Musculoskeletal: no back pain and no joint pain Integumentary: no non-healing lesions Allergy / Immunological: no rash Physical Exam Physical Exam: General: Resting comfortably HEENT: NC/AT; PERRLA with EOMI; [place] conjunctiva, MMM. Neck: Supple and nontender Cardiac: Bradycardia, irregular. Lungs: on room air; CTA bilaterally Abdomen: Bowel normoactive X 4; Nontender to palpation Extremities: Warm. No edema present Neuro: No focal weakness Skin: No rash Results & Data Vital Signs (Past 12 Hours) Vital Signs Temp Pulse Pulse Pulse Resp BP Pulse Ox 05/04/19 08:00 49 L 05/04/19 07:10 36.8 C 53 L 18 139/85 99 05/04/19 03:08 36.7 C 53 L 15 139/80 99 05/04/19 00:28 55 L 05/03/19 23:00 36.8 C 53 L 18 125/78 99 Laboratory Results 05/04/19 05/04/19 05/04/19 Range/Units 08:51 05:21 05:21 WBC (4.8-10.8) K/uL RBC (4.7-6.1) M/uL Hgb (14.0-18.0) g/dL Hct (42-52) % MCV (80-100) fL MCH (25-34) pg MCHC (32-36) g/dL RDW Std Deviation (36.4-46.3) fL RDW Coeff of Adams (11.5-14.5) % Plt Count (130-400) K/uL MPV (7.4-10.4) fL PT 10.7 (9.0-12.0) Seconds INR 1.0 (0.9-1.1) Sodium 140 (136-145) mmol/L Potassium 4.1 (3.5-5.1) mmol/L Chloride 108 H (98-107) mmol/L Carbon Dioxide 25 (21-32) mmol/L Anion Gap 8.0 (3-11) BUN 14 (7-18) mg/dl Creatinine 1.01 (0.6-1.4) mg/dl Est Cr Clr Drug Dosing 75.8 ml/min Est GFR ( Amer) 87.6 Est GFR (Non-Af Amer) 75.5 BUN/Creatinine Ratio 13.7 (10-20) Glucose 102 H (70-99) mg/dl POC Glucose 96 (70-99) Calcium 8.7 (8.5-10.1) mg/dl Magnesium (1.8-2.4) mg/dl Total Bilirubin (0.2-1) mg/dl AST (15-37) U/L ALT (12-78) U/L Alkaline Phosphatase (45-117) U/L Total Protein (6.4-8.2) gm/dl Albumin (3.4-5.0) gm/dl Globulin (2.5-4.0) gm/dl Albumin/Globulin Ratio (0.9-2) 05/04/19 05/03/19 05/03/19 Range/Units 05:21 16:25 16:25 WBC 13.99 H 14.27 H (4.8-10.8) K/uL RBC 3.79 L 4.00 L (4.7-6.1) M/uL Hgb 11.4 L 12.3 L (14.0-18.0) g/dL Hct 34.1 L 36.0 L (42-52) % MCV 90.0 90.0 (80-100) fL MCH 30.1 30.8 (25-34) pg MCHC 33.4 34.2 (32-36) g/dL RDW Std Deviation 62.3 H 63.0 H (36.4-46.3) fL RDW Coeff of Adams 18.9 H 19.0 H (11.5-14.5) % Plt Count 146 159 (130-400) K/uL MPV 9.0 8.9 (7.4-10.4) fL PT (9.0-12.0) Seconds INR (0.9-1.1) Sodium 141 (136-145) mmol/L Potassium 3.9 (3.5-5.1) mmol/L Chloride 110 H (98-107) mmol/L Carbon Dioxide 24 (21-32) mmol/L Anion Gap 7.0 (3-11) BUN 12 (7-18) mg/dl Creatinine 1.03 (0.6-1.4) mg/dl Est Cr Clr Drug Dosing 74.0 ml/min Est GFR ( Amer) 85.5 Est GFR (Non-Af Amer) 73.8 BUN/Creatinine Ratio 12.0 (10-20) Glucose 156 H (70-99) mg/dl POC Glucose (70-99) Calcium 9.1 (8.5-10.1) mg/dl Magnesium 1.6 L (1.8-2.4) mg/dl Total Bilirubin 0.5 (0.2-1) mg/dl AST 17 (15-37) U/L ALT 36 (12-78) U/L Alkaline Phosphatase 112 (45-117) U/L Total Protein 6.1 L (6.4-8.2) gm/dl Albumin 3.0 L (3.4-5.0) gm/dl Globulin 3.1 (2.5-4.0) gm/dl Albumin/Globulin Ratio 1.0 (0.9-2) PG Care Time/CCT Total # of Minutes Spent Total Time Spent with Patient: Total time spent is greater than 50% in coordination of care (as documented) at patient's floor/unit and/or counseling patient: (1) Pneumothorax Pneumothorax type: spontaneous, primary Qualified Code(s): J93.11 - Primary spontaneous pneumothorax (2) Lung cancer Laterality: left Lung location: upper lobe of lung Qualified Code(s): C34.12 - Malignant neoplasm of upper lobe, left bronchus or lung (3) Hypertension Hypertension type: essential hypertension Qualified Code(s): I10 - Essential (primary) hypertension
[2019-05-04] MEDS: MONTELUKAST SODIUM 10 MG TABLET PO SCH (20:58)
[2019-05-04] MEDS: MIRTAZAPINE TAB 15 MG TAB PO SCH (20:58)
[2019-05-05] MEDS: HYDROmorphone INJ 0.5 MG/0.5 ML SYR IV PRN ×2 (00:57→07:30)
[2019-05-05] MEDS: LACTATED RINGER'S 1,000 ML IV SCH (02:15)
[2019-05-05] MEDS: ONDANSETRON INJ 2 MG/ML 2 ML VIAL IV PRN ×2 (06:16→11:23)
[2019-05-05 06:29] LABS: Hematocrit (blood only) 36.2 % (42-52); Mean Corpuscular Hgb Conc 33.1 g/dL (32-36); Mean Corpuscular Volume 90.3 fL (80-100); Mean Platelet Volume 8.9 fL (7.4-10.4); Platelet Count 142 K/uL (130-400); RDW Coefficient of Variation 18.7 % (11.5-14.5); RDW Standard Deviation 62.6 fL (36.4-46.3); Red Blood Count 4.01 M/uL (4.7-6.1); White Blood Count 9.96 K/uL (4.8-10.8)
[2019-05-05 07:08] LABS: BUN Creatinine Ratio 12.4 (10-20); Calcium 8.8 mg/dl (8.5-10.1); Creatinine Clr Calc Pharmacy 104.8 ml/min; Est GFR (African American) 109.7; Est GFR (Non-African American) 94.6; Magnesium 1.5 mg/dl (1.8-2.4); Potassium 2.7 mmol/L (3.5-5.1)
[2019-05-05] MEDS: METOPROLOL SUCC 50MG EXT REL TAB PO SCH (08:27)
[2019-05-05] MEDS: PANTOprazole 40 MG TAB PO SCH (08:28)
[2019-05-05] MEDS: ENOXAPARIN INJ 40 MG/0.4 ML SYR SQ SCH (08:28)
[2019-05-05] MEDS: predniSONE 10 MG TABLET PO SCH (08:28)
[2019-05-05] MEDS ORDERED: POTASSIUM CHLORIDE 20 MEQ TABCR PO ONE ×2 (08:30→18:15)
[2019-05-05] MEDS: MAGNESIUM SULFATE / D5W 1 GM/100 ML BAG IV SCH ×2 (08:37→09:37)
[2019-05-05] MEDS: POTASSIUM CHLORIDE / WTR 20 MEQ/100 ML PLCT IV SCH ×4 (08:38→20:40)
--- NOTE | 2019-05-05 09:53 | Surgery Progress Note ---
Date of Service May 05, 2019 Assessment & Plan (1) Sigmoid volvulus: POD 2/doing well d/w medicine, ok to transfer to med/surg will advance to full liquids increase activity can switch to Oral analgesics Subjective pt having some lower abdominal discomfort/cramping but better than yesterday +multiple loose BM's no n/v jared clears Physical Exam Physical Exam: alert. nad abd: soft. incisions look good. CHRIS serous Results & Data Vital Signs (Past 12 Hours) Vital Signs Temp Pulse Pulse Resp BP BP Pulse Ox 05/05/19 07:42 37.5 C 96 H 18 135/89 96 05/05/19 04:00 36.8 C 84 18 156/95 H 96 05/04/19 23:57 62 171/98 H 05/04/19 23:16 37.2 C 82 18 180/96 H 184/106 H 94
--- NOTE | 2019-05-05 12:31 | Hospitalist Progress Note ---
Date of Service May 05, 2019 Assessment & Plan (1) Sigmoid volvulus: - S/p sigmoid resection on 05/03, POD#2. - Pain control; d/c Dilaudid IV, start Oxycodone PO prn. - DVT ppx: Lovenox 40 mg subQ q24hr. - Advance to FLD as tolerated; d/c IV fluids. (2) Hypothermia: - Hypothermic following procedure, now resolved. (3) Bradycardia: - Bradycardic following procedure, now improved. Will downgrade to med/surg with telemetry. - Increased home Metoprolol back to 100 mg daily. (4) PAF (paroxysmal atrial fibrillation): - Sinus rhythm on monitor. - Increase Metoprolol back to 100 mg daily as bradycardia improved. - Holding home Xarelto per surgery; Lovenox subQ daily for DVT ppx. (5) Hyperthyroidism: - Diagnosed in January 2019. - TSH was elevated in March 2019 -- d/c'ed Methimazole TID. - Discussed case with refuge manager during last admission. - Most recent TSH was improving, repeat level in 3-4 weeks. (6) Pneumothorax: - Spontaneous, required left sided chest tube during previous admission. (7) Elevated liver enzymes: - Noted during last admission; Hepatitis panel were all negative. - RUQ US was concerning for early cirrhosis. - LFTs are WNL during this admission. (8) Lung cancer: - NSCLC of CROW s/p lobectomy in 2017. - S/p multiple cycles of Carboplatin/Paclitaxel/Avastin/Atezeolizumab in 2018. - Not currently receiving chemotherapy; follows with Dr. Huber Ortiz. - Continue Prednisone 10 mg daily. - Holding home Marinol. (9) Hypertension: - Continue home beta syklar, will increase back to home dose of 100 mg d aily. - Holding home ARB (non-formulary) - consider starting Losartan as inpt. - BP has been elevated - may be related to decreased dose of BB vs. holding home ARB. Will monitor. (10) COPD (chronic obstructive pulmonary disease): - Continue Albuterol inhaler prn. - No evidence of acute exacerbation. (11) GERD (gastroesophageal reflux disease): - PPI daily. (12) Depression: - Continue Remeron as prescribed. (13) Electrolyte abnormality: - K level 2.7, Mag level 1.5 in setting of limited PO intake. - Ordered KCl 40 mEq IV and KCl 20 mEq PO and Mag sulfate 2 gm IV. - Repeat BMP this afternoon. (14) DVT prophylaxis: - SCDs; Lovenox q24hr. Dispo: Will continue to follow, please call with any questions. Supervising Physician Co-Signing Physician Notes Attending Attestation and consult note- Chart reviewed, care plan d/w NICOLE Zamora. I agree w/ the amos components of her documentation. POD #2 s/p sigmoid resection for h/o recent sigmoid volvulus. Low k and low mag on AM labs - replace both. Repeat levels tomorrow am. Vitals acceptable. Continue daily prednisone dose of 10mg. Other chronic medical issues stable. Woody Pascal MD Subjective Pt. is doing well overall. Abd pain well controlled with current pain meds. He does develop nausea and dizziness after receiving Dilaudid IV dose. Is having diarrhea. Urinating frequently. Will downgrade to med/surg with tele this morning. Review of Systems 2 Review of Systems: All systems reviewed & are unremarkable except as noted in HPI & below Constitutional: no fever, no chills, no fatigue, no weakness and no anorexia Respiratory: no cough, no dyspnea, no dyspnea on exertion and no wheezing Cardiovascular: + lightheadedness; no chest pain, no palpitations and no edema Gastrointestinal: + abdominal pain, + nausea and + diarrhea/loose stools; no vomiting and no constipation Genitourinary: no difficulty urinating Musculoskeletal: no back pain and no joint pain Integumentary: no non-healing lesions Neurologic: + dizziness Physical Exam Physical Exam: General: Resting comfortably HEENT: NC/AT; PERRLA with EOMI; [place] conjunctiva, MMM. Neck: Supple and nontender Cardiac: REgular rate and rhythm Lungs: on room air; crackles in bilat lung bases Abdomen: Bowel normoactive X 4; Nontender to palpation Extremities: Warm. No edema present Neuro: No focal weakness Skin: No rash Results & Data Vital Signs (Past 12 Hours) Vital Signs Temp Pulse Pulse Pulse Resp BP Pulse Ox 05/05/19 11:16 92 H 05/05/19 11:14 36.8 C 93 H 20 119/85 97 05/05/19 07:42 37.5 C 96 H 18 135/89 96 06/22/19 04:00 36.8 C 84 18 156/95 H 96 Laboratory Results 05/05/19 05/05/19 Range/Units 06:12 06:12 WBC 9.96 (4.8-10.8) K/uL RBC 4.01 L (4.7-6.1) M/uL Hgb 12.0 L (14.0-18.0) g/dL Hct 36.2 L (42-52) % MCV 90.3 (80-100) fL MCH 29.9 (25-34) pg MCHC 33.1 (32-36) g/dL RDW Std Deviation 62.6 H (36.4-46.3) fL RDW Coeff of Adams 18.7 H (11.5-14.5) % Plt Count 142 (130-400) K/uL MPV 8.9 (7.4-10.4) fL Sodium 140 (136-145) mmol/L Potassium 2.7 L D (3.5-5.1) mmol/L Chloride 105 (98-107) mmol/L Carbon Dioxide 29 (21-32) mmol/L Anion Gap 6.0 (3-11) BUN 9 D (7-18) mg/dl Creatinine 0.73 (0.6-1.4) mg/dl Est Cr Clr Drug Dosing 104.8 ml/min Est GFR ( Amer) 109.7 Est GFR (Non-Af Amer) 94.6 BUN/Creatinine Ratio 12.4 (10-20) Glucose 81 (70-99) mg/dl Calcium 8.8 (8.5-10.1) mg/dl Magnesium 1.5 L (1.8-2.4) mg/dl PG Care Time/CCT Total # of Minutes Spent Total Time Spent with Patient: Total time spent is greater than 50% in coordination of care (as documented) at patient's floor/unit and/or counseling patient: (1) Pneumothorax Pneumothorax type: spontaneous, primary Qualified Code(s): J93.11 - Primary spontaneous pneumothorax (2) Lung cancer Laterality: left Lung location: upper lobe of lung Qualified Code(s): C34.12 - Malignant neoplasm of upper lobe, left bronchus or lung (3) Hypertension Hypertension type: essential hypertension Qualified Code(s): I10 - Essential (primary) hypertension
[2019-05-05] MEDS: OXYCODONE HCL IR 5 MG TAB (IMMEDIATE RELEASE) PO PRN ×2 (13:11→20:40)
[2019-05-05] MEDS: HEPARIN 100 UNIT/ML 5ML FLUSH FLUSH PRN (13:12)
[2019-05-05 15:49] LABS: BUN Creatinine Ratio 11.3 (10-20); Calcium 8.8 mg/dl (8.5-10.1); Creatinine Clr Calc Pharmacy 109.3 ml/min; Est GFR (African American) 111.6; Est GFR (Non-African American) 96.3; Potassium 3.2 mmol/L (3.5-5.1)
[2019-05-05] MEDS: MONTELUKAST SODIUM 10 MG TABLET PO SCH (20:41)
[2019-05-05] MEDS: MIRTAZAPINE TAB 15 MG TAB PO SCH ×2 (20:42→20:46)
[2019-05-06] MEDS: OXYCODONE HCL IR 5 MG TAB (IMMEDIATE RELEASE) PO PRN ×4 (02:43→21:28)
[2019-05-06] MEDS: HEPARIN 100 UNIT/ML 5ML FLUSH FLUSH PRN ×2 (05:51→08:14)
[2019-05-06 06:26] LABS: Hematocrit (blood only) 33.7 % (42-52); Hemoglobin 11.3 g/dL (14.0-18.0); Mean Corpuscular Hgb Conc 33.5 g/dL (32-36); Mean Corpuscular Volume 91.8 fL (80-100); Mean Platelet Volume 9.5 fL (7.4-10.4); Platelet Count 141 K/uL (130-400); RDW Coefficient of Variation 18.6 % (11.5-14.5); Red Blood Count 3.67 M/uL (4.7-6.1); White Blood Count 10.73 K/uL (4.8-10.8)
[2019-05-06 06:58] LABS: Calcium 8.8 mg/dl (8.5-10.1); Creatinine Clr Calc Pharmacy 109.3 ml/min; Est GFR (African American) 111.6; Est GFR (Non-African American) 96.3; Magnesium 1.9 mg/dl (1.8-2.4); Potassium 3.4 mmol/L (3.5-5.1)
[2019-05-06] MEDS: METOPROLOL SUCC 50MG EXT REL TAB PO SCH (08:09)
[2019-05-06] MEDS: ENOXAPARIN INJ 40 MG/0.4 ML SYR SQ SCH (08:09)
[2019-05-06] MEDS: predniSONE 10 MG TABLET PO SCH (08:09)
[2019-05-06] MEDS: PANTOprazole 40 MG TAB PO SCH (08:09)
[2019-05-06] MEDS ORDERED: POTASSIUM CHLORIDE 20 MEQ TABCR PO ONE (08:30)
[2019-05-06] MEDS: DRONABINOL 2.5 MG CAP PO SCH ×2 (09:26→21:28)
--- NOTE | 2019-05-06 10:32 | Surgery Progress Note ---
Date of Service May 06, 2019 Assessment & Plan (1) Sigmoid volvulus: pod 3 doing well from surgery will advance diet restart bentyl ok to restart xarelto increase activity d/c planning. Subjective doing ok. jared full liquids. +loose bm's. having some "gas/bloating". no n/v. Physical Exam Physical Exam: alert. nad abd: soft. nt. incisions look good. mild distension. Results & Data Vital Signs (Past 12 Hours) Vital Signs Temp Pulse Pulse Pulse Resp BP Pulse Ox 05/06/19 07:38 68 05/06/19 07:29 36.8 C 60 18 136/87 96 05/06/19 04:00 37.1 C 60 18 152/97 H 95 05/06/19 01:21 63 05/05/19 23:00 37.1 C 62 18 142/86 H 95
--- NOTE | 2019-05-06 11:25 | Hospitalist Progress Note ---
Date of Service May 06, 2019 Assessment & Plan (1) Sigmoid volvulus: - S/p sigmoid resection on 05/03, POD#3 - Pain control: Oxycodone 5 mg q6hr prn. - DVT ppx: resume home Xarelto. - Advance to low fiber diet. (2) Hypothermia: - Hypothermic following procedure, now resolved. (3) Bradycardia: - Bradycardic following procedure, now resolved. - Increased home Metoprolol back to 100 mg daily. (4) PAF (paroxysmal atrial fibrillation): - Sinus rhythm on monitor. - Increased Metoprolol back to 100 mg daily. - Resume home Xarelto per surgery. (5) Hyperthyroidism: - Diagnosed in January 2019. - TSH was elevated in March 2019 -- d/c'ed Methimazole TID. - Discussed case with washing machine loader and puller during last admission. - Most recent TSH was improving, repeat level as outpatient. (6) Pneumothorax: - Spontaneous, required left sided chest tube during previous admission. (7) Elevated liver enzymes: - Noted during last admission; Hepatitis panel were all negative. - RUQ US was concerning for early cirrhosis. - LFTs WNL during this admission. (8) Lung cancer: - NSCLC of CROW s/p lobectomy in 2017. - S/p multiple cycles of Carboplatin/Paclitaxel/Avastin/Atezeolizumab in 2018. - Not currently receiving chemotherapy; follows with Dr. Huber Ortiz. - Continue Prednisone 10 mg daily. - Resume home Marinol 2.5 mg BID. (9) Hypertension: - Continue home beta skylar. - Holding home ARB (non-formulary) (10) COPD (chronic obstructive pulmonary disease): - Continue Albuterol inhaler prn. - No evidence of acute exacerbation. (11) GERD (gastroesophageal reflux disease): - PPI daily. (12) Depression: - Continue Remeron as prescribed. (13) Electrolyte abnormality: - K level 3.4- ordered KCl 40 mEq PO. - Replace electrolytes daily. (14) DVT prophylaxis: - SCDs; will resume home Xarelto per surgery. Dispo: Will sign off, please call with any questions or concerns. Subjective Pt is doing well. Abd pain is well controlled with Oxycodone 5 mg -- he does not develop nausea/dizziness after dose. He complains of feeling bloated, ongoing diarrhea -- discussed with Dr. Hughes, this is a chronic issue for him. Denies N/V, chest pain, SOB. Discharge possibly on 05/07/19 per surgery. Review of Systems Review of Systems: All systems reviewed & are unremarkable except as noted in HPI & below Constitutional: no fever, no chills, no fatigue, no weakness and no anorexia Respiratory: no cough, no dyspnea, no dyspnea on exertion and no wheezing Cardiovascular: no chest pain, no palpitations and no edema Gastrointestinal: + abdominal pain, + bloating and + diarrhea/loose stools; no nausea, no vomiting and no constipation Genitourinary: no difficulty urinating Musculoskeletal: no back pain and no joint pain Integumentary: no non-healing lesions Physical Exam Physical Exam: General: Resting comfortably HEENT: NC/AT; PERRLA with EOMI; [place] conjunctiva, MMM. Neck: Supple and nontender Cardiac: Regular rate and rhythm Lungs: on room air; CTA Abdomen: Slightly distended; BS normoactive x4; nontender to palp. Extremities: Warm. No edema present Neuro: No focal weakness Skin: No rash Results & Data Vital Signs (Past 12 Hours) Vital Signs Temp Pulse Pulse Pulse Resp BP Pulse Ox 05/06/19 11:23 36.5 C 77 18 132/93 97 05/06/19 07:38 68 05/06/19 07:29 36.8 C 60 18 136/87 96 05/06/19 04:00 37.1 C 60 18 152/97 H 95 05/06/19 01:21 63 Laboratory Results 05/06/19 05/06/19 05/05/19 Range/Units 05:51 05:51 15:14 WBC 10.73 (4.8-10.8) K/uL RBC 3.67 L (4.7-6.1) M/uL Hgb 11.3 L (14.0-18.0) g/dL Hct 33.7 L (42-52) % MCV 91.8 (80-100) fL MCH 30.8 (25-34) pg MCHC 33.5 (32-36) g/dL RDW Std Deviation 63.0 H (36.4-46.3) fL RDW Coeff of Adams 18.6 H (11.5-14.5) % Plt Count 141 (130-400) K/uL MPV 9.5 (7.4-10.4) fL Sodium 139 139 (136-145) mmol/L Potassium 3.4 L 3.2 L D (3.5-5.1) mmol/L Chloride 105 104 (98-107) mmol/L Carbon Dioxide 30 30 (21-32) mmol/L Anion Gap 5.0 5.0 (3-11) BUN 8 8 (7-18) mg/dl Creatinine 0.70 0.70 (0.6-1.4) mg/dl Est Cr Clr Drug Dosing 109.3 109.3 ml/min Est GFR ( Amer) 111.6 111.6 Est GFR (Non-Af Amer) 96.3 96.3 BUN/Creatinine Ratio 11.0 11.3 (10-20) Glucose 80 89 (70-99) mg/dl Calcium 8.8 8.8 (8.5-10.1) mg/dl Magnesium 1.9 (1.8-2.4) mg/dl PG Care Time/CCT Total # of Minutes Spent Total Time Spent with Patient: Total time spent is greater than 50% in coordin ation of care (as documented) at patient's floor/unit and/or counseling patient: (1) Pneumothorax Pneumothorax type: spontaneous, primary Qualified Code(s): J93.11 - Primary spontaneous pneumothorax (2) Lung cancer Laterality: left Lung location: upper lobe of lung Qualified Code(s): C34.12 - Malignant neoplasm of upper lobe, left bronchus or lung (3) Hypertension Hypertension type: essential hypertension Qualified Code(s): I10 - Essential (primary) hypertension
[2019-05-06] MEDS: DICYCLOMINE HCL 20 MG TAB PO SCH ×2 (14:07→21:28)
[2019-05-06] MEDS: MIRTAZAPINE TAB 15 MG TAB PO SCH (21:28)
[2019-05-06] MEDS: MONTELUKAST SODIUM 10 MG TABLET PO SCH (21:29)
[2019-05-07] MEDS: ACETAMINOPHEN 1,000 MG/100 ML VIAL IV PRN (00:26)
[2019-05-07] MEDS: OXYCODONE HCL IR 5 MG TAB (IMMEDIATE RELEASE) PO PRN ×4 (03:19→21:22)
[2019-05-07 06:07] LABS: Hematocrit (blood only) 34.8 % (42-52); Hemoglobin 11.5 g/dL (14.0-18.0); Mean Corpuscular Volume 89.9 fL (80-100); Mean Platelet Volume 9.3 fL (7.4-10.4); Platelet Count 153 K/uL (130-400); RDW Coefficient of Variation 17.8 % (11.5-14.5); RDW Standard Deviation 58.6 fL (36.4-46.3); Red Blood Count 3.87 M/uL (4.7-6.1); White Blood Count 11.04 K/uL (4.8-10.8)
[2019-05-07] MEDS: DICYCLOMINE HCL 20 MG TAB PO SCH (06:22)
[2019-05-07 06:40] LABS: Calcium 9.2 mg/dl (8.5-10.1); Creatinine Clr Calc Pharmacy 107.8 ml/min; Est GFR (Non-African American) 95.7; Magnesium 1.6 mg/dl (1.8-2.4); Potassium 2.8 mmol/L (3.5-5.1)
[2019-05-07] MEDS: DRONABINOL 2.5 MG CAP PO SCH ×2 (08:43→21:21)
[2019-05-07] MEDS: PANTOprazole 40 MG TAB PO SCH (08:44)
[2019-05-07] MEDS: METOPROLOL SUCC 50MG EXT REL TAB PO SCH (08:44)
[2019-05-07] MEDS: RIVAROXABAN 20 MG TAB PO SCH ×3 (08:44→18:34)
[2019-05-07] MEDS: predniSONE 10 MG TABLET PO SCH (08:44)
[2019-05-07] MEDS: MAGNESIUM SULFATE / D5W 1 GM/100 ML BAG IV SCH ×2 (08:51→10:07)
[2019-05-07] MEDS ORDERED: Nursing to Pharmacy Communication ONE (08:59)
[2019-05-07] MEDS: POTASSIUM CHLORIDE / WTR 10 MEQ/100 ML PLCT IV SCH ×4 (10:08→13:21)
--- NOTE | 2019-05-07 10:45 | Surgery Progress Note ---
Date of Service May 07, 2019 Assessment & Plan (1) Sigmoid volvulus: pod 4 lap sigmoid replace mag/K+ not quite ready for d/c. possibly tomorrrow. will d/c bentyl as he thinks this might have made him feel worse. Subjective pt doing ok this am but had a bout of severe abdominal discomfort last night that sounded like bowel spasms. no emesis. no pain currently. Physical Exam Physical Exam: alert. nad abd: soft. +distended. nt. wounds look good. CHRIS serous. Results & Data Vital Signs (Past 12 Hours) Vital Signs Temp Pulse Pulse Pulse Resp BP BP 05/07/19 07:10 37.5 C 79 18 131/87 05/07/19 04:00 37.4 C 78 18 123/86 05/07/19 00:00 36.9 C 58 L 63 18 159/93 H Pulse Ox 05/07/19 07:10 94 05/07/19 04:00 94 05/07/19 00:00 95
[2019-05-07] MEDS: MIRTAZAPINE TAB 15 MG TAB PO SCH (21:22)
[2019-05-07] MEDS: MONTELUKAST SODIUM 10 MG TABLET PO SCH (21:22)
[2019-05-07] MEDS: HEPARIN 100 UNIT/ML 5ML FLUSH FLUSH PRN (21:25)
[2019-05-08] MEDS: OXYCODONE HCL IR 5 MG TAB (IMMEDIATE RELEASE) PO PRN (03:20)
[2019-05-08] MEDS: HEPARIN 100 UNIT/ML 5ML FLUSH FLUSH PRN ×2 (05:53→21:50)
[2019-05-08] MEDS: ACETAMINOPHEN 1,000 MG/100 ML VIAL IV PRN (06:06)
[2019-05-08 06:07] LABS: Basophils # (auto) 0.01 K/uL (0-0.2); Basophils % (auto) 0.1 %; Eosinophils # (auto) 0.14 K/uL (0-0.5); Eosinophils % (auto) 1.4 %; Hematocrit (blood only) 32.2 % (42-52); Hemoglobin 10.9 g/dL (14.0-18.0); Immature Granulocytes # (auto) 0.04 K/uL (0.00-0.02); Immature Granulocytes % (auto) 0.4 %; Lymphocytes # (auto) 0.68 K/uL (1.2-3.4); Lymphocytes % (auto) 6.9 %; Mean Corpuscular Hgb Conc 33.9 g/dL (32-36); Mean Corpuscular Volume 89.9 fL (80-100); Mean Platelet Volume 8.9 fL (7.4-10.4); Monocytes # (auto) 0.95 K/uL (0.11-0.59); Monocytes % (auto) 9.6 %; Neutrophils # (auto) 8.06 K/uL (1.4-6.5); Neutrophils % (auto) 81.6 %; Platelet Count 159 K/uL (130-400); RDW Coefficient of Variation 17.2 % (11.5-14.5); RDW Standard Deviation 57.2 fL (36.4-46.3); Red Blood Count 3.58 M/uL (4.7-6.1); White Blood Count 9.88 K/uL (4.8-10.8)
[2019-05-08 06:37] LABS: Albumin Level 2.5 gm/dl (3.4-5.0); Calcium 8.7 mg/dl (8.5-10.1); Creatinine Clr Calc Pharmacy 117.7 ml/min; Est GFR (African American) 115.1; Est GFR (Non-African American) 99.3; Potassium 2.6 mmol/L (3.5-5.1)
[2019-05-08 06:39] LABS: Albumin Globulin Ratio 0.8 (0.9-2); Globulin 3.3 gm/dl (2.5-4.0); Total Protein 5.8 gm/dl (6.4-8.2)
[2019-05-08] MEDS: predniSONE 10 MG TABLET PO SCH (08:25)
[2019-05-08] MEDS: PANTOprazole 40 MG TAB PO SCH (08:25)
[2019-05-08] MEDS: METOPROLOL SUCC 50MG EXT REL TAB PO SCH (08:25)
[2019-05-08] MEDS: DRONABINOL 2.5 MG CAP PO SCH ×2 (08:25→21:47)
[2019-05-08] MEDS ORDERED: POTASSIUM CHLORIDE 20 MEQ TABCR PO STA (09:01)
--- NOTE | 2019-05-08 09:03 | Surgery Progress Note ---
Date of Service May 08, 2019 Assessment & Plan (1) Sigmoid volvulus: pod 5 lap sigmoid replace K+ d/c Ofirmev, will change to Percocet q4h recheck this afternoon as above. d/c CHRIS pt concerned about going home bc of pain last night. plan d/c tomorrow AM instructions given Subjective left sided abdominal pain last night, had to wait for scheduled oxycodone , bowels moving, tolerating diet Physical Exam Gastrointestinal (Abdomen): Inspection/Auscultation: + abdomen distended (slightly) and + abdominal surgical drain present (minimal, serous) Results & Data Vital Signs (Past 12 Hours) Vital Signs Temp Pulse Pulse Pulse Resp BP Pulse Ox 05/08/19 07:10 37.0 C 74 18 126/84 96 05/08/19 04:00 37.1 C 65 20 137/78 95 05/08/19 00:00 72 05/07/19 22:56 37.0 C 74 21 130/82 97
[2019-05-08] MEDS: OXYCODONE/ACETAMINOPHEN 5mg/325mg TAB PO PRN ×3 (09:46→21:48)
[2019-05-08] MEDS: POTASSIUM CHLORIDE 20 MEQ TABCR PO SCH ×2 (14:00→17:52)
[2019-05-08] MEDS: RIVAROXABAN 20 MG TAB PO SCH (17:52)
[2019-05-08] MEDS: MIRTAZAPINE TAB 15 MG TAB PO SCH (21:47)
[2019-05-08] MEDS: MONTELUKAST SODIUM 10 MG TABLET PO SCH (21:48)
[2019-05-09] MEDS: OXYCODONE/ACETAMINOPHEN 5mg/325mg TAB PO PRN ×2 (04:29→12:36)
[2019-05-09] MEDS: PANTOprazole 40 MG TAB PO SCH (07:52)
[2019-05-09] MEDS: POTASSIUM CHLORIDE 20 MEQ TABCR PO SCH ×3 (07:52→18:43)
[2019-05-09] MEDS: DRONABINOL 2.5 MG CAP PO SCH ×2 (07:52→20:52)
[2019-05-09] MEDS: predniSONE 10 MG TABLET PO SCH (07:52)
[2019-05-09] MEDS: METOPROLOL SUCC 50MG EXT REL TAB PO SCH (07:53)
--- NOTE | 2019-05-09 10:42 | Surgery Progress Note ---
Date of Service May 09, 2019 Assessment & Plan (1) Sigmoid volvulus: pod 6 lap sigmoid recheck K+ home this afternoon pt seen. doing well but anxious about going home. had some nausea after pain pill this am. will re-eval after lunch for possible d/c Subjective bowels moving, sleepy after taking 2 percocet Physical Exam Gastrointestinal (Abdomen): Inspection/Auscultation: + abdomen distended (mild) and + abdominal surgical incision (clean, dry) Percussion/Palpation: abdomen soft Results & Data Vital Signs (Past 12 Hours) Vital Signs Temp Pulse Pulse Resp BP BP Pulse Ox 05/09/19 08:03 36.5 C 76 20 122/79 98 05/09/19 04:30 37 C 72 16 145/95 H 95 05/09/19 01:27 53 L 05/08/19 22:48 36.6 C 61 18 120/83 99
[2019-05-09] MEDS: ONDANSETRON INJ 2 MG/ML 2 ML VIAL IV PRN ×2 (12:36→20:48)
[2019-05-09] MEDS: HEPARIN 100 UNIT/ML 5ML FLUSH FLUSH PRN (12:36)
--- NOTE | 2019-05-09 14:45 | Surgery Progress Note ---
Date of Service May 09, 2019 Assessment & Plan (1) Sigmoid volvulus: continue prn zofran, will switch po analgesics keep here today Subjective bloated, nauseated Results & Data Vital Signs (Past 12 Hours) Vital Signs Temp Pulse Pulse Resp BP Pulse Ox 05/09/19 10:38 36.8 C 63 18 127/85 98 05/09/19 08:03 36.5 C 76 20 122/79 98 05/09/19 04:30 37 C 72 16 145/95 H 95
[2019-05-09] MEDS: TRAMADOL HCL 50 MG TABLET PO PRN ×2 (16:13→20:47)
[2019-05-09] MEDS: RIVAROXABAN 20 MG TAB PO SCH (18:43)
[2019-05-09] MEDS: MIRTAZAPINE TAB 15 MG TAB PO SCH (20:47)
[2019-05-09] MEDS: MONTELUKAST SODIUM 10 MG TABLET PO SCH (20:47)
[2019-05-10] MEDS: TRAMADOL HCL 50 MG TABLET PO PRN (00:17)
[2019-05-10] MEDS: HEPARIN 100 UNIT/ML 5ML FLUSH FLUSH PRN ×4 (05:41→16:57)
[2019-05-10] MEDS: ONDANSETRON INJ 2 MG/ML 2 ML VIAL IV PRN ×2 (05:52→16:57)
[2019-05-10 06:04] LABS: Hematocrit (blood only) 36.6 % (42-52); Hemoglobin 12.8 g/dL (14.0-18.0); Mean Corpuscular Volume 90.1 fL (80-100); Platelet Count 286 K/uL (130-400); RDW Coefficient of Variation 16.9 % (11.5-14.5); RDW Standard Deviation 56.2 fL (36.4-46.3); Red Blood Count 4.06 M/uL (4.7-6.1); White Blood Count 12.47 K/uL (4.8-10.8)
[2019-05-10 06:18] LABS: Basophils # (auto) 0.01 K/uL (0-0.2); Basophils % (auto) 0.1 %; Eosinophils # (auto) 0.08 K/uL (0-0.5); Eosinophils % (auto) 0.6 %; Immature Granulocytes # (auto) 0.08 K/uL (0.00-0.02); Immature Granulocytes % (auto) 0.6 %; Lymphocytes # (auto) 0.91 K/uL (1.2-3.4); Lymphocytes % (auto) 7.3 %; Monocytes # (auto) 1.61 K/uL (0.11-0.59); Monocytes % (auto) 12.9 %; Neutrophils # (auto) 9.78 K/uL (1.4-6.5); Neutrophils % (auto) 78.5 %; RBC Morphology Unremarkable
[2019-05-10 06:39] LABS: Albumin Level 2.5 gm/dl (3.4-5.0); BUN Creatinine Ratio 20.2 (10-20); Calcium 9.4 mg/dl (8.5-10.1); Creatinine Clr Calc Pharmacy 103.3 ml/min; Est GFR (African American) 109.1; Est GFR (Non-African American) 94.1; Magnesium 1.8 mg/dl (1.8-2.4); Potassium 3.5 mmol/L (3.5-5.1)
[2019-05-10 06:42] LABS: Albumin Globulin Ratio 0.7 (0.9-2); Bilirubin,Total 0.7 mg/dl (0.2-1); Globulin 3.4 gm/dl (2.5-4.0); Total Protein 5.9 gm/dl (6.4-8.2)
[2019-05-10] MEDS: POTASSIUM CHLORIDE 20 MEQ TABCR PO SCH ×3 (09:13→20:41)
[2019-05-10] MEDS: METOPROLOL SUCC 50MG EXT REL TAB PO SCH (09:14)
[2019-05-10] MEDS: PANTOprazole 40 MG TAB PO SCH (09:14)
[2019-05-10] MEDS: predniSONE 10 MG TABLET PO SCH (09:14)
--- NOTE | 2019-05-10 09:21 | Surgery Progress Note ---
Date of Service May 10, 2019 Assessment & Plan (1) Sigmoid volvulus: oral yeast likely source of nausea. will start IV diflucan since he is so nauseated slight leukocytosis however on steroids and is not having a fever hopefully if we can get his nausea under control we can d/c tomorrow/sat Subjective pt not feeling well. c/o nausea/didn't eat much. bowels still moving. Physical Exam Physical Exam: alert. nad denies pain currently +florid oral leukoplakia c/w candidiasis abd: soft. mild distension. wounds look good. Results & Data Vital Signs (Past 12 Hours) Vital Signs Temp Pulse Pulse Resp BP BP Pulse Ox 05/10/19 08:22 75 05/10/19 07:13 36.8 C 63 16 143/98 H 97 05/10/19 04:18 36.7 C 79 18 140/98 96 05/10/19 01:51 69 05/09/19 23:38 36.8 C 72 18 141/99 H 96
[2019-05-10] MEDS: DRONABINOL 2.5 MG CAP PO SCH ×2 (09:26→20:47)
[2019-05-10] MEDS ORDERED: FLUCONAZOLE 200 MG/100 ML BAG IV ONE (09:45)
[2019-05-10] MEDS: OXYCODONE/ACETAMINOPHEN 5mg/325mg TAB PO PRN (20:39)
[2019-05-10] MEDS: MIRTAZAPINE TAB 15 MG TAB PO SCH (20:40)
[2019-05-10] MEDS: MONTELUKAST SODIUM 10 MG TABLET PO SCH (20:40)
[2019-05-10] MEDS: RIVAROXABAN 20 MG TAB PO SCH (20:41)
[2019-05-11] MEDS: OXYCODONE/ACETAMINOPHEN 5mg/325mg TAB PO PRN (05:38)
[2019-05-11] MEDS: ONDANSETRON INJ 2 MG/ML 2 ML VIAL IV PRN (07:56)
[2019-05-11] MEDS: DRONABINOL 2.5 MG CAP PO SCH ×2 (07:56→20:34)
[2019-05-11] MEDS: FLUCONAZOLE 100 MG/50 ML BAG IV SCH (07:56)
[2019-05-11] MEDS: PANTOprazole 40 MG TAB PO SCH (07:57)
[2019-05-11] MEDS: POTASSIUM CHLORIDE 20 MEQ TABCR PO SCH ×4 (07:57→16:42)
[2019-05-11] MEDS: METOPROLOL SUCC 50MG EXT REL TAB PO SCH (07:57)
[2019-05-11] MEDS: predniSONE 10 MG TABLET PO SCH (07:57)
[2019-05-11] MEDS ORDERED: PROMETHAZINE HCL 25 MG in SODIUM CHLORIDE 0.9% 50 ML IV PRN (08:53)
--- NOTE | 2019-05-11 09:01 | Surgery Progress Note ---
Date of Service May 11, 2019 Assessment & Plan (1) Sigmoid volvulus: ? etiology. could still be his yeast infection. just received his second dose of diflucan will check KUB back diet down to liquids add phenergan, levbid ( he doesn't want bentyl), and simethicone recheck labs restart IVF Dr. Angela covering for weekend. Subjective pt seen. continues to c/o of nausea/no appetite and distension/gas pain. continues to have BM's daily. no fever. Physical Exam Physical Exam: alert. nad +oral candidiasis but improved from yesterday abd: distended ( baseline). soft. wounds look good. no peritoneal signs. Results & Data Vital Signs (Past 12 Hours) Vital Signs Temp Pulse Pulse Pulse Resp BP Pulse Ox 05/11/19 07:00 36.9 C 71 18 149/97 H 96 05/11/19 03:57 37.0 C 70 18 143/94 H 97 05/10/19 23:40 66 05/10/19 23:02 37.1 C 69 19 154/99 H 97
[2019-05-11] MEDS: LACTATED RINGER'S 1,000 ML IV SCH ×2 (09:23→17:53)
--- NOTE | 2019-05-11 10:36 | XRay Report ---
XR KUB/Abdomen 1 view CLINICAL HISTORY: 69 years-old Male presenting with nausea and vomiting post op, abdominal distention . TECHNIQUE: Single supine view of the abdomen was obtained. COMPARISON: 03/29/2019. FINDINGS: Diffuse gaseous distention of small and large bowel. Marked distention of the colon with an apparent diameter of over 13 cm though this is likely affected by magnification. Cholecystectomy clips. No singh ss pneumatosis or pneumoperitoneum allowing for supine technique. Allowing for bowel gas, no calcifications to suggest nephrolithiasis. Degenerative changes of the spine. Lung bases clear. IMPRESSION: 1. Marked distention of large and small bowel most consistent with ileus. Electronically signed by: Wes Tolbert M.D. 05/11/2019 10:35 AM
[2019-05-11] MEDS: HYOSCYAMINE SULFATE 0.375 MG TABCR PO SCH ×2 (10:50→20:34)
[2019-05-11] MEDS: SIMETHICONE 80 MG CHEW PO PRN (10:50)
[2019-05-11] MEDS ORDERED: HYDROmorphone INJ 1 MG/ML SYRINGE IV PRN (12:14)
--- NOTE | 2019-05-11 14:08 | Hospitalist Progress Note ---
Date of Service May 11, 2019 Assessment & Plan (1) Sigmoid volvulus: - S/p sigmoid resection on 05/03, POD#8 - Pain control: Oxycodone 5 mg q6hr prn says that his pain is well controlled - DVT ppx: was on Xarelto, hold further doses while NPO now NPO for post op ileus, supportive care (2) Hypothermia: - Hypothermic following procedure, now resolved. (3) Bradycardia: - Bradycardic following procedure, now resolved. - Increased home Metoprolol back to 100 mg daily. (4) PAF (paroxysmal atrial fibrillation): - Sinus rhythm on monitor. - holding Toprol 100mg daily while NPO will give Lopressor 5mg IV q6 scheduled with hold parameters hold further doses of Xarelto, received dose last night if no surgery planned tomorrow then would give full dose Lovenox but will ask surgery first (5) Hyperthyroidism: - Diagnosed in January 2019. - TSH was elevated in March 2019 -- d/c'ed Methimazole TID. - Discussed case with assembler deck and hull during last admission. - Most recent TSH was improving, repeat level as outpatient. (6) Pneumothorax: - Spontaneous, required left sided chest tube during previous admission. breathing well, lungs clear (7) Elevated liver enzymes: - Noted during last admission; Hepatitis panel were all negative. - RUQ US was concerning for early cirrhosis. - LFTs WNL during this admission. (8) Lung cancer: - NSCLC of CROW s/p lobectomy in 2017. - S/p multiple cycles of Carboplatin/Paclitaxel/Avastin/Atezeolizumab in 2018. - Not currently receiving chemotherapy; follows with Dr. Huber Ortiz. - Continue Prednisone 10 mg daily. - Resume home Marinol 2.5 mg BID. (9) Hypertension: BP stable on Toprol change to Lopressor 5mg IV q6 (10) COPD (chronic obstructive pulmonary disease): - Continue Albuterol inhaler prn. - No evidence of acute exacerbation. (11) GERD (gastroesophageal reflux disease): - PPI daily. (12) Depression: - Continue Remeron as prescribed. (13) Electrolyte abnormality: most recent levels okay will repeat in the morning (14) DVT prophylaxis: - SCDs; will resume home Xarelto per surgery. Dispo: Will sign off, please call with any questions or concerns. Subjective patient was last seen on 05/07 by our group, signed off because medical issues were stable has continued to be treated for sigmoid volvulus, no concerns for ileus he has been having diarrhea but also with nausea and vomiting this morning abdomen is quite distended and KUB showed dilated loops of bowel asked to see the patient by surgery because they will make him strict NPO and need recommendations for medications patient says he is breathing easy, no chest pain or pressure no fever or chills all his symptoms are abdominal reviewed tele monitor, in sinus rhythm in the 60's d/w RN, he got his Xarelto last night, he took his Toprol this morning but then vomited so unlikely got it discussed plan with criminalist of Systems Review of Systems: All systems reviewed & are unremarkable except as noted in HPI & below Constitutional: no fever, no chills, no sweats, no fatigue and no weakness Respiratory: no cough and no dyspnea Cardiovascular: no chest pain and no edema Gastrointestinal: + abdominal pain, + bloating, + nausea, + vomiting and + diarrhea/loose stools; no constipation Physical Exam Constitutional: WD/WN, vitals as above Eyes: PERRL, conjunctivae normal, anicteric sclerae ENMT: external ear and nose normal, oropharynx normal Neck: trachea midline, no thyromegaly Respiratory: normal respiratory effort, lungs clear to auscultation Cardiovascular: RRR, no murmur, no edema Gastrointestinal (Abdomen): Inspection/Auscultation: + abdomen distended and + hypoactive bowel sounds Percussion/Palpation: abdomen soft; abdomen nontender Musculoskeletal: no cyanosis or clubbing, extremities motor strength 5/5 Skin: no rashes, warm and dry Neurologic: patellar DTR's 2+ bilat, sensation intact and PERRL, EOMI, accommodation nl, no face palsy, no dysarthria Psychiatric: A+Ox3, euthymic affect Lymphatic: no cervical or axillary lymphadenopathy Results & Data Vital Signs (Past 12 Hours) Vital Signs Temp Pulse Pulse Resp BP Pulse Ox 05/11/19 11:40 37.0 C 64 20 131/94 96 05/11/19 08:00 69 05/11/19 07:00 36.9 C 71 18 149/97 H 96 05/11/19 03:57 37.0 C 70 18 143/94 H 97 Medications Administered Current Inpatient Medications Albuterol (Ventolin Hfa) 2 puffs INH QID PRN PRN Reason: Shortness Of Breath Stop: 06/02/19 13:12 Dronabinol (Marinol) 2.5 mg PO BID [facility] Stop: 06/05/19 08:59 Last Admin: 05/11/19 07:56 Dose: 2.5 mg Documented by: Heparin Sodium (Porcine) (Heparin Sod 100 Unit/Ml Flush) 5 ml FLUSH PRN PRN PRN Reason: Flush Stop: 06/04/19 00:14 Last Admin: 05/10/19 16:57 Dose: 5 ml Documented by: Hydromorphone HCl (Dilaudid) 1 mg IV Q2HWA PRN PRN Reason: Pain Stop: 05/25/19 12:13 Hyoscyamine (Levbid) 0.375 mg PO BID [facility] Stop: 06/10/19 08:59 Last Admin: 05/11/19 10:50 Dose: 0.375 mg Documented by: Fluconazole (Diflucan) 100 mg in 50 mls @ 100 mls/hr IV DAILY [facility]; Protocol Stop: 05/20/19 08:59 Last Infusion: 05/11/19 08:27 Dose: Infused Documented by: Lactated Ringer's (Lr) 1,000 mls @ 125 mls/hr IV .Q8H [facility] Stop: 06/10/19 08:59 Last Admin: 05/11/19 09:23 Dose: 125 mls/hr Documented by: Promethazine HCl 25 mg/ Sodium (Chloride) 51 mls @ 204 mls/hr IV Q6H PRN PRN Reason: Nausea And Vomiting Stop: 06/10/19 08:52 Last Infusion: 05/11/19 11:10 Dose: Infused Documented by: Metoprolol Succinate (Toprol Xl) 100 mg PO DAILY [facility] Stop: 06/04/19 08:59 Last Admin: 05/11/19 07:57 Dose: 100 mg Documented by: Metoprolol Tartrate (Lopressor) 5 mg IV Q6 [facility] Stop: 06/10/19 17:59 Mirtazapine (Remeron) 15 mg PO HS [facility] Stop: 06/02/19 20:59 Last Admin: 05/10/19 20:40 Dose: Not Given Documented by: Miscellaneous (Order Awaiting Action) 1 ea N/A QS [facility] Stop: 06/02/19 15:59 Last Admin: 05/11/19 07:40 Dose: Not Given Documented by: Montelukast Sodium (Singulair) 10 mg PO PM [facility] Stop: 06/02/19 20:59 Last Admin: 05/10/19 20:40 Dose: 10 mg Documented by: Ondansetron HCl (Zofran) 4 mg IV Q4H PRN PRN Reason: Nausea And Vomiting Stop: 06/02/19 13:12 Last Admin: 05/11/19 07:56 Dose: 4 mg Documented by: Oxycodone/Acetaminophen (Percocet 5mg/325mg) 1 tab PO Q4H PRN PRN Reason: Pain Stop: 05/23/19 10:40 Last Admin: 05/11/19 05:38 Dose: 1 tab Documented by: Pantoprazole Sodium (Protonix) 40 mg PO QAM [facility] Stop: 06/03/19 08:59 Last Admin: 05/11/19 07:57 Dose: 40 mg Documented by: Potassium Chloride (Klor-Con M20) 20 meq PO TIDM [facility] Stop: 06/07/19 11:59 Last Admin: 05/11/19 12:30 Dose: Not Given Documented by: Prednisone (Prednisone) 10 mg PO DAILY [facility] Stop: 06/03/19 08:59 Last Admin: 05/11/19 07:57 Dose: 10 mg Documented by: Rivaroxaban (Xarelto) 20 mg PO DAILY@1700 [facility] Stop: 06/06/19 16:59 Last Admin: 05/10/19 20:41 Dose: 20 mg Documented by: Simethicone (Mylicon) 80 mg PO Q8 PRN PRN Reason: Cramping Stop: 06/10/19 08:52 Last Admin: 05/11/19 10:50 Dose: 80 mg Documented by: Tramadol HCl (Ultram) 50 mg PO Q4H PRN PRN Reason: Pain Stop: 06/08/19 14:39 Last Admin: 05/10/19 00:17 Dose: 50 mg Documented by: PG Care Time/CCT Total # of Minutes Spent Total Time Spent with Patient: Total time spent is greater than 50% in coordination of care (as documented) at patient's floor/unit and/or counseling patient: (1) Pneumothorax Pneumothorax type: spontaneous, primary Qualified Code(s): J93.11 - Primary spontaneous pneumothorax (2) Lung cancer Laterality: left Lung location: upper lobe of lung Qualified Code(s): C34.12 - Malignant neoplasm of upper lobe, left bronchus or lung (3) Hypertension Hypertension type: essential hypertension Qualified Code(s): I10 - Essential (primary) hypertension
[2019-05-11] MEDS: METOPROLOL TARTRATE 1 MG/ML VIAL IV SCH ×2 (17:55→23:53)
[2019-05-11] MEDS: MIRTAZAPINE TAB 15 MG TAB PO SCH (20:34)
[2019-05-11] MEDS: MONTELUKAST SODIUM 10 MG TABLET PO SCH (20:34)
[2019-05-11] MEDS: ACETAMINOPHEN 65 ML IV PRN (20:58)
[2019-05-12] MEDS: LACTATED RINGER'S 1,000 ML IV SCH ×2 (02:08→09:01)
[2019-05-12] MEDS: METOPROLOL TARTRATE 1 MG/ML VIAL IV SCH ×3 (05:57→18:07)
[2019-05-12] MEDS: ACETAMINOPHEN 65 ML IV PRN ×2 (06:08→12:13)
[2019-05-12 06:41] LABS: Basophils # (auto) 0.01 K/uL (0-0.2); Basophils % (auto) 0.1 %; Eosinophils # (auto) 0.08 K/uL (0-0.5); Eosinophils % (auto) 0.9 %; Hematocrit (blood only) 35.2 % (42-52); Hemoglobin 11.7 g/dL (14.0-18.0); Immature Granulocytes # (auto) 0.08 K/uL (0.00-0.02); Immature Granulocytes % (auto) 0.9 %; Lymphocytes # (auto) 1.06 K/uL (1.2-3.4); Lymphocytes % (auto) 12.3 %; Mean Corpuscular Hgb Conc 33.2 g/dL (32-36); Mean Platelet Volume 8.8 fL (7.4-10.4); Monocytes # (auto) 1.38 K/uL (0.11-0.59); Neutrophils # (auto) 6.03 K/uL (1.4-6.5); Neutrophils % (auto) 69.8 %; Platelet Count 342 K/uL (130-400); RDW Coefficient of Variation 16.7 % (11.5-14.5); RDW Standard Deviation 55.9 fL (36.4-46.3); Red Blood Count 3.87 M/uL (4.7-6.1); White Blood Count 8.64 K/uL (4.8-10.8)
[2019-05-12 07:13] LABS: Albumin Level 2.7 gm/dl (3.4-5.0); Calcium 8.7 mg/dl (8.5-10.1); Creatinine Clr Calc Pharmacy 77.3 ml/min; Est GFR (African American) 89.7; Est GFR (Non-African American) 77.4; Magnesium 1.8 mg/dl (1.8-2.4); Potassium 3.4 mmol/L (3.5-5.1)
[2019-05-12 07:16] LABS: Albumin Globulin Ratio 0.8 (0.9-2); Bilirubin,Total 0.7 mg/dl (0.2-1); Globulin 3.3 gm/dl (2.5-4.0)
[2019-05-12] MEDS: POTASSIUM CHLORIDE / WTR 10 MEQ/100 ML PLCT IV SCH ×2 (08:18→09:01)
[2019-05-12] MEDS: predniSONE 10 MG TABLET PO SCH (08:42)
[2019-05-12] MEDS: DRONABINOL 2.5 MG CAP PO SCH ×2 (08:42→15:14)
[2019-05-12] MEDS: HYOSCYAMINE SULFATE 0.375 MG TABCR PO SCH ×2 (08:42→15:14)
[2019-05-12] MEDS: POTASSIUM CHLORIDE 20 MEQ TABCR PO SCH ×3 (08:42→15:14)
[2019-05-12] MEDS: PANTOprazole 40 MG TAB PO SCH (08:42)
[2019-05-12] MEDS: FLUCONAZOLE 100 MG/50 ML BAG IV SCH (09:01)
[2019-05-12] MEDS ORDERED: Heparin IV Low Dose *NO* Bolus IV ONE (09:35)
--- NOTE | 2019-05-12 09:45 | Hospitalist Progress Note ---
Date of Service May 12, 2019 Assessment & Plan (1) Sigmoid volvulus: - S/p sigmoid resection on 05/03, POD#9 - Pain control: Oxycodone 5 mg q6hr prn says that his pain is well controlled when he gets the medication - DVT ppx: was on Xarelto, hold further doses while NPO post operative ileus, management per surgery, he is NPO will continue IV fluids encouraged him to ambulate still with very hypoactive bowel sounds (2) Hypothermia: - Hypothermic following procedure, now resolved. (3) Bradycardia: - Bradycardic following procedure, now resolved. - can continue Lopressor (4) PAF (paroxysmal atrial fibrillation): - Sinus rhythm on monitor. - holding Toprol 100mg daily while NPO will give Lopressor 5mg IV q6 scheduled with hold parameters hold further doses of Xarelto, last dose was evening on 05/10 will start heparin drip, low dose no bolus today (5) Hyperthyroidism: - Diagnosed in January 2019. - TSH was elevated in March 2019 -- d/c'ed Methimazole TID. - Discussed case with chucking machine set up operator during last admission. - Most recent TSH was improving, repeat level as outpatient. (6) Pneumothorax: - Spontaneous, required left sided chest tube during previous admission. breathing well, lungs clear (7) Elevated liver enzymes: - Noted during last admission; Hepatitis panel were all negative. - RUQ US was concerning for early cirrhosis. - LFTs WNL during this admission. (8) Lung cancer: - NSCLC of CROW s/p lobectomy in 2017. - S/p multiple cycles of Carboplatin/Paclitaxel/Avastin/Atezeolizumab in 2018. - Not currently receiving chemotherapy; follows with Dr. Huber Ortiz. - Continue Prednisone 10 mg daily. - Resume home Marinol 2.5 mg BID. (9) Hypertension: BP stable on Toprol change to Lopressor 5mg IV q6, BP stable today (10) COPD (chronic obstructive pulmonary disease): - Continue Albuterol inhaler prn. - No evidence of acute exacerbation. (11) GERD (gastroesophageal reflux disease): - PPI daily. (12) Depression: - Continue Remeron as prescribed. (13) Electrolyte abnormality: hypokalemia today at 3.4 on LR, continue this will give extra 20mEq K rider repeat in the AM (14) DVT prophylaxis: - SCDs, heparin gtt Subjective patient feels about the same today, some abdominal pain, moderate had 3 loose stools since midnight, no vomiting, but he is NPO reviewed labs, K low at 3.4, will give 20mEq extra as K rider in addition to LR since he will remain NPO, will start heparin drip Review of Systems Review of Systems: All systems reviewed & are unremarkable except as noted in HPI & below Constitutional: no fever, no chills, no sweats, no fatigue and no weakness Respiratory: no cough and no dyspnea Cardiovascular: no chest pain and no edema Gastrointestinal: + abdominal pain, + bloating and + diarrhea/loose stools; no nausea, no vomiting and no constipation Physical Exam Constitutional: WD/WN, vitals as above Eyes: PERRL, conjunctivae normal, anicteric sclerae ENMT: external ear and nose normal, oropharynx normal Neck: trachea midline, no thyromegaly Respiratory: normal respiratory effort, lungs clear to auscultation Cardiovascular: RRR, no murmur, no edema Gastrointestinal (Abdomen): Inspection/Auscultation: + abdomen distended and + hypoactive bowel sounds Percussion/Palpation: abdomen soft; abdomen nontender Musculoskeletal: no cyanosis or clubbing, extremities motor strength 5/5 Skin: no rashes, warm and dry Neurologic: patellar DTR's 2+ bilat, sensation intact and PERRL, EOMI, accommodation nl, no face palsy, no dysarthria Psychiatric: A+Ox3, euthymic affect Lymphatic: no cervical or axillary lymphadenopathy Results & Data Vital Signs (Past 12 Hours) Vital Signs Temp Pulse Pulse Pulse Resp BP BP 05/12/19 07:33 36.6 C 58 L 20 128/82 05/12/19 05:57 70 137/88 05/12/19 04:40 36.8 C 67 18 137/88 05/12/19 00:33 63 05/11/19 23:53 64 142/91 H 05/11/19 23:37 37 C 60 18 142/91 H Pulse Ox 05/12/19 07:33 97 05/12/19 05:57 05/12/19 04:40 96 05/12/19 00:33 05/11/19 23:53 05/11/19 23:37 96 Laboratory Results Laboratory Results - last 24 hr 05/12/19 05/12/19 06:19 06:19 WBC 8.64 RBC 3.87 L Hgb 11.7 L Hct 35.2 L MCV 91.0 MCH 30.2 MCHC 33.2 RDW Std Deviation 55.9 H RDW Coeff of [place] 16.7 H Plt Count 342 MPV 8.8 Immature Gran % (Auto) 0.9 Neut % (Auto) 69.8 Lymph % (Auto) 12.3 [place] % (Auto) 16.0 Eos % (Auto) 0.9 Baso % (Auto) 0.1 Immature Gran # (Auto) 0.08 H Neut # (Auto) 6.03 Lymph # (Auto) 1.06 L [place] # (Auto) 1.38 H Eos # (Auto) 0.08 Baso # (Auto) 0.01 Sodium 132 L Potassium 3.4 L Chloride 99 Carbon Dioxide 27 Anion Gap 6.0 BUN 21 H Creatinine 0.99 Est Cr Clr Drug Dosing 77.3 Est GFR ( Amer) 89.7 Est GFR (Non-Af Amer) 77.4 BUN/Creatinine Ratio 21.0 H Glucose 75 Calcium 8.7 Magnesium 1.8 Total Bilirubin 0.7 AST 22 ALT 30 Alkaline Phosphatase 122 H Total Protein 6.0 L Albumin 2.7 L Globulin 3.3 Albumin/Globulin Ratio 0.8 L Medications Administered Current Inpatient Medications Albuterol (Ventolin Hfa) 2 puffs INH QID PRN PRN Reason: Shortness Of Breath Stop: 06/02/19 13:12 Dronabinol (Marinol) 2.5 mg PO BID [facility] Stop: 06/05/19 08:59 Last Admin: 05/12/19 08:42 Dose: Not Given Documented by: Heparin Sodium (Porcine) (Heparin Sod 100 Unit/Ml Flush) 5 ml FLUSH PRN PRN PRN Reason: Flush Stop: 06/04/19 00:14 Last Admin: 05/10/19 16:57 Dose: 5 ml Documented by: Hydromorphone HCl (Dilaudid) 1 mg IV Q2HWA PRN PRN Reason: Pain Stop: 05/25/19 12:13 Hyoscyamine (Levbid) 0.375 mg PO BID [facility] Stop: 06/10/19 08:59 Last Admin: 05/12/19 08:42 Dose: Not Given Documented by: Fluconazole (Diflucan) 100 mg in 50 mls @ 100 mls/hr IV DAILY [facility]; Protocol Stop: 05/20/19 08:59 Last Infusion: 05/12/19 09:32 Dose: Infused Documented by: Lactated Ringer's (Lr) 1,000 mls @ 125 mls/hr IV .Q8H [facility] Stop: 06/10/19 08:59 Last Admin: 05/12/19 09:01 Dose: 125 mls/hr Documented by: Promethazine HCl 25 mg/ Sodium (Chloride) 51 mls @ 204 mls/hr IV Q6H PRN PRN Reason: Nausea And Vomiting Stop: 06/10/19 08:52 Last Infusion: 05/11/19 11:10 Dose: Infused Documented by: Acetaminophen (Ofirmev) 65 mls @ 200 mls/hr IV Q8H PRN PRN Reason: pain Stop: 06/10/19 20:14 Last Infusion: 05/12/19 06:30 Dose: Infused Documented by: Potassium Chloride ([place] / Wtr) 10 meq in 100 mls @ 100 mls/hr IV Q1H [facility] Stop: 05/12/19 09:44 Last Admin: 05/12/19 09:01 Dose: 100 mls/hr Documented by: Metoprolol Succinate (Toprol Xl) 100 mg PO DAILY [facility] Stop: 06/04/19 08:59 Last Admin: 05/11/19 07:57 Dose: 100 mg Documented by: Metoprolol Tartrate (Lopressor) 5 mg IV Q6 [facility] Stop: 06/10/19 17:59 Last Admin: 05/12/19 05:57 Dose: 5 mg Documented by: Mirtazapine (Remeron) 15 mg PO HS [facility] Stop: 06/02/19 20:59 Last Admin: 05/11/19 20:34 Dose: Not Given Documented by: Miscellaneous (Order Awaiting Action) 1 ea N/A QS [facility] Stop: 06/02/19 15:59 Last Admin: 05/12/19 08:11 Dose: Not Given Documented by: Montelukast Sodium (Singulair) 10 mg PO PM [facility] Stop: 06/02/19 20:59 Last Admin: 05/11/19 20:34 Dose: Not Given Documented by: Ondansetron HCl (Zofran) 4 mg IV Q4H PRN PRN Reason: Nausea And Vomiting Stop: 06/02/19 13:12 Last Admin: 05/11/19 07:56 Dose: 4 mg Documented by: Oxycodone/Acetaminophen (Percocet 5mg/325mg) 1 tab PO Q4H PRN PRN Reason: Pain Stop: 05/23/19 10:40 Last Admin: 05/11/19 05:38 Dose: 1 tab Documented by: Pantoprazole Sodium (Protonix) 40 mg PO QAM [facility] Stop: 06/03/19 08:59 Last Admin: 05/12/19 08:42 Dose: Not Given Documented by: Potassium Chloride (Klor-Con M20) 20 meq PO TIDM [facility] Stop: 06/07/19 11:59 Last Admin: 05/12/19 08:42 Dose: Not Given Documented by: Prednisone (Prednisone) 10 mg PO DAILY [facility] Stop: 06/03/19 08:59 Last Admin: 05/12/19 08:42 Dose: Not Given Documented by: Rivaroxaban (Xarelto) 20 mg PO DAILY@1700 [facility] Stop: 06/06/19 16:59 Last Admin: 05/10/19 20:41 Dose: 20 mg Documented by: Simethicone (Mylicon) 80 mg PO Q8 PRN PRN Reason: Cramping Stop: 06/10/19 08:52 Last Admin: 05/11/19 10:50 Dose: 80 mg Documented by: Tramadol HCl (Ultram) 50 mg PO Q4H PRN PRN Reason: Pain Stop: 06/08/19 14:39 Last Admin: 05/10/19 00:17 Dose: 50 mg Documented by: PG Care Time/CCT Total # of Minutes Spent Total Time Spent with Patient: Total time spent is greater than 50% in coordination of care (as documented) at patient's floor/unit and/or counseling patient: (1) Pneumothorax Pneumothorax type: spontaneous, primary Qualified Code(s): J93.11 - Primary spontaneous pneumothorax (2) Lung cancer Laterality: left Lung location: upper lobe of lung Qualified Code(s): C34.12 - Malignant neoplasm of upper lobe, left bronchus or lung (3) Hypertension Hypertension type: essential hypertension Qualified Code(s): I10 - Essential (primary) hypertension
[2019-05-12] MEDS: Heparin Adult LOW DOSE Wt-Based Dextrose 5% 25,000 units/500 mL IV SCH (10:19)
[2019-05-12 10:33] LABS: Basophils # (auto) 0.01 K/uL (0-0.2); Basophils % (auto) 0.1 %; Eosinophils # (auto) 0.09 K/uL (0-0.5); Eosinophils % (auto) 1.1 %; Hematocrit (blood only) 32.6 % (42-52); Hemoglobin 11.1 g/dL (14.0-18.0); Immature Granulocytes # (auto) 0.05 K/uL (0.00-0.02); Immature Granulocytes % (auto) 0.6 %; Lymphocytes # (auto) 0.95 K/uL (1.2-3.4); Lymphocytes % (auto) 11.3 %; Mean Corpuscular Volume 91.3 fL (80-100); Mean Platelet Volume 8.5 fL (7.4-10.4); Monocytes # (auto) 1.08 K/uL (0.11-0.59); Monocytes % (auto) 12.8 %; Neutrophils # (auto) 6.23 K/uL (1.4-6.5); Neutrophils % (auto) 74.1 %; Platelet Count 296 K/uL (130-400); RDW Coefficient of Variation 16.6 % (11.5-14.5); RDW Standard Deviation 55.4 fL (36.4-46.3); Red Blood Count 3.57 M/uL (4.7-6.1); White Blood Count 8.41 K/uL (4.8-10.8)
[2019-05-12 10:46] LABS: INR 1.1 (0.9-1.1); Partial Thromboplastin Ratio 1.1; Partial Thromboplastin Time 28.5 Seconds (21.0-31.0)
--- NOTE | 2019-05-12 11:19 | Surgery Progress Note ---
Date of Service May 12, 2019 Assessment & Plan (1) Sigmoid volvulus: POD#9 from lap sigmoid colectomy for volvulus. Now with postop ileus. Discussed my recommendation for ng tube placement given his bloating and failure to progress. He is very reluctant and would like to hold off for now. Explained that if vomiting continues, ng should be placed to minimize risk of aspiration. For now, he wants to try ambulating today and seeing if bowels start to wake up. Continue npo. Present on Admission?: No (2) Electrolyte abnormality: hypokalemia - will replete today by changing LR to 1/2 ns with kcl. Subjective Pt is still feeling very bloated. Received an antinausea med yesterday that made him sleep all day. Abdominal discomfort/ cramping from the bloating. Increased belching and did vomit a small amount. No flatus or bowel movement. Physical Exam Constitutional: WD/WN, vitals as above Respiratory: normal respiratory effort, lungs clear to auscultation Cardiovascular: RRR, no murmur, no edema Gastrointestinal (Abdomen): Inspection/Auscultation: abdomen normal to inspection, + abdomen distended, + abdominal surgical incision (clean) and + hypoactive bowel sounds Percussion/Palpation: + abdomen tender (mild, diffuse) Psychiatric: A+Ox3, euthymic affect Results & Data Vital Signs (Past 12 Hours) Vital Signs Temp Pulse Pulse Pulse Resp BP BP 05/12/19 07:33 36.6 C 58 L 20 128/82 05/12/19 05:57 70 137/88 05/12/19 04:40 36.8 C 67 18 137/88 05/12/19 00:33 63 05/11/19 23:53 64 142/91 H 05/11/19 23:37 37 C 60 18 142/91 H Pulse Ox 05/12/19 07:33 97 05/12/19 05:57 05/12/19 04:40 96 05/12/19 00:33 05/11/19 23:53 05/11/19 23:37 96
[2019-05-12] MEDS: D5W AND 1/2NSS + 20MEQ KCL 20 MEQ/1,000 ML BAG IV SCH ×2 (11:54→22:11)
[2019-05-12] MEDS: MONTELUKAST SODIUM 10 MG TABLET PO SCH (15:14)
[2019-05-12] MEDS: MIRTAZAPINE TAB 15 MG TAB PO SCH (15:14)
[2019-05-12] MEDS ORDERED: MoRPHine SULFATE 2 MG/ML CARP IV PRN (16:08)
[2019-05-12] MEDS: ONDANSETRON INJ 2 MG/ML 2 ML VIAL IV PRN ×2 (16:49→22:14)
[2019-05-12] MEDS: KETOROLAC TROMETHAMINE 15 MG/ML VIAL IV PRN (17:02)
[2019-05-12 17:03] LABS: Partial Thromboplastin Ratio 1.8
[2019-05-12 17:10] LABS: Partial Thromboplastin Time 49.7 Seconds (21.0-31.0)
[2019-05-13] MEDS: METOPROLOL TARTRATE 1 MG/ML VIAL IV SCH ×4 (00:14→17:49)
[2019-05-13] MEDS: ACETAMINOPHEN 65 ML IV PRN (05:41)
[2019-05-13 06:59] LABS: Partial Thromboplastin Ratio 1.7; Partial Thromboplastin Time 44.9 Seconds (21.0-31.0)
[2019-05-13] MEDS: DRONABINOL 2.5 MG CAP PO SCH ×2 (07:51→15:52)
[2019-05-13] MEDS: predniSONE 10 MG TABLET PO SCH (07:51)
[2019-05-13] MEDS: PANTOprazole 40 MG TAB PO SCH (07:51)
[2019-05-13] MEDS: HYOSCYAMINE SULFATE 0.375 MG TABCR PO SCH ×2 (07:52→15:52)
[2019-05-13] MEDS: POTASSIUM CHLORIDE 20 MEQ TABCR PO SCH ×3 (07:52→15:36)
[2019-05-13] MEDS: Heparin Adult LOW DOSE Wt-Based Dextrose 5% 25,000 units/500 mL IV SCH (08:29)
[2019-05-13] MEDS: FLUCONAZOLE 100 MG/50 ML BAG IV SCH (08:30)
[2019-05-13] MEDS: D5W AND 1/2NSS + 20MEQ KCL 20 MEQ/1,000 ML BAG IV SCH ×2 (08:30→18:57)
[2019-05-13] MEDS ORDERED: HEPARIN IV BOLUS 3,000 UNITS in SYRINGE 0 ML IV ONE (08:45)
--- NOTE | 2019-05-13 10:09 | Hospitalist Progress Note ---
Date of Service May 13, 2019 Assessment & Plan (1) Sigmoid volvulus: - S/p sigmoid resection on 05/03, POD#10 - Pain control: Oxycodone 5 mg q6hr prn says that his pain is well controlled when he gets the medication - DVT ppx: was on Xarelto, hold further doses while NPO now on heparin gtt post operative ileus, management per surgery, he is strict NPO will continue IV fluids encouraged him to ambulate still with very hypoactive bowel sounds will have NGT placed today with low intermittent suction (2) Hypothermia: - Hypothermic following procedure, now resolved. (3) Bradycardia: - Bradycardic following procedure, now resolved. - can continue Lopressor (4) PAF (paroxysmal atrial fibrillation): - Sinus rhythm on monitor. - holding Toprol 100mg daily while NPO will continue Lopressor 5mg IV q6 scheduled with hold parameters hold further doses of Xarelto, last dose was evening on 05/10 will continue heparin drip (5) Hyperthyroidism: - Diagnosed in January 2019. - TSH was elevated in March 2019 -- d/c'ed Methimazole TID. 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 - Most recent TSH was improving, repeat level as outpatient. (6) Pneumothorax: - Spontaneous, required left sided chest tube during previous admission. breathing well, lungs clear (7) Elevated liver enzymes: - Noted during last admission; Hepatitis panel were all negative. - RUQ US was concerning for early cirrhosis. - LFTs WNL during this admission. (8) Lung cancer: - NSCLC of CROW s/p lobectomy in 2017. - S/p multiple cycles of Carboplatin/Paclitaxel/Avastin/Atezeolizumab in 2018. - Not currently receiving chemotherapy; follows with Dr. Huber Ortiz. - Continue Prednisone 10 mg daily. - Resume home Marinol 2.5 mg BID. (9) Hypertension: BP stable on Toprol changed to Lopressor 5mg IV q6, BP stable today (10) COPD (chronic obstructive pulmonary disease): - Continue Albuterol inhaler prn. - No evidence of acute exacerbation. (11) GERD (gastroesophageal reflux disease): - PPI daily. (12) Depression: - Continue Remeron as prescribed. (13) Electrolyte abnormality: hypokalemia on 05/12 at 3.4 on LR, continue this K Cl added to fluids on 05/12 (14) DVT prophylaxis: - SCDs, heparin gtt Subjective patient with some dry heaves this morning, feeling more distended and bloated he is asking to have the NGT today because of his abdominal discomfort, wants some relief still having 3-4 small loose stools a day no chest pain, no dyspnea reviewed labs, CBC stable Review of Systems Review of Systems: All systems reviewed & are unremarkable except as noted in HPI & below Constitutional: no fever, no chills, no sweats, no fatigue and no weakness Respiratory: no cough and no dyspnea Cardiovascular: no chest pain and no edema Gastrointestinal: + abdominal pain, + bloating, + nausea and + diarrhea/loose stools; no vomiting and no constipation Physical Exam Constitutional: WD/WN, vitals as above Eyes: PERRL, conjunctivae normal, anicteric sclerae ENMT: external ear and nose normal, oropharynx normal Neck: trachea midline, no thyromegaly Respiratory: normal respiratory effort, lungs clear to auscultation Cardiovascular: RRR, no murmur, no edema Gastrointestinal (Abdomen): Inspection/Auscultation: + abdomen distended and + hypoactive bowel sounds Percussion/Palpation: abdomen soft; abdomen nontender Musculoskeletal: no cyanosis or clubbing, extremities motor strength 5/5 Skin: no rashes, warm and dry Neurologic: patellar DTR's 2+ bilat, sensation intact and PERRL, EOMI, a ccommodation nl, no face palsy, no dysarthria Psychiatric: A+Ox3, euthymic affect Lymphatic: no cervical or axillary lymphadenopathy Results & Data Vital Signs (Past 12 Hours) Vital Signs Temp Pulse Pulse Pulse Resp BP BP 05/13/19 07:19 37.0 C 57 L 18 132/82 05/13/19 06:06 68 119/79 05/13/19 05:48 68 119/79 05/13/19 04:09 37.0 C 63 16 132/88 05/13/19 00:14 67 129/84 05/13/19 00:06 67 129/84 05/12/19 22:56 36.9 C 67 18 137/72 Pulse Ox 05/13/19 07:19 96 05/13/19 06:06 05/13/19 05:48 05/13/19 04:09 93 05/13/19 00:14 05/13/19 00:06 05/12/19 22:56 95 Laboratory Results Laboratory Results - last 24 hr 05/12/19 05/12/19 05/12/19 10:16 10:16 16:11 WBC 8.41 RBC 3.57 L Hgb 11.1 L Hct 32.6 L MCV 91.3 MCH 31.1 MCHC 34.0 RDW Std Deviation 55.4 H RDW Coeff of Adams 16.6 H Plt Count 296 MPV 8.5 Immature Gran % (Auto) 0.6 Neut % (Auto) 74.1 Lymph % (Auto) 11.3 [place] % (Auto) 12.8 Eos % (Auto) 1.1 Baso % (Auto) 0.1 Immature Gran # (Auto) 0.05 H Neut # (Auto) 6.23 Lymph # (Auto) 0.95 L [place] # (Auto) 1.08 H Eos # (Auto) 0.09 Baso # (Auto) 0.01 PT 11.0 INR 1.1 APTT 28.5 49.7 H* PTT Ratio 1.1 1.8 05/13/19 06:19 WBC RBC Hgb Hct MCV MCH MCHC RDW Std Deviation RDW Coeff of Adams Plt Count MPV Immature Gran % (Auto) Neut % (Auto) Lymph % (Auto) [place] % (Auto) Eos % (Auto) Baso % (Auto) Immature Gran # (Auto) Neut # (Auto) Lymph # (Auto) [place] # (Auto) Eos # (Auto) Baso # (Auto) PT INR APTT 44.9 H PTT Ratio 1.7 Medications Administered Current Inpatient Medications Albuterol (Ventolin Hfa) 2 puffs INH QID PRN PRN Reason: Shortness Of Breath Stop: 06/02/19 13:12 Dronabinol (Marinol) 2.5 mg PO BID [facility] Stop: 06/05/19 08:59 Last Admin: 05/13/19 07:51 Dose: Not Given Documented by: Heparin Sodium (Porcine) (Heparin Sod 100 Unit/Ml Flush) 5 ml FLUSH PRN PRN PRN Reason: Flush Stop: 06/04/19 00:14 Last Admin: 05/10/19 16:57 Dose: 5 ml Documented by: Hydromorphone HCl (Dilaudid) 1 mg IV Q2HWA PRN PRN Reason: Pain Stop: 05/25/19 12:13 Hyoscyamine (Levbid) 0.375 mg PO BID [facility] Stop: 06/10/19 08:59 Last Admin: 05/13/19 07:52 Dose: Not Given Documented by: Fluconazole (Diflucan) 100 mg in 50 mls @ 100 mls/hr IV DAILY [facility]; Protocol Stop: 05/20/19 08:59 Last Infusion: 05/13/19 09:06 Dose: Infused Documented by: Promethazine HCl 25 mg/ Sodium (Chloride) 51 mls @ 204 mls/hr IV Q6H PRN PRN Reason: Nausea And Vomiting Stop: 06/10/19 08:52 Last Infusion: 05/11/19 11:10 Dose: Infused Documented by: Acetaminophen (Ofirmev) 65 mls @ 200 mls/hr IV Q8H PRN PRN Reason: pain Stop: 06/10/19 20:14 Last Infusion: 05/13/19 06:01 Dose: Infused Documented by: Heparin Sodium/Dextrose (Heparin Sodium/Dextrose) 25,000 units in 500 mls @ 21 mls/hr IV .[id number] [facility]; Protocol Stop: 06/11/19 09:44 Last Admin: 05/13/19 08:29 Dose: 1,050 units/hr, 21 mls/hr Documented by: Potassium Chloride/Dextrose/Sod Cl (D5w And 1/2nss + 20meq Kcl) 20 meq in 1,000 mls @ 100 mls/hr IV .Q10H [facility] Stop: 06/11/19 11:29 Last Admin: 05/13/19 08:30 Dose: 100 mls/hr Documented by: Ketorolac Tromethamine (Toradol) 15 mg IV Q6H PRN PRN Reason: Pain Stop: 05/17/19 16:24 Last Admin: 05/12/19 17:02 Dose: 15 mg Documented by: Metoprolol Succinate (Toprol Xl) 100 mg PO DAILY [facility] Stop: 06/04/19 08:59 Last Admin: 05/11/19 07:57 Dose: 100 mg Documented by: Metoprolol Tartrate (Lopressor) 5 mg IV Q6 [facility] Stop: 06/10/19 17:59 Last Admin: 05/13/19 06:06 Dose: 5 mg Documented by: Mirtazapine (Remeron) 15 mg PO HS [facility] Stop: 06/02/19 20:59 Last Admin: 05/12/19 15:14 Dose: Not Given Documented by: Miscellaneous (Order Awaiting Action) 1 ea N/A QS [facility] Stop: 06/02/19 15:59 Last Admin: 05/13/19 07:52 Dose: Not Given Documented by: Montelukast Sodium (Singulair) 10 mg PO PM [facility] Stop: 06/02/19 20:59 Last Admin: 05/12/19 15:14 Dose: Not Given Documented by: Morphine Sulfate (Morphine Sulfate) 2 mg IV Q4H PRN PRN Reason: Pain Stop: 05/26/19 16:07 Ondansetron HCl (Zofran) 4 mg IV Q4H PRN PRN Reason: Nausea And Vomiting Stop: 06/02/19 13:12 Last Admin: 05/12/19 22:14 Dose: 4 mg Documented by: Oxycodone/Acetaminophen (Percocet 5mg/325mg) 1 tab PO Q4H PRN PRN Reason: Pain Stop: 05/23/19 10:40 Last Admin: 05/11/19 05:38 Dose: 1 tab Documented by: Pantoprazole Sodium (Protonix) 40 mg PO QAM [facility] Stop: 06/03/19 08:59 Last Admin: 05/13/19 07:51 Dose: Not Given Documented by: Potassium Chloride (Klor-Con M20) 20 meq PO TIDM [facility] Stop: 06/07/19 11:59 Last Admin: 05/13/19 07:52 Dose: Not Given Documented by: Prednisone (Prednisone) 10 mg PO DAILY [facility] Stop: 06/03/19 08:59 Last Admin: 05/13/19 07:51 Dose: Not Given Documented by: Simethicone (Mylicon) 80 mg PO Q8 PRN PRN Reason: Cramping Stop: 06/10/19 08:52 Last Admin: 05/11/19 10:50 Dose: 80 mg Documented by: Tramadol HCl (Ultram) 50 mg PO Q4H PRN PRN Reason: Pain Stop: 06/08/19 14:39 Last Admin: 05/10/19 00:17 Dose: 50 mg Documented by: PG Care Time/CCT Total # of Minutes Spent Total Time Spent with Patient: Total time spent is greater than 50% in coordination of care (as documented) at patient's floor/unit and/or counseling patient: (1) Pneumothorax Pneumothorax type: spontaneous, primary Qualified Code(s): J93.11 - Primary spontaneous pneumothorax (2) Lung cancer Laterality: left Lung location: upper lobe of lung Qualified Code(s): C34.12 - Malignant neoplasm of upper lobe, left bronchus or lung (3) Hypertension Hypertension type: essential hypertension Qualified Code(s): I10 - Essential (primary) hypertension
--- NOTE | 2019-05-13 10:39 | XRay Report ---
XR KUB/Abdomen 1 view CLINICAL HISTORY: Abdomen film for nasogastric tube positioning COMPARISON STUDY: 05/11/2019 FINDINGS: A single portable film centered on hemidiaphragms is provided for interpretation. There is a nasogastric tube positioned within the stomach. There are dilated loops of large and small bowel. IMPRESSION: 1. Small bowel and colonic dilatation 2. Nasogastric tube with its tip in the stomach Electronically signed by: Juan Arango M.D. 05/13/2019 10:38 AM
[2019-05-13] MEDS ORDERED: CHLORASEPTIC 1.4% SOLN 180 ML BTL MT PRN (10:53)
--- NOTE | 2019-05-13 10:53 | Surgery Progress Note ---
Date of Service May 13, 2019 Assessment & Plan (1) Sigmoid volvulus: POD#10 from lap sigmoid colectomy for volvulus. Now with postop ileus. NG tube just placed - large volume obtained. Will keep on suction, check kub. Continue npo. (2) Electrolyte abnormality: hypokalemia - IVF changed yesterday to contain kcl. will recheck labs tomorrow. Subjective Pt had a miserable night. Still with dry heaves, very bloated. Agreed to ng tube (see Dr. Collins's note copied below) and ng just placed. Large volume thick bilious fluid removed. Has a sore throat and wondering what he can use. patient with some dry heaves this morning, feeling more distended and bloated he is asking to have the NGT today because of his abdominal discomfort, wants some relief still having 3-4 small loose stools a day no chest pain, no dyspnea reviewed labs, CBC stable Physical Exam Constitutional: WD/WN, vitals as above Respiratory: normal respiratory effort, lungs clear to auscultation Cardiovascular: RRR, no murmur, no edema Gastrointestinal (Abdomen): Inspection/Auscultation: abdomen normal to inspection, + abdomen distended, + abdominal surgical incision (clean) and + hypoactive bowel sounds Percussion/Palpation: + abdomen tender (mild, diffuse) Psychiatric: A+Ox3, euthymic affect Results & Data Vital Signs (Past 12 Hours) Vital Signs Temp Pulse Pulse Pulse Resp BP BP 05/13/19 07:19 37.0 C 57 L 18 132/82 05/13/19 06:06 68 119/79 05/13/19 05:48 68 119/79 05/13/19 04:09 37.0 C 63 16 132/88 05/13/19 00:14 67 129/84 05/13/19 00:06 67 129/84 05/12/19 22:56 36.9 C 67 18 137/72 Pulse Ox 05/13/19 07:19 96 05/13/19 06:06 05/13/19 05:48 05/13/19 04:09 93 05/13/19 00:14 05/13/19 00:06 05/12/19 22:56 95
--- NOTE | 2019-05-13 14:34 | XRay Report ---
XR KUB/Abdomen 1 view CLINICAL HISTORY: ng tube reinsertion COMPARISON STUDY: Earlier in the day FINDINGS: A nasogastric tube is again visualized within the stomach. The proximal sidehole is at or j ust distal to the esophagogastric junction. There is persistent small bowel and colonic dilatation. IMPRESSION: The nasogastric tube is positioned within the stomach. There is persistent small bowel a nd colonic dilatation. Electronically signed by: Juan Arango M.D. 05/13/2019 2:32 PM
[2019-05-13 15:29] LABS: Partial Thromboplastin Ratio 3.5
[2019-05-13 15:32] LABS: Partial Thromboplastin Time 94.8 Seconds (21.0-31.0)
[2019-05-13] MEDS: MIRTAZAPINE TAB 15 MG TAB PO SCH (15:52)
[2019-05-13] MEDS: MONTELUKAST SODIUM 10 MG TABLET PO SCH (15:53)
[2019-05-13 23:16] LABS: Partial Thromboplastin Ratio 2.8
[2019-05-13 23:19] LABS: Partial Thromboplastin Time 74.9 Seconds (21.0-31.0)
[2019-05-14] MEDS: METOPROLOL TARTRATE 1 MG/ML VIAL IV SCH ×4 (00:33→17:33)
[2019-05-14] MEDS: D5W AND 1/2NSS + 20MEQ KCL 20 MEQ/1,000 ML BAG IV SCH (04:23)
[2019-05-14 05:44] LABS: Eosinophils # (auto) 0.08 K/uL (0-0.5); Eosinophils % (auto) 0.9 %; Hematocrit (blood only) 31.6 % (42-52); Hemoglobin 10.9 g/dL (14.0-18.0); Immature Granulocytes # (auto) 0.07 K/uL (0.00-0.02); Immature Granulocytes % (auto) 0.8 %; Lymphocytes # (auto) 0.81 K/uL (1.2-3.4); Lymphocytes % (auto) 8.8 %; Mean Corpuscular Hgb Conc 34.5 g/dL (32-36); Mean Platelet Volume 8.6 fL (7.4-10.4); Monocytes # (auto) 0.77 K/uL (0.11-0.59); Monocytes % (auto) 8.4 %; Neutrophils # (auto) 7.43 K/uL (1.4-6.5); Neutrophils % (auto) 81.1 %; Platelet Count 331 K/uL (130-400); RDW Coefficient of Variation 16.3 % (11.5-14.5); RDW Standard Deviation 53.3 fL (36.4-46.3); Red Blood Count 3.55 M/uL (4.7-6.1); White Blood Count 9.16 K/uL (4.8-10.8)
[2019-05-14 06:21] LABS: Partial Thromboplastin Time 53.6 Seconds (21.0-31.0)
[2019-05-14 06:28] LABS: BUN Creatinine Ratio 14.7 (10-20); Calcium 7.9 mg/dl (8.5-10.1); Creatinine Clr Calc Pharmacy 94.5 ml/min; Est GFR (African American) 105.1; Est GFR (Non-African American) 90.7; Potassium 2.4 mmol/L (3.5-5.1)
[2019-05-14] MEDS: POTASSIUM CHLORIDE 20 MEQ TABCR PO SCH (08:14)
[2019-05-14] MEDS: PANTOprazole 40 MG TAB PO SCH (08:14)
[2019-05-14] MEDS: predniSONE 10 MG TABLET PO SCH (08:14)
[2019-05-14] MEDS: DRONABINOL 2.5 MG CAP PO SCH (08:14)
[2019-05-14] MEDS: HYOSCYAMINE SULFATE 0.375 MG TABCR PO SCH (08:14)
[2019-05-14] MEDS: FLUCONAZOLE 100 MG/50 ML BAG IV SCH (08:20)
[2019-05-14] MEDS: D5W AND 1/2NSS + 40MEQ KCL 40 MEQ/1,000 ML BAG IV SCH ×2 (09:19→17:32)
[2019-05-14] MEDS: POTASSIUM CHLORIDE / WTR 10 MEQ/100 ML PLCT IV SCH ×3 (09:20→11:47)
[2019-05-14] MEDS: FAMOTIDINE 20 MG in SYRINGE 3 ML IV SCH ×2 (10:29→21:38)
[2019-05-14] MEDS: HYDROCORTISONE SOD 25 MG in SYRINGE 0 ML IV SCH ×2 (10:29→21:38)
--- NOTE | 2019-05-14 11:08 | Surgery Progress Note ---
Date of Service May 14, 2019 Assessment & Plan (1) Sigmoid volvulus: continue NG until passing flatus K+ replacement consider TPN/PPN tomorrow if not improved as above...feeling better. replace potassium. will recheck KUB tomorrow to evaluate ileus Subjective watery BMs, no flatus, feels better after NG Physical Exam Gastrointestinal (Abdomen): Inspection/Auscultation: + abdomen distended Percussion/Palpation: abdomen soft NG 2300 past 24 hours Results & Data Vital Signs (Past 12 Hours) Vital Signs Temp Pulse Pulse Pulse Resp BP BP 05/14/19 07:00 36.8 C 60 18 122/81 05/14/19 05:40 70 111/76 05/14/19 04:00 37.0 C 83 18 05/14/19 00:33 73 05/14/19 00:00 71 BP Pulse Ox 05/14/19 07:00 96 05/14/19 05:40 05/14/19 04:00 121/85 96 05/14/19 00:33 05/14/19 00:00
[2019-05-14] MEDS ORDERED: POTASSIUM CHLORIDE / WTR 20 MEQ/100 ML PLCT IV ONE (12:00)
[2019-05-14] MEDS: Heparin Adult LOW DOSE Wt-Based Dextrose 5% 25,000 units/500 mL IV SCH (16:28)
[2019-05-14] MEDS: ONDANSETRON INJ 2 MG/ML 2 ML VIAL IV PRN (17:35)
--- NOTE | 2019-05-14 17:53 | XRay Report ---
PAULETTE CLINICAL HISTORY: NGT placement COMPARISON STUDY: PAULETTE May 13, 2019. FINDINGS: The tip of the nasogastric tube projects over the gastric cardia. There is persistent small and large bowel gaseous distention, partially imaged on this exam. IMPRESSION: 1. Tip of nasogastric tube projects over the gastric cardia. 2. Persistent gaseous distention of small and large bowel which is partially imaged on this exam. Electronically signed by: Javi Patrick M.D. 05/14/2019 5:52 PM
[2019-05-14] MEDS: KETOROLAC TROMETHAMINE 15 MG/ML VIAL IV PRN (19:28)
--- NOTE | 2019-05-14 23:22 | Hospitalist Progress Note ---
Date of Service May 14, 2019 Assessment & Plan (1) Sigmoid volvulus: - S/p sigmoid resection on 05/03, POD#11, now with post-op ileus requiring replacement of NGT on 05/13, decompressed, much improved - continue Pain control IV dilaudid prn while NPO -possibly starting PPN today as per SUrgery -continue strict NPO-dc/hold all po meds and replace with IV steroids, IV pepcid, already on IV lopressor scheduled, and he's ok to go without his other po meds for maintenance for now -will continue IV fluids -encouraged him to ambulate -NGT management as per SUrgery-advanced tube later in day due to nothing coming out and KUB showing NGT in gastric cardia region (2) Hypothermia: - Hypothermic following procedure, now resolved. (3) Bradycardia: - Bradycardic following procedure, now resolved. - can continue Lopressor (4) PAF (paroxysmal atrial fibrillation): - continues to be in NSR on monitor. - holding Toprol 100mg daily while NPO -will continue Lopressor 5mg IV q6 scheduled with hold parameters hold further doses of Xarelto, last dose was evening on 05/10 will continue heparin drip (5) Hyperthyroidism: - Diagnosed in January 2019. - TSH was elevated in March 2019 -- d/c'ed Methimazole TID. 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 - Most recent TSH was improving, repeat level as outpatient. (6) Pneumothorax: - Spontaneous, required left sided chest tube during previous admission. breathing well, lungs clear (7) Elevated liver enzymes: - Noted during last admission; Hepatitis panel were all negative. - RUQ US was concerning for early cirrhosis. - LFTs WNL during this admission. (8) Lung cancer: - NSCLC of CROW s/p lobectomy in 2017. - S/p multiple cycles of Carboplatin/Paclitaxel/Avastin/Atezeolizumab in 2018. - Not currently receiving chemotherapy; follows with Dr. Huber Ortiz. - placed Prednisone 10 mg daily on hold as he has not been able to take it for 3 days since being NPO -start IV hydrocortisone. - hold home Marinol 2.5 mg BID (9) Hypertension: BP stable on Lopressor 5mg IV q6 (10) COPD (chronic obstructive pulmonary disease): - Continue Albuterol inhaler prn. - No evidence of acute exacerbation. (11) GERD (gastroesophageal reflux disease): - po PPI on hold -add IV Pepcid 20mg q12 while NPO (12) Depression: - holding Remeron while NPO (13) Electrolyte abnormality: hypokalemia persists and is severe at 2.4 due to poor po intake and NGT -give total of 50meq IV KCL today plus 40meq KCl in IVFs maintenance (14) DVT prophylaxis: - SCDs, heparin gtt Dispo- remain hospitalized Subjective Pt feeling much better. No abd pain, no nausea. Is having small loose BMs. No CP or SOB Review of Systems Review of Systems: All systems reviewed & are unremarkable except as noted in HPI & below Physical Exam Constitutional: WD/WN, vitals as above Eyes: PERRL, conjunctivae normal, anicteric sclerae ENMT: external ear and nose normal, oropharynx normal (with NGT in place) Neck: trachea midline, no thyromegaly Respiratory: normal respiratory effort, lungs clear to auscultation Cardiovascular: RRR, no murmur, no edema Gastrointestinal (Abdomen): Inspection/Auscultation: + abdomen abnormal to inspection (LLQ incisional scar healing, periumbilical wound healing, no erythema) and no abdominal surgical drain present Percussion/Palpation: + abdomen tender (minimally at incision sites w/o guarding or rebound) and abdomen soft; abdomen not rigid Musculoskeletal: Extremities: extremities normal to inspection; no cyanosis and no clubbing Skin: no rashes, warm and dry Neurologic: moves all extremities and awake; no focal motor deficits Psychiatric: A+Ox3, euthymic affect Results & Data Vital Signs (Past 12 Hours) Vital Signs Temp Pulse Pulse Resp BP BP BP 05/14/19 19:55 37.2 C 63 20 121/79 05/14/19 17:33 70 124/81 05/14/19 14:34 37.0 C 71 20 136/90 05/14/19 11:30 36.8 C 72 20 135/82 Pulse Ox 05/14/19 19:55 95 05/14/19 17:33 05/14/19 14:34 96 05/14/19 11:30 99 Laboratory Results K+ 2.4 Hgb 10.9 Diagnostic Findings KUB with NGT at gastric cardia PG Care Time/CCT Total # of Minutes Spent Total Time Spent with Patient: Total time spent is greater than 50% in coordination of care (as documented) at patient's floor/unit and/or counseling patient: (1) Pneumothorax Pneumothorax type: spontaneous, primary Qualified Code(s): J93.11 - Primary spontaneous pneumothorax (2) Lung cancer Laterality: left Lung location: upper lobe of lung Qualified Code(s): C34.12 - Malignant neoplasm of upper lobe, left bronchus or lung (3) Hypertension Hypertension type: essential hypertension Qualified Code(s): I10 - Essential (primary) hypertension
[2019-05-15] MEDS: METOPROLOL TARTRATE 1 MG/ML VIAL IV SCH ×4 (00:34→17:56)
[2019-05-15] MEDS: D5W AND 1/2NSS + 40MEQ KCL 40 MEQ/1,000 ML BAG IV SCH ×3 (00:58→17:07)
[2019-05-15 06:59] LABS: Partial Thromboplastin Ratio 2.1
[2019-05-15 07:10] LABS: Partial Thromboplastin Time 56.6 Seconds (21.0-31.0)
[2019-05-15 07:13] LABS: BUN Creatinine Ratio 8.9 (10-20); Calcium 7.9 mg/dl (8.5-10.1); Est GFR (Non-African American) 88.9; Magnesium 1.9 mg/dl (1.8-2.4); Potassium 2.9 mmol/L (3.5-5.1)
[2019-05-15 07:14] LABS: Phosphorus 2.4 mg/dl (2.5-4.9)
--- NOTE | 2019-05-15 07:38 | XRay Report ---
KUB CLINICAL HISTORY: Ileus. FINDINGS: 2 AP, portable, supine abdominal radiographs are compared to study dated 05/14/2019 and corre lated with abdominal CT dated 03/21/2019. Enteric tube objects over the proximal stomach, with the side holes located at the level of the diaphragm. There is marked gaseous distention of the colon which measures up to 12 cm in diameter. There is only minimal distention of the small bowel loops. Suture m aterial projects over the left lower quadrant. Vascular calcifications are noted in the pelvis. Ivone cystectomy clips are noted in the right upper quadrant. IMPRESSION: 1. There is marked gaseous distention of the colon which measures up to 12 cm. The appearance is high ly concerning for a colonic obstruction, possibly representing volvulus. Clinical correlation will re quired. 2. The enteric tube projects just below the diaphragm over the proximal stomach. The side holes are l ocated at the level of the diaphragm and this may need to be advanced. Electronically signed by: Armando Soto M.D. 05/15/2019 7:37 AM
[2019-05-15] MEDS ORDERED: MAGNESIUM SULFATE / D5W 1 GM/100 ML BAG IV ONE (08:00)
[2019-05-15] MEDS: FLUCONAZOLE 100 MG/50 ML BAG IV SCH (08:06)
[2019-05-15] MEDS: HYDROCORTISONE SOD 25 MG in SYRINGE 0 ML IV SCH ×2 (08:06→21:15)
[2019-05-15] MEDS: FAMOTIDINE 20 MG in SYRINGE 3 ML IV SCH ×2 (08:11→21:16)
--- NOTE | 2019-05-15 09:19 | Surgery Progress Note ---
Date of Service May 15, 2019 Assessment & Plan (1) Sigmoid volvulus: some improvement, less NG output colon is distended on XR but small bowel distention has resolved will clamp NG, may remove later today and start clears K+ being replaced as above. abdomen: soft/minimal distension nt. wounds look good. the colon has been around 11-12 mm for quite some time- appears to be chronic colonic inertia. ? etiology. had 2 BM's this am. clinically not consistent with true volvulous. clinically better. xray- Small bowel ileus better. also with decreased NGT output. NGT clamped this AM with no issues/nausea. will check residuals and if less than 125 cc's will pull ngt and start clear liquids. If unable to start PO intake within the next 24 hours will probably have to start parenteral nutrition. continue to replace electrolytes suspect the majority of his symptoms last week were from small bowel ileus. appreciate hospitalists help. Subjective still having liquid BM, no additional flatus Physical Exam Gastrointestinal (Abdomen): Inspection/Auscultation: + abdomen distended (slightly less) Percussion/Palpation: abdomen soft NG 100 cc Results & Data Vital Signs (Past 12 Hours) Vital Signs Temp Pulse Pulse Pulse Resp BP BP 05/15/19 08:17 36.8 C 58 L 19 128/80 05/15/19 05:58 54 L 05/15/19 04:34 36.9 C 57 L 18 128/81 05/15/19 00:34 65 121/78 05/14/19 23:59 68 05/14/19 23:47 37.2 C 63 18 121/79 Pulse Ox 05/15/19 08:17 96 05/15/19 05:58 05/15/19 04:34 96 05/15/19 00:34 05/14/19 23:59 05/14/19 23:47 95
[2019-05-15] MEDS: POTASSIUM CHLORIDE / WTR 20 MEQ/100 ML PLCT IV SCH ×4 (09:54→21:16)
--- NOTE | 2019-05-15 17:39 | Hospitalist Progress Note ---
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 as per Surgery, but small bowel dilatation improved on KUB 05/15 -tolerating clears today, will convert back to po meds tomorrow if continuing to tolerate po -advance diet slowly -defer to Surgery for this - continue Pain control IV dilaudid and oxycodone prn -continue to hold all po meds and replaced with IV steroids, IV pepcid, already on IV lopressor scheduled, and he's ok to go without his other po meds for maintenance for now -will continue IV fluids -encouraged him to continue to ambulate -Surgery managing (2) Bradycardia: - Bradycardic following procedure, now resolved except some sinus bradycardia which is acceptable. - can continue Lopressor IV for now nad revert back to po when taking po reliably (3) PAF (paroxysmal atrial fibrillation): - continues to be in NSR on monitor. - continue holding Toprol 100mg daily while NPO -will continue Lopressor 5mg IV q6 scheduled with hold parameters -hold Xarelto, last dose was evening on 05/10 -will continue heparin drip (4) Hyperthyroidism: - Diagnosed in January 2019. - TSH was elevated in March 2019 up to 18 -- d/c'ed Methimazole TID. - Discussed case with justice professor during last admission. - Most recent TSH was improving at 5, repeat level as outpatient around mid-May (5) Pneumothorax: - Spontaneous, required left sided chest tube during previous admission. breathing well, lungs clear (6) Elevated liver enzymes: - Noted during last admission; Hepatitis panel were all negative. - RUQ US was concerning for early cirrhosis. - LFTs WNL during this admission. (7) Lung cancer: - NSCLC of CROW s/p lobectomy in 2017. - S/p multiple cycles of Carboplatin/Paclitaxel/Avastin/Atezeolizumab in 2018. - Not currently receiving chemotherapy; follows with Dr. Huber Ortiz. - placed Prednisone 10 mg daily on hold as he has not been able to take since being NPO -continue IV hydrocortisone. - hold home Marinol 2.5 mg BID (8) Hypertension: BP stable on Lopressor 5mg IV q6 (9) Electrolyte abnormality: hypokalemia persists but slowly improving--> secondary to poor po intake and NGT output Replaced and repeated BMP in evening-still low K+ Magnesium replaced as well -gave total of 80meq IV KCL today plus 40meq KCl in IVFs maintenance -follow BMP, Mg++ (10) COPD (chronic obstructive pulmonary disease): - Continue Albuterol inhaler prn. - No evidence of acute exacerbation. (11) GERD (gastroesophageal reflux disease): - po PPI on hold -continue IV Pepcid 20mg q12 until po intake improves (12) Depression: - holding Remeron until adequately taking po (13) DVT prophylaxis: - SCDs, heparin gtt Dispo- remain hospitalized Hospitalist service will continue to follow along Subjective Much improved today. Had NGT clamped and then removed. Has some mild abd distension likely from chronically dilated colon, but small bowel distension improved on xray. No nausea. Is having multiple loose BMs today. Is tolerating clears diet. Has some left shoulder pain at times that is tender and has a h/o bursitis- requests topical treatment Denies chest pain or SOB. Denies abd pain. Tele with SB, NSR, PACs, PVCs, rates 50s-60s Review of Systems Review of Systems: All systems reviewed & are unremarkable except as noted in HPI & below Physical Exam Constitutional: WD/WN, vitals as above Eyes: PERRL, conjunctivae normal, anicteric sclerae ENMT: external ear and nose normal, oropharynx normal Neck: trachea midline, no thyromegaly Respiratory: normal respiratory effort, lungs clear to auscultation Cardiovascular: RRR, no murmur, no edema Gastrointestinal (Abdomen): Inspection/Auscultation: + abdomen abnormal to inspection (LLQ incisional scar healing, periumbilical wound healing, no erythema) and no abdominal surgical drain present Percussion/Palpation: + abdomen tender (minimally at incision sites w/o guarding or rebound) and abdomen soft; abdomen not rigid Musculoskeletal: Extremities: extremities normal to inspection; no cyanosis and no clubbing Skin: no rashes, warm and dry Neurologic: moves all extremities and awake; no focal motor deficits Psychiatric: A+Ox3, euthymic affect Results & Data Vital Signs (Past 12 Hours) Vital Signs Temp Pulse Pulse Pulse Resp BP BP 05/15/19 15:44 36.8 C 77 19 157/75 H 05/15/19 11:24 36.8 C 73 18 134/83 05/15/19 08:17 36.8 C 58 L 19 128/80 05/15/19 05:58 54 L Pulse Ox 05/15/19 15:44 98 05/15/19 11:24 98 05/15/19 08:17 96 05/15/19 05:58 Laboratory Results 05/15/19 05/15/19 05/15/19 Range/Units 17:37 06:13 06:13 APTT 56.6 H* (21.0-31.0) Seconds PTT Ratio 2.1 Sodium 141 139 (136-145) mmol/L Potassium 2.9 L 2.9 L (3.5-5.1) mmol/L Chloride 111 H 110 H (98-107) mmol/L Carbon Dioxide 21 22 (21-32) mmol/L Anion Gap 8.0 7.0 (3-11) BUN 6 L 8 (7-18) mg/dl Creatinine 0.79 0.85 (0.6-1.4) mg/dl Est Cr Clr Drug Dosing 96.9 90.0 ml/min Est GFR ( Amer) 106.2 103.0 Est GFR (Non-Af Amer) 91.6 88.9 BUN/Creatinine Ratio 7.6 L 8.9 L (10-20) Glucose 86 99 (70-99) mg/dl Calcium 8.4 L 7.9 L (8.5-10.1) mg/dl Phosphorus 2.4 L (2.5-4.9) mg/dl Magnesium 1.9 (1.8-2.4) mg/dl Diagnostic Findings KUB xray personally reviewed the image and agree with the following report: KUB CLINICAL HISTORY: Ileus. FINDINGS: 2 AP, portable, supine abdominal radiographs are compared to study dated 05/14/2019 and correlated with abdominal CT dated 03/21/2019. Enteric tube objects over the proximal stomach, with the side holes located at the level of the diaphragm. There is marked gaseous distention of the colon which measures up to 12 cm in diameter. There is only minimal distention of the small bowel loops. Suture material projects over the left lower quadrant. Vascular calcifications are noted in the pelvis. Cholecystectomy clips are noted in the right upper quadrant. IMPRESSION: 1. There is marked gaseous distention of the colon which measures up to 12 cm. The appearance is highly concerning for a colonic obstruction, possibly representing volvulus. Clinical correlation will required. 2. The enteric tube projects just below the diaphragm over the proximal stomach. The side holes are located at the level of the diaphragm and this may need to be advanced. PG Care Time/CCT Total # of Minutes Spent Total Time Spent with Patient: Total time spent is greater than 50% in coordination of care (as documented) at patient's floor/unit and/or counseling patient: (1) Pneumothorax Pneumothorax type: spontaneous, primary Qualified Code(s): J93.11 - Primary spontaneous pneumothorax (2) Lung cancer Laterality: left Lung location: upper lobe of lung Qualified Code(s): C34.12 - Malignant neoplasm of upper lobe, left bronchus or lung (3) Hypertension Hypertension type: essential hypertension Qualified Code(s): I10 - Essential (primary) hypertension
[2019-05-15 18:16] LABS: BUN Creatinine Ratio 7.6 (10-20); Calcium 8.4 mg/dl (8.5-10.1); Creatinine Clr Calc Pharmacy 96.9 ml/min; Est GFR (African American) 106.2; Est GFR (Non-African American) 91.6; Potassium 2.9 mmol/L (3.5-5.1)
[2019-05-15] MEDS: DICLOFENAC SOD 1% GEL 100 GM TUBE EXT SCH ×2 (19:19→21:15)
[2019-05-16] MEDS: METOPROLOL TARTRATE 1 MG/ML VIAL IV SCH ×5 (00:03→23:34)
[2019-05-16] MEDS: Heparin Adult LOW DOSE Wt-Based Dextrose 5% 25,000 units/500 mL IV SCH (00:04)
[2019-05-16] MEDS: D5W AND 1/2NSS + 40MEQ KCL 40 MEQ/1,000 ML BAG IV SCH ×2 (01:12→12:16)
[2019-05-16] MEDS: ONDANSETRON INJ 2 MG/ML 2 ML VIAL IV PRN (03:52)
[2019-05-16] MEDS: SIMETHICONE 80 MG CHEW PO PRN ×2 (04:21→20:33)
[2019-05-16 06:25] LABS: Hemoglobin 10.2 g/dL (14.0-18.0); Mean Platelet Volume 8.4 fL (7.4-10.4); Platelet Count 308 K/uL (130-400); RDW Coefficient of Variation 16.3 % (11.5-14.5); RDW Standard Deviation 53.2 fL (36.4-46.3); Red Blood Count 3.37 M/uL (4.7-6.1); White Blood Count 6.73 K/uL (4.8-10.8)
[2019-05-16 06:50] LABS: Partial Thromboplastin Ratio 2.2
[2019-05-16 06:53] LABS: Albumin Level 2.4 gm/dl (3.4-5.0); BUN Creatinine Ratio 4.6 (10-20); Calcium 8.1 mg/dl (8.5-10.1); Est GFR (African American) 108.5; Est GFR (Non-African American) 93.6; Magnesium 1.8 mg/dl (1.8-2.4); Potassium 2.9 mmol/L (3.5-5.1)
[2019-05-16 06:56] LABS: Albumin Globulin Ratio 0.9 (0.9-2); Bilirubin,Total 0.3 mg/dl (0.2-1); Globulin 2.8 gm/dl (2.5-4.0); Phosphorus 2.2 mg/dl (2.5-4.9); Total Protein 5.2 gm/dl (6.4-8.2)
[2019-05-16 07:04] LABS: Partial Thromboplastin Time 60.3 Seconds (21.0-31.0)
[2019-05-16] MEDS: FLUCONAZOLE 100 MG/50 ML BAG IV SCH (07:56)
[2019-05-16] MEDS: DICLOFENAC SOD 1% GEL 100 GM TUBE EXT SCH ×4 (07:57→20:33)
[2019-05-16] MEDS: HYDROCORTISONE SOD 25 MG in SYRINGE 0 ML IV SCH ×2 (07:57→20:33)
[2019-05-16] MEDS: FAMOTIDINE 20 MG in SYRINGE 3 ML IV SCH ×2 (07:57→20:33)
--- NOTE | 2019-05-16 08:40 | Surgery Progress Note ---
Date of Service May 16, 2019 Assessment & Plan (1) Sigmoid volvulus: will recheck KUMarquise will restart his questran as this was helping him at home. The diarrhea is likely contributing to his hypokalemia which may have contributed to his ileus. will try and slow his bm's. if KUB does not show small bowel ileus, may d/w medicine about restarting his xarelto in hopes of stopping all IVF's. (2) Hypokalemia: (3) Colonic inertia: Subjective pt was up alot of the night with urinating and loose bm's. no n/v. jared liquids. feels more bloated again today. feels he is getting too many fluids. Physical Exam Physical Exam: alert. nad abd: slight increase in distension. nontender. wounds look good. Results & Data Vital Signs (Past 12 Hours) Vital Signs Temp Pulse Pulse Pulse Resp BP BP 05/16/19 07:09 36.7 C 66 20 142/84 H 05/16/19 05:58 45 L 05/16/19 04:03 58 L 05/16/19 01:57 37.1 C 74 16 162/84 H 05/16/19 00:03 58 L 136/84 05/15/19 23:12 37 C 66 18 144/87 H Pulse Ox 05/16/19 07:09 98 05/16/19 05:58 05/16/19 04:03 05/16/19 01:57 98 05/16/19 00:03 05/15/19 23:12 99
[2019-05-16] MEDS: CHOLESTYRAMINE LIGHT 4 GM PKT PO SCH ×4 (10:30→22:01)
[2019-05-16] MEDS ORDERED: POTASSIUM PHOS 3 MMOL/1 ML INFUSION IV STA (10:32)
--- NOTE | 2019-05-16 10:49 | XRay Report ---
KUB HISTORY: Follow up study in a patient with abdominal distention and small bowel ileus evaluate small bowel ileus COMPARISON: KUB 05/15/2019 FINDINGS: Cholecystectomy clips are noted. Marked gaseous distention of the colon redemonstrated with loops lino suring up to 11.9 cm transversely, unchanged. Distended small bowel loops also noted. The enteric tub e has been removed in the interval. No pneumatosis or pneumoperitoneum identified. No definite urolit h or acute fracture identified. Degenerative changes of the hips with possible subtle avascular necro sis changes. IMPRESSION: 1. Persistent marked gaseous distention of the colon appears unchanged. Distal obstruction versus ile us are differential considerations. Continued follow-up recommended. 2. No pneumatosis or pneumoperitoneum. 3. Interval removal of the enteric tube. Electronically signed by: Efren Walker M.D. 05/16/2019 10:48 AM
[2019-05-16] MEDS ORDERED: POTASSIUM PHOSPHATE 21 MMOL in SODIUM CHLORIDE 0.9% 500 ML IV ONE (11:00)
[2019-05-16] MEDS ORDERED: MAGNESIUM SULFATE / D5W 1 GM/100 ML BAG IV ONE (11:00)
[2019-05-16] MEDS: POTASSIUM CHLORIDE / WTR 20 MEQ/100 ML PLCT IV SCH ×3 (12:17→16:42)
--- NOTE | 2019-05-16 21:32 | Hospitalist Progress Note ---
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 as per Surgery, but small bowel dilatation improved on KUB 05/15, then slightly worsened again on 05/16 since NG tube is been removed -Diet has now been advanced to low fiber by surgical team, will convert back to po meds except will keep Pepcid and Lopressor as well as hydrocortisone IV until diarrhea slows down as they may not be well absorbed -Surgery managing his care - continue Pain control IV dilaudid and oxycodone prn -Continue IV fluids but reduce the rate -encouraged him to continue to ambulate -Slow recovery given colonic inertia (2) Colonic inertia: As above Had sigmoid volvulus and partial colectomy for that, but residual colon remains largely distended which may be chronic (3) Diarrhea: Ongoing for many months patient thinks secondary to his chemotherapy Also with colonic inertia and dysfunction of the colon, likely not reabsorbing water -Restarted cholestyramine today -Continue to replace electrolytes as needed (4) Bradycardia: - Bradycardic following procedure, now resolved except some sinus bradycardia which is acceptable. - can continue Lopressor IV for now nad revert back to po when taking po reliably (5) PAF (paroxysmal atrial fibrillation): - continues to be in NSR on monitor. - continue holding Toprol 100mg daily while NPO -will continue Lopressor 5mg IV q6 scheduled with hold parameters -hold Xarelto, last dose was evening on 05/10 -will continue heparin drip until surgery thinks he definitely will not need any further procedures-perhaps tomorrow (6) Hyperthyroidism: - Diagnosed in January 2019. - TSH was elevated in March 2019 up to 18 -- d/c'ed Methimazole TID. - Discussed case with database architect during last admission. - Most recent TSH was improving at 5, given ongoing issues with the bowels, will repeat TSH tomorrow (7) Pneumothorax: - Spontaneous, required left sided chest tube during previous admission. breathing well, lungs clear , Not hypoxic (8) Elevated liver enzymes: - Noted during last admission; Hepatitis panel were all negative. - RUQ US was concerning for early cirrhosis. - LFTs WNL during this admission. (9) Lung cancer: - NSCLC of CROW s/p lobectomy in 2017. - S/p multiple cycles of Carboplatin/Paclitaxel/Avastin/Atezeolizumab in 2018. - Not currently receiving chemotherapy; follows with Dr. Huber Ortiz. - placed Prednisone 10 mg daily on hold as he previously was n.p.o.-can restart prednisone 10 mg daily in the morning -continue IV hydrocortisone until reliably absorbing prednisone. -Patient requesting to restart his home Marinol 2.5 mg BID (10) Hypertension: BP stable on Lopressor 5mg IV q6 (11) Electrolyte abnormality: Continues with profound hypokalemia, also with hypomagnesemia and hypophosphatemia secondary to poor po intake and ongoing significant diarrhea Continue to replace potassium, phosphorus, magnesium -Follow labs in the morning (12) COPD (chronic obstructive pulmonary disease): - Continue Albuterol inhaler prn. - No evidence of acute exacerbation. (13) GERD (gastroesophageal reflux disease): - po PPI on hold -continue IV Pepcid 20mg q12 until po intake improves (14) Depression: - holding Remeron however patient reports that he does not like the side effects of Remeron and does not want to be restarted on it (15) DVT prophylaxis: - SCDs, heparin gtt Dispo- remain hospitalized Hospitalist service will continue to follow along Subjective Patient feels a little bit more abdominal distention today, no nausea. Denies abdominal pain. He is not passing any gas but continues to have multiple loose liquidy stools. No chest pain or shortness of breath. Surgery advanced his diet to low fiber by the time I saw him and he is tolerating small amounts of this. He is also restarted on his cholestyramine which helped a little slow down his loose stools. He continues to ambulate around the halls multiple times a day. He is requesting that his Marinol be restarted to help his appetite. Telemetry with sinus arrhythmia, PACs, PVCs, rates in 70s Review of Systems Review of Systems: All systems reviewed & are unremarkable except as noted in HPI & below Physical Exam Constitutional: WD/WN, vitals as above Eyes: PERRL, conjunctivae normal, anicteric sclerae Neck: trachea midline, no thyromegaly Respiratory: normal respiratory effort, lungs clear to auscultation Cardiovascular: RRR, no murmur, no edema Gastrointestinal (Abdomen): Inspection/Auscultation: + abdomen distended (Very mild) and normal bowel sounds; + abdomen abnormal to inspection (LLQ incisional scar healing, periumbilical wound healing, no erythema) and no abdominal surgical drain present Percussion/Palpation: abdomen soft; abdomen nontender Musculoskeletal: Extremities: extremities normal to inspection; no cyanosis and no clubbing Skin: no rashes, warm and dry Neurologic: moves all extremities and awake; no focal motor deficits Psychiatric: A+Ox3, euthymic affect Results & Data Vital Signs (Past 12 Hours) Vital Signs Temp Pulse Pulse Resp BP BP BP 05/16/19 17:53 78 149/89 H 05/16/19 15:26 36.5 C 83 20 145/96 H 05/16/19 12:04 36.7 C 93 H 18 130/91 Pulse Ox 05/16/19 17:53 05/16/19 15:26 100 05/16/19 12:04 98 Laboratory Results 05/17/19 05/16/19 05/16/19 Range/Units 06:02 06:10 06:10 WBC 6.73 (4.8-10.8) K/uL RBC 3.37 L (4.7-6.1) M/uL Hgb 10.2 L (14.0-18.0) g/dL Hct 30.0 L (42-52) % MCV 89.0 (80-100) fL MCH 30.3 (25-34) pg MCHC 34.0 (32-36) g/dL RDW Std Deviation 53.2 H (36.4-46.3) fL RDW Coeff of Adams 16.3 H (11.5-14.5) % Plt Count 308 (130-400) K/uL MPV 8.4 (7.4-10.4) fL APTT Pending (21.0-31.0) Seconds PTT Ratio Pending Sodium 141 (136-145) mmol/L Potassium 2.9 L (3.5-5.1) mmol/L Chloride 112 H (98-107) mmol/L Carbon Dioxide 21 (21-32) mmol/L Anion Gap 8.0 (3-11) BUN 3 L (7-18) mg/dl Creatinine 0.75 (0.6-1.4) mg/dl Est Cr Clr Drug Dosing 102.0 ml/min Est GFR ( Amer) 108.5 Est GFR (Non-Af Amer) 93.6 BUN/Creatinine Ratio 4.6 L (10-20) Glucose 88 (70-99) mg/dl Calcium 8.1 L (8.5-10.1) mg/dl Phosphorus 2.2 L (2.5-4.9) mg/dl Magnesium 1.8 (1.8-2.4) mg/dl Total Bilirubin 0.3 (0.2-1) mg/dl AST 11 L (15-37) U/L ALT 23 (12-78) U/L Alkaline Phosphatase 110 (45-117) U/L Total Protein 5.2 L (6.4-8.2) gm/dl Albumin 2.4 L (3.4-5.0) gm/dl Globulin 2.8 (2.5-4.0) gm/dl Albumin/Globulin Ratio 0.9 (0.9-2) 05/16/19 Range/Units 06:10 WBC (4.8-10.8) K/uL RBC (4.7-6.1) M/uL Hgb (14.0-18.0) g/dL Hct (42-52) % MCV (80-100) fL MCH (25-34) pg MCHC (32-36) g/dL RDW Std Deviation (36.4-46.3) fL RDW Coeff of Adams (11.5-14.5) % Plt Count (130-400) K/uL MPV (7.4-10.4) fL APTT 60.3 H* (21.0-31.0) Seconds PTT Ratio 2.2 Sodium (136-145) mmol/L Potassium (3.5-5.1) mmol/L Chloride (98-107) mmol/L Carbon Dioxide (21-32) mmol/L Anion Gap (3-11) BUN (7-18) mg/dl Creatinine (0.6-1.4) mg/dl Est Cr Clr Drug Dosing ml/min Est GFR ( Amer) Est GFR (Non-Af Amer) BUN/Creatinine Ratio (10-20) Glucose (70-99) mg/dl Calcium (8.5-10.1) mg/dl Phosphorus (2.5-4.9) mg/dl Magnesium (1.8-2.4) mg/dl Total Bilirubin (0.2-1) mg/dl AST (15-37) U/L ALT (12-78) U/L Alkaline Phosphatase (45-117) U/L Total Protein (6.4-8.2) gm/dl Albumin (3.4-5.0) gm/dl Globulin (2.5-4.0) gm/dl Albumin/Globulin Ratio (0.9-2) PG Care Time/CCT Total # of Minutes Spent Total Time Spent with Patient: Total time spent is greater than 50% in coordination of care (as documented) at patient's floor/unit and/or counseling patient: (1) Pneumothorax Pneumothorax type: spontaneous, primary Qualified Code(s): J93.11 - Primary spontaneous pneumothorax (2) Lung cancer Laterality: left Lung location: upper lobe of lung Qualified Code(s): C34.12 - Malignant neoplasm of upper lobe, left bronchus or lung (3) Hypertension Hypertension type: essential hypertension Qualified Code(s): I10 - Essential (primary) hypertension (4) Diarrhea Diarrhea type: unspecified type Qualified Code(s): R19.7 - Diarrhea, unspecified
[2019-05-17] MEDS: D5W AND 1/2NSS + 40MEQ KCL 40 MEQ/1,000 ML BAG IV SCH ×2 (00:50→12:28)
[2019-05-17] MEDS: KETOROLAC TROMETHAMINE 15 MG/ML VIAL IV PRN (02:58)
[2019-05-17] MEDS: METOPROLOL TARTRATE 1 MG/ML VIAL IV SCH ×4 (06:33→23:22)
[2019-05-17 06:40] LABS: Partial Thromboplastin Ratio 2.3
[2019-05-17 06:48] LABS: Partial Thromboplastin Time 61.8 Seconds (21.0-31.0)
[2019-05-17] MEDS: Heparin Adult LOW DOSE Wt-Based Dextrose 5% 25,000 units/500 mL IV SCH ×2 (06:56→09:57)
--- NOTE | 2019-05-17 07:05 | Progress Note ---
Date of Service May 17, 2019 Assessment & Plan (1) Colonic inertia: cont low fiber diet, he says diet will not be right until he receives Marinol begun on questran, cont current IV meds If pt cannot eat- may req Tpn- see how he does over 1-2 days Subjective awake , alert, no distress some abd pain last pm- Toradol given no flatus, loose bm jared some low fiber diet Physical Exam Physical Exam: alert, abd- distended but soft, positive bs, min tenderness Results & Data Vital Signs (Past 12 Hours) Vital Signs Temp Pulse Pulse Resp BP BP Pulse Ox 05/17/19 06:33 60 137/85 05/17/19 03:47 36.9 C 58 L 18 152/82 H 97 05/17/19 01:10 74 05/16/19 23:34 66 136/90 05/16/19 23:19 36.8 C 69 20 151/97 H 97
[2019-05-17] MEDS: DICLOFENAC SOD 1% GEL 100 GM TUBE EXT SCH ×4 (08:18→21:51)
[2019-05-17] MEDS: HYDROCORTISONE SOD 25 MG in SYRINGE 0 ML IV SCH ×2 (08:18→21:34)
[2019-05-17] MEDS: DRONABINOL 2.5 MG CAP PO SCH ×2 (08:18→21:47)
[2019-05-17] MEDS: FAMOTIDINE 20 MG in SYRINGE 3 ML IV SCH ×2 (08:18→21:49)
[2019-05-17] MEDS: FLUCONAZOLE 100 MG/50 ML BAG IV SCH (08:18)
[2019-05-17] MEDS: predniSONE 10 MG TABLET PO SCH (08:52)
[2019-05-17] MEDS: CHOLESTYRAMINE LIGHT 4 GM PKT PO SCH ×4 (08:52→21:51)
[2019-05-17 09:34] LABS: Basophils # (auto) 0.01 K/uL (0-0.2); Basophils % (auto) 0.1 %; Eosinophils # (auto) 0.24 K/uL (0-0.5); Eosinophils % (auto) 3.1 %; Hematocrit (blood only) 30.6 % (42-52); Hemoglobin 10.3 g/dL (14.0-18.0); Immature Granulocytes # (auto) 0.06 K/uL (0.00-0.02); Immature Granulocytes % (auto) 0.8 %; Lymphocytes % (auto) 15.7 %; Mean Corpuscular Hgb Conc 33.7 g/dL (32-36); Mean Corpuscular Volume 89.5 fL (80-100); Mean Platelet Volume 8.5 fL (7.4-10.4); Monocytes # (auto) 0.94 K/uL (0.11-0.59); Monocytes % (auto) 12.3 %; Platelet Count 343 K/uL (130-400); RDW Coefficient of Variation 16.5 % (11.5-14.5); RDW Standard Deviation 53.8 fL (36.4-46.3); Red Blood Count 3.42 M/uL (4.7-6.1); White Blood Count 7.65 K/uL (4.8-10.8)
[2019-05-17 09:46] LABS: BUN Creatinine Ratio 1.7 (10-20); Calcium 8.2 mg/dl (8.5-10.1); Creatinine Clr Calc Pharmacy 95.7 ml/min; Est GFR (African American) 106.2; Est GFR (Non-African American) 91.6; Magnesium 1.8 mg/dl (1.8-2.4)
[2019-05-17 09:56] LABS: Phosphorus 2.6 mg/dl (2.5-4.9)
[2019-05-17 10:09] LABS: T4 Free Thyroxine 1.46 ng/dl (0.8-1.6)
[2019-05-17] MEDS: POTASSIUM CHLORIDE / WTR 20 MEQ/100 ML PLCT IV SCH ×3 (10:39→14:31)
--- NOTE | 2019-05-17 18:41 | Hospitalist Progress Note ---
Date of Service May 17, 2019 Assessment & Plan (1) Sigmoid volvulus: - S/p sigmoid resection on 05/03, POD#14, then with post-op ileus requiring replacement of NGT on 05/13, decompressed, much improved and NGT removed on 05/15 Has chronically dilated remaining colon from colonic inertia as per Surgery, but small bowel dilatation improved on KUB 05/15, then slightly worsened again on 05/16 since NG tube is been removed -Diet has now been advanced to low fiber by surgical team, has been converted back to po meds except will keep Pepcid and Lopressor in IV form until diarrhea slows down as they may not be well absorbed -Surgery managing his care - continue Pain control -Continue gentle IV fluids but can likely discontinue soon as he is tolerating p.o. but still having some diarrhea -encouraged him to continue to ambulate -Slow recovery given colonic inertia (2) Colonic inertia: As above Had sigmoid volvulus and partial colectomy for that, but residual colon remains largely distended which may be chronic, perhaps related to thyroid Repeat TSH still mildly elevated at 5 but free T4 is normal -We will follow (3) Diarrhea: Ongoing for many months patient thinks secondary to his chemotherapy Also with colonic inertia and dysfunction of the colon, likely not reabsorbing water Slightly improved today after restarting cholestyramine -Continue cholestyramine -Continue to replace electrolytes as needed (4) Bradycardia: - Bradycardic following procedure, now resolved except some sinus bradycardia which is acceptable. - can continue Lopressor IV for now and revert back to po when diarrhea slows down (5) PAF (paroxysmal atrial fibrillation): - continues to be in NSR on monitor. - continue holding Toprol 100mg daily while NPO -will continue Lopressor 5mg IV q6 scheduled with hold parameters -Continue to hold Xarelto, last dose was evening on 05/10 -will continue heparin drip until surgery thinks he definitely will not need any further procedures-perhaps tomorrow? (6) Hyperthyroidism: - Diagnosed in January 2019. - TSH was elevated in March 2019 up to 18 -- d/c'ed Methimazole TID. - Discussed case with unit clerk during last admission. - Most recent TSH was improving at 5, given ongoing issues with the bowels, repeated TSH again and is still 5 normal free T4 -Continue follow-up with endocrinology after discharge (7) Pneumothorax: - Spontaneous, required left sided chest tube during previous admission. breathing well, lungs clear , Not hypoxic (8) Elevated liver enzymes: - Noted during last admission; Hepatitis panel were all negative. - RUQ US was concerning for early cirrhosis. - LFTs WNL during this admission. (9) Lung cancer: - NSCLC of CROW s/p lobectomy in 2017. - S/p multiple cycles of Carboplatin/Paclitaxel/Avastin/Atezeolizumab in 2018. - Not currently receiving chemotherapy; follows with Dr. Huber Ortiz. -Now restarted on prednisone 10 mg daily -Can now discontinue IV hydrocortisone -Restarted his home Marinol 2.5 mg BID which is improving his appetite (10) Hypertension: BP stable on Lopressor 5mg IV q6 (11) Electrolyte abnormality: Continues with profound hypokalemia although slightly improved today, also with hypomagnesemia and hypophosphatemia which is now improved secondary to poor po intake and ongoing significant diarrhea Continue to replace potassium, phosphorus, magnesium -Follow labs in the morning (12) COPD (chronic obstructive pulmonary disease): - Continue Albuterol inhaler prn. - No evidence of acute exacerbation. (13) GERD (gastroesophageal reflux disease): - po PPI on hold -continue IV Pepcid 20mg q12 until po intake improves (14) Depression: - holding Remeron however patient reports that he does not like the side effects of Remeron and does not want to be restarted on it (15) DVT prophylaxis: - SCDs, heparin gtt Dispo- remain hospitalized Hospitalist service will continue to follow along Subjective Patient feeling much better today, less distention in the abdomen, is passing slightly less loose stool. Is tolerating low fiber diet but is trying not to overdo it. No chest pain shortness of breath. No nausea. Telemetry with sinus bradycardia and normal sinus rhythm sinus arrhythmia, rates in the 40s to 90s Review of Systems Review of Systems: All systems reviewed & are unremarkable except as noted in HPI & below Physical Exam Constitutional: WD/WN, vitals as above Eyes: PERRL, conjunctivae normal, anicteric sclerae ENMT: external ear and nose normal, oropharynx normal Neck: trachea midline, no thyromegaly Respiratory: normal respiratory effort, lungs clear to auscultation Cardiovascular: RRR, no murmur, no edema Gastrointestinal (Abdomen): Inspection/Auscultation: + abdomen distended (Very mild) and normal bowel sounds; + abdomen abnormal to inspection (LLQ incisional scar healing, periumbilical wound healing, no erythema) Percussion/Palpation: abdomen soft; abdomen nontender Musculoskeletal: Extremities: extremities normal to inspection; no cyanosis and no clubbing Skin: no rashes, warm and dry Neurologic: moves all extremities and awake; no focal motor deficits Psychiatric: A+Ox3, euthymic affect Results & Data Vital Signs (Past 12 Hours) Vital Signs Temp Pulse Pulse Resp BP BP BP 05/17/19 18:35 97 H 152/110 H 05/17/19 18:18 82 05/17/19 16:00 97 H 152/110 H 05/17/19 14:52 36.7 C 88 20 161/97 H 05/17/19 12:28 84 154/86 H 05/17/19 11:00 36.6 C 84 20 151/97 H 05/17/19 09:13 48 L 05/17/19 07:00 36.6 C 65 18 154/88 H BP Pulse Ox 05/17/19 18:35 05/17/19 18:18 05/17/19 16:00 05/17/19 14:52 157/97 H 95 05/17/19 12:28 05/17/19 11:00 152/75 H 95 05/17/19 09:13 05/17/19 07:00 96 Laboratory Results 05/18/19 05/17/19 05/17/19 Range/Units 05:35 06:04 06:04 WBC 7.65 (4.8-10.8) K/uL RBC 3.42 L (4.7-6.1) M/uL Hgb 10.3 L (14.0-18.0) g/dL Hct 30.6 L (42-52) % MCV 89.5 (80-100) fL MCH 30.1 (25-34) pg MCHC 33.7 (32-36) g/dL RDW Std Deviation 53.8 H (36.4-46.3) fL RDW Coeff of [place] 16.5 H (11.5-14.5) % Plt Count 343 (130-400) K/uL MPV 8.5 (7.4-10.4) fL Immature Gran % (Auto) 0.8 % Neut % (Auto) 68.0 % Lymph % (Auto) 15.7 % [place] % (Auto) 12.3 % Eos % (Auto) 3.1 % Baso % (Auto) 0.1 % Immature Gran # (Auto) 0.06 H (0.00-0.02) K/uL Neut # (Auto) 5.20 (1.4-6.5) K/uL Lymph # (Auto) 1.20 (1.2-3.4) K/uL [place] # (Auto) 0.94 H (0.11-0.59) K/uL Eos # (Auto) 0.24 (0-0.5) K/uL Baso # (Auto) 0.01 (0-0.2) K/uL APTT 50.3 H* (21.0-31.0) Seconds PTT Ratio 1.9 Sodium 141 (136-145) mmol/L Potassium 3.0 L (3.5-5.1) mmol/L Chloride 111 H (98-107) mmol/L Carbon Dioxide 22 (21-32) mmol/L Anion Gap 8.0 (3-11) BUN 1 L (7-18) mg/dl Creatinine 0.79 (0.6-1.4) mg/dl Est Cr Clr Drug Dosing 95.7 ml/min Est GFR ( Amer) 106.2 Est GFR (Non-Af Amer) 91.6 BUN/Creatinine Ratio 1.7 L (10-20) Glucose 87 (70-99) mg/dl Calcium 8.2 L (8.5-10.1) mg/dl Phosphorus 2.6 (2.5-4.9) mg/dl Magnesium 1.8 (1.8-2.4) mg/dl TSH 5.100 H (0.300-4.500) uIu/ml Free T4 1.46 (0.8-1.6) ng/dl PG Care Time/CCT Total # of Minutes Spent Total Time Spent with Patient: Total time spent is greater than 50% in coordination of care (as documented) at patient's floor/unit and/or counseling patient: (1) Pneumothorax Pneumothorax type: spontaneous, primary Qualified Code(s): J93.11 - Primary spontaneous pneumothorax (2) Diarrhea Diarrhea type: unspecified type Qualified Code(s): R19.7 - Diarrhea, unspecified (3) Lung cancer Laterality: left Lung location: upper lobe of lung Qualified Code(s): C34.12 - Malignant neoplasm of upper lobe, left bronchus or lung (4) Hypertension Hypertension type: essential hypertension Qualified Code(s): I10 - Essential (primary) hypertension
[2019-05-18] MEDS: D5W AND 1/2NSS + 40MEQ KCL 40 MEQ/1,000 ML BAG IV SCH (01:35)
[2019-05-18] MEDS: SIMETHICONE 80 MG CHEW PO PRN ×2 (01:48→15:33)
[2019-05-18] MEDS: METOPROLOL TARTRATE 1 MG/ML VIAL IV SCH ×3 (06:00→17:52)
[2019-05-18 06:32] LABS: Partial Thromboplastin Ratio 1.9
[2019-05-18 06:38] LABS: Partial Thromboplastin Time 50.3 Seconds (21.0-31.0)
[2019-05-18 08:07] LABS: Calcium 8.4 mg/dl (8.5-10.1); Creatinine Clr Calc Pharmacy 102.2 ml/min; Est GFR (African American) 109.1; Est GFR (Non-African American) 94.1; Magnesium 1.6 mg/dl (1.8-2.4); Phosphorus 2.9 mg/dl (2.5-4.9); Potassium 2.7 mmol/L (3.5-5.1)
[2019-05-18] MEDS ORDERED: POTASSIUM CHLORIDE 20 MEQ/15 ML UDC PO STA (08:12)
--- NOTE | 2019-05-18 08:21 | Surgery Progress Note ---
Date of Service May 18, 2019 Assessment & Plan (1) Colonic inertia: POD 15 lap sigmoid colectomy some improvement continue to supplement K+ pt seen /as above. overall improving. bowels more solid and less frequent. tolerating small low fiber diet. no further n/v. abdominal distension about the same. continue to replace K. continue questran. if he continues to do ok overnight can consider d/c home tomorrow. Dr. Bergman covering for weekend. Subjective tolerating reg diet but mostly full liquids or moist, bowels moving and less liquid Physical Exam Gastrointestinal (Abdomen): Inspection/Auscultation: + abdomen distended Percussion/Palpation: abdomen soft Results & Data Vital Signs (Past 12 Hours) Vital Signs Temp Pulse Pulse Resp BP BP BP 05/18/19 07:32 36.8 C 74 21 150/90 H 05/18/19 06:07 50 L 145/75 H 05/18/19 06:00 80 126/87 05/18/19 03:21 36.8 C 65 20 129/82 05/18/19 00:00 65 51 L 133/84 05/17/19 23:28 36.9 C 81 20 143/80 H 05/17/19 23:22 75 145/84 H Pulse Ox 05/18/19 07:32 92 05/18/19 06:07 05/18/19 06:00 05/18/19 03:21 99 05/18/19 00:00 05/17/19 23:28 99 05/17/19 23:22
[2019-05-18] MEDS: DRONABINOL 2.5 MG CAP PO SCH ×2 (09:17→20:52)
[2019-05-18] MEDS: POTASSIUM CHLORIDE / WTR 20 MEQ/100 ML PLCT IV SCH ×4 (09:19→16:03)
[2019-05-18] MEDS: predniSONE 10 MG TABLET PO SCH (09:22)
[2019-05-18] MEDS: DICLOFENAC SOD 1% GEL 100 GM TUBE EXT SCH ×4 (09:23→20:53)
[2019-05-18] MEDS ORDERED: POTASSIUM CHLORIDE 20 MEQ TABCR PO STA (09:39)
[2019-05-18] MEDS: FLUCONAZOLE 100 MG/50 ML BAG IV SCH (09:48)
[2019-05-18] MEDS: MAGNESIUM SULFATE / D5W 1 GM/100 ML BAG IV SCH ×2 (10:26→11:21)
[2019-05-18] MEDS: FAMOTIDINE 20 MG in SYRINGE 3 ML IV SCH ×2 (10:28→20:55)
[2019-05-18] MEDS: CHOLESTYRAMINE LIGHT 4 GM PKT PO SCH ×4 (11:22→22:01)
[2019-05-18] MEDS: Heparin Adult LOW DOSE Wt-Based Dextrose 5% 25,000 units/500 mL IV SCH (14:42)
--- NOTE | 2019-05-18 17:03 | Hospitalist Progress Note ---
Date of Service May 18, 2019 Assessment & Plan (1) Sigmoid volvulus: - S/p sigmoid resection on 05/03, POD#15, then with post-op ileus requiring replacement of NGT on 05/13, decompressed, much improved and NGT removed on 05/15 Has chronically dilated remaining colon from colonic inertia as per Surgery, but small bowel dilatation improved on KUB 05/15, then slightly worsened again on 05/16 since NG tube is been removed -Diet has now been advanced to low fiber by surgical team, has been converted back to po meds -Has continued issues with loose stools which are improving -Surgery managing his care - continue Pain control -Surgery DC'd IV fluids today -Continue to ambulate -Slow recovery given colonic inertia but much improved overall (2) Colonic inertia: As above Had sigmoid volvulus and partial colectomy for that, but residual colon remains largely distended which may be chronic, perhaps related to thyroid Repeat TSH still mildly elevated at 5 but free T4 is normal - will follow-up with surgery as an outpatient (3) Diarrhea: Ongoing for many months patient thinks secondary to his chemotherapy- 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 -Will now DC IV Lopressor and restart metoprolol tartrate 50 mg p.o. twice daily rather than home Toprol-XL 100 as he is having poor absorption (5) PAF (paroxysmal atrial fibrillation): - continues to be in NSR on monitor. -DC IV Lopressor and start p.o. metoprolol as above, can likely go back on home Toprol-XL upon discharge -Continue to hold Xarelto, last dose was evening on 05/10-we will discuss with danilo iverson about restarting this tomorrow -will continue heparin drip for now (6) Hyperthyroidism: - Diagnosed in January 2019. - TSH was elevated in March 2019 up to 18 -- d/c'ed Methimazole TID. - Discussed case with commercial driver during last admission. - Most recent TSH was improving at 5, given ongoing issues with the bowels, repeated TSH again and is still 5 normal free T4 -Continue follow-up with endocrinology after discharge (7) Pneumothorax: - Spontaneous, required left sided chest tube during previous admission. Secondary to previous lobectomy (8) Elevated liver enzymes: - Noted during last admission; Hepatitis panel were all negative. - RUQ US was concerning for early cirrhosis. - LFTs WNL during this admission. (9) Lung cancer: - NSCLC of CROW s/p lobectomy in 2017. - S/p multiple cycles of Carboplatin/Paclitaxel/Avastin/Atezeolizumab in 2018. - Not currently receiving chemotherapy-was discontinued fairly recently for severe diarrhea and bowel issues; follows with Dr. Huber Ortiz. 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 metoprolol as above (11) Electrolyte abnormality: Continues with profound hypokalemia, also with hypomagnesemia and hypophosphatemia which is now improved secondary to poor po intake and ongoing significant diarrhea Diarrhea improving today Continue to replace potassium, phosphorus, magnesium -Follow potassium again this evening and replace IV as needed -will start on potassium chloride 40 mEq p.o. 3 times daily as a standing order which she will likely go home on He will need close follow-up of his electrolytes as an outpatient after discharge (12) COPD (chronic obstructive pulmonary disease): - Continue Albuterol inhaler prn. - No evidence of acute exacerbation. (13) GERD (gastroesophageal reflux disease): DC IV Pepcid and restart home p.o. PPI (14) Depression: - holding Remeron however patient reports that he does not like the side effects of Remeron and does not want to be restarted on it (15) DVT prophylaxis: - SCDs, heparin gtt Dispo- remain hospitalized Hospitalist service will continue to follow along With possibly be medically stable for discharge in the next day if potassium is improved Subjective Patient reports stool is becoming slightly more formed today but has had 4 stools prior to lunchtime. Denies chest pain or shortness of breath. Has some mild abdominal distention but no abdominal pain other than discomfort at the incisional site. Denies nausea and is tolerating a low fiber diet. Telemetry with sinus bradycardia and normal sinus rhythm with PVCs with rates in the 50s to 60s Review of Systems Review of Systems: All systems reviewed & are unremarkable except as noted in HPI & below Physical Exam Constitutional: WD/WN, vitals as above Eyes: PERRL, conjunctivae normal, anicteric sclerae ENMT: Ears: no hearing impairment Mouth: + oropharynx abnormality (Very minimal residual thrush on the tongue much improved from previous) Neck: trachea midline, no thyromegaly Respiratory: normal respiratory effort, lungs clear to auscultation Cardiovascular: RRR, no murmur, no edema Gastrointestinal (Abdomen): Inspection/Auscultation: + abdomen distended (Very mild) and normal bowel sounds; + abdomen abnormal to inspection (LLQ incisional scar healing, periumbilical wound healing, no erythema) Percussion/Palpation: abdomen soft; abdomen nontender Musculoskeletal: Extremities: extremities normal to inspection; no cyanosis and no clubbing Skin: no rashes, warm and dry Neurologic: moves all extremities and awake; no focal motor deficits Psychiatric: A+Ox3, euthymic affect Results & Data Vital Signs (Past 12 Hours) Vital Signs Temp Pulse Pulse Resp BP BP BP 05/18/19 15:49 36.8 C 82 20 134/77 05/18/19 12:42 85 142/90 H 05/18/19 12:41 85 142/90 H 05/18/19 11:26 36.9 C 74 21 135/91 05/18/19 08:00 70 05/18/19 07:32 36.8 C 74 21 150/90 H 05/18/19 06:07 50 L 145/75 H 05/18/19 06:00 80 126/87 Pulse Ox 05/18/19 15:49 99 05/18/19 12:42 05/18/19 12:41 05/18/19 11:26 98 05/18/19 08:00 05/18/19 07:32 92 05/18/19 06:07 05/18/19 06:00 Laboratory Results 05/18/19 05/18/19 05/18/19 Range/Units 19:36 05:35 05:28 APTT 50.3 H* (21.0-31.0) Seconds PTT Ratio 1.9 Sodium 141 (136-145) mmol/L Potassium 3.5 D 2.7 L (3.5-5.1) mmol/L Chloride 108 H (98-107) mmol/L Carbon Dioxide 23 (21-32) mmol/L Anion Gap 9.0 (3-11) BUN 2 L (7-18) mg/dl Creatinine 0.74 (0.6-1.4) mg/dl Est Cr Clr Drug Dosing 102.2 ml/min Est GFR ( Amer) 109.1 Est GFR (Non-Af Amer) 94.1 BUN/Creatinine Ratio 3.0 L (10-20) Glucose 78 (70-99) mg/dl Calcium 8.4 L (8.5-10.1) mg/dl Phosphorus 2.9 (2.5-4.9) mg/dl Magnesium 1.6 L (1.8-2.4) mg/dl PG Care Time/CCT Total # of Minutes Spent Total Time Spent with Patient: Total time spent is greater than 50% in coordination of care (as documented) at patient's floor/unit and/or counseling patient: (1) Pneumothorax Pneumothorax type: spontaneous, primary Qualified Code(s): J93.11 - Primary spontaneous pneumothorax (2) Diarrhea Diarrhea type: unspecified type Qualified Code(s): R19.7 - Diarrhea, unspecified (3) Lung cancer Laterality: left Lung location: upper lobe of lung Qualified Code(s): C34.12 - Malignant neoplasm of upper lobe, left bronchus or lung (4) Hypertension Hypertension type: essential hypertension Qualified Code(s): I10 - Essential (primary) hypertension
[2019-05-18] MEDS: NYSTATIN SUSP 500,000 U/5 ML UDC PO SCH ×2 (17:57→20:51)
[2019-05-18] MEDS ORDERED: Nursing to Pharmacy Communication ONE ×2 (18:08→18:20)
[2019-05-18] MEDS: POTASSIUM CHLORIDE 20 MEQ TABCR PO SCH (20:52)
[2019-05-18] MEDS: METOPROLOL TARTRATE 50 MG TAB PO SCH (20:52)
[2019-05-18] MEDS: MONTELUKAST SODIUM 10 MG TABLET PO SCH (20:52)
[2019-05-18] MEDS ORDERED: POTASSIUM CHLORIDE / WTR 20 MEQ/100 ML PLCT IV ONE (21:00)
[2019-05-19 07:16] LABS: BUN Creatinine Ratio 3.7 (10-20); Calcium 8.5 mg/dl (8.5-10.1); Creatinine Clr Calc Pharmacy 96.5 ml/min; Est GFR (African American) 107.9; Est GFR (Non-African American) 93.1; Magnesium 1.9 mg/dl (1.8-2.4); Potassium 3.2 mmol/L (3.5-5.1)
--- NOTE | 2019-05-19 07:16 | Progress Note ---
Date of Service May 19, 2019 Assessment & Plan (1) Colonic inertia: pt wants to go home- Dr Hughes felt he could probably go today- will discuss with Dr Pederson If he tolerates po K+- will probably manage better than IV Subjective see a/p Results & Data Vital Signs (Past 12 Hours) Vital Signs Temp Pulse Pulse Resp BP Pulse Ox 05/19/19 07:11 36.8 C 55 L 20 146/85 H 99 05/19/19 04:21 36.7 C 51 L 20 155/90 H 99 05/19/19 00:35 53 L 05/18/19 23:30 36.9 C 61 20 162/90 H 99
[2019-05-19] MEDS ORDERED: POTASSIUM CHLORIDE / WTR 20 MEQ/100 ML PLCT IV ONE (08:00)
[2019-05-19] MEDS: NYSTATIN SUSP 500,000 U/5 ML UDC PO SCH (08:05)
[2019-05-19] MEDS: DRONABINOL 2.5 MG CAP PO SCH (08:05)
[2019-05-19] MEDS: METOPROLOL TARTRATE 50 MG TAB PO SCH (08:06)
[2019-05-19] MEDS: POTASSIUM CHLORIDE 20 MEQ TABCR PO SCH (08:07)
[2019-05-19] MEDS: predniSONE 10 MG TABLET PO SCH (08:07)
[2019-05-19] MEDS: DICLOFENAC SOD 1% GEL 100 GM TUBE EXT SCH (08:08)
--- NOTE | 2019-05-19 08:27 | Hospitalist Progress Note ---
Date of Service May 19, 2019 Assessment & Plan (1) Sigmoid volvulus: - S/p sigmoid resection on 05/03, POD#16, then with post-op ileus requiring replacement of NGT on 05/13, decompressed, much improved and NGT removed on 05/15 Has chronically dilated remaining colon from colonic inertia as per Surgery, but small bowel dilatation improved on KUB 05/15, then slightly worsened again on KUB on 05/16 since NG tube is been removed CLinically overall improved -Diet has now been advanced to low fiber by surgical team, has been converted back to po meds -Has continued issues with loose stools which are improving w/ intro of solid foods -Surgery managing his care - continue Pain control with oxycodone prn, APAP prn -Slow recovery given colonic inertia but much improved overall, is ambulating -stable for dc from Surgical standpoint as per my d/w Surgery today Follow up as outpt with Surgery within 10 days (2) Colonic inertia: As above Had sigmoid volvulus and partial colectomy for that, but residual colon remains largely distended which may be chronic, perhaps related to thyroid? 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 -is now back on po metoprolol (5) PAF (paroxysmal atrial fibrillation): - continues to be in NSR on monitor. -return to home Toprol-XL upon discharge, receid IV lopressor throughout stay due to NPO status and poor absorption -can restart Xarelto on discharge -was on heparin gtt post-op (6) Hyperthyroidism: - Diagnosed in January 2019. - TSH was elevated in March 2019 up to 18 -- d/c'ed Methimazole TID. - Discussed case with neurology teacher during last admission. - Most recent TSH was improving at 5, given ongoing issues with the bowels, repeated TSH again and is still 5 normal free T4 -Continue follow-up with endocrinology after discharge (7) Pneumothorax: - Spontaneous, required left sided chest tube during previous admission. Secondary to previous lobectomy (8) Elevated liver enzymes: - Noted during last admission; Hepatitis panel were all negative. - RUQ US was concerning for early cirrhosis. - LFTs WNL during this admission. (9) Lung cancer: - NSCLC of CROW s/p lobectomy in 2017. - S/p multiple cycles of Carboplatin/Paclitaxel/Avastin/Atezeolizumab in 2018. - Not currently receiving chemotherapy-was discontinued fairly recently for severe diarrhea and bowel issues; follows with Dr. Huber Ortiz. 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 metoprolol as above (11) Electrolyte abnormality: Has persistent, profound hypokalemia, also with hypomagnesemia and hypophosphatemia which is now improved secondary to poor po intake and ongoing significant diarrhea Diarrhea improving today K+ finally up to 3.2 on day of dc Continue to replace potassium 40 meq po tid and check BMP in 2 days as outpt with results to PCP -can adjust KCl dosing as per PCP after that (12) COPD (chronic obstructive pulmonary disease): - Continue Albuterol inhaler prn. - No evidence of acute exacerbation. (13) GERD (gastroesophageal reflux disease): -restarted home p.o. PPI but was on IV Pepcid when NPO (14) Depression: - holding Remeron however patient reports that he does not like the side effects of Remeron and does not want to be restarted on it-will dc Remeron from home list -f/u with PCP regarding this (15) DVT prophylaxis: - SCDs, heparin gtt were provided Dispo- Stable for dc to home today from a medical perspsective Subjective Pt feeling well, ready to go home. Abd still mildly distended. Denies CP or SOB,. denies nausea or vomiting. He is still having multiple loose stools but feels they are getting mroe formed. Eating [place] and eggs when I saw him this AM. Tele with SB-NSR, PACs, rates 50s-80s, had one 4 beat run of VT. has normal EF Review of Systems Review of Systems: All systems reviewed & are unremarkable except as noted in HPI & below Physical Exam Constitutional: WD/WN, vitals as above Eyes: PERRL, conjunctivae normal, anicteric sclerae ENMT: Ears: no hearing impairment Mouth: + oropharynx abnormality (Very minimal residual thrush on the tongue much improved from previous) Neck: trachea midline, no thyromegaly Respiratory: normal respiratory effort, lungs clear to auscultation Cardiovascular: RRR, no murmur, no edema Gastrointestinal (Abdomen): Inspection/Auscultation: + abdomen distended (Very mild) and normal bowel sounds; + abdomen abnormal to inspection (LLQ incisional scar healing, periumbilical wound healing, no erythema) Percussion/Palpation: abdomen soft; abdomen nontender Musculoskeletal: Extremities: extremities normal to inspection; no cyanosis and no clubbing Skin: no rashes, warm and dry Neurologic: moves all extremities and awake; no focal motor deficits Psychiatric: A+Ox3, euthymic affect Results & Data Vital Signs (Past 12 Hours) Vital Signs Temp Pulse Pulse Resp BP Pulse Ox 05/19/19 07:11 36.8 C 55 L 20 146/85 H 99 05/19/19 04:21 36.7 C 51 L 20 155/90 H 99 05/19/19 00:35 53 L 05/18/19 23:30 36.9 C 61 20 162/90 H 99 Laboratory Results 05/19/19 05/18/19 Range/Units 06:24 19:36 Sodium 140 (136-145) mmol/L Potassium 3.2 L 3.5 D (3.5-5.1) mmol/L Chloride 110 H (98-107) mmol/L Carbon Dioxide 22 (21-32) mmol/L Anion Gap 9.0 (3-11) BUN 3 L (7-18) mg/dl Creatinine 0.76 (0.6-1.4) mg/dl Est Cr Clr Drug Dosing 96.5 ml/min Est GFR ( Amer) 107.9 Est GFR (Non-Af Amer) 93.1 BUN/Creatinine Ratio 3.7 L (10-20) Glucose 76 (70-99) mg/dl Calcium 8.5 (8.5-10.1) mg/dl Magnesium 1.9 (1.8-2.4) mg/dl PG Care Time/CCT Total # of Minutes Spent Total Time Spent with Patient: Total time spent is greater than 50% in coordination of care (as documented) at patient's floor/unit and/or counseling patient: (1) Diarrhea Diarrhea type: unspecified type Qualified Code(s): R19.7 - Diarrhea, unspecified (2) Pneumothorax Pneumothorax type: spontaneous, primary Qualified Code(s): J93.11 - Primary spontaneous pneumothorax (3) Lung cancer Laterality: left Lung location: upper lobe of lung Qualified Code(s): C34.12 - Malignant neoplasm of upper lobe, left bronchus or lung (4) Hypertension Hypertension type: essential hypertension Qualified Code(s): I10 - Essential (primary) hypertension
[2019-05-19] MEDS ORDERED: PANTOprazole 40 MG TAB PO SCH (09:00)
[2019-05-19] MEDS: CHOLESTYRAMINE LIGHT 4 GM PKT PO SCH (10:56)
[2019-05-19] MEDS: Heparin Adult LOW DOSE Wt-Based Dextrose 5% 25,000 units/500 mL IV SCH (10:56)
--- NOTE | 2019-05-28 16:51 | Discharge Summary ---
Date of Service May 28, 2019 Admission HPI Per Admitting Provider 69-year-old gentleman who was recently hospitalized for acute sigmoid volvulus. GI was able to decompress the volvulus via colonoscope and place a rectal tube. Clinically he improved and we were able to give him a diet and discharge him. He also had a pneumothorax after coughing with a history of left-sided pneumonectomy. He has been having GI issues with abdominal bloating and diarrhea ever since November of this year. The pneumothorax is now resolved and we are here for elective sigmoid colectomy for recurrent volvulus. Principal Diagnosis 1. Sigmoid volvulus 2. colonic inertia 3. postoperative ileus 4. hypokalemia Discharge Exam Gastrointestinal (Abdomen) Inspection/Auscultation: + abdomen distended (mild) and + abdominal surgical incision (clean, dry) Percussion/Palpation: abdomen soft Discharge Data Allergies Allergy/AdvReac Type Severity Reaction Status Date / Time No Known Allergies Allergy Unverified 05/03/19 07:48 Consultations 05/03/19 13:13 Consult Hospitalist Routine 05/11/19 12:13 Consult Hospitalist Routine Procedures Performed Operation Date: 05/03/19 09:35 Actual Procedures p Laparoscopic Sigmoidcolectomy, Enterolysis - Mateo Hughes, Hospital Course (1) Sigmoid volvulus: 69 y/o male taken to the operating room for laparoscopic sigmoid colon resection for volvulus. He was transferred to PCU for postoperative monitoring given COPD, HTN, PAF, lung cancer and recent pneumothorax. Lovenox was used for DVT prophylaxis. Xarelto was restarted on POD 3. He was transferred to the regular floor, was having BM's and tolerating an advancing diet. He then complained of nausea and increasing bloating over the next few days. KUB showed small bowel distention consistent with ileus. He also had hypokalemia and was supplemented IV and PO. He was not making much progress and agreed to have NG placed on POD 10. A large volume was removed initially and was decreasing over the next two days. The NG was removed on day 12 and x-rays showed resolution of small bowel distention. He did have persistently dilated colon consistent with his inertia. He was able to increase oral intake over the next four days. Jennifer nol was restarted. Questran was also restarted for multiple loose BMs. On day 16 he was stable for discharge. Total Time Total Time Spent Total Time Spent (In Minutes): 20 Discharge Plan Discharge Items Patient Disposition: Home - Self-Care Reason For Visit: Sigmoid Volvulus Discharge Diagnosis: sigmoid resection Condition: Good Discharge Goals: Decrease discomfort Activity: Per 'Additional Instructions' section Lifting: No more than 10 pounds Bathing: No limitations Driving/Machine Use: Resume 3 days after discharge Non-emergency contact: Primary Care Provider and Surgeon Call non-emergency contact if: you have any medication questions, your pain is not controlled, you have a fever, your temperature is above 101.5, your wound has increased redness and your wound has increased drainage Follow-up/Referrals: Armando Espana MD [Primary Care Provider] - Mateo Hughes DO [Surgeon] - (Follow-up in 1-2 weeks, call to schedule an appt) Diet: Regular Addtl Provider Instructions: Please take the potassium tablets 40 meq three times daily and check your blood work on Tuesday. Please follow up with your Surgeon and PCP within 1-2 weeks. Prescriptions: New oxycodone-acetaminophen [Percocet] 5-325 mg tablet 1 - 2 tab PO Q4H PRN (Reason: pain) Qty: 15 RF: 0 nystatin 100,000 unit/mL Suspension 5 ml PO QID 10 Days Qty: 200 RF: 0 diclofenac sodium [Voltaren] 1 % Gel 1 gm EXT QID PRN (Reason: pain) Qty: 100 RF: 0 potassium chloride 20 mEq tablet,ER particles/crystals 40 meq PO TID Qty: 180 RF: 0 Continued irbesartan [Avapro] 150 mg tablet 150 mg PO QAM Qty: 90 RF: 3 metoprolol succinate 100 mg tablet extended release 24 hr 100 mg PO DAILY Qty: 90 RF: 3 tadalafil 5 mg tablet 5 mg PO .COMPLEX RF: 0 Incruse Ellipta 62.5 mcg/actuation blister with device 1 puffs INH DAILY RF: 0 prednisone 10 mg tablet 10 mg PO DAILY RF: 0 albuterol sulfate 90 mcg/actuation HFA aerosol inhaler 2 puffs inhalation Q4H PRNQty: 1 RF: 0 ondansetron HCl 8 mg tablet 8 mg PO Q6H PRN (Reason: Nausea) RF: 0 pantoprazole 40 mg tablet,delayed release (DR/EC) 40 mg PO QAM RF: 0 Xarelto 20 mg tablet 20 mg PO QDD RF: 0 cholestyramine (with sugar) 4 gram powder 1 - 2 tbsp PO DAILY RF: 0 ipratropium bromide 42 mcg (0.06 %) spray,non-aerosol 2 spray intranasal UD PRN (Reason: Nasal Congestion) RF: 0 loratadine 10 mg Tablet 10 mg PO DAILY PRN (Reason: Congestion) RF: 0 dronabinol 2.5 mg capsule 2.5 mg PO BID RF: 0 hydrocortisone [Proctosol HC] 2.5 % Cream With Perineal Applicator 1 applic NH BID PRN (Reason: irritation) RF: 0 montelukast [Singulair] 10 mg Tablet 10 mg PO PM RF: 0 albuterol sulfate [Ventolin HFA] 90 mcg/actuation Hfa Aerosol Inhaler 2 puff INHALATION QID PRN (Reason: Shortness Of Breath) RF: 0 dicyclomine 20 mg tablet 20 mg PO .COMPLEX RF: 0 Discontinued mirtazapine 15 mg tablet 15 mg PO HS PRNRF: 0 Stand-Alone Forms: [facility] Discharge Orders: Discharge Order (Routine); Ordered 05/19/19 Ordered By: Bradley Bergman Admission Data Admit Date/Time: 05/03/19 08:57 Attending Provider: Mateo Hughes Admit Provider: Mateo Hughes Primary Care Provider: Armando Espana Other Providers: Woody Pascal Service: Telemetry Medical Other Interventions: Discharge Summary Assessment (RN) Last Done: 05/19/19 10:14 Pending Studies at Discharge: No DC Date/Time DO NOT enter until pt leaves facility: 05/19/19 11:32
== END 2019-05-19 11:32 | disposition home or self-care (01) | DRG 330 ==
LOC: ASU 07:18 → 2S 08:57 → 2W 05-05 09:03